=== PATIENT | female | born 1970 | race Caucasian/White ===

== ENCOUNTER 2018-05-02 08:07 | Emergency (ER) | payer OTHER, SELFPAY ==
[2018-05-02 08:14] VITALS: BP 140/83; PULSE 111; RESP 16; TEMP 36.5; O2SAT 100; BMI 35.0
--- NOTE | 2018-05-02 08:33 | ED.NAVMDI ---
HPI - Nausea/Vomiting/Diarrhea General Chief complaint: Nausea/Vomiting/Diarrhea Stated complaint: ABDOMINAL PAIN,NAUSEA,DIARRHEA Time Seen by Provider: 05/02/18 08:32 Source: patient and family Mode of arrival: ambulatory Limitations: no limitations History of Present Illness HPI Narrative: Patient states she has been having copious, runny diarrhea for the last 6 days. She states she has also been quite nauseated and vomited yesterday; however she has been able to hold down p.o. in between. She states her legs have also began to cramp. Patient states she has a longstanding history of GI issues, including multiple bowel obstructions for which no cause has been found. She had an idiopathic lower GI bleed in recent years, as well. She has had a Meckel's diverticulum removed, as well as a laparoscopic coli. She states she believes that her appendix was probably removed at the time her Meckel's was removed. She has had multiple EGDs and colonoscopies which have shown no abnormalities. She states she still has her female reproductive organs, and has had a recent episode of vaginal bleeding which lasted a few hours. She states that this is unusual, as she has had any lesion for uterus, and no longer has periods. Patient denies any other problems with her reproductive organs. Patient denies any blood in her stool. 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 Patient states the etiology of her class was never determined, though she has had extensive hematologic evaluation for this. Patient does note that she is undergoing electroconvulsive therapy in [place], and receives propofol and etomidate on a weekly to twice weekly basis for her treatments; however she states she has never had any nausea or other problems from the anesthesia. Patient states that this episode of diarrhea feels different from previous GI issue she has had. She denies any history of Crohn's or ulcerative colitis; no recent travel or camping; no history of recent sick contacts. Patient and her significant other notes that their dog has been ill and vomiting, but are not sure if this is related. Patient has not been on any recent antibiotic courses. Patient reports cramping across her low abdomen, but states there is a focus of intense pain in her left lower quadrant. No history of diverticulitis. Patient states she has not had any exposure to suspect food. She states she has had a feeling of chills but no fevers that she knows of. complaint: nausea and diarrhea Severity: moderate Severity scale (1-10): 6 Pain Consistency: constant (waxing and waning) Relieving factors: none Exacerbating factors: none Related Data Home Medications Medication Instructions Recorded Confirmed acetaminophen 1,000 mg PO Q6H PRN 03/06/18 05/02/18 bupropion HCl [Wellbutrin SR] 300 mg PO BID 03/06/18 05/02/18 ibuprofen 800 mg PO TID PRN 03/06/18 05/02/18 cholecalciferol (vitamin D3) 1,000 unit PO BID 05/02/18 05/02/18 [Vitamin D3] fluticasone [Flonase Allergy 2 spray INTRANASAL BEDTIME 05/02/18 05/02/18 Relief] tizanidine [Zanaflex] 4 mg PO TID 05/02/18 05/02/18 warfarin 6 mg PO QPM 05/02/18 05/02/18 Previous Rx's Medication Instructions Recorded ondansetron HCl [Zofran] 4 mg PO Q4HP PRN #180 tab 02/05/17 gabapentin [Neurontin] 1,200 mg PO HS #180 tab 08/15/17 prazosin 5 mg capsule 15 mg PO HS #270 cap 01/02/18 lorazepam 2 mg tablet 2 mg PO QIDP PRN #120 tab 04/23/18 zolpidem 10 mg tablet 10 mg PO HS #90 tab 04/24/18 ondansetron [Zofran ODT] 8 mg PO TID PRN #30 tab 05/02/18 oxycodone-acetaminophen [Percocet] 2 tab PO Q4-6H PRN #20 tab 05/02/18 Allergies Allergy/AdvReac Type Severity Reaction Status Date / Time No Known Drug Allergies Allergy Verified 05/02/18 08:14 Review of Systems Review of Systems All systems reviewed & are unremarkable except as noted in HPI and below Constitutional Denies chills, Denies fever(s), Denies lethargy and Denies weakness Eyes Denies change in vision, Denies eye discharge, Denies irritation and Denies loss of vision ENT Ears, Nose, Mouth, and Throat: Denies change in voice, Denies neck pain and Denies sore throat Cardiovascular Denies chest pain, Denies irregular heart rhythm, Denies lightheadedness, Denies palpitations, Denies dyspnea, Denies dyspnea on exertion and Denies orthopnea Respiratory Denies cough, Denies dyspnea, Denies dyspnea on exertion and Denies wheezing Gastrointestinal Gastrointestinal: Reports abdominal pain, Denies change in bowel habits, Reports diarrhea, Reports nausea and Reports vomiting Genitourinary Denies hematuria, Denies flank pain, Denies urinary incontinence and Denies urinary urgency Musculoskeletal Reports muscle cramps (Bilateral lower legs) and Denies neck pain Integumentary/Breasts Denies pruritus, Denies erythema, Denies rash and Denies wounds Neurologic Denies confusion, Denies loss of vision and Denies weakness Psychiatric Denies anxiety, Denies confusion, Denies depression, Denies homicidal ideation and Denies suicidal ideation Endocrine Denies palpitations Hematologic/Lymphatic Denies easy bruising Allergic/Immunologic Denies wheezing [facility] Medical History High risk medication use (Chronic) Bipolar 1 disorder, depressed (Chronic) PTSD (post-traumatic stress disorder) (Chronic) Panic attacks (Chronic) Chronic anemia (Chronic) Surgical History History of bowel resection History of gastric bypass Status post cardiac catheterization Status post cholecystectomy Family History Father Age: 73 Hypertension Mother Age: 70 Hyperlipidemia Mental health problem Social History Smoking Status: Never smoker Exam Initial Vital Signs Initial Vital Signs: Vital Signs Temperature 97.7 F 05/02/18 08:14 Pulse Rate 111 H 05/02/18 08:14 Respiratory Rate 16 05/02/18 08:14 Blood Pressure 140/83 05/02/18 08:14 Pulse Oximetry 100 05/02/18 08:14 Const General: cooperative and well developed Nutritional Appearance: well nourished Orientation: alert, awake, oriented x3 and not confused Other: Patient appears to be in some discomfort. HENMT Head: normocephalic and atraumatic Ears: external ears normal and TM's normal bilaterally Nose: external nose normal and No nasal discharge Face and sinus: sinuses nontender, face symmetric, no sinus tenderness and No dry mucous membranes Mouth: oral mucosae normal and moist mucous membranes Teeth and gingiva: dentition normal Throat: tonsils normal and uvula midline Eyes General: appearance normal, both eyes and all related structures Eyelids: eyelids normal Conjunctivae: conjunctivae normal Sclera: sclerae normal Pupils: PERRL EOM: EOM intact bilaterally Neck Neck: normal visual inspection, trachea midline, No lymphadenopathy, No midline deformity and No JVD Lymphatic: No lymphedema Chest Chest: normal inspection of the chest Resp Effort & Inspection: normal respiratory effort, able to speak in complete sentences, no respiratory distress and no use of accessory muscles Auscultation: clear to auscultation bilaterally, no rales, no rhonchi and no wheezes Cardio Rate: regular rate Rhythm: regular rhythm Heart Sounds: no click, no gallops, no murmurs and no rubs Pulses: normal peripheral pulses GI Inspection: non-distended Palpation: soft, no hepatosplenomegaly, No guarding, No pulsatile mass and tender Auscultation: normal bowel sounds Back/Spine/Pelvis Back: No CVA tenderness Cervical Spine: cervical ROM normal and No pain with cervical ROM Thoracic/Lumbar Spine: thoracic and lumbar spine normal to inspection Skin General: no rashes or lesions noted, No jaundice and No petechiae Neuro General: alert, oriented x3, gait normal and no focal motor deficits Speech: speech normal Extrem General: full ROM, no clubbing, cyanosis or edema, no pedal edema and no calf tenderness Psych Appearance: well kempt Mental Status: mental status grossly normal Attitude: cooperative Thought Content: normal and suicidality Judgment: judgment good Course Course Narrative: Patient was treated symptomatically, and in consider patient for complex medical history, she was worked up with laboratory studies, urinalysis, stool studies and imaging. Orders Ordered: Discontinued Medications Acetaminophen/Codeine Phosphate (Tylenol Oral Mylene 120-12 Mg/5 Ml) 10 ml PO NOW ONE Stop: 05/02/18 12:36 Last Admin: 05/02/18 13:58 Dose: Hydromorphone HCl (Dilaudid) 1 mg IV NOW ONE Stop: 05/02/18 09:04 Last Admin: 05/02/18 09:24 Dose: 1 mg Hydromorphone HCl (Dilaudid) 1 mg IV NOW ONE Stop: 05/02/18 10:54 Last Admin: 05/02/18 11:00 Dose: 1 mg Sodium Chloride (Normal Saline 0.9%) 1,000 mls @ 1,000 mls/hr IV BOLUS ONE Stop: 05/02/18 10:02 Last Infusion: 05/02/18 10:24 Dose: 0 mls/hr Admin: 05/02/18 09:24 Dose: 1,000 mls/hr Ondansetron HCl 8 mg/ Sodium (Chloride) 54 mls @ 216 mls/hr IV NOW ONE Stop: 05/02/18 09:04 Last Infusion: 05/02/18 09:55 Dose: 0 mls/hr Admin: 05/02/18 09:24 Dose: 216 mls/hr Ondansetron HCl (Zofran) 8 mg IV NOW ONE Stop: 05/02/18 12:50 Last Admin: 05/02/18 12:54 Dose: 8 mg Prednisone (Deltasone) 60 mg PO NOW ONE Stop: 05/02/18 12:36 Last Admin: 05/02/18 13:58 Dose: Vital Signs - 8 hr 05/02/18 08:14 Temperature 97.7 F Pulse Rate 111 H Respiratory Rate 16 Blood Pressure 140/83 Pulse Oximetry 100 MDM - Nausea/Vomiting/Diarrhea Medical Records Attestation: I reviewed the patient's medical records. Lab Data Attestation: I reviewed the patient's lab results. Result diagrams: 05/02/18 10:40 05/02/18 10:40 Lab Results 05/02/18 05/02/18 05/02/18 Range/Units 10:10 10:40 10:40 WBC 6.8 (4.5-11.0) X10^3/uL RBC 4.26 (4.0-5.2) X10^6/uL Hgb 11.8 L (12.0-16.0) g/dL Hct 36.6 (36-46) % MCV 85.9 (80-100) fL MCH 27.7 (26-34) PG MCHC 32.3 (30-36) % RDW 20.0 H (11.6-14.8) % Plt Count 232 (150-400) X10^3/uL Neut % (Auto) 70.2 (50-75) % Lymph % (Auto) 18.1 L (25-40) % White % (Auto) 6.1 (3-14) % Eos % (Auto) 5.2 H (2-4) % Baso % (Auto) 0.4 (0-2) % Neut # (Auto) 4800 (4201-5382) /uL PT 42.3 H (10.1-12.7) SECONDS INR 3.8 H (0.9-1.3) Sodium 144 (137-145) mmol/L Potassium 4.0 (3.4-5.1) mmol/L Chloride 112 H (98-107) mmol/L Carbon Dioxide 23 (22-32) mmol/L BUN 8 (7-17) mg/dL Creatinine 0.80 (0.52-1.04) mg/dL Estimated GFR > 60.0 (>60) mL/min BUN/Creatinine Ratio 10.0 (6-22) Glucose 84 (70-100) mg/dL Calcium 8.4 (8.4-10.2) mg/dL Total Bilirubin 0.2 (0.2-1.3) mg/dL AST 21 (14-36) IU/L ALT 28 (9-52) IU/L Alkaline Phosphatase 75 (38-126) U/L Total Protein 6.7 (6.3-8.2) g/dL Albumin 3.8 (3.5-5.0) g/dL Globulin 2.9 (1.7-4.1) g/dL Albumin/Globulin Ratio 1.3 (1.0-2.8) Urine Color Urine Appearance Urine pH (4.5-8.0) Ur Specific Doon (1.000-1.035) Urine Protein (Negative) Urine Glucose (UA) (Normal) g/dL Urine Ketones (NEGATIVE) Urine Occult Blood (Negative) Urine Nitrate (Negative) Urine Bilirubin (NEGATIVE) Urine Urobilinogen (0.2) E.U./dL Ur Leukocyte Esterase (NEGATIVE) Urine RBC (0-5/HPF) Urine WBC (0-5/HPF) Ur Squamous Epith Cells Urine Bacteria (None) Ur Culture Indicated? Micro UA Comment 05/02/18 Range/Units 10:40 WBC (4.5-11.0) X10^3/uL RBC (4.0-5.2) X10^6/uL Hgb (12.0-16.0) g/dL Hct (36-46) % MCV (80-100) fL MCH (26-34) PG MCHC (30-36) % RDW (11.6-14.8) % Plt Count (150-400) X10^3/uL Neut % (Auto) (50-75) % Lymph % (Auto) (25-40) % White % (Auto) (3-14) % Eos % (Auto) (2-4) % Baso % (Auto) (0-2) % Neut # (Auto) (3716-5743) /uL PT (10.1-12.7) SECONDS INR (0.9-1.3) Sodium (137-145) mmol/L Potassium (3.4-5.1) mmol/L Chloride (98-107) mmol/L Carbon Dioxide (22-32) mmol/L BUN (7-17) mg/dL Creatinine (0.52-1.04) mg/dL Estimated GFR (>60) mL/min BUN/Creatinine Ratio (6-22) Glucose (70-100) mg/dL Calcium (8.4-10.2) mg/dL Total Bilirubin (0.2-1.3) mg/dL AST (14-36) IU/L ALT (9-52) IU/L Alkaline Phosphatase (38-126) U/L Total Protein (6.3-8.2) g/dL Albumin (3.5-5.0) g/dL Globulin (1.7-4.1) g/dL Albumin/Globulin Ratio (1.0-2.8) Urine Color Straw Urine Appearance Clear Urine pH 5.5 (4.5-8.0) Ur Specific Doon <=1.005 (1.000-1.035) Urine Protein Negative (Negative) Urine Glucose (UA) Negative (Normal) g/dL Urine Ketones Negative (NEGATIVE) Urine Occult Blood Negative (Negative) Urine Nitrate Negative (Negative) Urine Bilirubin Negative (NEGATIVE) Urine Urobilinogen 0.2 (0.2) E.U./dL Ur Leukocyte Esterase Negative (NEGATIVE) Urine RBC None seen (0-5/HPF) Urine WBC None seen (0-5/HPF) Ur Squamous Epith Cells 0-1 /hpf Urine Bacteria Few (2-10) H (None) Ur Culture Indicated? Cult not indicated Micro UA Comment Not Reportable Imaging Data CT scan - abdomen: Radiologist's impression: [address] [address] [address] Scan Report Signed Patient: Maryuri Bauer [facility]#: [id number] : 1970Acct:[id number] Age/Sex: 47 / FDate of Service: 05/02/18 Loc: ED Accession Number: [id number] Procedure: CT abdomen pelvis w con Ordering Provider: Keira Alberto MD PROCEDURE: CT ABDOMEN PELVIS W CON INDICATIONS: LLQ abdominal pain TECHNIQUE: After the administration of oral and intravenous contrast, 5 mm thick sections acquired from the diaphragms to the symphysis. 5 mm thick coronal and sagittal reformats were performed. For radiation dose reduction, the following was used: automated exposure control, adjustment of mA and/or kV according to patient size. COMPARISON: [facility], CT, ABDOMEN/PELVIS WITH CONTRAST, 11/16/2015, 21:29. [facility], CT, ABDOMEN/PELVIS WITH CONTRAST, 10/22/2015, 19:33. [facility], CT, ABDOMEN/PELVIS WITH CONTRAST, 05/15/2015, 17:02. FINDINGS: Image quality: Diagnostic. ABDOMEN: Lung bases: Mild scarring versus atelectasis is identified within the lung bases. Heart size is normal. Solid organs: Liver is normal in size and enhancement. Gallbladder is surgically absent. Biliary system is non-dilated. Pancreas enhances normally. Spleen is normal in size and enhancement. No adrenal nodules. Kidneys are normal in size and enhancement, without hydronephrosis. Peritoneum and bowel: Postoperative changes of the stomach are present related to previous gastric bypass surgery. The proximal and distal anastomotic areas appear to be within normal limits. Also is postoperative change identified involving the small bowel within the right midabdomen. Moderate residual stool is identified throughout the colon. Partial distended small bowel loops are identified. There is no free fluid, loculated fluid collection or free air. Nodes and vessels: No retroperitoneal or mesenteric adenopathy. Aorta and inferior vena cava are normal in caliber. Miscellaneous: No ventral hernias. PELVIS: Genitourinary: The urinary bladder is decompressed. However, there is prominence of the bladder wall. The uterus and left ovary are normal in size. There is a low-attenuation ovoid lesion identified involving the right ovary, which measures up to approximately 3.3 cm which is new since the prior study. Miscellaneous: No inguinal hernias or adenopathy. There is no loculated fluid collection. Bones: No suspicious bony lesions. No vertebral body compression fractures. A spinal stimulator apparatus is identified with the lead extending to at least the dorsal aspect of the knee T8 level. Her mild degenerative changes of the hips and sacroiliac joints. Age-appropriate degenerative changes of the spine are present. IMPRESSION: 1. No convincing acute findings of the abdomen or pelvis to explain the patient's left lower quadrant pain. 2. Postoperative changes of the bowel. No evidence of a complete bowel obstruction. 3. Colonic constipation. 4. Right ovarian cyst. Followup imaging in 2-3 months is recommended to document resolution. 5. Mild prominence of the urinary bladder also doubtful significance typically clinically to exclude cystitis. Dictated by: Sanford Tran M.D. on 05/02/2018 at 10:27 Approved by: Sanford Tran M.D. on 05/02/2018 at 10:31 [facility] Narrative Medical decision making narrative: patient was worked up extensively and treated symptomatically. No definite cause of her symptoms was discovered, and workup was unremarkable. We have discussed the need for stool sample, which patient will try to give at home. patient is feeling a little better and is stable for discharge. We have discussed the usual indications for return, as well as symptomatic management. Discharge Plan Departure Patient Disposition: Home Clinical Impression: Diarrhea, Abdominal pain Discharge Date/Time: 05/02/18 13:20 Interventions: ED Discharge Assessment Last Done: 05/02/18 13:20 Instructions: DI for Viral Gastroenteritis -- Adult Prescriptions: New ondansetron [Zofran ODT] 4 mg tablet,disintegrating 8 mg PO TID PRN (Reason: nausea and vomiting) Qty: 30 RF: 0 oxycodone-acetaminophen [Percocet] 5-325 mg tablet 2 tab PO Q4-6H PRN (Reason: pain) Qty: 20 RF: 0 No Action lorazepam 2 mg tablet 2 mg PO QIDP PRN (Reason: anxiety) Qty: 120 RF: 1 ondansetron HCl [Zofran] 4 MG tablet 4 mg PO Q4HP PRNQty: 180 RF: 5 gabapentin [Neurontin] 600 MG tablet 1,200 mg PO HS Qty: 180 RF: 1 prazosin [Minipress] 5 mg capsule 15 mg PO HS Qty: 270 RF: 1 zolpidem 10 mg tablet 10 mg PO HS Qty: 90 RF: 1 ibuprofen 800 mg Tablet 800 mg PO TID PRN (Reason: Pain (Scale Score 4-6)) RF: 0 acetaminophen 500 mg Tablet 1,000 mg PO Q6H PRN (Reason: Pain, Mild) RF: 0 bupropion HCl [Wellbutrin SR] 150 mg tablet extended release 12 hr 300 mg PO BID RF: 0 cholecalciferol (vitamin D3) [Vitamin D3] 1,000 unit Capsule 1,000 unit PO BID RF: 0 warfarin 6 mg tablet 6 mg PO QPM RF: 0 fluticasone [Flonase Allergy Relief] 50 mcg/actuation spray,suspension 2 spray Intranasal BEDTIME RF: 0 tizanidine [Zanaflex] 4 mg capsule 4 mg PO TID RF: 0 Referrals: Yunier Keys MD [Primary Care Provider] -
[2018-05-02 09:00] VITALS: BP 121/87; PULSE 101; O2SAT 97
--- NOTE | 2018-05-02 09:16 | ED_ITS ---
HPI - Nausea/Vomiting/Diarrhea General Chief complaint: Nausea/Vomiting/Diarrhea Stated complaint: ABDOMINAL PAIN,NAUSEA,DIARRHEA Time Seen by Provider: 05/02/18 08:32 Source: patient and family Mode of arrival: ambulatory Limitations: no limitations History of Present Illness HPI Narrative: Patient states she has been having copious, runny diarrhea for the last 6 days. She states she has also been quite nauseated and vomited yesterday; however she has been able to hold down p.o. in between. She states her legs have also began to cramp. Patient states she has a longstanding history of GI issues, including multiple bowel obstructions for which no cause has been found. She had an idiopathic lower GI bleed in recent years, as well. She has had a Meckel's diverticulum removed, as well as a laparoscopic coli. She states she believes that her appendix was probably removed at the time her Meckel's was removed. She has had multiple EGDs and colonoscopies which have shown no abnormalities. She states she still has her female reproductive organs , and has had a recent episode of vaginal bleeding which lasted a few hours. She states that this is unusual, as she has had any lesion for uterus, and no longer has periods. Patient denies any other problems with her reproductive organs. Patient denies any blood in her stool. 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 Patient states the etiology of her class was never determined, though she has had extensive hematologic evaluation for this. Patient does note that she is undergoing electroconvulsive therapy in [place] , and receives propofol and etomidate on a weekly to twice weekly basis for her treatments; however she states she has never had any nausea or other problems from the anesthesia. Patient states that this episode of diarrhea feels different from previous GI issue she has had. She denies any history of Crohn' s or ulcerative colitis; no recent travel or camping; no history of recent sick contacts. Patient and her significant other notes that their dog has been ill and vomiting, but are not sure if this is related. Patient has not been on any recent antibiotic courses. Patient reports cramping across her low abdomen, but states there is a focus of intense pain in her left lower quadrant. No history of diverticulitis. Patient states she has not had any exposure to suspect food. She states she has had a feeling of chills but no fevers that she knows of. complaint: nausea and diarrhea Severity: moderate Severity scale (1-10): 6 Pain Consistency: constant (waxing and waning) Relieving factors: none Exacerbating factors: none Related Data Home Medications Medication Instructions Recorded Confirmed acetaminophen 1,000 mg PO Q6H PRN 03/06/18 05/02/18 bupropion HCl [Wellbutrin SR] 300 mg PO BID 03/06/18 05/02/18 ibuprofen 800 mg PO TID PRN 03/06/18 05/02/18 cholecalciferol (vitamin D3) 1,000 unit PO BID 05/02/18 05/02/18 [Vitamin D3] fluticasone [Flonase Allergy 2 spray INTRANASAL BEDTIME 05/02/18 05/02/18 Relief] tizanidine [Zanaflex] 4 mg PO TID 05/02/18 05/02/18 warfarin 6 mg PO QPM 05/02/18 05/02/18 Previous Rx's Medication Instructions Recorded ondansetron HCl [Zofran] 4 mg PO Q4HP PRN #180 tab 02/05/17 gabapentin [Neurontin] 1,200 mg PO HS #180 tab 08/15/17 prazosin 5 mg capsule 15 mg PO HS #270 cap 01/02/18 lorazepam 2 mg tablet 2 mg PO QIDP PRN #120 tab 04/23/18 zolpidem 10 mg tablet 10 mg PO HS #90 tab 04/24/18 ondansetron [Zofran ODT] 8 mg PO TID PRN #30 tab 05/02/18 oxycodone-acetaminophen [Percocet] 2 tab PO Q4-6H PRN #20 tab 05/02/18 Allergies Allergy/AdvReac Type Severity Reaction Status Date / Time No Known Drug Allergies Allergy Verified 05/02/18 08:14 Review of Systems Review of Systems All systems reviewed & are unremarkable except as noted in HPI and below Constitutional Denies chills, Denies fever(s), Denies lethargy and Denies weakness Eyes Denies change in vision, Denies eye discharge, Denies irritation and Denies loss of vision ENT Ears, Nose, Mouth, and Throat: Denies change in voice, Denies neck pain and Denies sore throat Cardiovascular Denies chest pain, Denies irregular heart rhythm, Denies lightheadedness, Denies palpitations, Denies dyspnea, Denies dyspnea on exertion and Denies orthopnea Respiratory Denies cough, Denies dyspnea, Denies dyspnea on exertion and Denies wheezing Gastrointestinal Gastrointestinal: Reports abdominal pain, Denies change in bowel habits, Reports diarrhea, Reports nausea and Reports vomiting Genitourinary Denies hematuria, Denies flank pain, Denies urinary incontinence and Denies urinary urgency Musculoskeletal Reports muscle cramps (Bilateral lower legs) and Denies neck pain Integumentary/Breasts Denies pruritus, Denies erythema, Denies rash and Denies wounds Neurologic Denies confusion, Denies loss of vision and Denies weakness Psychiatric Denies anxiety, Denies confusion, Denies depression, Denies homicidal ideation and Denies suicidal ideation Endocrine Denies palpitations Hematologic/Lymphatic Denies easy bruising Allergic/Immunologic Denies wheezing [facility] Medical History High risk medication use (Chronic) Bipolar 1 disorder, depressed (Chronic) PTSD (post-traumatic stress disorder) (Chronic) Panic attacks (Chronic) Chronic anemia (Chronic) Surgical History History of bowel resection History of gastric bypass Status post cardiac catheterization Status post cholecystectomy Family History Father Age: 73 Hypertension Mother Age: 70 Hyperlipidemia Mental health problem Social History Smoking Status: Never smoker Exam Initial Vital Signs Initial Vital Signs: Vital Signs Temperature 97.7 F 05/02/18 08:14 Pulse Rate 111 H 05/02/18 08:14 Respiratory Rate 16 05/02/18 08:14 Blood Pressure 140/83 05/02/18 08:14 Pulse Oximetry 100 05/02/18 08:14 Const General: cooperative and well developed Nutritional Appearance: well nourished Orientation: alert, awake, oriented x3 and not confused Other: Patient appears to be in some discomfort. HENMT Head: normocephalic and atraumatic Ears: external ears normal and TM's normal bilaterally Nose: external nose normal and No nasal discharge Face and sinus: sinuses nontender, face symmetric, no sinus tenderness and No dry mucous membranes Mouth: oral mucosae normal and moist mucous membranes Teeth and gingiva: dentition normal Throat: tonsils normal and uvula midline Eyes General: appearance normal, both eyes and all related structures Eyelids: eyelids normal Conjunctivae: conjunctivae normal Sclera: sclerae normal Pupils: PERRL EOM: EOM intact bilaterally Neck Neck: normal visual inspection, trachea midline, No lymphadenopathy, No midline deformity and No JVD Lymphatic: No lymphedema Chest Chest: normal inspection of the chest Resp Effort & Inspection: normal respiratory effort, able to speak in complete sentences, no respiratory distress and no use of accessory muscles Auscultation: clear to auscultation bilaterally, no rales, no rhonchi and no wheezes Cardio Rate: regular rate Rhythm: regular rhythm Heart Sounds: no click, no gallops, no murmurs and no rubs Pulses: normal peripheral pulses GI Inspection: non-distended Palpation: soft, no hepatosplenomegaly, No guarding, No pulsatile mass and tender Auscultation: normal bowel sounds Back/Spine/Pelvis Back: No CVA tenderness Cervical Spine: cervical ROM normal and No pain with cervical ROM Thoracic/Lumbar Spine: thoracic and lumbar spine normal to inspection Skin General: no rashes or lesions noted, No jaundice and No petechiae Neuro General: alert, oriented x3, gait normal and no focal motor deficits Speech: speech normal Extrem General: full ROM, no clubbing, cyanosis or edema, no pedal edema and no calf tenderness Psych Appearance: well kempt Mental Status: mental status grossly normal Attitude: cooperative Thought Content: normal and suicidality Judgment: judgment good Course Course Narrative: Patient was treated symptomatically, and in consider patient for complex medical history, she was worked up with laboratory studies, urinalysis, stool studies and imaging. Orders Ordered: Discontinued Medications Acetaminophen/Codeine Phosphate (Tylenol Oral Mylene 120-12 Mg/5 Ml) 10 ml PO NOW ONE Stop: 05/02/18 12:36 Last Admin: 05/02/18 13:58 Dose: Hydromorphone HCl (Dilaudid) 1 mg IV NOW ONE Stop: 05/02/18 09:04 Last Admin: 05/02/18 09:24 Dose: 1 mg Hydromorphone HCl (Dilaudid) 1 mg IV NOW ONE Stop: 05/02/18 10:54 Last Admin: 05/02/18 11:00 Dose: 1 mg Sodium Chloride (Normal Saline 0.9%) 1,000 mls @ 1,000 mls/hr IV BOLUS ONE Stop: 05/02/18 10:02 Last Infusion: 05/02/18 10:24 Dose: 0 mls/hr Admin: 05/02/18 09:24 Dose: 1,000 mls/hr Ondansetron HCl 8 mg/ Sodium (Chloride) 54 mls @ 216 mls/hr IV NOW ONE Stop: 05/02/18 09:04 Last Infusion: 05/02/18 09:55 Dose: 0 mls/hr Admin: 05/02/18 09:24 Dose: 216 mls/hr Ondansetron HCl (Zofran) 8 mg IV NOW ONE Stop: 05/02/18 12:50 Last Admin: 05/02/18 12:54 Dose: 8 mg Prednisone (Deltasone) 60 mg PO NOW ONE Stop: 05/02/18 12:36 Last Admin: 05/02/18 13:58 Dose: Vital Signs - 8 hr 05/02/18 08:14 Temperature 97.7 F Pulse Rate 111 H Respiratory Rate 16 Blood Pressure 140/83 Pulse Oximetry 100 MDM - Nausea/Vomiting/Diarrhea Medical Records Attestation: I reviewed the patient's medical records. Lab Data Attestation: I reviewed the patient's lab results. Result diagrams: 05/02/18 10:40 05/02/18 10:40 Lab Results 05/02/18 05/02/18 05/02/18 Range/Units 10:10 10:40 10:40 WBC 6.8 (4.5-11.0) X10^3/uL RBC 4.26 (4.0-5.2) X10^6/uL Hgb 11.8 L (12.0-16.0) g/dL Hct 36.6 (36-46) % MCV 85.9 (80-100) fL MCH 27.7 (26-34) PG MCHC 32.3 (30-36) % RDW 20.0 H (11.6-14.8) % Plt Count 232 (150-400) X10^3/uL Neut % (Auto) 70.2 (50-75) % Lymph % (Auto) 18.1 L (25-40) % Wilcox % (Auto) 6.1 (3-14) % Eos % (Auto) 5.2 H (2-4) % Baso % (Auto) 0.4 (0-2) % Neut # (Auto) 4800 (1677-0338) /uL PT 42.3 H (10.1-12.7) SECONDS INR 3.8 H (0.9-1.3) Sodium 144 (137-145) mmol/L Potassium 4.0 (3.4-5.1) mmol/L Chloride 112 H (98-107) mmol/L Carbon Dioxide 23 (22-32) mmol/L BUN 8 (7-17) mg/dL Creatinine 0.80 (0.52-1.04) mg/dL Estimated GFR > 60.0 (>60) mL/min BUN/Creatinine Ratio 10.0 (6-22) Glucose 84 (70-100) mg/dL Calcium 8.4 (8.4-10.2) mg/dL Total Bilirubin 0.2 (0.2-1.3) mg/dL AST 21 (14-36) IU/L ALT 28 (9-52) IU/L Alkaline Phosphatase 75 (38-126) U/L Total Protein 6.7 (6.3-8.2) g/dL Albumin 3.8 (3.5-5.0) g/dL Globulin 2.9 (1.7-4.1) g/dL Albumin/Globulin Ratio 1.3 (1.0-2.8) Urine Color Urine Appearance Urine pH (4.5-8.0) Ur Specific Wallace (1.000-1.035) Urine Protein (Negative) Urine Glucose (UA) (Normal) g/dL Urine Ketones (NEGATIVE) Urine Occult Blood (Negative) Urine Nitrate (Negative) Urine Bilirubin (NEGATIVE) Urine Urobilinogen (0.2) E.U./dL Ur Leukocyte Esterase (NEGATIVE) Urine RBC (0-5/HPF) Urine WBC (0-5/HPF) Ur Squamous Epith Cells Urine Bacteria (None) Ur Culture Indicated? Micro UA Comment 05/02/18 Range/Units 10:40 WBC (4.5-11.0) X10^3/uL RBC (4.0-5.2) X10^6/uL Hgb (12.0-16.0) g/dL Hct (36-46) % MCV (80-100) fL MCH (26-34) PG MCHC (30-36) % RDW (11.6-14.8) % Plt Count (150-400) X10^3/uL Neut % (Auto) (50-75) % Lymph % (Auto) (25-40) % Wilcox % (Auto) (3-14) % Eos % (Auto) (2-4) % Baso % (Auto) (0-2) % Neut # (Auto) (0679-0277) /uL PT (10.1-12.7) SECONDS INR (0.9-1.3) Sodium (137-145) mmol/L Potassium (3.4-5.1) mmol/L Chloride (98-107) mmol/L Carbon Dioxide (22-32) mmol/L BUN (7-17) mg/dL Creatinine (0.52-1.04) mg/dL Estimated GFR (>60) mL/min BUN/Creatinine Ratio (6-22) Glucose (70-100) mg/dL Calcium (8.4-10.2) mg/dL Total Bilirubin (0.2-1.3) mg/dL AST (14-36) IU/L ALT (9-52) IU/L Alkaline Phosphatase (38-126) U/L Total Protein (6.3-8.2) g/dL Albumin (3.5-5.0) g/dL Globulin (1.7-4.1) g/dL Albumin/Globulin Ratio (1.0-2.8) Urine Color Straw Urine Appearance Clear Urine pH 5.5 (4.5-8.0) Ur Specific Wallace <=1.005 (1.000-1.035) Urine Protein Negative (Negative) Urine Glucose (UA) Negative (Normal) g/dL Urine Ketones Negative (NEGATIVE) Urine Occult Blood Negative (Negative) Urine Nitrate Negative (Negative) Urine Bilirubin Negative (NEGATIVE) Urine Urobilinogen 0.2 (0.2) E.U./dL Ur Leukocyte Esterase Negative (NEGATIVE) Urine RBC None seen (0-5/HPF) Urine WBC None seen (0-5/HPF) Ur Squamous Epith Cells 0-1 /hpf Urine Bacteria Few (2-10) H (None) Ur Culture Indicated? Cult not indicated Micro UA Comment Not Reportable Imaging Data CT scan - abdomen: Radiologist's impression: [address] [address] [address] Scan Report Signed Patient: Maryuri Bauer [facility]#: [id number] : 1970Acct:[id number] Age/Sex: 47 / FDate of Service: 05/02/18 Loc: ED Accession Number: [id number] Procedure: CT abdomen pelvis w con Ordering Provider: Keira Alberto MD PROCEDURE: CT ABDOMEN PELVIS W CON INDICATIONS: LLQ abdominal pain TECHNIQUE: After the administration of oral and intravenous contrast, 5 mm thick sections acquired from the diaphragms to the symphysis. 5 mm thick coronal and sagittal reformats were performed. For radiation dose reduction, the following was used: automated exposure control, adjustment of mA and/or kV according to patient size. COMPARISON: [facility], CT, ABDOMEN/PELVIS WITH CONTRAST, 11/16/2015, 21: 29. [facility], CT, ABDOMEN/PELVIS WITH CONTRAST, 10/22/2015, 19:33. [facility], CT, ABDOMEN/PELVIS WITH CONTRAST, 05/15/2015, 17:02. FINDINGS: Image quality: Diagnostic. ABDOMEN: Lung bases: Mild scarring versus atelectasis is identified within the lung bases. Heart size is normal. Solid organs: Liver is normal in size and enhancement. Gallbladder is surgically absent. Biliary system is non-dilated. Pancreas enhances normally. Spleen is normal in size and enhancement. No adrenal nodules. Kidneys are normal in size and enhancement, without hydronephrosis. Peritoneum and bowel: Postoperative changes of the stomach are present related to previous gastric bypass surgery. The proximal and distal anastomotic areas appear to be within normal limits. Also is postoperative change identified involving the small bowel within the right midabdomen. Moderate residual stool is identified throughout the colon. Partial distended small bowel loops are identified. There is no free fluid, loculated fluid collection or free air. Nodes and vessels: No retroperitoneal or mesenteric adenopathy. Aorta and inferior vena cava are normal in caliber. Miscellaneous: No ventral hernias. PELVIS: Genitourinary: The urinary bladder is decompressed. However, there is prominence of the bladder wall. The uterus and left ovary are normal in size. There is a low- attenuation ovoid lesion identified involving the right ovary, which measures up to approximately 3.3 cm which is new since the prior study. Miscellaneous: No inguinal hernias or adenopathy. There is no loculated fluid collection. Bones: No suspicious bony lesions. No vertebral body compression fractures. A spinal stimulator apparatus is identified with the lead extending to at least the dorsal aspect of the knee T8 level. Her mild degenerative changes of the hips and sacroiliac joints. Age-appropriate degenerative changes of the spine are present. IMPRESSION: 1. No convincing acute findings of the abdomen or pelvis to explain the patient 's left lower quadrant pain. 2. Postoperative changes of the bowel. No evidence of a complete bowel obstruction. 3. Colonic constipation. 4. Right ovarian cyst. Followup imaging in 2-3 months is recommended to document resolution. 5. Mild prominence of the urinary bladder also doubtful significance typically clinically to exclude cystitis. Dictated by: Sanford Tran M.D. on 05/02/2018 at 10:27 Approved by: Sanford Tran M.D. on 05/02/2018 at 10:31 [facility] Narrative Medical decision making narrative: patient was worked up extensively and treated symptomatically. No definite cause of her symptoms was discovered, and workup was unremarkable. We have discussed the need for stool sample, which patient will try to give at home. patient is feeling a little better and is stable for discharge. We have discussed the usual indications for return, as well as symptomatic management. Discharge Plan Departure Patient Disposition: Home Clinical Impression: Diarrhea, Abdominal pain Discharge Date/Time: 05/02/18 13:20 Interventions: ED Discharge Assessment Last Done: 05/02/18 13:20 Instructions: DI for Viral Gastroenteritis -- Adult Prescriptions: New ondansetron [Zofran ODT] 4 mg tablet,disintegrating 8 mg PO TID PRN (Reason: nausea and vomiting) Qty: 30 RF: 0 oxycodone-acetaminophen [Percocet] 5-325 mg tablet 2 tab PO Q4-6H PRN (Reason: pain) Qty: 20 RF: 0 No Action lorazepam 2 mg tablet 2 mg PO QIDP PRN (Reason: anxiety) Qty: 120 RF: 1 ondansetron HCl [Zofran] 4 MG tablet 4 mg PO Q4HP PRNQty: 180 RF: 5 gabapentin [Neurontin] 600 MG tablet 1,200 mg PO HS Qty: 180 RF: 1 prazosin [Minipress] 5 mg capsule 15 mg PO HS Qty: 270 RF: 1 zolpidem 10 mg tablet 10 mg PO HS Qty: 90 RF: 1 ibuprofen 800 mg Tablet 800 mg PO TID PRN (Reason: Pain (Scale Score 4-6)) RF: 0 acetaminophen 500 mg Tablet 1,000 mg PO Q6H PRN (Reason: Pain, Mild) RF: 0 bupropion HCl [Wellbutrin SR] 150 mg tablet extended release 12 hr 300 mg PO BID RF: 0 cholecalciferol (vitamin D3) [Vitamin D3] 1,000 unit Capsule 1,000 unit PO BID RF: 0 warfarin 6 mg tablet 6 mg PO QPM RF: 0 fluticasone [Flonase Allergy Relief] 50 mcg/actuation spray,suspension 2 spray Intranasal BEDTIME RF: 0 tizanidine [Zanaflex] 4 mg capsule 4 mg PO TID RF: 0 Referrals: Yunier Keys MD [Primary Care Provider] -
[2018-05-02] MEDS: SODIUM CHLORIDE 0.9% 1,000 ML 1000 ML IV (09:24)
[2018-05-02] MEDS: ONDANSETRON 8 MG in SODIUM CHLORIDE 0.9% 50 ML 216 ML IV (09:24)
[2018-05-02] MEDS: HYDROMORPHONE 1 MG INJ IV ×2 (09:24→11:00)
[2018-05-02 09:47] VITALS: BP 132/75; PULSE 107; RESP 16; O2SAT 98
[2018-05-02 09:49] LABS: Add Manual Diff / Slide Review NO; Basophils Percent Auto 0.4 % (0-2); Eosinophils Percent Auto 5.2 % (2-4); Hematocrit 36.6 % (36-46); Hemoglobin 11.8 g/dL (12.0-16.0); Lymphocytes Percent Auto 18.1 % (25-40); Mean Corpuscular HGB Conc 32.3 % (30-36); Mean Corpuscular Hemoglobin 27.7 PG (26-34); Mean Corpuscular Volume 85.9 fL (80-100); Monocytes Percent Auto 6.1 % (3-14); Neutrophils Absolute Auto 4800 /uL (3000-5900); Neutrophils Percent Auto 70.2 % (50-75); Platelet Count 232 X10^3/uL (150-400); Red Blood Cell Count 4.26 X10^6/uL (4.0-5.2); White Blood Cell Count 6.8 X10^3/uL (4.5-11.0)
[2018-05-02 10:00] VITALS: BP 132/65; PULSE 97; O2SAT 100
[2018-05-02 10:03] LABS: Alanine Aminotransferase 28 IU/L (9-52); Albumin 3.8 g/dL (3.5-5.0); Albumin Globulin Ratio 1.3 (1.0-2.8); Alkaline Phosphatase 75 U/L (38-126); Aspartate Aminotransferase 21 IU/L (14-36); Bilirubin Total 0.2 mg/dL (0.2-1.3); Blood Urea Nitrogen 8 mg/dL (7-17); Calcium 8.4 mg/dL (8.4-10.2); Carbon Dioxide 23 mmol/L (22-32); Chloride 112 mmol/L (98-107); Estimated Glomerular Filt Rate > 60.0 mL/min (>60); Globulin 2.9 g/dL (1.7-4.1); Glucose 84 mg/dL (70-100); HEMOLYSIS < 15 (0-50); Sodium 144 mmol/L (137-145); Total Protein 6.7 g/dL (6.3-8.2)
[2018-05-02 10:22] LABS: INR 3.8 (0.9-1.3); Prothrombin Time 42.3 SECONDS (10.1-12.7)
--- NOTE | 2018-05-02 10:31 | DI.CT.S_ITS ---
PROCEDURE: CT ABDOMEN PELVIS W CON INDICATIONS: LLQ abdominal pain TECHNIQUE: After the administration of oral and intravenous contrast, 5 mm thick sections acquired from the diaphragms to the symphysis. 5 mm thick coronal and sagittal reformats were performed. For radiation dose reduction, the following was used: automated exposure control, adjustment of mA and/or kV according to patient size. COMPARISON: [facility], CT, ABDOMEN/PELVIS WITH CONTRAST, 11/16/2015, 21:29. [facility], CT, ABDOMEN/PELVIS WITH CONTRAST, 10/22/2015, 19:33. [facility], CT, ABDOMEN/PELVIS WITH CONTRAST, 05/15/2015, 17:02. FINDINGS: Image quality: Diagnostic. ABDOMEN: Lung bases: Mild scarring versus atelectasis is identified within the lung bases. Heart size is normal. Solid organs: Liver is normal in size and enhancement. Gallbladder is surgically absent. Biliary system is non-dilated. Pancreas enhances normally. Spleen is normal in size and enhancement. No adrenal nodules. Kidneys are normal in size and enhancement, without hydronephrosis. Peritoneum and bowel: Postoperative changes of the stomach are present related to previous gastric bypass surgery. The proximal and distal anastomotic areas appear to be within normal limits. Also is postoperative change identified involving the small bowel within the right midabdomen. Moderate residual stool is identified throughout the colon. Partial distended small bowel loops are identified. There is no free fluid, loculated fluid collection or free air. Nodes and vessels: No retroperitoneal or mesenteric adenopathy. Aorta and inferior vena cava are normal in caliber. Miscellaneous: No ventral hernias. PELVIS: Genitourinary: The urinary bladder is decompressed. However, there is prominence of the bladder wall. The uterus and left ovary are normal in size. There is a low-attenuation ovoid lesion identified involving the right ovary, which measures up to approximately 3.3 cm which is new since the prior study. Miscellaneous: No inguinal hernias or adenopathy. There is no loculated fluid collection. Bones: No suspicious bony lesions. No vertebral body compression fractures. A spinal stimulator apparatus is identified with the lead extending to at least the dorsal aspect of the knee T8 level. Her mild degenerative changes of the hips and sacroiliac joints. Age-appropriate degenerative changes of the spine are present. IMPRESSION: 1. No convincing acute findings of the abdomen or pelvis to explain the patient's left lower quadrant pain. 2. Postoperative changes of the bowel. No evidence of a complete bowel obstruction. 3. Colonic constipation. 4. Right ovarian cyst. Followup imaging in 2-3 months is recommended to document resolution. 5. Mild prominence of the urinary bladder also doubtful significance typically clinically to exclude cystitis. Dictated by: Sanford Tran M.D. on 05/02/2018 at 10:27 Approved by: Sanford Tran M.D. on 05/02/2018 at 10:31
[2018-05-02 10:47] LABS: RBC Urine None Seen (0-5/HPF); WBC Urine None Seen (0-5/HPF)
[2018-05-02 10:52] LABS: Appearance Urine UA CLEAR; Bilirubin Urine UA NEGATIVE (NEGATIVE); Glucose Urine UA NEGATIVE (Normal); Ketones Urine UA NEGATIVE (NEGATIVE); Leukocyte Esterase Urine UA NEGATIVE (NEGATIVE); Nitrite Urine UA Negative (Negative); Occult Blood Urine UA NEGATIVE (Negative); Protein Urine UA NEGATIVE (Negative); Specific Gravity Urine UA <=1.005 (1.000-1.035); Urobilinogen Urine UA 0.2 E.U./dL (0.2); pH Urine UA 5.5 (4.5-8.0)
[2018-05-02 10:57] LABS: Color Urine UA Straw
[2018-05-02 11:02] VITALS: BP 138/69; PULSE 101; RESP 16; O2SAT 97
[2018-05-02 11:10] LABS: Squamous Epithelial Cell Urine 0-1 /HPF
[2018-05-02 11:11] LABS: Bacteria Urine Few (2-10); Culture Indicated Urine Cult Not Indicated
[2018-05-02] MEDS: ONDANSETRON 4 MG/2 ML INJ 8 MG IV (12:54)
--- NOTE | 2018-05-02 13:02 | PC.NURSE ---
medicated for comfort, and request by pt to have more zofran, dr gaspar aware and verbal order meds. pain free at this time.
--- NOTE | 2018-05-02 14:02 | PC.NURSE ---
flushed with heparin, tolerated well, no active bleeding, drsg applied.
== END 2018-05-02 13:20 | disposition home or self-care (01) ==
PROVIDERS: Emergency Provider Emergency Medicine; Family Provider Student in an Organized Health Care Education/Training Program; PCP Student in an Organized Health Care Education/Training Program
DX: R10.9 Unspecified abdominal pain (principal); R19.7 Diarrhea, unspecified
CPT/HCPCS: 36591; 74177; 80053; 81001; 85025; 85610; 96361; 96365; 96375; 96376; 99283; 99285; J1170; J2405; Q9967

== ENCOUNTER 2018-05-17 06:36 | Emergency (ER) | payer OTHER, SELFPAY ==
[2018-05-17 06:43] VITALS: BP 139/89; PULSE 105; RESP 18; TEMP 36.4; O2SAT 100; BMI 34.2
--- NOTE | 2018-05-17 06:54 | ED.ABDPAIN ---
HPI - Abdominal Pain <Art Mccall DO - Last Filed: 05/17/18 22:23> General Chief Complaint: Abdominal Pain Stated Complaint: nausea, vomitting, abdominal pain Time Seen by Provider: 05/17/18 06:40 Source: patient and family Mode of arrival: ambulatory Limitations: no limitations History of Present Illness HPI narrative: 47-year-old female nonsmoker with extensive bowel history presents with significant other and a chief complaint of severe left-sided abdominal pain which started last night at about 10:00 p.m.. She has had multiple episodes of significant watery diarrhea in the absence of any bleeding. She has had multiple episodes of nausea and vomiting and attempted to take oral Zofran and Tylenol but vomited them up. She denies any provocation but admits to sitting up with her knees pulled her chest helped her symptoms. She states that she has generalized abdominal cramping the tends to build until a bowel movement at which point that improves, however the severe left-sided abdominal pain is unchanged. She has a history of a small-bowel obstruction secondary to a Meckel's diverticulum and this feels somewhat similar. She was here 2 weeks ago under similar circumstances and was diagnosed with gastroenteritis. She denies any recent travel, use of antibiotics, exposure to ill persons, or bad foods. 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 Over the course of the morning she has developed a significant headache. She has a port in place due to poor vascular access and occasional need for iron infusions MD complaint: abdominal pain Onset (ago): hour(s) Pain Consistency: constant Location: LLQ Severity: severe Quality: cramping, stabbing and aching Radiation: none Migration to: no migration Relieving factors: other (Knees pulled to chest) Associated symptoms: nausea, vomiting and diarrhea Related Data Home Medications Medication Instructions Recorded Confirmed acetaminophen 1,000 mg PO Q6H PRN 03/06/18 05/17/18 bupropion HCl [Wellbutrin SR] 300 mg PO BID 03/06/18 05/17/18 ibuprofen 800 mg PO TID PRN 03/06/18 05/17/18 cholecalciferol (vitamin D3) 1,000 unit PO BID 05/02/18 05/17/18 [Vitamin D3] fluticasone [Flonase Allergy 2 spray INTRANASAL BEDTIME 05/02/18 05/17/18 Relief] tizanidine [Zanaflex] 4 mg PO TID 05/02/18 05/17/18 lamotrigine 150 mg PO BID 05/17/18 05/17/18 Previous Rx's Medication Instructions Recorded gabapentin [Neurontin] 1,200 mg PO HS #180 tab 08/15/17 prazosin 5 mg capsule 15 mg PO HS #270 cap 01/02/18 lorazepam 2 mg tablet 2 mg PO QIDP PRN #120 tab 04/23/18 zolpidem 10 mg tablet 10 mg PO HS #90 tab 04/24/18 ondansetron [Zofran ODT] 8 mg PO TID PRN #30 tab 05/02/18 oxycodone-acetaminophen [Percocet] 2 tab PO Q4-6H PRN #20 tab 05/02/18 warfarin 6 mg tablet 6 mg PO QPM #90 tab 05/16/18 Allergies Allergy/AdvReac Type Severity Reaction Status Date / Time No Known Drug Allergies Allergy Verified 05/02/18 08:14 Review of Systems <Art Mccall DO - Last Filed: 05/17/18 22:23> Review of Systems All systems reviewed & are unremarkable except as noted in HPI and below Constitutional Denies chills, Denies fever(s), Denies lethargy and Denies weakness Eyes Denies change in vision, Denies eye discharge, Denies irritation and Denies loss of vision ENT Ears, Nose, Mouth, and Throat: Denies change in voice, Denies neck pain and Denies sore throat Cardiovascular Denies chest pain, Denies irregular heart rhythm, Denies lightheadedness, Denies palpitations, Denies dyspnea, Denies dyspnea on exertion and Denies orthopnea Respiratory Denies cough, Denies dyspnea, Denies dyspnea on exertion and Denies wheezing Gastrointestinal Gastrointestinal: Denies abdominal pain, Denies change in bowel habits, Denies diarrhea, Denies nausea and Denies vomiting Genitourinary Denies hematuria, Denies flank pain, Denies urinary incontinence and Denies urinary urgency Musculoskeletal Denies neck pain Integumentary/Breasts Denies pruritus, Denies erythema, Denies rash and Denies wounds Neurologic Denies confusion, Denies loss of vision and Denies weakness Psychiatric Denies anxiety, Denies confusion, Denies depression, Denies homicidal ideation and Denies suicidal ideation Endocrine Denies palpitations Hematologic/Lymphatic Denies easy bruising Allergic/Immunologic Denies wheezing Exam <Art Mccall, DO - Last Filed: 05/17/18 22:23> Narrative Exam Narrative: Pleasant 47-year-old female obviously uncomfortable, sitting with her knees to her chest, clutching her left lower abdomen Initial Vital Signs Initial Vital Signs: Vital Signs Temperature 97.5 F L 05/17/18 06:43 Pulse Rate 105 H 05/17/18 06:43 Respiratory Rate 18 05/17/18 06:43 Blood Pressure 139/89 05/17/18 06:43 Pulse Oximetry 100 05/17/18 06:43 Const General: cooperative, well developed and acute distress Nutritional Appearance: well nourished Orientation: alert, awake, oriented x3 and not confused HENMT Head: normocephalic and atraumatic Ears: external ears normal and TM's normal bilaterally Nose: external nose normal and No nasal discharge Face and sinus: sinuses nontender, face symmetric, no sinus tenderness and No dry mucous membranes Mouth: oral mucosae normal and moist mucous membranes Teeth and gingiva: dentition normal Throat: tonsils normal and uvula midline Chest Chest: normal inspection of the chest Resp Effort & Inspection: normal respiratory effort, able to speak in complete sentences, no respiratory distress and no use of accessory muscles Auscultation: clear to auscultation bilaterally, no rales, no rhonchi and no wheezes GI Inspection: non-distended Palpation: soft, no hepatosplenomegaly, No guarding, No pulsatile mass and tender (Severe left-sided abdominal pain) Auscultation: normal bowel sounds Back/Spine/Pelvis Back: No CVA tenderness Cervical Spine: cervical ROM normal and No pain with cervical ROM Thoracic/Lumbar Spine: thoracic and lumbar spine normal to inspection Skin General: no rashes or lesions noted, No jaundice and No petechiae Neuro General: alert, oriented x3, gait normal and no focal motor deficits Speech: speech normal <Michelle Orozco, DO - Last Filed: 05/17/18 17:11> Narrative Exam Narrative: GENERAL: Alert and oriented x three, well-nourished, well-appearing female sitting on the edge of the bed in mild distress. HEENT: Head normocephalic, atraumatic, EOMI, pupils reactive, face symmetric, moist mucous membranes NECK: Supple, full range of motion CARDIOVASCULAR: Regular rate and rhythm without murmurs, rubs or gallops. RESPIRATORY: Breath sounds equal bilaterally, no wheezes rales or rhonchi. ABDOMEN: Soft, positive for left lower quadrant tenderness, no rebound, rigidity or mass.. Hyperactive bowel sounds all 4 quadrants. : No CVA tenderness EXTREMITIES: Normal range of motion, no clubbing or edema. Neurovascularly intact NEUROLOGICAL: Cranial nerves II through XII grossly intact. Moving all extremities SKIN: Warm, dry, no petechiae, no rashes or lesions. No bruising ecchymosis of or flank. Initial Vital Signs Initial Vital Signs: Vital Signs Temperature 97.5 F L 05/17/18 06:43 Pulse Rate 105 H 05/17/18 06:43 Respiratory Rate 18 05/17/18 06:43 Blood Pressure 139/89 05/17/18 06:43 Pulse Oximetry 100 05/17/18 06:43 Course <Art Mccall, - Last Filed: 05/17/18 22:23> Course Narrative: I've performed initial history and physical and ordered workup. Sgn out to Dr. Orozco whom will complete the work up. Orders Ordered: Discontinued Medications Diphenhydramine HCl (Benadryl) 50 mg IV NOW ONE Stop: 05/17/18 09:50 Last Admin: 05/17/18 09:53 Dose: 50 mg Hydromorphone HCl (Dilaudid) 0.5 mg IV NOW ONE Stop: 05/17/18 06:54 Last Admin: 05/17/18 07:32 Dose: 0.5 mg Hydromorphone HCl (Dilaudid) 0.5 mg IV NOW ONE Stop: 05/17/18 08:23 Last Admin: 05/17/18 08:27 Dose: 0.5 mg Sodium Chloride (Normal Saline 0.9%) 1,000 mls @ 1,000 mls/hr IV BOLUS ONE Stop: 05/17/18 07:52 Last Infusion: 05/17/18 09:01 Dose: 0 mls/hr Admin: 05/17/18 07:32 Dose: 1,000 mls/hr Ketorolac Tromethamine (Toradol) 30 mg IV NOW ONE Stop: 05/17/18 08:59 Last Admin: 05/17/18 09:04 Dose: 30 mg Lorazepam (Ativan) 0.5 mg IV NOW ONE Stop: 05/17/18 08:59 Last Admin: 05/17/18 09:04 Dose: 0.5 mg Ondansetron HCl (Zofran) 4 mg IV NOW ONE Stop: 05/17/18 06:54 Last Admin: 05/17/18 07:32 Dose: 4 mg Ondansetron HCl (Zofran) 4 mg IV NOW ONE Stop: 05/17/18 08:16 Last Admin: 05/17/18 08:19 Dose: 4 mg Pantoprazole Sodium (Protonix) 40 mg IV NOW ONE Stop: 05/17/18 06:54 Last Admin: 05/17/18 07:32 Dose: 40 mg Prochlorperazine (Compazine) 10 mg IV NOW ONE Stop: 05/17/18 09:50 Last Admin: 05/17/18 09:53 Dose: 10 mg Vital Signs - 8 hr 05/17/18 09:13 05/17/18 11:04 05/17/18 11:38 Pulse Rate 80 82 67 Respiratory Rate 18 16 16 Blood Pressure [Left Arm] 132/74 115/57 L 115/58 L Pulse Oximetry 99 100 100 <Michelle Orozco, - Last Filed: 05/17/18 17:11> Orders Ordered: Discontinued Medications Diphenhydramine HCl (Benadryl) 50 mg IV NOW ONE Stop: 05/17/18 09:50 Last Admin: 05/17/18 09:53 Dose: 50 mg Hydromorphone HCl (Dilaudid) 0.5 mg IV NOW ONE Stop: 05/17/18 06:54 Last Admin: 05/17/18 07:32 Dose: 0.5 mg Hydromorphone HCl (Dilaudid) 0.5 mg IV NOW ONE Stop: 05/17/18 08:23 Last Admin: 05/17/18 08:27 Dose: 0.5 mg Sodium Chloride (Normal Saline 0.9%) 1,000 mls @ 1,000 mls/hr IV BOLUS ONE Stop: 05/17/18 07:52 Last Infusion: 05/17/18 09:01 Dose: 0 mls/hr Admin: 05/17/18 07:32 Dose: 1,000 mls/hr Ketorolac Tromethamine (Toradol) 30 mg IV NOW ONE Stop: 05/17/18 08:59 Last Admin: 05/17/18 09:04 Dose: 30 mg Lorazepam (Ativan) 0.5 mg IV NOW ONE Stop: 05/17/18 08:59 Last Admin: 05/17/18 09:04 Dose: 0.5 mg Ondansetron HCl (Zofran) 4 mg IV NOW ONE Stop: 05/17/18 06:54 Last Admin: 05/17/18 07:32 Dose: 4 mg Ondansetron HCl (Zofran) 4 mg IV NOW ONE Stop: 05/17/18 08:16 Last Admin: 05/17/18 08:19 Dose: 4 mg Pantoprazole Sodium (Protonix) 40 mg IV NOW ONE Stop: 05/17/18 06:54 Last Admin: 05/17/18 07:32 Dose: 40 mg Prochlorperazine (Compazine) 10 mg IV NOW ONE Stop: 05/17/18 09:50 Last Admin: 05/17/18 09:53 Dose: 10 mg Vital Signs - 8 hr 05/17/18 09:13 05/17/18 11:04 05/17/18 11:38 Pulse Rate 80 82 67 Respiratory Rate 18 16 16 Blood Pressure [Left Arm] 132/74 115/57 L 115/58 L Pulse Oximetry 99 100 100 MDM - Abdominal Pain <Art Mccall DO - Last Filed: 05/17/18 22:23> Lab Data Result diagrams: 05/17/18 07:25 05/17/18 07:25 Lab Results 05/17/18 05/17/18 05/17/18 Range/Units 07:25 07:25 07:25 WBC 3.7 L (4.5-11.0) X10^3/uL RBC 4.34 (4.0-5.2) X10^6/uL Hgb 12.2 (12.0-16.0) g/dL Hct 37.4 (36-46) % MCV 86.1 (80-100) fL MCH 28.0 (26-34) PG MCHC 32.5 (30-36) % RDW 19.7 H (11.6-14.8) % Plt Count 226 (150-400) X10^3/uL Neut % (Auto) 43.9 L (50-75) % Lymph % (Auto) 36.4 (25-40) % [place] % (Auto) 8.3 (3-14) % Eos % (Auto) 10.7 H (2-4) % Baso % (Auto) 0.7 (0-2) % Neut # (Auto) 1600 L (0006-7585) /uL PT (10.1-12.7) SECONDS INR (0.9-1.3) Sodium 141 (137-145) mmol/L Potassium 3.7 (3.4-5.1) mmol/L Chloride 108 H (98-107) mmol/L Carbon Dioxide 23 (22-32) mmol/L BUN 11 (7-17) mg/dL Creatinine 0.70 (0.52-1.04) mg/dL Estimated GFR > 60.0 (>60) mL/min BUN/Creatinine Ratio 15.7 (6-22) Glucose 90 (70-100) mg/dL Calcium 8.6 (8.4-10.2) mg/dL Total Bilirubin 0.2 (0.2-1.3) mg/dL AST 22 (14-36) IU/L ALT 24 (9-52) IU/L Alkaline Phosphatase 74 (38-126) U/L Total Protein 6.6 (6.3-8.2) g/dL Albumin 3.9 (3.5-5.0) g/dL Globulin 2.7 (1.7-4.1) g/dL Albumin/Globulin Ratio 1.4 (1.0-2.8) Lipase 60 (23-300) U/L Blood Type A Positive Antibody Screen Negative 05/17/18 Range/Units 07:25 WBC (4.5-11.0) X10^3/uL RBC (4.0-5.2) X10^6/uL Hgb (12.0-16.0) g/dL Hct (36-46) % MCV (80-100) fL MCH (26-34) PG MCHC (30-36) % RDW (11.6-14.8) % Plt Count (150-400) X10^3/uL Neut % (Auto) (50-75) % Lymph % (Auto) (25-40) % [place] % (Auto) (3-14) % Eos % (Auto) (2-4) % Baso % (Auto) (0-2) % Neut # (Auto) (7505-9814) /uL PT 27.3 H (10.1-12.7) SECONDS INR 2.5 H (0.9-1.3) Sodium (137-145) mmol/L Potassium (3.4-5.1) mmol/L Chloride (98-107) mmol/L Carbon Dioxide (22-32) mmol/L BUN (7-17) mg/dL Creatinine (0.52-1.04) mg/dL Estimated GFR (>60) mL/min BUN/Creatinine Ratio (6-22) Glucose (70-100) mg/dL Calcium (8.4-10.2) mg/dL Total Bilirubin (0.2-1.3) mg/dL AST (14-36) IU/L ALT (9-52) IU/L Alkaline Phosphatase (38-126) U/L Total Protein (6.3-8.2) g/dL Albumin (3.5-5.0) g/dL Globulin (1.7-4.1) g/dL Albumin/Globulin Ratio (1.0-2.8) Lipase (23-300) U/L Blood Type Antibody Screen Point of care testing: Point of Care Testing Test Results Negative Urine Dip Bedside Urine Glucose Negative Bedside Urine Bilirubin - Negative Bedside Urine Ketone - Negative Urine Specific [place] 1.010 Bedside Urine Occult Blood - Negative Bedside Urine pH 6.0 Bedside Urine Protein - Negative Bedside Urine Urobilinogen - Negative Bedside Urine Nitrite - Negative Bedside Urine Leukocytes - Negative Esterase <Michelle Orozco, DO - Last Filed: 05/17/18 17:11> Lab Data Attestation: I reviewed the patient's lab results. Lab Results 05/17/18 05/17/18 05/17/18 Range/Units 07:25 07:25 07:25 WBC 3.7 L (4.5-11.0) X10^3/uL RBC 4.34 (4.0-5.2) X10^6/uL Hgb 12.2 (12.0-16.0) g/dL Hct 37.4 (36-46) % MCV 86.1 (80-100) fL MCH 28.0 (26-34) PG MCHC 32.5 (30-36) % RDW 19.7 H (11.6-14.8) % Plt Count 226 (150-400) X10^3/uL Neut % (Auto) 43.9 L (50-75) % Lymph % (Auto) 36.4 (25-40) % [place] % (Auto) 8.3 (3-14) % Eos % (Auto) 10.7 H (2-4) % Baso % (Auto) 0.7 (0-2) % Neut # (Auto) 1600 L (8817-8265) /uL PT (10.1-12.7) SECONDS INR (0.9-1.3) Sodium 141 (137-145) mmol/L Potassium 3.7 (3.4-5.1) mmol/L Chloride 108 H (98-107) mmol/L Carbon Dioxide 23 (22-32) mmol/L BUN 11 (7-17) mg/dL Creatinine 0.70 (0.52-1.04) mg/dL Estimated GFR > 60.0 (>60) mL/min BUN/Creatinine Ratio 15.7 (6-22) Glucose 90 (70-100) mg/dL Calcium 8.6 (8.4-10.2) mg/dL Total Bilirubin 0.2 (0.2-1.3) mg/dL AST 22 (14-36) IU/L ALT 24 (9-52) IU/L Alkaline Phosphatase 74 (38-126) U/L Total Protein 6.6 (6.3-8.2) g/dL Albumin 3.9 (3.5-5.0) g/dL Globulin 2.7 (1.7-4.1) g/dL Albumin/Globulin Ratio 1.4 (1.0-2.8) Lipase 60 (23-300) U/L Blood Type A Positive Antibody Screen Negative 05/17/18 Range/Units 07:25 WBC (4.5-11.0) X10^3/uL RBC (4.0-5.2) X10^6/uL Hgb (12.0-16.0) g/dL Hct (36-46) % MCV (80-100) fL MCH (26-34) PG MCHC (30-36) % RDW (11.6-14.8) % Plt Count (150-400) X10^3/uL Neut % (Auto) (50-75) % Lymph % (Auto) (25-40) % [place] % (Auto) (3-14) % Eos % (Auto) (2-4) % Baso % (Auto) (0-2) % Neut # (Auto) (4266-2570) /uL PT 27.3 H (10.1-12.7) SECONDS INR 2.5 H (0.9-1.3) Sodium (137-145) mmol/L Potassium (3.4-5.1) mmol/L Chloride (98-107) mmol/L Carbon Dioxide (22-32) mmol/L BUN (7-17) mg/dL Creatinine (0.52-1.04) mg/dL Estimated GFR (>60) mL/min BUN/Creatinine Ratio (6-22) Glucose (70-100) mg/dL Calcium (8.4-10.2) mg/dL Total Bilirubin (0.2-1.3) mg/dL AST (14-36) IU/L ALT (9-52) IU/L Alkaline Phosphatase (38-126) U/L Total Protein (6.3-8.2) g/dL Albumin (3.5-5.0) g/dL Globulin (1.7-4.1) g/dL Albumin/Globulin Ratio (1.0-2.8) Lipase (23-300) U/L Blood Type Antibody Screen Point of care testing: Point of Care Testing Test Results Negative Urine Dip Bedside Urine Glucose Negative Bedside Urine Bilirubin - Negative Bedside Urine Ketone - Negative Urine Specific [place] 1.010 Bedside Urine Occult Blood - Negative Bedside Urine pH 6.0 Bedside Urine Protein - Negative Bedside Urine Urobilinogen - Negative Bedside Urine Nitrite - Negative Bedside Urine Leukocytes - Negative Esterase ABG Data Interpretation: Imaging Data AAS xray: Radiologist's impression: [address] [address] XRay Report Signed Patient: Maryuri Bauer [facility]#: [id number] : 1970Acct:[id number] Age/Sex: 47 / FDate of Service: 05/17/18 Loc: ED Accession Number: [id number] Procedure: XR acute abdomen series Ordering Provider: Art Mccall D.O. PROCEDURE: XR ACUTE ABDOMEN SERIES INDICATIONS: Abdominal pain, hx SBO TECHNIQUE: One view chest and two views of the abdomen were acquired. COMPARISON: [facility], CR, CHEST 1 VIEW, 04/04/2017, 11:48. FINDINGS: Surgical changes and devices: Left-sided Port-A-Cath extends to the upper margin of the superior vena cava, previously the case. What appears to be a pain control device and leads are seen in stable position with reference to recent prior CT scanning. Postsurgical clips left paraspinous abdomen.. Chest: Lungs are clear. Heart size is normal. No pleural effusions. No pneumoperitoneum. Abdomen: Bowel gas pattern is normal except for mild colonic obstipation. No suspicious calcifications. Visualized solid organ contours appear normal. Bones: No suspicious bony lesions. IMPRESSION: Nonspecific bowel gas pattern, mild colonic obstipation, no definite acute disease. Dictated by: Duong Bartlett M.D. on 05/17/2018 at 8:12 Approved by: Duong Bartlett M.D. on 05/17/2018 at 8:13 CT scan - abdomen: Radiologist's impression: [place] [address] CT Scan Report Signed Patient: Maryuri Bauer [facility]#: [id number] : 1970Acct:[id number] Age/Sex: 47 / FDate of Service: 05/17/18 Loc: ED Accession Number: [id number] Procedure: CT abdomen pelvis w con Ordering Provider: Michelle Orozco D.O. PROCEDURE: CT ABDOMEN PELVIS W CON INDICATIONS: LLQ pain, vomiting, diarrhea, similar 05/02/18 TECHNIQUE: After the administration of intravenous contrast, 5 mm thick sections acquired from the diaphragm to the symphysis. 5 mm coronal and sagittal reformats were acquired. For radiation dose reduction, the following was used: automated exposure control, adjustment of mA and/or kV according to patient size. COMPARISON: [facility], CT, ABDOMEN/PELVIS WITH CONTRAST, 05/15/2015, 17:02. [facility], CT, ABDOMEN/PELVIS WITH CONTRAST, 10/22/2015, 19:33. [facility], CT, ABDOMEN/PELVIS WITH CONTRAST, 11/16/2015, 21:29. [facility], CT, CT ABDOMEN PELVIS W CON, 05/02/2018, 10:33. FINDINGS: Image quality: Excellent. ABDOMEN: Lung bases: Lung bases are clear. Heart size is normal. Solid organs: Liver is normal in size and enhancement. Gallbladder has been removed. Biliary system is non dilated. Pancreas enhances normally. Spleen is normal in size and enhancement. No adrenal nodules. Kidneys demonstrate normal size and enhancement, without hydronephrosis. Peritoneum and bowel: There is a small hiatal hernia. Postoperative change is seen of the stomach and proximal small bowel, with the appearance of gastric bypass surgery. No dilated loops of small bowel are seen. No free air or significant free fluid can be seen. A mild to moderate amount of stool can be seen within the colon. Nodes and vessels: No retroperitoneal or mesenteric adenopathy by size criteria. Aorta and inferior vena cava are normal in size. Miscellaneous: No ventral hernias. PELVIS: Genitourinary: Bladder wall thickness is normal. Cystic changes are seen of the adnexal regions, which are slightly improved compared to the prior CT. Miscellaneous: No inguinal hernias or adenopathy. Left pelvic clips are seen. Bones: No suspicious bony lesions. No vertebral body compression fractures. A thoracic spine stimulator is seen. Mild levoconvex scoliotic curvature is noted. IMPRESSION: No acute abnormality is seen. Postoperative changes are seen, with gastric bypass surgery, cholecystectomy, and left pelvic clips. A thoracic spine stimulator is also seen. Slightly improved appearance of cystic foci involving the adnexal regions. Dictated by: Eric Chacko M.D. on 05/17/2018 at 9:19 Approved by: Eric Chacko M.D. on 05/17/2018 at 9:24 MDM Narrative Medical decision making narrative: Patient signed out to myself by Dr. Mccall, patient and I reviewed HPI, ROS and was re-examined. She continues to have pain, improved shortly with first dose of medication and just received second. Patient's CV she shows a low white blood cell count, left shift, INR is appropriate at 2.5, patient has a slightly elevated chloride but BMP is otherwise normal, lipase is also normal range. Patient's chest x-ray and abdomen did not show any clear findings of pain other than some constipation type changes. Patient's point of care urine shows a specific gravity of 1.010 with no findings of infection or blood. Discussed with patient and her significant other she does have a history of GI bleeds she states she has not had any black or tarry stools but did not with prior. She does QTC take for unprovoked pulmonary emboli. She is not having any chest pain or shortness of breath today. She is not having any syncope. We discussed repeat CT of abdomen and pelvis as she had 1 on the 02 of July which showed constipation but no other changes that were consistent with her acute symptoms. We did review risks versus benefits Um and elected to go ahead and get a repeat CT is her white count is low which could be consistent with infection. Patient is still having pain as well as some nausea although no longer retching here in the emergency department. Will try some Toradol along with Ativan for nausea as well as pain. CT does not show any acute cause, patient is doing better at this time and would like to return home. She has Zofran at home. I told her she could take Benadryl for nausea with that. She still has some Percocet from her last ER visit for pain. We discussed reasons to return. And need for follow-up and possible scope/EGD colonoscopy if she continues to have issues. Discharge Plan Departure Patient Disposition: Home Clinical Impression: Abdominal pain, Diarrhea Discharge Date/Time: 05/17/18 11:56 Interventions: ED Discharge Assessment Last Done: 05/17/18 11:55 Instructions: DI for Abdominal Pain-Adult Activity Restrictions/Additional Instructions: Follow-up with your primary care physician on Sunday. Call this afternoon for an appointment. Take medications as prescribed, these medications can make you sleepy do not drive, perform hazards activities or make any major decisions while taking them. Return to the emergency department for fevers greater than 100.4, persistent vomiting, syncope, chest pain or shortness of breath, rapidly increasing back or abdominal pain, black or bloody stools or other new or concerning symptoms. Prescriptions: No Action warfarin 6 mg tablet 6 mg PO QPM Qty: 90 RF: 0 lorazepam 2 mg tablet 2 mg PO QIDP PRN (Reason: anxiety) Qty: 120 RF: 1 gabapentin [Neurontin] 600 MG tablet 1,200 mg PO HS Qty: 180 RF: 1 prazosin [Minipress] 5 mg capsule 15 mg PO HS Qty: 270 RF: 1 zolpidem 10 mg tablet 10 mg PO HS Qty: 90 RF: 1 ibuprofen 800 mg Tablet 800 mg PO TID PRN (Reason: Pain (Scale Score 4-6)) RF: 0 acetaminophen 500 mg Tablet 1,000 mg PO Q6H PRN (Reason: Pain, Mild) RF: 0 bupropion HCl [Wellbutrin SR] 150 mg tablet extended release 12 hr 300 mg PO BID RF: 0 cholecalciferol (vitamin D3) [Vitamin D3] 1,000 unit Capsule 1,000 unit PO BID RF: 0 fluticasone [Flonase Allergy Relief] 50 mcg/actuation spray,suspension 2 spray Intranasal BEDTIME RF: 0 tizanidine [Zanaflex] 4 mg capsule 4 mg PO TID RF: 0 ondansetron [Zofran ODT] 4 mg tablet,disintegrating 8 mg PO TID PRN (Reason: nausea and vomiting) Qty: 30 RF: 0 oxycodone-acetaminophen [Percocet] 5-325 mg tablet 2 tab PO Q4-6H PRN (Reason: pain) Qty: 20 RF: 0 lamotrigine 150 mg Tablet 150 mg PO BID RF: 0
--- NOTE | 2018-05-17 07:00 | ED_ITS ---
HPI - Abdominal Pain <Art Mccall DO - Last Filed: 05/17/18 22:23> General Chief Complaint: Abdominal Pain Stated Complaint: nausea, vomitting, abdominal pain Time Seen by Provider: 05/17/18 06:40 Source: patient and family Mode of arrival: ambulatory Limitations: no limitations History of Present Illness HPI narrative: 47-year-old female nonsmoker with extensive bowel history presents with significant other and a chief complaint of severe left-sided abdominal pain which started last night at about 10:00 p.m.. She has had multiple episodes of significant watery diarrhea in the absence of any bleeding. She has had multiple episodes of nausea and vomiting and attempted to take oral Zofran and Tylenol but vomited them up. She denies any provocation but admits to sitting up with her knees pulled her chest helped her symptoms. She states that she has generalized abdominal cramping the tends to build until a bowel movement at which point that improves, however the severe left-sided abdominal pain is unchanged. She has a history of a small-bowel obstruction secondary to a Meckel's diverticulum and this feels somewhat similar. She was here 2 weeks ago under similar circumstances and was diagnosed with gastroenteritis. She denies any recent travel, use of antibiotics, exposure to ill persons, or bad foods. 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 Over the course of the morning she has developed a significant headache. She has a port in place due to poor vascular access and occasional need for iron infusions MD complaint: abdominal pain Onset (ago): hour(s) Pain Consistency: constant Location: LLQ Severity: severe Quality: cramping, stabbing and aching Radiation: none Migration to: no migration Relieving factors: other (Knees pulled to chest) Associated symptoms: nausea, vomiting and diarrhea Related Data Home Medications Medication Instructions Recorded Confirmed acetaminophen 1,000 mg PO Q6H PRN 03/06/18 05/17/18 bupropion HCl [Wellbutrin SR] 300 mg PO BID 03/06/18 05/17/18 ibuprofen 800 mg PO TID PRN 03/06/18 05/17/18 cholecalciferol (vitamin D3) 1,000 unit PO BID 05/02/18 05/17/18 [Vitamin D3] fluticasone [Flonase Allergy 2 spray INTRANASAL BEDTIME 05/02/18 05/17/18 Relief] tizanidine [Zanaflex] 4 mg PO TID 05/02/18 05/17/18 lamotrigine 150 mg PO BID 05/17/18 05/17/18 Previous Rx's Medication Instructions Recorded gabapentin [Neurontin] 1,200 mg PO HS #180 tab 08/15/17 prazosin 5 mg capsule 15 mg PO HS #270 cap 01/02/18 lorazepam 2 mg tablet 2 mg PO QIDP PRN #120 tab 04/23/18 zolpidem 10 mg tablet 10 mg PO HS #90 tab 04/24/18 ondansetron [Zofran ODT] 8 mg PO TID PRN #30 tab 05/02/18 oxycodone-acetaminophen [Percocet] 2 tab PO Q4-6H PRN #20 tab 05/02/18 warfarin 6 mg tablet 6 mg PO QPM #90 tab 05/16/18 Allergies Allergy/AdvReac Type Severity Reaction Status Date / Time No Known Drug Allergies Allergy Verified 05/02/18 08:14 Review of Systems <Art Mccall DO - Last Filed: 05/17/18 22:23> Review of Systems All systems reviewed & are unremarkable except as noted in HPI and below Constitutional Denies chills, Denies fever(s), Denies lethargy and Denies weakness Eyes Denies change in vision, Denies eye discharge, Denies irritation and Denies loss of vision ENT Ears, Nose, Mouth, and Throat: Denies change in voice, Denies neck pain and Denies sore throat Cardiovascular Denies chest pain, Denies irregular heart rhythm, Denies lightheadedness, Denies palpitations, Denies dyspnea, Denies dyspnea on exertion and Denies orthopnea Respiratory Denies cough, Denies dyspnea, Denies dyspnea on exertion and Denies wheezing Gastrointestinal Gastrointestinal: Denies abdominal pain, Denies change in bowel habits, Denies diarrhea, Denies nausea and Denies vomiting Genitourinary Denies hematuria, Denies flank pain, Denies urinary incontinence and Denies urinary urgency Musculoskeletal Denies neck pain Integumentary/Breasts Denies pruritus, Denies erythema, Denies rash and Denies wounds Neurologic Denies confusion, Denies loss of vision and Denies weakness Psychiatric Denies anxiety, Denies confusion, Denies depression, Denies homicidal ideation and Denies suicidal ideation Endocrine Denies palpitations Hematologic/Lymphatic Denies easy bruising Allergic/Immunologic Denies wheezing Exam <Art Mccall, DO - Last Filed: 05/17/18 22:23> Narrative Exam Narrative: Pleasant 47-year-old female obviously uncomfortable, sitting with her knees to her chest, clutching her left lower abdomen Initial Vital Signs Initial Vital Signs: Vital Signs Temperature 97.5 F L 05/17/18 06:43 Pulse Rate 105 H 05/17/18 06:43 Respiratory Rate 18 05/17/18 06:43 Blood Pressure 139/89 05/17/18 06:43 Pulse Oximetry 100 05/17/18 06:43 Const General: cooperative, well developed and acute distress Nutritional Appearance: well nourished Orientation: alert, awake, oriented x3 and not confused HENMT Head: normocephalic and atraumatic Ears: external ears normal and TM's normal bilaterally Nose: external nose normal and No nasal discharge Face and sinus: sinuses nontender, face symmetric, no sinus tenderness and No dry mucous membranes Mouth: oral mucosae normal and moist mucous membranes Teeth and gingiva: dentition normal Throat: tonsils normal and uvula midline Chest Chest: normal inspection of the chest Resp Effort & Inspection: normal respiratory effort, able to speak in complete sentences, no respiratory distress and no use of accessory muscles Auscultation: clear to auscultation bilaterally, no rales, no rhonchi and no wheezes GI Inspection: non-distended Palpation: soft, no hepatosplenomegaly, No guarding, No pulsatile mass and tender (Severe left-sided abdominal pain) Auscultation: normal bowel sounds Back/Spine/Pelvis Back: No CVA tenderness Cervical Spine: cervical ROM normal and No pain with cervical ROM Thoracic/Lumbar Spine: thoracic and lumbar spine normal to inspection Skin General: no rashes or lesions noted, No jaundice and No petechiae Neuro General: alert, oriented x3, gait normal and no focal motor deficits Speech: speech normal <Michelle Orozco, DO - Last Filed: 05/17/18 17:11> Narrative Exam Narrative: GENERAL: Alert and oriented x three, well-nourished, well- appearing female sitting on the edge of the bed in mild distress. HEENT: Head normocephalic, atraumatic, EOMI, pupils reactive, face symmetric, moist mucous membranes NECK: Supple, full range of motion CARDIOVASCULAR: Regular rate and rhythm without murmurs, rubs or gallops. RESPIRATORY: Breath sounds equal bilaterally, no wheezes rales or rhonchi. ABDOMEN: Soft, positive for left lower quadrant tenderness, no rebound, rigidity or mass.. Hyperactive bowel sounds all 4 quadrants. : No CVA tenderness EXTREMITIES: Normal range of motion, no clubbing or edema. Neurovascularly intact NEUROLOGICAL: Cranial nerves II through XII grossly intact. Moving all extremities SKIN: Warm, dry, no petechiae, no rashes or lesions. No bruising ecchymosis of or flank. Initial Vital Signs Initial Vital Signs: Vital Signs Temperature 97.5 F L 05/17/18 06:43 Pulse Rate 105 H 05/17/18 06:43 Respiratory Rate 18 05/17/18 06:43 Blood Pressure 139/89 05/17/18 06:43 Pulse Oximetry 100 05/17/18 06:43 Course <Art Mccall, - Last Filed: 05/17/18 22:23> Course Narrative: I've performed initial history and physical and ordered workup. Sgn out to Dr. Orozco whom will complete the work up. Orders Ordered: Discontinued Medications Diphenhydramine HCl (Benadryl) 50 mg IV NOW ONE Stop: 05/17/18 09:50 Last Admin: 05/17/18 09:53 Dose: 50 mg Hydromorphone HCl (Dilaudid) 0.5 mg IV NOW ONE Stop: 05/17/18 06:54 Last Admin: 05/17/18 07:32 Dose: 0.5 mg Hydromorphone HCl (Dilaudid) 0.5 mg IV NOW ONE Stop: 05/17/18 08:23 Last Admin: 05/17/18 08:27 Dose: 0.5 mg Sodium Chloride (Normal Saline 0.9%) 1,000 mls @ 1,000 mls/hr IV BOLUS ONE Stop: 05/17/18 07:52 Last Infusion: 05/17/18 09:01 Dose: 0 mls/hr Admin: 05/17/18 07:32 Dose: 1,000 mls/hr Ketorolac Tromethamine (Toradol) 30 mg IV NOW ONE Stop: 05/17/18 08:59 Last Admin: 05/17/18 09:04 Dose: 30 mg Lorazepam (Ativan) 0.5 mg IV NOW ONE Stop: 05/17/18 08:59 Last Admin: 05/17/18 09:04 Dose: 0.5 mg Ondansetron HCl (Zofran) 4 mg IV NOW ONE Stop: 05/17/18 06:54 Last Admin: 05/17/18 07:32 Dose: 4 mg Ondansetron HCl (Zofran) 4 mg IV NOW ONE Stop: 05/17/18 08:16 Last Admin: 05/17/18 08:19 Dose: 4 mg Pantoprazole Sodium (Protonix) 40 mg IV NOW ONE Stop: 05/17/18 06:54 Last Admin: 05/17/18 07:32 Dose: 40 mg Prochlorperazine (Compazine) 10 mg IV NOW ONE Stop: 05/17/18 09:50 Last Admin: 05/17/18 09:53 Dose: 10 mg Vital Signs - 8 hr 05/17/18 09:13 05/17/18 11:04 05/17/18 11:38 Pulse Rate 80 82 67 Respiratory Rate 18 16 16 Blood Pressure [Left Arm] 132/74 115/57 L 115/58 L Pulse Oximetry 99 100 100 <Michelle Orozco, - Last Filed: 05/17/18 17:11> Orders Ordered: Discontinued Medications Diphenhydramine HCl (Benadryl) 50 mg IV NOW ONE Stop: 05/17/18 09:50 Last Admin: 05/17/18 09:53 Dose: 50 mg Hydromorphone HCl (Dilaudid) 0.5 mg IV NOW ONE Stop: 05/17/18 06:54 Last Admin: 05/17/18 07:32 Dose: 0.5 mg Hydromorphone HCl (Dilaudid) 0.5 mg IV NOW ONE Stop: 05/17/18 08:23 Last Admin: 05/17/18 08:27 Dose: 0.5 mg Sodium Chloride (Normal Saline 0.9%) 1,000 mls @ 1,000 mls/hr IV BOLUS ONE Stop: 05/17/18 07:52 Last Infusion: 05/17/18 09:01 Dose: 0 mls/hr Admin: 05/17/18 07:32 Dose: 1,000 mls/hr Ketorolac Tromethamine (Toradol) 30 mg IV NOW ONE Stop: 05/17/18 08:59 Last Admin: 05/17/18 09:04 Dose: 30 mg Lorazepam (Ativan) 0.5 mg IV NOW ONE Stop: 05/17/18 08:59 Last Admin: 05/17/18 09:04 Dose: 0.5 mg Ondansetron HCl (Zofran) 4 mg IV NOW ONE Stop: 05/17/18 06:54 Last Admin: 05/17/18 07:32 Dose: 4 mg Ondansetron HCl (Zofran) 4 mg IV NOW ONE Stop: 05/17/18 08:16 Last Admin: 05/17/18 08:19 Dose: 4 mg Pantoprazole Sodium (Protonix) 40 mg IV NOW ONE Stop: 05/17/18 06:54 Last Admin: 05/17/18 07:32 Dose: 40 mg Prochlorperazine (Compazine) 10 mg IV NOW ONE Stop: 05/17/18 09:50 Last Admin: 05/17/18 09:53 Dose: 10 mg Vital Signs - 8 hr 05/17/18 09:13 05/17/18 11:04 05/17/18 11:38 Pulse Rate 80 82 67 Respiratory Rate 18 16 16 Blood Pressure [Left Arm] 132/74 115/57 L 115/58 L Pulse Oximetry 99 100 100 MDM - Abdominal Pain <Art Mccall DO - Last Filed: 05/17/18 22:23> Lab Data Result diagrams: 05/17/18 07:25 05/17/18 07:25 Lab Results 05/17/18 05/17/18 05/17/18 Range/Units 07:25 07:25 07:25 WBC 3.7 L (4.5-11.0) X10^3/uL RBC 4.34 (4.0-5.2) X10^6/uL Hgb 12.2 (12.0-16.0) g/dL Hct 37.4 (36-46) % MCV 86.1 (80-100) fL MCH 28.0 (26-34) PG MCHC 32.5 (30-36) % RDW 19.7 H (11.6-14.8) % Plt Count 226 (150-400) X10^3/uL Neut % (Auto) 43.9 L (50-75) % Lymph % (Auto) 36.4 (25-40) % [place] % (Auto) 8.3 (3-14) % Eos % (Auto) 10.7 H (2-4) % Baso % (Auto) 0.7 (0-2) % Neut # (Auto) 1600 L (1780-9278) /uL PT (10.1-12.7) SECONDS INR (0.9-1.3) Sodium 141 (137-145) mmol/L Potassium 3.7 (3.4-5.1) mmol/L Chloride 108 H (98-107) mmol/L Carbon Dioxide 23 (22-32) mmol/L BUN 11 (7-17) mg/dL Creatinine 0.70 (0.52-1.04) mg/dL Estimated GFR > 60.0 (>60) mL/min BUN/Creatinine Ratio 15.7 (6-22) Glucose 90 (70-100) mg/dL Calcium 8.6 (8.4-10.2) mg/dL Total Bilirubin 0.2 (0.2-1.3) mg/dL AST 22 (14-36) IU/L ALT 24 (9-52) IU/L Alkaline Phosphatase 74 (38-126) U/L Total Protein 6.6 (6.3-8.2) g/dL Albumin 3.9 (3.5-5.0) g/dL Globulin 2.7 (1.7-4.1) g/dL Albumin/Globulin Ratio 1.4 (1.0-2.8) Lipase 60 (23-300) U/L Blood Type A Positive Antibody Screen Negative 05/17/18 Range/Units 07:25 WBC (4.5-11.0) X10^3/uL RBC (4.0-5.2) X10^6/uL Hgb (12.0-16.0) g/dL Hct (36-46) % MCV (80-100) fL MCH (26-34) PG MCHC (30-36) % RDW (11.6-14.8) % Plt Count (150-400) X10^3/uL Neut % (Auto) (50-75) % Lymph % (Auto) (25-40) % [place] % (Auto) (3-14) % Eos % (Auto) (2-4) % Baso % (Auto) (0-2) % Neut # (Auto) (1797-8240) /uL PT 27.3 H (10.1-12.7) SECONDS INR 2.5 H (0.9-1.3) Sodium (137-145) mmol/L Potassium (3.4-5.1) mmol/L Chloride (98-107) mmol/L Carbon Dioxide (22-32) mmol/L BUN (7-17) mg/dL Creatinine (0.52-1.04) mg/dL Estimated GFR (>60) mL/min BUN/Creatinine Ratio (6-22) Glucose (70-100) mg/dL Calcium (8.4-10.2) mg/dL Total Bilirubin (0.2-1.3) mg/dL AST (14-36) IU/L ALT (9-52) IU/L Alkaline Phosphatase (38-126) U/L Total Protein (6.3-8.2) g/dL Albumin (3.5-5.0) g/dL Globulin (1.7-4.1) g/dL Albumin/Globulin Ratio (1.0-2.8) Lipase (23-300) U/L Blood Type Antibody Screen Point of care testing: Point of Care Testing Test Results Negative Urine Dip Bedside Urine Glucose Negative Bedside Urine Bilirubin - Negative Bedside Urine Ketone - Negative Urine Specific [place] 1.010 Bedside Urine Occult Blood - Negative Bedside Urine pH 6.0 Bedside Urine Protein - Negative Bedside Urine Urobilinogen - Negative Bedside Urine Nitrite - Negative Bedside Urine Leukocytes - Negative Esterase <Michelle Orozco, DO - Last Filed: 05/17/18 17:11> Lab Data Attestation: I reviewed the patient's lab results. Lab Results 05/17/18 05/17/18 05/17/18 Range/Units 07:25 07:25 07:25 WBC 3.7 L (4.5-11.0) X10^3/uL RBC 4.34 (4.0-5.2) X10^6/uL Hgb 12.2 (12.0-16.0) g/dL Hct 37.4 (36-46) % MCV 86.1 (80-100) fL MCH 28.0 (26-34) PG MCHC 32.5 (30-36) % RDW 19.7 H (11.6-14.8) % Plt Count 226 (150-400) X10^3/uL Neut % (Auto) 43.9 L (50-75) % Lymph % (Auto) 36.4 (25-40) % [place] % (Auto) 8.3 (3-14) % Eos % (Auto) 10.7 H (2-4) % Baso % (Auto) 0.7 (0-2) % Neut # (Auto) 1600 L (5693-1204) /uL PT (10.1-12.7) SECONDS INR (0.9-1.3) Sodium 141 (137-145) mmol/L Potassium 3.7 (3.4-5.1) mmol/L Chloride 108 H (98-107) mmol/L Carbon Dioxide 23 (22-32) mmol/L BUN 11 (7-17) mg/dL Creatinine 0.70 (0.52-1.04) mg/dL Estimated GFR > 60.0 (>60) mL/min BUN/Creatinine Ratio 15.7 (6-22) Glucose 90 (70-100) mg/dL Calcium 8.6 (8.4-10.2) mg/dL Total Bilirubin 0.2 (0.2-1.3) mg/dL AST 22 (14-36) IU/L ALT 24 (9-52) IU/L Alkaline Phosphatase 74 (38-126) U/L Total Protein 6.6 (6.3-8.2) g/dL Albumin 3.9 (3.5-5.0) g/dL Globulin 2.7 (1.7-4.1) g/dL Albumin/Globulin Ratio 1.4 (1.0-2.8) Lipase 60 (23-300) U/L Blood Type A Positive Antibody Screen Negative 05/17/18 Range/Units 07:25 WBC (4.5-11.0) X10^3/uL RBC (4.0-5.2) X10^6/uL Hgb (12.0-16.0) g/dL Hct (36-46) % MCV (80-100) fL MCH (26-34) PG MCHC (30-36) % RDW (11.6-14.8) % Plt Count (150-400) X10^3/uL Neut % (Auto) (50-75) % Lymph % (Auto) (25-40) % [place] % (Auto) (3-14) % Eos % (Auto) (2-4) % Baso % (Auto) (0-2) % Neut # (Auto) (4671-5147) /uL PT 27.3 H (10.1-12.7) SECONDS INR 2.5 H (0.9-1.3) Sodium (137-145) mmol/L Potassium (3.4-5.1) mmol/L Chloride (98-107) mmol/L Carbon Dioxide (22-32) mmol/L BUN (7-17) mg/dL Creatinine (0.52-1.04) mg/dL Estimated GFR (>60) mL/min BUN/Creatinine Ratio (6-22) Glucose (70-100) mg/dL Calcium (8.4-10.2) mg/dL Total Bilirubin (0.2-1.3) mg/dL AST (14-36) IU/L ALT (9-52) IU/L Alkaline Phosphatase (38-126) U/L Total Protein (6.3-8.2) g/dL Albumin (3.5-5.0) g/dL Globulin (1.7-4.1) g/dL Albumin/Globulin Ratio (1.0-2.8) Lipase (23-300) U/L Blood Type Antibody Screen Point of care testing: Point of Care Testing Test Results Negative Urine Dip Bedside Urine Glucose Negative Bedside Urine Bilirubin - Negative Bedside Urine Ketone - Negative Urine Specific [place] 1.010 Bedside Urine Occult Blood - Negative Bedside Urine pH 6.0 Bedside Urine Protein - Negative Bedside Urine Urobilinogen - Negative Bedside Urine Nitrite - Negative Bedside Urine Leukocytes - Negative Esterase ABG Data Interpretation: Imaging Data AAS xray: Radiologist's impression: [address] [address] XRay Report Signed Patient: Maryuri Bauer [facility]#: [id number] : 1970Acct:[id number] Age/Sex: 47 / FDate of Service: 05/17/18 Loc: ED Accession Number: [id number] Procedure: XR acute abdomen series Ordering Provider: Art Mccall D.O. PROCEDURE: XR ACUTE ABDOMEN SERIES INDICATIONS: Abdominal pain, hx SBO TECHNIQUE: One view chest and two views of the abdomen were acquired. COMPARISON: [facility], CR, CHEST 1 VIEW, 04/04/2017, 11:48. FINDINGS: Surgical changes and devices: Left-sided Port-A-Cath extends to the upper margin of the superior vena cava, previously the case. What appears to be a pain control device and leads are seen in stable position with reference to recent prior CT scanning. Postsurgical clips left paraspinous abdomen.. Chest: Lungs are clear. Heart size is normal. No pleural effusions. No pneumoperitoneum. Abdomen: Bowel gas pattern is normal except for mild colonic obstipation. No suspicious calcifications. Visualized solid organ contours appear normal. Bones: No suspicious bony lesions. IMPRESSION: Nonspecific bowel gas pattern, mild colonic obstipation, no definite acute disease. Dictated by: Duong Bartlett M.D. on 05/17/2018 at 8:12 Approved by: Duong Bartlett M.D. on 05/17/2018 at 8:13 CT scan - abdomen: Radiologist's impression: [place] [address] CT Scan Report Signed Patient: Maryuri Bauer [facility]#: [id number] : 1970Acct:[id number] Age/Sex: 47 / FDate of Service: 05/17/18 Loc: ED Accession Number: [id number] Procedure: CT abdomen pelvis w con Ordering Provider: Michelle Orozco D.O. PROCEDURE: CT ABDOMEN PELVIS W CON INDICATIONS: LLQ pain, vomiting, diarrhea, similar 05/02/18 TECHNIQUE: After the administration of intravenous contrast, 5 mm thick sections acquired from the diaphragm to the symphysis. 5 mm coronal and sagittal reformats were acquired. For radiation dose reduction, the following was used: automated exposure control, adjustment of mA and/or kV according to patient size. COMPARISON: [facility], CT, ABDOMEN/PELVIS WITH CONTRAST, 05/15/2015, 17: 02. [facility], CT, ABDOMEN/PELVIS WITH CONTRAST, 10/22/2015, 19:33. [facility], CT, ABDOMEN/PELVIS WITH CONTRAST, 11/16/2015, 21:29. [facility], CT, CT ABDOMEN PELVIS W CON, 05/02/2018, 10:33. FINDINGS: Image quality: Excellent. ABDOMEN: Lung bases: Lung bases are clear. Heart size is normal. Solid organs: Liver is normal in size and enhancement. Gallbladder has been removed. Biliary system is non dilated. Pancreas enhances normally. Spleen is normal in size and enhancement. No adrenal nodules. Kidneys demonstrate normal size and enhancement, without hydronephrosis. Peritoneum and bowel: There is a small hiatal hernia. Postoperative change is seen of the stomach and proximal small bowel, with the appearance of gastric bypass surgery. No dilated loops of small bowel are seen. No free air or significant free fluid can be seen. A mild to moderate amount of stool can be seen within the colon. Nodes and vessels: No retroperitoneal or mesenteric adenopathy by size criteria. Aorta and inferior vena cava are normal in size. Miscellaneous: No ventral hernias. PELVIS: Genitourinary: Bladder wall thickness is normal. Cystic changes are seen of the adnexal regions, which are slightly improved compared to the prior CT. Miscellaneous: No inguinal hernias or adenopathy. Left pelvic clips are seen. Bones: No suspicious bony lesions. No vertebral body compression fractures. A thoracic spine stimulator is seen. Mild levoconvex scoliotic curvature is noted. IMPRESSION: No acute abnormality is seen. Postoperative changes are seen, with gastric bypass surgery, cholecystectomy, and left pelvic clips. A thoracic spine stimulator is also seen. Slightly improved appearance of cystic foci involving the adnexal regions. Dictated by: Eric Chacko M.D. on 05/17/2018 at 9:19 Approved by: Eric Chacko M.D. on 05/17/2018 at 9:24 MDM Narrative Medical decision making narrative: Patient signed out to myself by Dr. Mccall, patient and I reviewed HPI, ROS and was re-examined. She continues to have pain , improved shortly with first dose of medication and just received second. Patient's CV she shows a low white blood cell count, left shift, INR is appropriate at 2.5, patient has a slightly elevated chloride but BMP is otherwise normal, lipase is also normal range. Patient's chest x-ray and abdomen did not show any clear findings of pain other than some constipation type changes. Patient's point of care urine shows a specific gravity of 1.010 with no findings of infection or blood. Discussed with patient and her significant other she does have a history of GI bleeds she states she has not had any black or tarry stools but did not with prior. She does QTC take for unprovoked pulmonary emboli. She is not having any chest pain or shortness of breath today. She is not having any syncope. We discussed repeat CT of abdomen and pelvis as she had 1 on the 02 of July which showed constipation but no other changes that were consistent with her acute symptoms. We did review risks versus benefits Um and elected to go ahead and get a repeat CT is her white count is low which could be consistent with infection. Patient is still having pain as well as some nausea although no longer retching here in the emergency department. Will try some Toradol along with Ativan for nausea as well as pain. CT does not show any acute cause, patient is doing better at this time and would like to return home. She has Zofran at home. I told her she could take Benadryl for nausea with that. She still has some Percocet from her last ER visit for pain. We discussed reasons to return. And need for follow-up and possible scope/EGD colonoscopy if she continues to have issues. Discharge Plan Departure Patient Disposition: Home Clinical Impression: Abdominal pain, Diarrhea Discharge Date/Time: 05/17/18 11:56 Interventions: ED Discharge Assessment Last Done: 05/17/18 11:55 Instructions: DI for Abdominal Pain-Adult Activity Restrictions/Additional Instructions: Follow-up with your primary care physician on Sunday. Call this afternoon for an appointment. Take medications as prescribed, these medications can make you sleepy do not drive, perform hazards activities or make any major decisions while taking them. Return to the emergency department for fevers greater than 100.4, persistent vomiting, syncope, chest pain or shortness of breath, rapidly increasing back or abdominal pain, black or bloody stools or other new or concerning symptoms. Prescriptions: No Action warfarin 6 mg tablet 6 mg PO QPM Qty: 90 RF: 0 lorazepam 2 mg tablet 2 mg PO QIDP PRN (Reason: anxiety) Qty: 120 RF: 1 gabapentin [Neurontin] 600 MG tablet 1,200 mg PO HS Qty: 180 RF: 1 prazosin [Minipress] 5 mg capsule 15 mg PO HS Qty: 270 RF: 1 zolpidem 10 mg tablet 10 mg PO HS Qty: 90 RF: 1 ibuprofen 800 mg Tablet 800 mg PO TID PRN (Reason: Pain (Scale Score 4-6)) RF: 0 acetaminophen 500 mg Tablet 1,000 mg PO Q6H PRN (Reason: Pain, Mild) RF: 0 bupropion HCl [Wellbutrin SR] 150 mg tablet extended release 12 hr 300 mg PO BID RF: 0 cholecalciferol (vitamin D3) [Vitamin D3] 1,000 unit Capsule 1,000 unit PO BID RF: 0 fluticasone [Flonase Allergy Relief] 50 mcg/actuation spray,suspension 2 spray Intranasal BEDTIME RF: 0 tizanidine [Zanaflex] 4 mg capsule 4 mg PO TID RF: 0 ondansetron [Zofran ODT] 4 mg tablet,disintegrating 8 mg PO TID PRN (Reason: nausea and vomiting) Qty: 30 RF: 0 oxycodone-acetaminophen [Percocet] 5-325 mg tablet 2 tab PO Q4-6H PRN (Reason: pain) Qty: 20 RF: 0 lamotrigine 150 mg Tablet 150 mg PO BID RF: 0
[2018-05-17] MEDS: SODIUM CHLORIDE 0.9% 1,000 ML 1000 ML IV (07:32)
[2018-05-17] MEDS: PANTOPRAZOLE 40 MG VIAL IV (07:32)
[2018-05-17] MEDS: ONDANSETRON 4 MG/2 ML INJ IV ×2 (07:32→08:19)
[2018-05-17] MEDS: HYDROMORPHONE 1 MG INJ 0.5 MG IV ×2 (07:32→08:27)
[2018-05-17 07:40] LABS: Add Manual Diff / Slide Review NO; Basophils Percent Auto 0.7 % (0-2); Eosinophils Percent Auto 10.7 % (2-4); Hematocrit 37.4 % (36-46); Hemoglobin 12.2 g/dL (12.0-16.0); INR 2.5 (0.9-1.3); Lymphocytes Percent Auto 36.4 % (25-40); Mean Corpuscular HGB Conc 32.5 % (30-36); Mean Corpuscular Volume 86.1 fL (80-100); Monocytes Percent Auto 8.3 % (3-14); Neutrophils Absolute Auto 1600 /uL (3000-5900); Neutrophils Percent Auto 43.9 % (50-75); Platelet Count 226 X10^3/uL (150-400); Prothrombin Time 27.3 SECONDS (10.1-12.7); Red Blood Cell Count 4.34 X10^6/uL (4.0-5.2); Red Cell Distribution Width 19.7 % (11.6-14.8); White Blood Cell Count 3.7 X10^3/uL (4.5-11.0)
[2018-05-17 07:53] LABS: Alanine Aminotransferase 24 IU/L (9-52); Albumin 3.9 g/dL (3.5-5.0); Albumin Globulin Ratio 1.4 (1.0-2.8); Alkaline Phosphatase 74 U/L (38-126); Aspartate Aminotransferase 22 IU/L (14-36); BUN Creatinine Ratio 15.7 (6-22); Bilirubin Total 0.2 mg/dL (0.2-1.3); Blood Urea Nitrogen 11 mg/dL (7-17); Calcium 8.6 mg/dL (8.4-10.2); Carbon Dioxide 23 mmol/L (22-32); Chloride 108 mmol/L (98-107); Estimated Glomerular Filt Rate > 60.0 mL/min (>60); Globulin 2.7 g/dL (1.7-4.1); Glucose 90 mg/dL (70-100); HEMOLYSIS < 15 (0-50); Lipase 60 U/L (23-300); Potassium 3.7 mmol/L (3.4-5.1); Sodium 141 mmol/L (137-145); Total Protein 6.6 g/dL (6.3-8.2)
[2018-05-17] MEDS: LORazepam 2 MG/ML SYRINGE 0.5 MG IV (09:04)
[2018-05-17] MEDS: KETOROLAC 60 MG/2 ML VIAL 30 MG IV (09:04)
[2018-05-17 09:13] VITALS: BP 132/74; PULSE 80; RESP 18; O2SAT 99
--- NOTE | 2018-05-17 09:25 | DI.CT.S_ITS ---
PROCEDURE: CT ABDOMEN PELVIS W CON INDICATIONS: LLQ pain, vomiting, diarrhea, similar 05/02/18 TECHNIQUE: After the administration of intravenous contrast, 5 mm thick sections acquired from the diaphragm to the symphysis. 5 mm coronal and sagittal reformats were acquired. For radiation dose reduction, the following was used: automated exposure control, adjustment of mA and/or kV according to patient size. COMPARISON: [facility], CT, ABDOMEN/PELVIS WITH CONTRAST, 05/15/2015, 17:02. [facility], CT, ABDOMEN/PELVIS WITH CONTRAST, 10/22/2015, 19:33. [facility], CT, ABDOMEN/PELVIS WITH CONTRAST, 11/16/2015, 21:29. [facility], CT, CT ABDOMEN PELVIS W CON, 05/02/2018, 10:33. FINDINGS: Image quality: Excellent. ABDOMEN: Lung bases: Lung bases are clear. Heart size is normal. Solid organs: Liver is normal in size and enhancement. Gallbladder has been removed. Biliary system is non dilated. Pancreas enhances normally. Spleen is normal in size and enhancement. No adrenal nodules. Kidneys demonstrate normal size and enhancement, without hydronephrosis. Peritoneum and bowel: There is a small hiatal hernia. Postoperative change is seen of the stomach and proximal small bowel, with the appearance of gastric bypass surgery. No dilated loops of small bowel are seen. No free air or significant free fluid can be seen. A mild to moderate amount of stool can be seen within the colon. Nodes and vessels: No retroperitoneal or mesenteric adenopathy by size criteria. Aorta and inferior vena cava are normal in size. Miscellaneous: No ventral hernias. PELVIS: Genitourinary: Bladder wall thickness is normal. Cystic changes are seen of the adnexal regions, which are slightly improved compared to the prior CT. Miscellaneous: No inguinal hernias or adenopathy. Left pelvic clips are seen. Bones: No suspicious bony lesions. No vertebral body compression fractures. A thoracic spine stimulator is seen. Mild levoconvex scoliotic curvature is noted. IMPRESSION: No acute abnormality is seen. Postoperative changes are seen, with gastric bypass surgery, cholecystectomy, and left pelvic clips. A thoracic spine stimulator is also seen. Slightly improved appearance of cystic foci involving the adnexal regions. Dictated by: Eric Chacko M.D. on 05/17/2018 at 9:19 Approved by: Eric Chacko M.D. on 05/17/2018 at 9:24
--- NOTE | 2018-05-17 09:51 | PC.NURSE ---
Port deaccessed and reaccessed w/ 20g 0.75 gregg needle. + blood return, + flushes well. Needed change r/t CT scan. Pt tolerated well.
[2018-05-17] MEDS: PROCHLORPERAZINE 10 MG/2 ML VIAL IV (09:53)
[2018-05-17] MEDS: diphenhydrAMINE 50 MG/ML VIAL IV (09:53)
[2018-05-17 11:04] VITALS: BP 115/57; PULSE 82; RESP 16; O2SAT 100
[2018-05-17 11:38] VITALS: BP 115/58; PULSE 67; RESP 16; O2SAT 100
== END 2018-05-17 11:56 | disposition home or self-care (01) ==
PROVIDERS: Emergency Medicine; Emergency Provider Emergency Medicine; Family Provider Student in an Organized Health Care Education/Training Program; PCP Student in an Organized Health Care Education/Training Program
DX: R19.7 Diarrhea, unspecified (principal); R10.9 Unspecified abdominal pain
CPT/HCPCS: 36591; 74022; 74177; 80053; 81003; 81025; 83690; 85025; 85610; 86850; 86900; 86901; 96361; 96374; 96375; 96376; 99283; 99285; C9113; J0780; J1170; J1200; J1885; J2060; J2405; Q9967

== ENCOUNTER → 2018-11-13 15:20 | Outpatient (CLI) | payer OTHER, SELFPAY ==
--- NOTE | 2018-11-13 | DI.MG.S_ITS ---
BILATERAL DIGITAL SCREENING MAMMOGRAM 3D/2D WITH CAD: 11/13/2018 CLINICAL: Routine screening. Family history of breast cancer. Comparison is made to exams dated: 10/10/2016 mammogram - [facility], 05/27/2014 mammogram, and 04/29/2013 mammogram - [facility]. The tissue of both breasts is heterogeneously dense. This may lower the sensitivity of mammography. Current study was also evaluated with a Computer Aided Detection (CAD) system. No significant masses, calcifications, or other findings are seen in either breast. There has been no significant interval change. IMPRESSION: NEGATIVE There is no mammographic evidence of malignancy. A 1 year screening mammogram is recommended. This exam was interpreted at Station ID: [id number]. NOTE: For mammograms, a report in lay terms will be sent to the patient. Approximately 15% of breast malignancies will not be visualized mammographically. In the management of a palpable breast mass, a negative mammogram must not discourage biopsy of a clinically suspicious lesion. Electronically Signed By: Donte vidal/blue:11/13/2018 16:24:04 letter sent: Normal Exam ACR BI-RADS Category 1: Negative [id number]
== END ==
PROVIDERS: PCP Student in an Organized Health Care Education/Training Program; Visit Provider Student in an Organized Health Care Education/Training Program
DX: Z12.31 Encounter for screening mammogram for malignant neoplasm of breast (principal); Z80.3 Family history of malignant neoplasm of breast
CPT/HCPCS: 77063; 77067

== ENCOUNTER → 2019-01-15 15:52 | Outpatient (CLI) | payer OTHER, SELFPAY ==
--- NOTE | 2019-01-15 15:54 | DI.RAD.S_ITS ---
PROCEDURE: XR CHEST 2V INDICATIONS: Bronchitis TECHNIQUE: 2 views of the chest were acquired. COMPARISON: [facility], , CHEST 1 VIEW, 04/04/2017, 11:48. FINDINGS: Surgical changes and devices: Spinal electrode partially visualized and left chest port with tip projecting at the upper SVC. Lungs and pleura: Low lung volumes with scattered subsegmental atelectasis/scarring. No pleural effusions or pneumothorax. Mediastinum: Mediastinal contours are normal. Heart size is normal. Bones and chest wall: No suspicious bony abnormalities. Soft tissues appear unremarkable. IMPRESSION: No acute disease Dictated by: Jones Tarango M.D. on 01/15/2019 at 16:31 Approved by: Jones Tarango M.D. on 01/15/2019 at 16:32
== END ==
PROVIDERS: PCP Student in an Organized Health Care Education/Training Program; Visit Provider Student in an Organized Health Care Education/Training Program
DX: J40 Bronchitis, not specified as acute or chronic (principal)
CPT/HCPCS: 71046

== ENCOUNTER 2019-04-18 09:59 | Emergency (ER) | payer OTHER, SELFPAY ==
[2019-04-18 10:07] VITALS: BP 141/84; PULSE 68; RESP 28; TEMP 36.5; O2SAT 100
[2019-04-18 10:09] VITALS: BP 141/84; PULSE 68; RESP 28; TEMP 36.5; O2SAT 100; BMI 87.8
--- NOTE | 2019-04-18 10:10 | DI.RAD.S_ITS ---
PROCEDURE: XR CHEST 1V INDICATIONS: Chest pressure TECHNIQUE: One view of the chest was acquired. COMPARISON: [facility], CR, XR CHEST 2V, 01/15/2019, 16:18. FINDINGS: Surgical changes and devices: Left chest wall Port-A-Cath tip is in SVC. Likely cord stimulator leads are again seen projecting at T8-9 level unchanged from previous study. Lungs and pleura: Lungs are clear. No pleural effusions or pneumothorax. Mediastinum: Mediastinal contours appear normal. Heart size is normal. Bones and chest wall: No suspicious bony lesions. Overlying soft tissues appear unremarkable. IMPRESSION: No acute cardiopulmonary pathology. No significant changes from previous study. Dictated by: Solitario Wong M.D. on 04/18/2019 at 10:24 Approved by: Solitario Wong M.D. on 04/18/2019 at 10:25
--- NOTE | 2019-04-18 10:18 | ED.CHESTPAIN ---
HPI - Chest Pain General Chief Complaint: Chest Pain Stated Complaint: chest tightness,shortness of breath Time Seen by Provider: 04/18/19 10:09 Source: patient Mode of arrival: Ambulatory Limitations: no limitations History of Present Illness HPI narrative: 48-year-old female here for evaluation of left-sided chest tightness and shortness of breath with exertion. She states has been off and on for the past several days but worse since last evening. Has had 2 prior pulmonary embolisms. Is on Eliquis for this. Has never had a heart attack before. Pain is not worse with movement. Not worse with palpation. Does occur when she is not exerting herself it is worse when she exerts herself. Has not tried anything for the symptoms prior to arrival Related Data Home Medications Medication Instructions Recorded Confirmed acetaminophen 1,000 mg PO Q6H PRN 03/06/18 04/18/19 ibuprofen 800 mg PO TID PRN 03/06/18 04/18/19 cholecalciferol (vitamin D3) 400 400 unit PO BID 08/20/18 04/18/19 unit tablet Resmed Aircurve 10 BIPAP #1 ea 11/25/18 04/18/19 clonidine HCl 0.1 mg tablet 0.1 mg PO TID PRN 04/08/19 04/18/19 lorazepam 2 mg tablet 2 mg PO BID tab 04/08/19 04/18/19 albuterol sulfate 2 puff INHALATION Q6H PRN 04/18/19 04/18/19 bupropion HCl [Wellbutrin SR] 300 mg PO QAM 04/18/19 04/18/19 cetirizine [Zyrtec] 10 mg PO DAILY 04/18/19 04/18/19 gabapentin [Neurontin] 1,200 mg PO BEDTIME 04/18/19 04/18/19 lithium carbonate 900 mg PO BEDTIME 04/18/19 04/18/19 lorazepam 4 mg PO BEDTIME 04/18/19 04/18/19 olanzapine 5 mg PO BEDTIME PRN 04/18/19 04/18/19 omeprazole magnesium [Prilosec OTC] 20 mg PO BID 04/18/19 04/18/19 ondansetron HCl [Zofran] 4 - 8 mg PO TID PRN 04/18/19 04/18/19 prazosin [Minipress] 15 mg PO BEDTIME 04/18/19 04/18/19 promethazine 25 - 50 mg PO Q6H PRN 04/18/19 04/18/19 vortioxetine [Trintellix] 10 mg PO DAILY 04/18/19 04/18/19 zolpidem 10 mg PO BEDTIME 04/18/19 04/18/19 Previous Rx's Medication Instructions Recorded tizanidine 4 mg capsule 4 mg PO TID PRN #270 cap 08/05/18 fluticasone propionate 50 2 spray INTRANASAL BEDTIME #16 gram 09/30/18 mcg/actuation nasal spray,suspension topiramate 100 mg tablet 200 mg PO BEDTIME #60 tab 03/17/19 apixaban 5 mg tablet 5 mg PO BID #60 tab 03/26/19 lamotrigine 150 mg tablet 150 mg PO BID #180 tab 04/03/19 azithromycin See Rx Instructions .ROUTE 04/18/19 .COMPLEX #6 tab Allergies Allergy/AdvReac Type Severity Reaction Status Date / Time No Known Drug Allergies Allergy Verified 04/04/19 15:10 Review of Systems Constitutional Constitutional: Denies fever(s) Cardiovascular Cardiovascular: Reports chest pain, Denies pedal edema, Denies edema, Reports dyspnea and Reports dyspnea on exertion Respiratory Respiratory: Reports dyspnea and Reports dyspnea on exertion Gastrointestinal Gastrointestinal: Denies abdominal pain, Denies nausea and Denies vomiting Genitourinary Genitourinary: Denies dysuria Musculoskeletal Musculoskeletal: Denies myalgias and Denies arthralgias Integumentary/Breasts Skin/Breast: Denies lesions and Denies rash Neurologic Neurologic: Denies behavioral changes Psychiatric Psychiatric: Denies behavioral changes Hematologic/Lymphatic Comments: On [facility] Medical History Abnormal CXR (chest x-ray) (Resolved) Ankle fracture, left (Resolved 1986) Anxiety (Chronic) Arthritis of knee (Chronic) Asthma (Chronic) Bipolar 1 disorder, depressed (Chronic) Chicken pox (Resolved) Chronic anemia (Chronic) Chronic back pain (Chronic) Chronic headaches (Chronic) Chronic neck pain (Chronic) Depression (Chronic) Diabetes mellitus (Resolved) Diastolic dysfunction (Chronic) Fatty liver (Chronic) GERD (gastroesophageal reflux disease) (Chronic) GI bleeding (Resolved) High risk medication use (Chronic) Hyperlipidemia (Chronic) Hypertension (Chronic) 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 marquise/sikh: [employer] Smoking Status: Never smoker alcohol intake: never substance use type: does not use Exam Initial Vital Signs Initial Vital Signs: Vital Signs Temperature 97.7 F 04/18/19 10:07 Pulse Rate 68 04/18/19 10:07 Respiratory Rate 28 H 04/18/19 10:07 Blood Pressure 141/84 H 04/18/19 10:07 Pulse Oximetry 100 04/18/19 10:07 Const General: cooperative, comfortable and well developed Orientation: alert, awake and oriented x3 HENMT Head: normal to inspection and normocephalic Resp Effort & Inspection: normal respiratory effort Auscultation: clear to auscultation bilaterally Cardio Rate: regular rate Rhythm: regular rhythm GI Inspection: non-distended Palpation: soft, No firm and No tender Skin Lesions: no lesions Rashes: no rashes Neuro General: alert and awake Cognition: normal cognition Speech: speech normal Motor: muscle tone normal throughout Extrem General: normal to inspection and capillary refill normal Psych Appearance: grossly normal and well kempt Course Orders Ordered: ED Orders 04/18/19 10:10 XR chest 1V Stat EKG-12 Lead Stat 04/18/19 10:30 B Type Natriuretic Peptide Stat Complete Blood Count AUTO DIFF Stat Comprehensive Metabolic Panel Stat Lipase Stat Partial Thromboplastin Time Stat Prothrombin Time INR Stat Troponin I Stat 04/18/19 11:23 CT angio chest PE protocol Stat Discontinued Medications Aspirin (Aspirin Chew) 324 mg PO NOW ONE Stop: 04/18/19 10:10 Last Admin: 04/18/19 10:42 Dose: 324 mg Documented by: MELLISA Sodium Chloride (Normal Saline 0.9%) 1,000 mls @ 1,000 mls/hr IV BOLUS ONE Stop: 04/18/19 11:37 Last Infusion: 04/18/19 11:55 Dose: 25 mls/hr Documented by: Admin: 04/18/19 10:43 Dose: 1,000 mls/hr Documented by: MELLISA Ondansetron HCl (Zofran) 4 mg IV NOW ONE Stop: 04/18/19 11:45 Last Admin: 04/18/19 11:52 Dose: 4 mg Documented by: MELLISA Vital Signs Vital signs: Vital Signs - 8 hr 04/18/19 10:07 04/18/19 10:09 04/18/19 11:06 Temperature 97.7 F 97.7 F Pulse Rate 68 68 68 Respiratory Rate 28 H 28 H 16 Blood Pressure 141/84 H Blood Pressure [Right Arm] 141/84 H 102/67 Pulse Oximetry 100 100 98 04/18/19 12:28 Temperature Pulse Rate 68 Respiratory Rate 19 Blood Pressure Blood Pressure [Right Arm] 110/58 L Pulse Oximetry 99 MDM - Chest Pain Lab Data Attestation: I reviewed the patient's lab results. Result diagrams: 04/18/19 10:30 04/18/19 10:30 Labs: Lab Results 04/18/19 04/18/19 04/18/19 Range/Units 10:30 10:30 10:30 WBC 9.9 (4.5-11.0) X10^3/uL RBC 3.73 L (4.0-5.2) X10^6/uL Hgb 10.1 L (12.0-16.0) g/dL Hct 31.6 L (36-46) % MCV 84.8 (80-100) fL MCH 27.1 (26-34) PG MCHC 31.9 (30-36) % RDW 18.2 H (11.6-14.8) % Plt Count 298 (150-400) X10^3/uL Neut % (Auto) 74.2 (50-75) % Lymph % (Auto) 12.7 L (25-40) % [place] % (Auto) 7.8 (3-14) % Eos % (Auto) 4.8 H (2-4) % Baso % (Auto) 0.5 (0-2) % Neut # (Auto) 7300 H (4563-2031) /uL Lymph # (Auto) 1300 (4797-2219) /uL [place] # (Auto) 800 (0-900) /uL Eos # (Auto) 500 H (0-450) /uL Baso # (Auto) 0 (0-100) /uL PT 15.0 H (10.1-12.7) SECONDS INR 1.3 (0.9-1.3) APTT 44 H (26.4-36.2) SECONDS Sodium 141 (137-145) mmol/L Potassium 3.7 (3.4-5.1) mmol/L Chloride 107 (98-107) mmol/L Carbon Dioxide 22 (22-32) mmol/L BUN 22 H (7-17) mg/dL Creatinine 1.20 H (0.52-1.04) mg/dL Estimated GFR 47.6 L (>60) mL/min BUN/Creatinine Ratio 18.3 (6-22) Glucose 99 (70-100) mg/dL Calcium 9.2 (8.4-10.2) mg/dL Total Bilirubin 0.3 (0.2-1.3) mg/dL AST 20 (14-36) IU/L ALT 16 (9-52) IU/L Alkaline Phosphatase 67 (38-126) U/L Troponin I (0.01-0.034) ng/mL B-Natriuretic Peptide < 100 (<100) Total Protein 7.0 (6.3-8.2) g/dL Albumin 3.9 (3.5-5.0) g/dL Globulin 3.1 (1.7-4.1) g/dL Albumin/Globulin Ratio 1.3 (1.0-2.8) Lipase 104 (23-300) U/L 04/18/19 Range/Units 10:30 WBC (4.5-11.0) X10^3/uL RBC (4.0-5.2) X10^6/uL Hgb (12.0-16.0) g/dL Hct (36-46) % MCV (80-100) fL MCH (26-34) PG MCHC (30-36) % RDW (11.6-14.8) % Plt Count (150-400) X10^3/uL Neut % (Auto) (50-75) % Lymph % (Auto) (25-40) % [place] % (Auto) (3-14) % Eos % (Auto) (2-4) % Baso % (Auto) (0-2) % Neut # (Auto) (2017-0400) /uL Lymph # (Auto) (0299-2399) /uL [place] # (Auto) (0-900) /uL Eos # (Auto) (0-450) /uL Baso # (Auto) (0-100) /uL PT (10.1-12.7) SECONDS INR (0.9-1.3) APTT (26.4-36.2) SECONDS Sodium (137-145) mmol/L Potassium (3.4-5.1) mmol/L Chloride (98-107) mmol/L Carbon Dioxide (22-32) mmol/L BUN (7-17) mg/dL Creatinine (0.52-1.04) mg/dL Estimated GFR (>60) mL/min BUN/Creatinine Ratio (6-22) Glucose (70-100) mg/dL Calcium (8.4-10.2) mg/dL Total Bilirubin (0.2-1.3) mg/dL AST (14-36) IU/L ALT (9-52) IU/L Alkaline Phosphatase (38-126) U/L Troponin I < 0.012 (0.01-0.034) ng/mL B-Natriuretic Peptide (<100) Total Protein (6.3-8.2) g/dL Albumin (3.5-5.0) g/dL Globulin (1.7-4.1) g/dL Albumin/Globulin Ratio (1.0-2.8) Lipase (23-300) U/L Urine Dip Bedside Urine Glucose Negative Bedside Urine Bilirubin - Negative Bedside Urine Ketone - Negative Urine Specific [place] 1.005 Bedside Urine Occult Blood - Negative Bedside Urine pH 6.0 Bedside Urine Protein - Negative Bedside Urine Urobilinogen - Negative Bedside Urine Nitrite - Negative Bedside Urine Leukocytes - Negative Esterase Imaging Data Chest x-ray: Radiologist's impression: [address] [address] XRay Report Signed Patient: Maryuri Bauer [facility]#: [id number] : 1970Acct:[id number] Age/Sex: 48 / FDate of Service: 04/18/19 Loc: ED Accession Number: [id number] Procedure: XR chest 1V Ordering Provider: Kingsley George D.O. PROCEDURE: XR CHEST 1V INDICATIONS: Chest pressure TECHNIQUE: One view of the chest was acquired. COMPARISON: [facility], CR, XR CHEST 2V, 01/15/2019, 16:18. FINDINGS: Surgical changes and devices: Left chest wall Port-A-Cath tip is in SVC. Likely cord stimulator leads are again seen projecting at T8-9 level unchanged from previous study. Lungs and pleura: Lungs are clear. No pleural effusions or pneumothorax. Mediastinum: Mediastinal contours appear normal. Heart size is normal. Bones and chest wall: No suspicious bony lesions. Overlying soft tissues appear unremarkable. IMPRESSION: No acute cardiopulmonary pathology. No significant changes from previous study. Dictated by: Solitario Wong M.D. on 04/18/2019 at 10:24 Approved by: Solitario Wong M.D. on 04/18/2019 at 10:25 CT scan - chest: Radiologist's impression: [address] [address] [address] Scan Report Signed Patient: Maryuri Bauer [facility]#: [id number] : 1970Acct:[id number] Age/Sex: 48 / FDate of Service: 04/18/19 Loc: ED Accession Number: [id number] Procedure: CT angio chest PE protocol Ordering Provider: Kingsley George D.O. PROCEDURE: CT ANGIO CHEST PE PROTOCOL INDICATIONS: Chest pain, shortness of breath, prior hx of PE TECHNIQUE: After the administration of intravenous contrast, 2 mm thick sections acquired from the pulmonary apices to the posterior costophrenic angles. 3-dimensional maximum intensity projection (MIP) coronal and sagittal reformats were then acquired through the thorax. For radiation dose reduction, the following was used: automated exposure control, adjustment of mA and/or kV according to patient size. COMPARISON: [facility], CT, CT ABDOMEN PELVIS W CON, 05/17/2018, 9:59. FINDINGS: Image quality: Excellent. Pulmonary arteries: Pulmonary arteries are normal in size, and demonstrate no intraluminal filling defects to suggest central pulmonary embolism. Lungs and pleura: There is peripheral wedge-shaped consolidation present extending to the pleura involving the anterior basal segment of the left lower lobe. There is minimal linear platelike atelectasis in the right lung base. No pleural effusions or pneumothorax. Central and peripheral airways are patent. Mediastinum: Heart size is normal, without pericardial effusion. No mediastinal or hilar adenopathy. Thoracic aorta is normal in caliber and enhancement. Esophagus is normal in caliber, without hiatal hernia. Bones and chest wall: No suspicious bony lesions. Ribs and thoracic spine appear intact throughout. Thyroid gland is unremarkable. No axillary or supraclavicular adenopathy. Abdomen: Remote gastric bypass. Visualized upper abdominal solid organs appear normal in the early arterial phase of enhancement. Dorsal column stimulator device. IMPRESSION: 1. No pulmonary emboli identified. 2. Peripheral wedge-shaped consolidation extending to the pleura in the anterobasal segment of the left lower lobe. Comment: Findings may represent acute pneumonia. Alternatively, findings may potentially represent a pulmonary embolus which has resulted in a small pulmonary infarct, with resolution of the pulmonary embolus prior to the pulmonary angiogram. However, no pulmonary emboli are identified on the current study. Additional comment: Duplex bilateral lower extremity ultrasound may be helpful. Dictated by: Fer Ahumada M.D. on 04/18/2019 at 11:40 Approved by: Fer Ahumada M.D. on 04/18/2019 at 11:49 ECG Data Attestation: I personally reviewed and interpreted this ECG as follows: Prior ECG tracings: not available for review Interpretation: Somewhat degraded secondary to nerve stimulator Sinus rhythm Ventricular rate of [address] T wave changes MDM Narrative Medical decision making narrative: Chest x-ray is clear however the CT scan shows which could potentially be a left lower lobe pneumonia versus is necrotic tissue. Patient states that her 1st pulmonary embolism was greater than 5 years ago. States that the 2nd pulmonary embolism was on the right side or shortly after the 1st 1. She has had multiple CT scan since then and has never been told of a left-sided issue. She does have tenderness over the left side. She is not hypoxic. Does not have elevated white blood cell count. Has not been febrile which does point against a pneumonia however I also feel that necrotic tissue secondary to a pulmonary embolism is also unlikely. The plan will be is to treat the patient with antibiotics to see if this does not improve her symptoms. She has an inhaler at home which she can use. She is going to contact her primary provider for follow-up and to discuss further evaluation if needed. Patient expressed understanding and agreement with plan. Discharge Plan Departure Patient Disposition: Home Clinical Impression: Pneumonia Qualifiers: Pneumonia type: due to unspecified organism Laterality: left Lung location: unspecified part of lung Qualified Code(s): J18.9 - Pneumonia, unspecified organism Instructions: DI for Pneumonia -- Adult Activity Restrictions/Additional Instructions: Recommend that you take the antibiotics as directed. You can also use your inhaler at home as needed. Contact your primary provider for a follow-up to discuss further testing if needed. Return to the emergency department for any new or worsening symptoms. Prescriptions: New azithromycin 250 mg tablet See Rx Instructions .ROUTE .COMPLEX Qty: 6 RF: 0 No Action lorazepam 2 mg tablet 2 mg PO BID RF: 0 tizanidine [Zanaflex] 4 mg capsule 4 mg PO TID PRN (Reason: muscle spasms) Qty: 270 RF: 1 fluticasone propionate [Flonase Allergy Relief] 50 mcg/actuation spray,suspension 2 spray Intranasal BEDTIME Qty: 16 RF: 5 topiramate 100 mg tablet 200 mg PO BEDTIME Qty: 60 RF: 2 apixaban 5 mg tablet 5 mg PO BID Qty: 60 RF: 5 lamotrigine 150 mg tablet 150 mg PO BID Qty: 180 RF: 0 ibuprofen 800 mg Tablet 800 mg PO TID PRN (Reason: Pain (Scale Score 4-6)) RF: 0 acetaminophen 500 mg Tablet 1,000 mg PO Q6H PRN (Reason: Pain, Mild) RF: 0 clonidine HCl 0.1 mg tablet 0.1 mg PO TID PRN (Reason: Anxiety) RF: 0 Trintellix 10 mg Tablet 10 mg PO DAILY RF: 0 bupropion HCl [Wellbutrin SR] 150 mg tablet sustained-release 12 hr 300 mg PO QAM RF: 0 gabapentin [Neurontin] 600 mg tablet 1,200 mg PO BEDTIME RF: 0 prazosin [Minipress] 5 mg capsule 15 mg PO BEDTIME RF: 0 zolpidem 10 mg tablet 10 mg PO BEDTIME RF: 0 cetirizine [Zyrtec] 10 mg Tablet 10 mg PO DAILY RF: 0 lorazepam 2 mg Tablet 4 mg PO BEDTIME RF: 0 albuterol sulfate 90 mcg/actuation Hfa Aerosol Inhaler 2 puff INHALATION Q6H PRN (Reason: Shortness Of Breath) RF: 0 Prilosec OTC 20 mg Tablet,Delayed Release (Dr/Ec) 20 mg PO BID RF: 0 ondansetron HCl [Zofran] 4 mg tablet 4 - 8 mg PO TID PRN (Reason: nausea and vomiting) RF: 0 promethazine 25 mg tablet 25 - 50 mg PO Q6H PRN (Reason: NAUSEA AND INSOMNIA) RF: 0 olanzapine 2.5 mg tablet 5 mg PO BEDTIME PRN (Reason: episode) RF: 0 lithium carbonate 300 mg capsule 900 mg PO BEDTIME RF: 0 cholecalciferol (vitamin D3) 400 unit tablet 400 unit PO BID RF: 0 (DME) Resmed Aircurve 10 BIPAP Qty: 1 RF: 0 Referrals: Yunier Keys MD [Primary Care Provider] -
[2019-04-18] MEDS: ASPIRIN 81 MG CHEW TAB 324 MG PO (10:42)
[2019-04-18 10:43] LABS: Add Manual Diff / Slide Review NO; Basophils Absolute Auto 0 /uL (0-100); Basophils Percent Auto 0.5 % (0-2); Eosinophils Absolute Auto 500 /uL (0-450); Eosinophils Percent Auto 4.8 % (2-4); Hematocrit 31.6 % (36-46); Hemoglobin 10.1 g/dL (12.0-16.0); Lymphocytes Absolute Auto 1300 /uL (1100-4500); Lymphocytes Percent Auto 12.7 % (25-40); Mean Corpuscular HGB Conc 31.9 % (30-36); Mean Corpuscular Hemoglobin 27.1 PG (26-34); Mean Corpuscular Volume 84.8 fL (80-100); Monocytes Absolute Auto 800 /uL (0-900); Monocytes Percent Auto 7.8 % (3-14); Neutrophils Absolute Auto 7300 /uL (1500-7000); Neutrophils Percent Auto 74.2 % (50-75); Platelet Count 298 X10^3/uL (150-400); Red Blood Cell Count 3.73 X10^6/uL (4.0-5.2); Red Cell Distribution Width 18.2 % (11.6-14.8); White Blood Cell Count 9.9 X10^3/uL (4.5-11.0)
[2019-04-18] MEDS: SODIUM CHLORIDE 0.9% 1,000 ML 1000 ML IV (10:43)
[2019-04-18 10:50] LABS: INR 1.3 (0.9-1.3)
[2019-04-18 10:52] LABS: PTT Partial Thromboplastin Tim 44 SECONDS (26.4-36.2)
[2019-04-18 10:58] LABS: Alanine Aminotransferase 16 IU/L (9-52); Albumin 3.9 g/dL (3.5-5.0); Albumin Globulin Ratio 1.3 (1.0-2.8); Alkaline Phosphatase 67 U/L (38-126); Aspartate Aminotransferase 20 IU/L (14-36); BUN Creatinine Ratio 18.3 (6-22); Bilirubin Total 0.3 mg/dL (0.2-1.3); Blood Urea Nitrogen 22 mg/dL (7-17); Calcium 9.2 mg/dL (8.4-10.2); Carbon Dioxide 22 mmol/L (22-32); Chloride 107 mmol/L (98-107); Estimated Glomerular Filt Rate 47.6 mL/min (>60); Globulin 3.1 g/dL (1.7-4.1); Glucose 99 mg/dL (70-100); HEMOLYSIS < 15 (0-50); Lipase 104 U/L (23-300); Potassium 3.7 mmol/L (3.4-5.1); Sodium 141 mmol/L (137-145)
[2019-04-18 11:01] LABS: B Type Natriuretic Peptide < 100 (<100)
[2019-04-18 11:06] VITALS: BP 102/67; PULSE 68; RESP 16; O2SAT 98
[2019-04-18 11:10] LABS: Troponin I < 0.012 ng/mL (0.01-0.034)
--- NOTE | 2019-04-18 11:23 | DI.CT.S_ITS ---
PROCEDURE: CT ANGIO CHEST PE PROTOCOL INDICATIONS: Chest pain, shortness of breath, prior hx of PE TECHNIQUE: After the administration of intravenous contrast, 2 mm thick sections acquired from the pulmonary apices to the posterior costophrenic angles. 3-dimensional maximum intensity projection (MIP) coronal and sagittal reformats were then acquired through the thorax. For radiation dose reduction, the following was used: automated exposure control, adjustment of mA and/or kV according to patient size. COMPARISON: [facility], CT, CT ABDOMEN PELVIS W CON, 05/17/2018, 9:59. FINDINGS: Image quality: Excellent. Pulmonary arteries: Pulmonary arteries are normal in size, and demonstrate no intraluminal filling defects to suggest central pulmonary embolism. Lungs and pleura: There is peripheral wedge-shaped consolidation present extending to the pleura involving the anterior basal segment of the left lower lobe. There is minimal linear platelike atelectasis in the right lung base. No pleural effusions or pneumothorax. Central and peripheral airways are patent. Mediastinum: Heart size is normal, without pericardial effusion. No mediastinal or hilar adenopathy. Thoracic aorta is normal in caliber and enhancement. Esophagus is normal in caliber, without hiatal hernia. Bones and chest wall: No suspicious bony lesions. Ribs and thoracic spine appear intact throughout. Thyroid gland is unremarkable. No axillary or supraclavicular adenopathy. Abdomen: Remote gastric bypass. Visualized upper abdominal solid organs appear normal in the early arterial phase of enhancement. Dorsal column stimulator device. IMPRESSION: 1. No pulmonary emboli identified. 2. Peripheral wedge-shaped consolidation extending to the pleura in the anterobasal segment of the left lower lobe. Comment: Findings may represent acute pneumonia. Alternatively, findings may potentially represent a pulmonary embolus which has resulted in a small pulmonary infarct, with resolution of the pulmonary embolus prior to the pulmonary angiogram. However, no pulmonary emboli are identified on the current study. Additional comment: Duplex bilateral lower extremity ultrasound may be helpful. Dictated by: Fer Ahumada M.D. on 04/18/2019 at 11:40 Approved by: Fer Ahumada M.D. on 04/18/2019 at 11:49
[2019-04-18] MEDS: ONDANSETRON 4 MG/2 ML INJ IV (11:52)
[2019-04-18 12:28] VITALS: BP 110/58; PULSE 68; RESP 19; O2SAT 99
== END 2019-04-18 13:17 | disposition home or self-care (01) ==
PROVIDERS: Emergency Provider Emergency Medicine; PCP Student in an Organized Health Care Education/Training Program
DX: J18.9 Pneumonia, unspecified organism (principal)
CPT/HCPCS: 71045; 71275; 80053; 81003; 83690; 83880; 84484; 85025; 85610; 85730; 93005; 93010; 96361; 96374; 99283; 99285; J1642; J2405; Q9967

== ENCOUNTER → 2019-04-23 15:37 | Outpatient (CLI) | payer OTHER, SELFPAY ==
[2019-04-23 15:54] LABS: Influenza A and B by PCR Rapid Negative (Negative)
== END ==
PROVIDERS: PCP Student in an Organized Health Care Education/Training Program; Visit Provider Student in an Organized Health Care Education/Training Program
DX: R05 Cough (principal)
CPT/HCPCS: 87400; 87502

== ENCOUNTER → 2019-05-23 12:32 | Outpatient (RCR) | payer OTHER, SELFPAY ==
[2019-05-23 14:06] LABS: D Dimer < 200 ng/mL (<230)
[2019-05-23 14:07] LABS: Alanine Aminotransferase 16 IU/L (<35); Albumin Globulin Ratio 1.4 (1.0-2.8); Alkaline Phosphatase 56 U/L (38-126); Aspartate Aminotransferase 21 IU/L (14-36); BUN Creatinine Ratio 21.1 (6-22); Bilirubin Total 0.2 mg/dL (0.2-1.3); Blood Urea Nitrogen 19 mg/dL (7-17); Calcium 9.2 mg/dL (8.4-10.2); Carbon Dioxide 22 mmol/L (22-32); Chloride 111 mmol/L (98-107); Estimated Glomerular Filt Rate > 60.0 mL/min (>60); Globulin 2.9 g/dL (1.7-4.1); Glucose 99 mg/dL (70-100); HEMOLYSIS < 15 (0-50); Hematocrit 35.2 % (36-46); Hemoglobin 11.4 g/dL (12.0-16.0); Mean Corpuscular HGB Conc 32.4 % (30-36); Mean Corpuscular Hemoglobin 28.3 PG (26-34); Mean Corpuscular Volume 87.4 fL (80-100); Platelet Count 250 X10^3/uL (150-400); Potassium 4.3 mmol/L (3.4-5.1); Red Blood Cell Count 4.03 X10^6/uL (4.0-5.2); Red Cell Distribution Width 19.4 % (11.6-14.8); Sodium 140 mmol/L (137-145); Total Protein 6.9 g/dL (6.3-8.2); White Blood Cell Count 4.1 X10^3/uL (4.5-11.0)
[2019-05-23 14:26] LABS: B Type Natriuretic Peptide < 100 (<100)
== END ==
LOC: INF 12:32
PROVIDERS: PCP Student in an Organized Health Care Education/Training Program; Visit Provider Student in an Organized Health Care Education/Training Program
DX: R06.00 Dyspnea, unspecified (principal); I27.20 Pulmonary hypertension, unspecified; Z87.01 Personal history of pneumonia (recurrent)
CPT/HCPCS: 71275; 80053; 82728; 83880; 85027; 85379; Q9967

== ENCOUNTER → 2019-05-23 16:02 | Outpatient (CLI) | payer OTHER, SELFPAY ==
--- NOTE | 2019-05-23 16:05 | DI.CT.S_ITS ---
PROCEDURE: CT ANGIO CHEST PE PROTOCOL INDICATIONS: Dyspnea, f/u previous abnormal CTA TECHNIQUE: After the administration of intravenous contrast, 2 mm thick sections acquired from the pulmonary apices to the posterior costophrenic angles. 3-dimensional maximum intensity projection (MIP) coronal and sagittal reformats were then acquired through the thorax. For radiation dose reduction, the following was used: automated exposure control, adjustment of mA and/or kV according to patient size. COMPARISON: [facility], CT, CT ANGIO CHEST PE PROTOCOL, 04/18/2019, 11:23. FINDINGS: Image quality: Excellent. Pulmonary arteries: Pulmonary arteries are normal in size, and demonstrate no intraluminal filling defects to suggest central pulmonary embolism. Lungs and pleura: Previously seen opacity within the left lower lobe anteriorly has decreased in size, with a nodular component measuring roughly 18 mm. The remaining portion of the opacity appears platelike. There is mild geographic ground glass density seen within the bilateral upper and lower lobes. Azygos fissure is present. No pleural effusions or pneumothorax. Central and peripheral airways are patent. Mediastinum: Heart size is normal, without pericardial effusion. No mediastinal or hilar adenopathy. Thoracic aorta is normal in caliber and enhancement. Esophagus is normal in caliber, without hiatal hernia. Bones and chest wall: No suspicious bony lesions. Ribs and thoracic spine appear intact throughout. Thyroid gland is within normal limits. No axillary or supraclavicular adenopathy. Epidural lead/catheter is present, as before. Abdomen: Visualized portions of the upper abdomen demonstrate gastric bypass procedure. IMPRESSION: 1. Mild bilateral pulmonary ground glass density, suggestive of atypical pneumonia. 2. No pulmonary embolus. 3. Resolving left lower lobe density, suggestive of scarring. Continued followup is recommended to exclude the less likely possibility of neoplasm. Dictated by: Dea Shea M.D. on 05/23/2019 at 16:27 Approved by: Dea Shea M.D. on 05/23/2019 at 16:31
== END ==
PROVIDERS: Family Provider Student in an Organized Health Care Education/Training Program; PCP Student in an Organized Health Care Education/Training Program; Visit Provider Student in an Organized Health Care Education/Training Program
DX: R06.00 Dyspnea, unspecified (principal); I27.20 Pulmonary hypertension, unspecified; Z87.01 Personal history of pneumonia (recurrent)
CPT/HCPCS: 71275; Q9967

== ENCOUNTER → 2019-05-27 08:03 | Outpatient (CLI) | payer OTHER, SELFPAY ==
--- NOTE | 2019-05-27 08:27 | DI.CT.S_ITS ---
PROCEDURE: CT CHEST HIGH RESOLUTION INDICATIONS: interstitial lung disease TECHNIQUE: Noncontrast 1.0 and 5.0 mm thick contiguous axial sections from the pulmonary apex to the posterior costophrenic angles, with 7 mm thick coronal and sagittal MIP reformats. 1 mm thick dynamic expiratory images acquired through the upper, mid, and lower lungs. 1.0 mm thick axial sections acquired from the annabel to the posterior costophrenic angles in the prone end-inspiration position. For radiation dose reduction, the following was used: automated exposure control, adjustment of mA and/or kV according to patient size. COMPARISON: [facility], CT, ABDOMEN/PELVIS WITH CONTRAST, 05/15/2015, 17:02. CT pulmonary angiogram 05/23/2019. CT abdomen pelvis 05/15/2015. FINDINGS: Image quality: Excellent. Lungs: Mild streaky consolidative and groundglass opacity at the lung bases. This minimally decreases on the prone series acquisition, (3/107). Similar opacity was present on the CT from 2014. This most likely represents a combination of scarring and atelectasis. No honeycombing or significant reticular thickening. No air trapping. No significant emphysematous change. No bronchiectasis. Central airways are clear. No mass or significant pulmonary nodule. Scattered punctate calcified granuloma. Accessory azygous fissure. Pleura: No pleural effusions or pneumothorax. Mediastinum: Left-sided subclavian port with the catheter tip terminating in the upper SVC. Heart size is normal. No pericardial effusion. Thoracic aorta and central pulmonary arteries are normal in size. No enlarged or calcified mediastinal lymph nodes. Esophagus is normal in caliber. Bones and chest wall: No suspicious bony lesions. Lower thoracic spine thecal stimulator lead. No vertebral body compression fractures. Abdomen: Visualized upper abdominal solid organs and bowel loops appear normal. Prior gastric bypass. IMPRESSION: 1. Mild streaky opacity in the lung bases is a combination of scarring and atelectasis which was present dating back to 2014. 2. Evidence of prior granulomatous process with scattered punctate calcified granulomas. 3. No suspicious adenopathy. Dictated by: Elliott Quintero M.D. on 05/27/2019 at 9:12 Approved by: Elliott Quintero M.D. on 05/27/2019 at 9:23
== END ==
PROVIDERS: Family Provider Student in an Organized Health Care Education/Training Program; PCP Student in an Organized Health Care Education/Training Program; Visit Provider Student in an Organized Health Care Education/Training Program
DX: J84.9 Interstitial pulmonary disease, unspecified (principal); J98.4 Other disorders of lung; J98.11 Atelectasis; R06.00 Dyspnea, unspecified; R93.89 Abnormal findings on diagnostic imaging of other specified body structures
CPT/HCPCS: 71250

== ENCOUNTER → 2019-05-29 08:52 | Outpatient (CLI) | payer OTHER, SELFPAY ==
--- NOTE | 2019-05-30 15:18 | PM.PFT.1 ---
Pulmonary Function Test Referral & Results Date Patient Seen: 05/29/19 Requesting provider: Yunier Kyes Results: The spirometry demonstrates an FVC of 3.48 L which is 102% of predicted. The FEV1 was measured at 2.71 L which is 100% of predicted. The FEV1/FVC ratio was 78 which is 97% of predicted. Following the administration of bronchodilator there was an 8% improvement in FEV1 and 18% improvement in FEF 25-75%. Lung volumes show an SVC of 3.46 L which is 109% of predicted. The diffusing capacity was measured at 28.25 which is 123% of predicted. The maximum voluntary ventilation was normal Interpretation: This study demonstrates normal pulmonary function
== END ==
PROVIDERS: Family Provider Student in an Organized Health Care Education/Training Program; PCP Student in an Organized Health Care Education/Training Program; Visit Provider Student in an Organized Health Care Education/Training Program
DX: R06.02 Shortness of breath (principal); J98.8 Other specified respiratory disorders
CPT/HCPCS: 94060; 94726; 94729

== ENCOUNTER → 2019-06-05 06:54 | Outpatient (CLI) | payer OTHER, SELFPAY ==
--- NOTE | 2019-06-05 06:55 | DI.ECHO.S_ITS ---
[facility]---------+ [facility] +---------+ : : [address] : : : : [id number] : : : : Phone: [phone]+ Echocardiogram Report + + :Name: THOMAS MURILLO Study Date: 06/05/2019 Height: 63 in : :[facility] Weight: 225 lb : : Gender: Female BSA: 2.0 m2 : :: 1970 Age: 48 yrs BP: 138/82 mmHg: :Reason For Study: DYSPNEA : : Performed By: [facility] Staff : :Referring: NEMO TURNER : + + Interpretation Summary Normal sinus rhythm. Normal LV size, wall thickness, wall motion and LV systolic function. EF is 55-60%. Normal chamber sizes. No significant valvular abnormalities. No prior study available for comparison. Procedure: A two-dimensional transthoracic echocardiogram with color flow and Doppler was performed. The study quality was technically difficult. There is no prior echocardiogram noted for this patient. The patient was in normal sinus rhythm during the exam. Left Ventricle: The left ventricle is normal in size. There is normal left ventricular wall thickness. Left ventricular systolic function is normal. The ejection fraction is estimated to be 55-60%. Left ventricular wall motion is normal. Right Ventricle: The right ventricle is normal in size and function. Atria: The left atrial size is normal. Right atrial size is normal. The interatrial septum is intact with no evidence for an atrial septal defect. Mitral Valve: The mitral valve is normal in structure and function. There is trace mitral regurgitation. Aortic Valve: The aortic valve is trileaflet. The aortic valve opens well. No aortic regurgitation is present. Tricuspid Valve: The tricuspid valve is normal in structure and function. There is trace tricuspid regurgitation. Pulmonary artery pressures cannot be estimated because of the lack of a measurable TR jet velocity. Pulmonic Valve: The pulmonic valve is not well visualized. There is trace pulmonic regurgitation. Great Vessels: The aortic root is normal size. The dimensions of the ascending aorta are normal. The pulmonary artery is normal size. The inferior vena cava was not visualized. Pericardium/ Pleura There is no pericardial effusion. There is no pleural effusion. MMode/2D Measurements & Calculations LVIDd: 4.1 cm LVOT diam: 1.9 cm LVIDs: 3.0 cm Ao root diam: 2.8 cm FS: 26.6 % Aortic Jxn: 2.7 cm EPSS: 0.68 cm IVSd: 0.90 cm LVPWd: 1.0 cm LV escoto. diameter/BSA (cm/m^2): 2.0 LV sys. diameter/BSA (cm/m^2): 1.5 LA A2 area: 18.2 cm2 RA long axis: 4.4 cm LA A4 area: 18.1 cm2 RA area: 14.9 cm2 LA length (vol): 4.5 cm RA vol: 43.1 ml LA vol: 62.6 ml RA : 21.2 ml/m2 LA vol index: 30.8 ml/m2 TAPSE: 2.1 cm Doppler Measurements & Calculations Ao V2 max: 139.7 cm/sec LVOT Max Mikey: 108.1 cm/sec Ao V2 mean: 89.4 cm/sec LV V1 max P.7 mmHg Ao max P.8 mmHg LV V1 VTI: 23.3 cm Ao mean P.8 mmHg KASSY(I,D): 2.5 cm2 Ao V2 VTI: 27.3 cm KASSY(V,D): 2.3 cm2 sev ratio: 0.85 KASSY indexed to BSA (cm^2/m^2): 1.2 MV E max mikey: 74.8 cm/sec TR max mikey: 235.6 cm/sec MV A max mikey: 96.0 cm/sec TR max P.2 mmHg MV E/A: 0.78 PA V2 max: 84.5 cm/sec Med Peak E' Mikey: 9.2 cm/sec PA V2 mean: 59.4 cm/sec E/E' med: 8.1 PA mean P.7 mmHg Lat Peak E' Mikey: 12.4 cm/sec PA Accel Time: 0.11 sec E/E' lat: 6.0 E/e' average: 7.1 MV dec time: 0.18 sec SV(LVOT): 68.0 ml Electronically signed by: Angie Gray M.D. on Reading Physician:06/06/2019 12:12 AM
== END ==
PROVIDERS: Family Provider Student in an Organized Health Care Education/Training Program; PCP Student in an Organized Health Care Education/Training Program; Visit Provider Student in an Organized Health Care Education/Training Program
DX: R06.00 Dyspnea, unspecified (principal); R93.89 Abnormal findings on diagnostic imaging of other specified body structures
CPT/HCPCS: 93306

== ENCOUNTER 2019-07-01 10:33 | Outpatient (RCR) | payer OTHER, SELFPAY | END 2019-07-01 11:33 | LOC: PUL 10:33 | PROVIDERS: Family Provider Student in an Organized Health Care Education/Training Program; PCP Student in an Organized Health Care Education/Training Program; Visit Provider Student in an Organized Health Care Education/Training Program | DX: R06.00 Dyspnea, unspecified (principal) | CPT/HCPCS: G0237; G0238 ==

== ENCOUNTER → 2019-08-12 12:36 | Outpatient (CLI) | payer OTHER, SELFPAY ==
--- NOTE | 2019-08-12 12:38 | DI.RAD.S_ITS ---
PROCEDURE: XR KNEE LT 3V INDICATIONS: left knee pain TECHNIQUE: 3 views of the knee were acquired. COMPARISON: None. FINDINGS: Bones: No fractures or dislocations. No suspicious bony lesions. Minimal medial compartment narrowing. Soft tissues: Mild joint effusion. No suspicious soft tissue calcifications. IMPRESSION: Minimal medial compartment narrowing with effusion suggestive of early degenerative change. Dictated by: Gaby Grimes M.D. on 08/12/2019 at 16:11 Approved by: Gaby Grimes M.D. on 08/12/2019 at 16:12
== END ==
PROVIDERS: Family Provider Student in an Organized Health Care Education/Training Program; PCP Student in an Organized Health Care Education/Training Program; Visit Provider Nurse Practitioner Family
DX: M25.562 Pain in left knee (principal); M25.462 Effusion, left knee
CPT/HCPCS: 73562

== ENCOUNTER → 2019-08-25 08:34 | Outpatient (CLI) | payer OTHER, SELFPAY ==
--- NOTE | 2019-08-25 | DI.RAD.S_ITS ---
PROCEDURE: FL KNEE INJECTION MR/CT LT COMPARISON: None. INDICATIONS: LEFT KNEE PAIN Additional history: Concern for internal derangement. Unable to have MRI. The risks and benefits were discussed with the patient. These include bleeding, infection, injury to adjacent structures. The the patient agrees to proceed. Note: The patient is on Eliquis for prior pulmonary embolism. FINDINGS: Technique: The left knee joint space was marked with fluoroscopic guidance. The skin was cleansed. Lidocaine was used to anesthetize the skin and injection site. A spinal needle was advanced from the lateral aspect of the superior left knee joint. Iodinated contrast was injected and fluoroscopic images were obtained to confirm joint location. 40 cc of diluted iodinated contrast was injected into the left knee joint space. The needle was removed. No hemorrhage. The procedure was well tolerated. The patient proceeded to the CT scanner for image acquisition. IMPRESSION: Successful left knee diluted iodinated contrast injection. No complication. Dictated by: Elliott Quintero M.D. on 08/25/2019 at 9:37 Approved by: Elliott Quintero M.D. on 08/25/2019 at 9:43
--- NOTE | 2019-08-25 | DI.CT.S_ITS ---
PROCEDURE: CT LE LT W CON INDICATIONS: LEFT KNEE PAIN TECHNIQUE: After the intra-articular administration of 10 mL of contrast, 1-1.5 mm axial sections acquired through the knee, with 0.75 mm coronal and sagittal reformats. COMPARISON: [facility], CR, XR KNEE LT 3V, 08/12/2019, 12:34. FINDINGS: Image quality: Excellent. 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 Articulating cartilage is a medial and lateral femoral tibial compartments are grossly intact. Menisci: Medial and lateral menisci demonstrate normal contours and morphology, without abnormal internal contrast uptake. Meniscal root ligaments appear intact. Ligaments: Anterior and posterior cruciate ligaments appear intact. Medial and lateral collateral ligaments appear intact as well. Bones: No fractures. No suspicious bony lesions. Joint space: No Redmond's cyst. No intra-articular bodies. IMPRESSION: 1. 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 2. No CT evidence of focal meniscal tear. 3. Cruciate ligaments are intact. Dictated by: Solitario Wong M.D. on 08/25/2019 at 11:33 Approved by: Solitario Wong M.D. on 08/25/2019 at 11:46
== END ==
PROVIDERS: Family Provider Student in an Organized Health Care Education/Training Program; PCP Student in an Organized Health Care Education/Training Program; Referring Provider Orthopaedic Surgery Adult Reconstructive Orthopaedic Surgery; Visit Provider Orthopaedic Surgery Adult Reconstructive Orthopaedic Surgery
DX: M25.562 Pain in left knee (principal)
CPT/HCPCS: 27369; 73701; 77002

== ENCOUNTER 2019-09-28 21:21 | Emergency (ER) | payer OTHER, SELFPAY ==
[2019-09-28 21:34] VITALS: BP 160/83; PULSE 89; RESP 16; TEMP 36.7; O2SAT 96; BMI 43.4
--- NOTE | 2019-09-28 21:37 | DI.RAD.S_ITS ---
PROCEDURE: XR CHEST 2V INDICATIONS: SOB, cough, fever TECHNIQUE: 2 views of the chest were acquired. COMPARISON: [facility], CR, XR CHEST 1V, 04/18/2019, 10:13. FINDINGS: Surgical changes and devices: Left chest wall karan catheter is present, tip of which is in the left brachiocephalic vein. A lead projects over the lower thoracic spine, as before. Lungs and pleura: There is mild patchy bilateral perihilar opacity. No pleural effusions or pneumothorax. Mediastinum: Mediastinal contours are normal. Heart size is normal. Bones and chest wall: No suspicious bony abnormalities. Soft tissues appear unremarkable. IMPRESSION: Mild bilateral pneumonia. Continued plain film surveillance is recommended to ensure resolution, and to exclude underlying or central malignancy. Dictated by: Dea Shea M.D. on 09/28/2019 at 21:57 Approved by: Dea Shea M.D. on 09/28/2019 at 21:58
[2019-09-28] MEDS: ALBUTEROL/IPRATROPIUM 3 ML AMPUL INH (21:39)
[2019-09-28 21:41] VITALS: PULSE 73; RESP 18; O2SAT 95
[2019-09-28 22:12] LABS: Influenza A - CEPHEID Flu A NEGATIVE (NEGATIVE); Influenza B - CEPHEID Flu B NEGATIVE (NEGATIVE)
[2019-09-28] MEDS: levoFLOXacin 250 MG TABLET 750 MG PO (22:49)
[2019-09-28] MEDS: CODEINE/GUAIFENESIN LIQUID 5ML UDC 5 ML PO (23:05)
--- NOTE | 2019-09-28 23:15 | ED_ITS ---
HPI - URI/Sore Throat General Chief Complaint: Upper Respiratory Symptoms Stated Complaint: cough,fever,sob Time Seen by Provider: 09/28/19 21:21 Source: patient Mode of arrival: Ambulatory Limitations: no limitations History of Present Illness HPI Narrative: 48-year-old female nonsmoker with history of pulmonary emboli, anticoagulated on Eliquis presents with her significant other and a chief complaint of about 24 hours of increasing cough, fever and chills. She denies much in the way of headache but has a mild sore throat. She has had no nausea, vomiting or diarrhea. She has no urinary complaints such as dysuria, frequency or urgency. She denies any recent travel, exposure to ill persons. She states this feels much different than her prior pulmonary emboli and is concerned about COVID-19. MD Complaint: fever, cough, sore throat and rhinorrhea Onset (ago): day(s) Duration: constant Severity: moderate Relieving factors: nothing Description of mucous: clear Able to tolerate fluids by mouth: Yes Associated symptoms: fever, chills, rhinorrhea, nasal congestion and cough Treatments prior to arrival: none Related Data Home Medications Medication Instructions Recorded Confirmed acetaminophen 1,000 mg PO Q6H PRN 03/06/18 09/08/19 ibuprofen 800 mg PO TID PRN 03/06/18 09/08/19 cholecalciferol (vitamin D3) 10 400 unit PO BID 08/20/18 09/08/19 mcg (400 unit) tablet Resmed Aircurve 10 BIPAP #1 ea 11/25/18 09/08/19 albuterol sulfate 2 puff INHALATION Q6H PRN 04/18/19 09/08/19 cetirizine [Zyrtec] 10 mg PO DAILY 04/18/19 09/08/19 promethazine 25 - 50 mg PO Q6H PRN 04/18/19 09/08/19 benzonatate 100 mg capsule 100 mg PO TID PRN cap 05/27/19 09/08/19 bupropion HCl 150 mg tablet,12 hr 150 mg PO BID each 08/12/19 09/08/19 sustained-release lorazepam 2 mg tablet 2 mg PO TID tab 08/12/19 09/08/19 lorazepam 2 mg tablet 4 mg PO BEDTIME tab 08/12/19 09/08/19 zolpidem 10 mg tablet 10 mg PO BEDTIME PRN 08/12/19 08/12/19 ibuprofen 800 mg tablet 800 mg PO TID 09/08/19 09/08/19 vortioxetine 20 mg tablet 10 mg PO DAILY tab 09/08/19 Previous Rx's Medication Instructions Recorded fluticasone propionate 50 2 spray INTRANASAL BEDTIME #16 gram 05/07/19 mcg/actuation nasal spray,suspension zonisamide 100 mg capsule 200 mg PO DAILY #60 cap 07/08/19 suvorexant 20 mg tablet 20 mg PO BEDTIME #30 tab 07/10/19 tizanidine 4 mg capsule 4 mg PO TID PRN #270 cap 07/24/19 prazosin 2 mg capsule 2 mg PO BEDTIME #90 cap 08/07/19 knee brace #1 ea 08/12/19 ondansetron HCl 4 mg tablet 4 - 8 mg PO TID PRN #180 tab 08/20/19 olanzapine 2.5 mg tablet 5 mg PO BID PRN #60 tab 08/22/19 clonidine HCl 0.1 mg tablet 0.1 mg PO BID PRN #120 tab 08/29/19 prazosin 5 mg capsule 15 mg PO BEDTIME #90 cap 09/05/19 gabapentin 600 mg tablet 1,200 mg PO BEDTIME #180 tab 09/09/19 apixaban 5 mg tablet 5 mg PO BID #180 tab 09/23/19 lamotrigine 150 mg tablet 150 mg PO BID #180 tab 09/25/19 benzonatate [Tessalon Perles] 100 mg PO TID PRN #14 cap 09/28/19 levofloxacin [Levaquin] 750 mg PO DAILY #7 tab 09/28/19 promethazine-codeine 5 ml PO Q4-6H PRN #473 ml 09/28/19 Allergies Allergy/AdvReac Type Severity Reaction Status Date / Time No Known Drug Allergies Allergy Verified 09/08/19 10:55 Review of Systems Constitutional Constitutional: Reports chills, Denies fatigue, Reports fever(s), Denies frequent falls, Denies lethargy and Denies weakness Eyes Eyes: Denies change in vision, Denies eye discharge, Denies irritation and Denies loss of vision ENT Ears, Nose, Mouth, and Throat: Denies change in voice, Denies dizziness, Reports nasal congestion, Denies neck pain, Reports sore throat and Denies throat swelling Cardiovascular Cardiovascular: Denies chest pain, Denies irregular heart rhythm, Denies lightheadedness, Denies palpitations, Denies dyspnea, Denies dyspnea on exertion and Denies orthopnea Respiratory Respiratory: Reports cough, Denies dyspnea, Denies dyspnea on exertion and Denies wheezing Gastrointestinal Gastrointestinal: Denies abdominal pain, Denies change in bowel habits, Denies diarrhea, Denies nausea and Denies vomiting Genitourinary Genitourinary: Denies hematuria, Denies flank pain, Denies urinary incontinence and Denies urinary urgency Musculoskeletal Musculoskeletal: Denies back pain, Denies muscle weakness, Denies neck pain, Denies numbness and Denies tingling Integumentary/Breasts Skin/Breast: Denies pruritus, Denies erythema, Denies rash and Denies wounds Neurologic Neurologic: Denies behavioral changes, Denies confusion, Denies dizziness, Denies frequent falls, Denies loss of vision, Denies numbness, Denies tingling and Denies weakness Psychiatric Psychiatric: Denies anxiety, Denies behavioral changes, Denies confusion, Denies depression, Denies homicidal ideation and Denies suicidal ideation Endocrine Endocrine: Denies fatigue, Denies flushing and Denies palpitations Hematologic/Lymphatic Hematologic/Lymphatic: Denies easy bruising Allergic/Immunologic Allergic/Immunologic: Denies urticaria, Denies throat swelling and Denies wheezing Patient History Medical History Abnormal CXR (chest x-ray) (Resolved) Ankle fracture, left (Resolved 1986) Anxiety (Chronic) Arthritis of knee (Chronic) Asthma (Chronic) Bipolar 1 disorder, depressed (Chronic) Chicken pox (Resolved) Chronic anemia (Chronic) Chronic back pain (Chronic) Chronic headaches (Chronic) Chronic neck pain (Chronic) Depression (Chronic) Diabetes mellitus (Resolved) Diastolic dysfunction (Chronic) Fatty liver (Chronic) GERD (gastroesophageal reflux disease) (Chronic) GI bleeding (Resolved) High risk medication use (Chronic) Hyperlipidemia (Chronic) Hypertension (Chronic) 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) Irregular periods/menstrual cycles (Chronic) Ischemic colitis (Resolved 2013) Lumbar spine pain (Chronic) Migraines (Chronic) Neck arthritis (Chronic) Obstructive sleep apnea syndrome (Chronic 2007) Panic attacks (Chronic) Plantar warts (Resolved) PTSD (post-traumatic stress disorder) (Chronic) Pulmonary embolism (Resolved 2006) Pulmonary hypertension (Chronic) S/P ECT (electroconvulsive therapy) (Resolved 2013) Shoulder arthritis (Chronic) Spinal cord stimulator status (Chronic) Transient hypotension (Resolved) Surgical History Anesthesia (Resolved) History of bowel resection (Resolved 1995) History of endometrial ablation (Resolved 2008) History of esophagogastroduodenoscopy (EGD) (Resolved 04/19/17) History of gastric bypass (Resolved 2009) History of open reduction and internal fixation (ORIF) procedure (Resolved 1986) History of spinal surgery (Resolved 2010) Status post cardiac catheterization (Resolved 2007) Status post cholecystectomy (Resolved 2007) Status post peripherally inserted central catheter (PICC) central line placement (Resolved 04/04/17) Family History Father Age: 75 Hypertension Sick sinus syndrome Heart disease Mother Age: 72 Hyperlipidemia Mental health problem Arthritis Hayfever Seasonal allergies Hypertension Sister No problems noted. Social History marital status: details: 2013 Adriana Blanco; couple > 20 yrs. 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 Well- nourished, well-developed patient, in mild distress. HEAD: Atraumatic. Normocephalic. EYES: Pupils equal round and reactive. Extraocular motions intact. No scleral icterus. No injection or drainage. ENT: Nose without bleeding, purulent drainage. Throat without erythema, tonsillar hypertrophy or exudate but there is clear post nasal drip. Airway patent. NECK: Trachea midline. Non tender CARDIOVASCULAR: Regular rate and rhythm without murmurs, gallops, or rubs. RESPIRATORY: Clear to auscultation. Breath sounds equal bilaterally. No wheezes, rales, or rhonchi. Patient seems to initiate cough with deep breath GASTROINTESTINAL: Abdomen soft, non-tender, nondistended. EXTREMITIES: No edema or joint tenderness. BACK: Nontender without deformity or crepitance. No flank tenderness. NEURO: AOx3. SKIN: No rash or erythema of visible areas Initial Vital Signs Initial Vital Signs: Vital Signs Temperature 98.0 F 09/28/19 21:34 Pulse Rate 89 09/28/19 21:34 Respiratory Rate 16 09/28/19 21:34 Blood Pressure 160/83 H 09/28/19 21:34 Pulse Oximetry 96 09/28/19 21:34 Course Orders Ordered: ED Orders 09/28/19 21:30 Influenza A & B (PCR) Stat 09/28/19 21:37 XR chest 2V Stat 09/28/19 22:30 Respiratory Panel (Film Array) Stat Discontinued Medications Albuterol/Ipratropium (Duoneb) 3 ml INH NOW ONE Stop: 09/28/19 21:37 Last Admin: 09/28/19 21:39 Dose: 3 ml Documented by: BUCK Guaifenesin/Codeine Phosphate (Guaifenesin/Codeine Liquid) 5 ml PO NOW ONE Stop: 09/28/19 22:49 Last Admin: 09/28/19 23:05 Dose: 5 ml Documented by: TERA Levofloxacin (Levaquin) 750 mg PO NOW ONE Stop: 09/28/19 22:41 Last Admin: 09/28/19 22:49 Dose: 750 mg Documented by: TERA Vital Signs Vital signs: Vital Signs - 8 hr 09/28/19 21:34 09/28/19 21:41 09/28/19 23:20 Temperature 98.0 F Pulse Rate 89 73 75 Respiratory Rate 16 18 18 Blood Pressure 160/83 H 158/64 H Pulse Oximetry 96 95 98 MDM - URI/Sore Throat Lab Data Labs: Lab Results 09/28/19 09/28/19 Range/Units 21:30 22:30 Chlamy pneumoniae PCR Not detected (Not Detect) Adenovirus (PCR) Not detected (Not Detect) B.parapertussis DNA PCR Not detected (Not Detect) Coronavirus OC43 (PCR) Not detected (Not Detect) Coronavirus HKU1 (PCR) Not detected (Not Detect) Coronavirus 229E (PCR) Not detected (Not Detect) Coronavirus NL63 (PCR) Not detected (Not Detect) Human Metapneumovir PCR Not detected (Not Detect) Influenza A (RT-PCR) Flu a negative (NEGATIVE) Influenza Type A (PCR) Not detected (Not Detect) Influenza B (RT-PCR) Flu b negative (NEGATIVE) Influenza Type B (PCR) Not detected (Not Detect) M. pneumoniae (PCR) Not detected (Not Detect) Parainfluenza 1 (PCR) Not detected (Not Detect) Parainfluenza 2 (PCR) Not detected (Not Detect) Parainfluenza 3 (PCR) Not detected (Not Detect) Parainfluenza 4 (PCR) Not detected (Not Detect) RSV (PCR) Not detected (Not Detect) Entero/Rhino (PCR) Not detected (Not Detect) Imaging Data Chest x-ray: Radiologist's Impression: PROCEDURE: XR CHEST 2V INDICATIONS: SOB, cough, fever TECHNIQUE: 2 views of the chest were acquired. COMPARISON: [facility], , XR CHEST 1V, 04/18/2019, 10:13. FINDINGS: Surgical changes and devices: Left chest wall karan catheter is present, tip of which is in the left brachiocephalic vein. A lead projects over the lower thoracic spine, as before. Lungs and pleura: There is mild patchy bilateral perihilar opacity. No pleural effusions or pneumothorax. Mediastinum: Mediastinal contours are normal. Heart size is normal. Bones and chest wall: No suspicious bony abnormalities. Soft tissues appear unremarkable. IMPRESSION: Mild bilateral pneumonia. Continued plain film surveillance is recommended to ensure resolution, and to exclude underlying or central malignancy. Dictated by: Dea Shea M.D. on 09/28/2019 at 21:57 Approved by: Dea Shea M.D. on 09/28/2019 at 21:58 [facility] Narrative Medical decision making narrative: Patient is a very reassuring exam with stable vital signs. She shows no signs of sepsis or hemodynamic instability. She has no significant work of breathing and pulse ox is in the mid 90s. Chest x-ray shows a mild pneumonia, flu is negative. We discussed the need for more extensive workout and sure the opinion that given how reassuring her story, exam and chest x-ray are that we can hold off. She and significant other given return precautions and had her questions answered to their apparent satisfaction Discharge Plan Departure Patient Disposition: Home Clinical Impression: Pneumonia Qualifiers: Pneumonia type: due to unspecified organism Laterality: bilateral Lung location: unspecified part of lung Qualified Code(s): J18.9 - Pneumonia, unspecified organism Discharge Date/Time: 09/28/19 23:20 Instructions: DI for Pneumonia -- Adult Activity Restrictions/Additional Instructions: *You have been diagnosed with [acute bilateral pneumonia] *What to do: *Take medications as directed: electronically transmitted to [facility] at your request *Follow up with your primary care provider in 2-3 days, call for an appointment. Let them know you were seen in the Emergency Department and that we ask that you be seen in follow up *Return to ER if you should have any new, worsening or concerning symptoms Prescriptions: New benzonatate [Tessalon Perles] 100 mg capsule 100 mg PO TID PRN (Reason: cough) Qty: 14 RF: 0 levofloxacin [Levaquin] 750 mg tablet 750 mg PO DAILY Qty: 7 RF: 0 promethazine-codeine 6.25-10 mg/5 mL syrup 5 ml PO Q4-6H PRN (Reason: cough) Qty: 473 RF: 0 No Action suvorexant 20 mg tablet 20 mg PO BEDTIME Qty: 30 RF: 2 prazosin 2 mg capsule 2 mg PO BEDTIME Qty: 90 RF: 0 vortioxetine 20 mg tablet 10 mg PO DAILY RF: 0 ibuprofen 800 mg tablet 800 mg PO TID RF: 0 fluticasone propionate [Flonase Allergy Relief] 50 mcg/actuation spray,suspension 2 spray Intranasal BEDTIME Qty: 16 RF: 5 tizanidine [Zanaflex] 4 mg capsule 4 mg PO TID PRN (Reason: muscle spasms) Qty: 270 RF: 1 (DME) knee brace Qty: 1 RF: 0 ondansetron HCl [Zofran] 4 mg tablet 4 - 8 mg PO TID PRN (Reason: nausea and vomiting) Qty: 180 RF: 0 olanzapine 2.5 mg tablet 5 mg PO BID PRN (Reason: episode) Qty: 60 RF: 2 clonidine HCl 0.1 mg tablet 0.1 mg PO BID PRN (Reason: Anxiety) Qty: 120 RF: 0 prazosin [Minipress] 5 mg capsule 15 mg PO BEDTIME Qty: 90 RF: 1 gabapentin [Neurontin] 600 mg tablet 1,200 mg PO BEDTIME Qty: 180 RF: 2 apixaban 5 mg tablet 5 mg PO BID Qty: 180 RF: 3 lamotrigine 150 mg tablet 150 mg PO BID Qty: 180 RF: 0 bupropion HCl [Wellbutrin SR] 150 mg tablet sustained-release 12 hr 150 mg PO BID RF: 0 lorazepam 2 mg tablet 2 mg PO TID RF: 0 lorazepam 2 mg tablet 4 mg PO BEDTIME RF: 0 ibuprofen 800 mg Tablet 800 mg PO TID PRN (Reason: Pain (Scale Score 4-6)) RF: 0 acetaminophen 500 mg Tablet 1,000 mg PO Q6H PRN (Reason: Pain, Mild) RF: 0 cetirizine [Zyrtec] 10 mg Tablet 10 mg PO DAILY RF: 0 albuterol sulfate 90 mcg/actuation Hfa Aerosol Inhaler 2 puff INHALATION Q6H PRN (Reason: Shortness Of Breath) RF: 0 promethazine 25 mg tablet 25 - 50 mg PO Q6H PRN (Reason: NAUSEA AND INSOMNIA) RF: 0 zolpidem 10 mg tablet 10 mg PO BEDTIME PRNRF: 0 cholecalciferol (vitamin D3) 400 unit tablet 400 unit PO BID RF: 0 zonisamide 100 mg capsule 200 mg PO DAILY Qty: 60 RF: 5 (DME) Resmed Aircurve 10 BIPAP Qty: 1 RF: 0 benzonatate 100 mg capsule 100 mg PO TID PRN (Reason: cough) RF: 0 Referrals: Yunier Keys MD [Primary Care Provider] -
[2019-09-28 23:20] VITALS: BP 158/64; PULSE 75; RESP 18; O2SAT 98
[2019-09-28 23:50] LABS: Adenovirus Not Detected (Not Detect); Coronavirus 229E Not Detected (Not Detect); Coronavirus HKU1 Not Detected (Not Detect); Coronavirus NL 63 Not Detected (Not Detect); Coronavirus OC43 Not Detected (Not Detect); Human Metapneumovirus Not Detected (Not Detect); Human Rhinovirus/Enterovirus Not Detected (Not Detect); Influenza A Not Detected (Not Detect); Influenza B Not Detected (Not Detect); Parainfluenza Virus 1 Not Detected (Not Detect)
[2019-09-28 23:51] LABS: Bordetella pertussis Not Detected (Not Detect); Chlamydophila pneumoniae Not Detected (Not Detect); Mycoplasma pneumoniae Not Detected (Not Detect); Parainfluenza Virus 2 Not Detected (Not Detect); Parainfluenza Virus 3 Not Detected (Not Detect); Parainfluenza Virus 4 Not Detected (Not Detect); Respiratory Syncytial Virus Not Detected (Not Detect)
== END 2019-09-28 23:20 | disposition home or self-care (01) ==
PROVIDERS: Emergency Provider Emergency Medicine; Family Provider Student in an Organized Health Care Education/Training Program; PCP Student in an Organized Health Care Education/Training Program
DX: J18.9 Pneumonia, unspecified organism (principal); Z79.01 Long term (current) use of anticoagulants; Z86.711 Personal history of pulmonary embolism
CPT/HCPCS: 71046; 87502; 87633; 94640; 99283; 99284

== ENCOUNTER → 2019-10-07 18:54 | Outpatient (CLI) | payer OTHER, SELFPAY ==
[2019-10-19 06:36] LABS: COVID19 Sendout Not Detected (Not Detected)
== END ==
PROVIDERS: Family Provider Student in an Organized Health Care Education/Training Program; PCP Student in an Organized Health Care Education/Training Program; Visit Provider Physician Assistant
DX: R05 Cough (principal)
CPT/HCPCS: 87635

== ENCOUNTER 2020-01-13 09:45 | Outpatient (RCR) | payer OTHER, SELFPAY ==
--- NOTE | 2019-12-30 12:33 | PT.OIE ---
Current Diagnoses Unspecified internal derangement of left knee (12/30/19) Sprain of medial collateral ligament of left knee, subsequent encounter (12/30/19) Past Medical History (Last Reviewed 09/28/19 @ 23:21 by Art Mccall DO) Abnormal CXR (chest x-ray) (Resolved) Ankle fracture, left (Resolved 1986) Anxiety (Chronic) Arthritis of knee (Chronic) Asthma (Chronic) Bipolar 1 disorder, depressed (Chronic) Chicken pox (Resolved) Chronic anemia (Chronic) Chronic back pain (Chronic) Chronic headaches (Chronic) Chronic neck pain (Chronic) Depression (Chronic) Diabetes mellitus (Resolved) Diastolic dysfunction (Chronic) Fatty liver (Chronic) GERD (gastroesophageal reflux disease) (Chronic) GI bleeding (Resolved) High risk medication use (Chronic) Hyperlipidemia (Chronic) Hypertension (Chronic) 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) Irregular periods/menstrual cycles (Chronic) Ischemic colitis (Resolved 2013) Lumbar spine pain (Chronic) Migraines (Chronic) Neck arthritis (Chronic) Obstructive sleep apnea syndrome (Chronic 2007) Panic attacks (Chronic) Plantar warts (Resolved) PTSD (post-traumatic stress disorder) (Chronic) Pulmonary embolism (Resolved 2006) Pulmonary hypertension (Chronic) S/P ECT (electroconvulsive therapy) (Resolved 2013) Shoulder arthritis (Chronic) Spinal cord stimulator status (Chronic) Transient hypotension (Resolved) Past Surgical History (Last Reviewed 09/28/19 @ 23:21 by Art Mccall DO) Anesthesia (Resolved) History of bowel resection (Resolved 1995) History of endometrial ablation (Resolved 2008) History of esophagogastroduodenoscopy (EGD) (Resolved 04/19/17) History of gastric bypass (Resolved 2009) History of open reduction and internal fixation (ORIF) procedure (Resolved 1986) History of spinal surgery (Resolved 2010) Status post cardiac catheterization (Resolved 2007) Status post cholecystectomy (Resolved 2007) Status post peripherally inserted central catheter (PICC) central line placement (Resolved 04/04/17) Visit Care Team Role Provider Type Yunier Keys MD Family Provider Physician Primary Care Provider Specialty: Internal Medicine Address: [address] [place] [address], [address] [place] [address], [id number] Email: [email or web address] Zain Cadena MD Attending Provider Physician Referring Provider Specialty: Orthopedic Surgery Address: [address] [place] [address], [address] Email: [email or web address] Initial Evaluation PT-OP-A Visit Information Start: 12/30/19 12:05 Freq: Status: Active Protocol: Document 12/30/19 10:35 HH (Rec: 12/30/19 12:33 [email or web address]) Out-Patient Physical Therapy Visit Information Visit Information Visit Type Initial Evaluation Visit Start Time 10:35 Visit Stop Time 11:15 Total Visit Minutes 40 Visit Number 08/06 Number of JACQUARD FIXER Visits 0 Evaluation Information Evaluation Date 12/30/19 Precautions Precautions DM II hx of PE x 3 PT-OP-B Current Condition Start: 12/30/19 12:05 Freq: Status: Active Protocol: Document 12/30/19 10:35 HH (Rec: 12/30/19 12:33 HH [email or web address]) Current Condition History of Current Condition Onset Date Jul, 2019 Current Complaints L medial knee pain, difficulty in walking History of Current Condition Pt is a 49yo female who slipped on the snow and fell backward with her left leg twisted internally in July. She heard a huge pop and her L knee was immediately swollen and had difficulty ambulating for couple weeks afterwards. She has been taking 1000mg tylenol and 800 mg ibuprofen and 500 mg APAP every 6-8 hours for both her chronic back pain and knee pain. She also feels like her knee is giving out when she walks. Pt went to see and suspect pt sufferred from a MCL sprain and CT scan ruled out meniscal tear. Pt's pain is currently at 4/10 who has pain mostly while getting in and out of the car and walking on uneven surfaces that requires her knee to go in valgus direction. She also often has swelling at the knee after going for long walk and pain after sitting for a long period of time. She describes her overall pain has been improved since the injury. Prior Treatments and Tests CT- scan rule out meniscal tear. Unable to have MRI due to spinal stimulator in her back. Treatment Goals Patient/Caregiver Goals 1. To be pain free for getting in and out of the car and walking 2. to improve her gait quality without compensation. Personal Factors Other Personal Factors That May Effect previous TBI Therapy/Recovery hx of PE x 3 depression bruise easily, headaches memory loss chronic LBP PT-OP-C Subjective Start: 12/30/19 12:05 Freq: Status: Active Protocol: Document 12/30/19 10:35 HH (Rec: 12/30/19 12:33 HH [email or web address]) OP-PT Subjective Patient Comments Patient Comments I really want to find out what is going on for my L knee Patient Reported Progress Improving Patient Questionnaires Lower Extremity Functional Scale LEFS Score 33 LEFS Impairment 40 to 59% Impaired (Score 32- 47) OP-PT Pain Assessment Location L medial knee Pain Location Details medial joint line Intensity 4 Scale Used Numeric (0 - 10) Description Aching Frequency Frequent Pain Aggravating Factors Changing Position,Activity, Exercise,Sitting,Stair Climbing Pain Alleviating Factors Inactivity PT-OP-D Balance Start: 12/30/19 12:05 Freq: Status: Active Protocol: Document 12/30/19 10:35 HH (Rec: 12/30/19 12:33 [email or web address]) Balance Tests Single Limb Standing Single Limb- Right 10 Single Limb- Left 6 Other Other Balance Tests Performed significant L ankle and L knee instability during SLS PT-OP-F Manual Assessment Start: 12/30/19 12:05 Freq: Status: Active Protocol: Document 12/30/19 10:35 HH (Rec: 12/30/19 12:33 [email or web address]) Manual Assessments Soft Tissue Assessment Soft Tissue Mobility Assessment significant tenderness to pressure at L medial joint line Joint Mobility Assessment Joint Mobility Assessment hypermobility for L knee for valgus moment PT-OP-G Mobility & Gait Start: 12/30/19 12:05 Freq: Status: Active Protocol: Document 12/30/19 10:35 HH (Rec: 12/30/19 12:33 [email or web address]) OP Gait Assessment Gait Deviations General Gait Pattern Antalgic,Decreased Stride Length,Decreased Feet Clearance,Lateral Trunk Lean Factors Limiting Gait Function Factors Limiting Gait Function Decreased Activity Tolerance, Decreased Strength,Pain,Poor Balance Comments Gait Comments decreased stance phase on LLE along with mild R hip drop PT-OP-H Neuro Start: 12/30/19 12:05 Freq: Status: Active Protocol: Document 12/30/19 10:35 HH (Rec: 12/30/19 12:33 [email or web address]) Deep Tendon Reflex & Clonus Assessment Deep Tendon Reflex Bilateral Achilles Deep Tendon Reflex 2+ Normal Bilateral Patellar Deep Tendon Reflex 2+ Normal PT-OP-J Posture/Palpation/Skin Start: 12/30/19 12:05 Freq: Status: Active Protocol: Document 12/30/19 10:35 HH (Rec: 12/30/19 12:33 [email or web address]) Posture Evaluation Position Standing Evaluation View Anterior Weight Distribution Decreased Wt.Bear on (L) Knee Posture (L) Genu Valgus PT-OP-L Special Tests Start: 12/30/19 12:05 Freq: Status: Active Protocol: Document 12/30/19 10:35 HH (Rec: 12/30/19 12:33 [email or web address]) Special Tests Knee Special Tests Valgus- 25 Degrees Test Results +ve L Comments hypermobility to valgus force Valgus- 0 Degrees Test Results +ve L Comments hypermobility to valgus force Apley's Compression Test Results +ve L with ER of tibia Alfonso Test Test Results +ve L with ER of tibia Anterior Draw Test Results -ve Varus- 25 Degrees Test Results -ve Varus- 0 Degrees Test Results -ve Thessaly Test 20 Degrees Test Results -ve B Thessaly Test 5 Degrees Test Results -ve B PT-OP-M Strength Start: 12/30/19 12:05 Freq: Status: Active Protocol: Document 12/30/19 10:35 HH (Rec: 12/30/19 12:33 [email or web address]) Hip Strength Hip Manual Muscle Testing Right Flexion (L2) 4+ Good+ Extension (S1) 4+ Good+ Abduction 4+ Good+ Adduction 4+ Good+ Left Flexion (L2) 4+ Good+ Extension (S1) 4+ Good+ Abduction 4- Good- Adduction 4 Good Knee Strength Knee Manual Muscle Testing Right Flexion (S2) 4 Good Extension (L3) 4 Good Left Flexion (S2) 4- Good- Extension (L3) 4- Good- PT-OP-Q Treatments Start: 12/30/19 12:05 Freq: Status: Active Protocol: Document 12/30/19 10:35 HH (Rec: 12/30/19 12:33 [email or web address]) Therapeutic Exercises Sitting Exercises pain desensitization Sitting Exercise Name L knee joint line and adductors Side left Equipment Used rolling pin Comments for HEP Manual Therapy Treatment Soft Tissue Mobilization L medial joint line Body Location L knee Mobilization Type Myofascial Release,Rolling, Sustained Pressure,Trigger Point Release Intensity/Depth Moderate Body Position Supine Comments pain desensitization focused PT-OP-T Assessment and Plan Start: 12/30/19 12:05 Freq: Status: Active Protocol: Document 12/30/19 10:35 HH (Rec: 12/30/19 12:33 HH [email or web address]) Physical Therapy Assessment Rehab Potential Rehabilitation Potential Excellent Evaluation Complexity Number of Personal Factors/Comorbidities 3 or More Number of Body Systems Impaired 3 Clinical Presentation at Evaluation Stable Impairments Impairments Balance,Functional Activities, Functional Mobility,Gait,Pain, Posture,ROM,Soft Tissue Mobility,Strength Goals pain Impairment pain during walking, getting in and out of the car, prolonged sitting Short Term Goal (STG) Pt will have pain no more than 2 for walking, getting in and out of the car and prolonged sitting STG Duration 4 weeks Mcc Goal (LTG) Pt will be pain free for walking, getting in and out of the car and prolonged sitting LTG Duration 8 weeks single leg balance Impairment L= 6s, R = 10s Short Term Goal (STG) Pt will improve both SLS score by 5 seconds or greater. STG Duration 4 weeks Mcc Goal (LTG) Pt will improve both SLS score by 8 seconds or greater to improve single leg stability for walking on uneven surface. LTG Duration 8 weeks LEFS Impairment pt scores 33/80 on LEFS Short Term Goal (STG) Pt will score 47 or greater on LEFS STG Duration 4 weeks Criminalist Technician Goal (LTG) Pt will score 62 or greater on LEFS to improve her quality of life LTG Duration 8 weeks Assessment Summary Assessment This is moderate complexity evaluation for this 49yo female presented to clinic with L medial knee pain since July after a fall. Her mechanism of injury was twisting (valgus stress) inward excessively while she was falling. Special tests show negative for meniscal / ACL/ LCL tear. Her medial knee pain was reproduced with valgus stress or tibial external rotation and there;s significant hypermobility for medial joint line. Pt also has very poor L hip and L stability which contribute to her R ship drop during LLE stance phase. Educated pt to use rolling pin for self soft tissue release and joint line massage to densitize her pain level. Pt responded very well to therapist's soft tissue work for this session. Pt will benefit from skilled therapy to improve her pain sensitivity, single leg strength and stability in order to be normalize her gait and functional mobility. Physical Therapy Plan Frequency and Duration Frequency of Treatment 1x/Week Duration of Treatment 8 weeks Plan of Care Start Date 12/30/19 Plan of Care End Date 02/28/20 Therapeutic Interventions Therapeutic Interventions Balance Training,Gait Training ,Home Exercise Program,Joint Mobilizations,Manual Therapy, Neuromuscular Re-education, Patient/Caregiver Education, Self-Care/Home Management,Soft Tissue Mobilization,Taping, Therapeutic Activities, Therapeutic Exercises Modalities Cold Pack/Ice Massage,Electric Stimulation,Hot Packs, Infrared Therapy,Ultrasound Next Visit Focus/Plan Next Note Type Treatment Note Next Visit Plan start with biking soft tisse work on medial joint line supine bridge for glute training close chain balance board for ankle strategy single leg balance if appropriate
--- NOTE | 2019-12-30 12:34 | PT.OPPOC ---
Physical, Occupational & Speech Therapy At [facility] Current Diagnoses Unspecified internal derangement of left knee (12/30/19) Sprain of medial collateral ligament of left knee, subsequent encounter (12/30/19) Visit Care Team Role Provider Type Yunier Keys MD Family Provider Physician Primary Care Provider Specialty: Internal Medicine Address: [address] [place] [address], [address], [address] Email: [email or web address] Zain Cadena MD Attending Provider Physician Referring Provider Specialty: Orthopedic Surgery Address: [address] [place] [address], [place], [address] Email: [email or web address] Plan Of Care PT-OP-T Assessment and Plan Start: 12/30/19 12:05 Freq: Status: Active Protocol: Document 12/30/19 10:35 (Rec: 12/30/19 12:33 [email or web address]) Physical Therapy Assessment Rehab Potential Rehabilitation Potential Excellent Evaluation Complexity Number of Personal Factors/Comorbidities 3 or More Number of Body Systems Impaired 3 Clinical Presentation at Evaluation Stable Impairments Impairments Balance,Functional Activities, Functional Mobility,Gait,Pain, Posture,ROM,Soft Tissue Mobility,Strength Goals pain Impairment pain during walking, getting in and out of the car, prolonged sitting Short Term Goal (STG) Pt will have pain no more than 2 for walking, getting in and out of the car and prolonged sitting STG Duration 4 weeks Director Talent Goal (LTG) Pt will be pain free for walking, getting in and out of the car and prolonged sitting LTG Duration 8 weeks single leg balance Impairment L= 6s, R = 10s Short Term Goal (STG) Pt will improve both SLS score by 5 seconds or greater. STG Duration 4 weeks Director Talent Goal (LTG) Pt will improve both SLS score by 8 seconds or greater to improve single leg stability for walking on uneven surface. LTG Duration 8 weeks LEFS Impairment pt scores 33/80 on LEFS Short Term Goal (STG) Pt will score 47 or greater on LEFS STG Duration 4 weeks Director Talent Goal (LTG) Pt will score 62 or greater on LEFS to improve her quality of life LTG Duration 8 weeks Assessment Summary Assessment This is moderate complexity evaluation for this 49yo female presented to clinic with L medial knee pain since July after a fall. Her mechanism of injury was twisting (valgus stress) inward excessively while she was falling. Special tests show negative for meniscal / ACL/ LCL tear. Her medial knee pain was reproduced with valgus stress or tibial external rotation and there;s significant hypermobility for medial joint line. Pt also has very poor L hip and L stability which contribute to her R ship drop during LLE stance phase. Educated pt to use rolling pin for self soft tissue release and joint line massage to densitize her pain level. Pt responded very well to therapist's soft tissue work for this session. Pt will benefit from skilled therapy to improve her pain sensitivity, single leg strength and stability in order to be normalize her gait and functional mobility. Physical Therapy Plan Frequency and Duration Frequency of Treatment 1x/Week Duration of Treatment 8 weeks Plan of Care Start Date 12/30/19 Plan of Care End Date 02/28/20 Therapeutic Interventions Therapeutic Interventions Balance Training,Gait Training ,Home Exercise Program,Joint Mobilizations,Manual Therapy, Neuromuscular Re-education, Patient/Caregiver Education, Self-Care/Home Management,Soft Tissue Mobilization,Taping, Therapeutic Activities, Therapeutic Exercises Modalities Cold Pack/Ice Massage,Electric Stimulation,Hot Packs, Infrared Therapy,Ultrasound Next Visit Focus/Plan Next Note Type Treatment Note Next Visit Plan start with biking soft tisse work on medial joint line supine bridge for glute training close chain balance board for ankle strategy single leg balance if appropriate Plan of Care Dates Plan of Care Start Date 12/30/19 Plan of Care End Date 02/28/20 Electronically Signed by: Sangeeta Diaz PT 12/30/19 [id number] Please Sign and Return: I have reviewed this Plan of Care and certify that the skilled therapy services above are required to meet the patient?s needs. Physician Signature Date Printed Name and Credentials Clinical Instructor Signature Printed Name and Credentials
--- NOTE | 2019-12-30 16:22 | PT.OPPOC ---
Physical, Occupational & Speech Therapy At [facility] Current Diagnoses Unspecified internal derangement of left knee (12/30/19) Sprain of medial collateral ligament of left knee, subsequent encounter (12/30/19) Visit Care Team Role Provider Type Yunier Keys MD Family Provider Physician Primary Care Provider Specialty: Internal Medicine Address: [address] [place] [address], [address], [place], [address] Email: [email or web address] Zain Cadena MD Attending Provider Physician Referring Provider Specialty: Orthopedic Surgery Address: [address] [place] [address], [place], [address] Email: [email or web address] Plan Of Care PT-OP-T Assessment and Plan Start: 12/30/19 12:05 Freq: Status: Active Protocol: Document 12/30/19 10:35 (Rec: 12/30/19 12:33 [email or web address]) Physical Therapy Assessment Rehab Potential Rehabilitation Potential Excellent Evaluation Complexity Number of Personal Factors/Comorbidities 3 or More Number of Body Systems Impaired 3 Clinical Presentation at Evaluation Stable Impairments Impairments Balance,Functional Activities, Functional Mobility,Gait,Pain, Posture,ROM,Soft Tissue Mobility,Strength Goals pain Impairment pain during walking, getting in and out of the car, prolonged sitting Short Term Goal (STG) Pt will have pain no more than 2 for walking, getting in and out of the car and prolonged sitting STG Duration 4 weeks [facility]ci Goal (LTG) Pt will be pain free for walking, getting in and out of the car and prolonged sitting LTG Duration 8 weeks single leg balance Impairment L= 6s, R = 10s Short Term Goal (STG) Pt will improve both SLS score by 5 seconds or greater. STG Duration 4 weeks Daycare Provider Goal (LTG) Pt will improve both SLS score by 8 seconds or greater to improve single leg stability for walking on uneven surface. LTG Duration 8 weeks LEFS Impairment pt scores 33/80 on LEFS Short Term Goal (STG) Pt will score 47 or greater on LEFS STG Duration 4 weeks Daycare Provider Goal (LTG) Pt will score 62 or greater on LEFS to improve her quality of life LTG Duration 8 weeks Assessment Summary Assessment This is moderate complexity evaluation for this 49yo female presented to clinic with L medial knee pain since July after a fall. Her mechanism of injury was twisting (valgus stress) inward excessively while she was falling. Special tests show negative for meniscal / ACL/ LCL tear. Her medial knee pain was reproduced with valgus stress or tibial external rotation and there;s significant hypermobility for medial joint line. Pt also has very poor L hip and L stability which contribute to her R ship drop during LLE stance phase. Educated pt to use rolling pin for self soft tissue release and joint line massage to densitize her pain level. Pt responded very well to therapist's soft tissue work for this session. Pt will benefit from skilled therapy to improve her pain sensitivity, single leg strength and stability in order to be normalize her gait and functional mobility. Physical Therapy Plan Frequency and Duration Frequency of Treatment 1x/Week Duration of Treatment 8 weeks Plan of Care Start Date 12/30/19 Plan of Care End Date 02/28/20 Therapeutic Interventions Therapeutic Interventions Balance Training,Gait Training ,Home Exercise Program,Joint Mobilizations,Manual Therapy, Neuromuscular Re-education, Patient/Caregiver Education, Self-Care/Home Management,Soft Tissue Mobilization,Taping, Therapeutic Activities, Therapeutic Exercises Modalities Cold Pack/Ice Massage,Electric Stimulation,Hot Packs, Infrared Therapy,Ultrasound Next Visit Focus/Plan Next Note Type Treatment Note Next Visit Plan start with biking soft tisse work on medial joint line supine bridge for glute training close chain balance board for ankle strategy single leg balance if appropriate Plan of Care Dates Plan of Care Start Date 12/30/19 Plan of Care End Date 02/28/20 Electronically Signed by: Sangeeta Diaz PT 12/30/19 [id number] Please Sign and Return: I have reviewed this Plan of Care and certify that the skilled therapy services above are required to meet the patient?s needs. Physician Signature Date Printed Name and Credentials Clinical Instructor Signature Printed Name and Credentials
--- NOTE | 2020-01-06 09:49 | PT.OTN ---
Current Diagnoses Sprain of medial collateral ligament of left knee, subsequent encounter (01/06/20) Physical Therapy Treatment Note PT-OP-A Visit Information Start: 12/30/19 12:05 Freq: Status: Active Protocol: Document 01/06/20 08:57 HH (Rec: 01/06/20 09:42 HH [id number]) Out-Patient Physical Therapy Visit Information Visit Information Visit Type Treatment Note Visit Start Time 09:00 Visit Stop Time 09:44 Total Visit Minutes 44 Visit Number 09/06 PT-OP-B Current Condition Start: 12/30/19 12:05 Freq: Status: Active Protocol: Document 12/30/19 10:35 HH (Rec: 12/30/19 12:33 HH [email or web address]) Current Condition History of Current Condition Onset Date Jul, 2019 Current Complaints L medial knee pain, difficulty in walking History of Current Condition Pt is a 49yo female who slipped on the snow and fell backward with her left leg twisted internally in July. She heard a huge pop and her L knee was immediately swollen and had difficulty ambulating for couple weeks afterwards. She has been taking 1000mg tylenol and 800 mg ibuprofen and 500 mg APAP every 6-8 hours for both her chronic back pain and knee pain. She also feels like her knee is giving out when she walks. Pt went to see and suspect pt sufferred from a MCL sprain and CT scan ruled out meniscal tear. Pt's pain is currently at 4/10 who has pain mostly while getting in and out of the car and walking on uneven surfaces that requires her knee to go in valgus direction. She also often has swelling at the knee after going for long walk and pain after sitting for a long period of time. She describes her overall pain has been improved since the injury. Prior Treatments and Tests CT- scan rule out meniscal tear. Unable to have MRI due to spinal stimulator in her back. Treatment Goals Patient/Caregiver Goals 1. To be pain free for getting in and out of the car and walking 2. to improve her gait quality without compensation. Personal Factors Other Personal Factors That May Effect previous TBI Therapy/Recovery hx of PE x 3 depression bruise easily, headaches memory loss chronic LBP PT-OP-C Subjective Start: 12/30/19 12:05 Freq: Status: Active Protocol: Document 01/06/20 08:57 HH (Rec: 01/06/20 09:42 HH [id number]) OP-PT Subjective Patient Comments Patient Comments Cary been using my rolling pin and my sensitivity has been gone down and it barely hurts. And i dont have any much swelling. And the swelling calms down faster than normal. Patient Reported Progress Improving PT-OP-D Balance Start: 12/30/19 12:05 Freq: Status: Active Protocol: Document 12/30/19 10:35 HH (Rec: 12/30/19 12:33 HH [email or web address]) Balance Tests Single Limb Standing Single Limb- Right 10 Single Limb- Left 6 Other Other Balance Tests Performed significant L ankle and L knee instability during SLS PT-OP-F Manual Assessment Start: 12/30/19 12:05 Freq: Status: Active Protocol: Document 12/30/19 10:35 HH (Rec: 12/30/19 12:33 [email or web address]) Manual Assessments Soft Tissue Assessment Soft Tissue Mobility Assessment significant tenderness to pressure at L medial joint line Joint Mobility Assessment Joint Mobility Assessment hypermobility for L knee for valgus moment PT-OP-G Mobility & Gait Start: 12/30/19 12:05 Freq: Status: Active Protocol: Document 12/30/19 10:35 HH (Rec: 12/30/19 12:33 HH [email or web address]) OP Gait Assessment Gait Deviations General Gait Pattern Antalgic,Decreased Stride Length,Decreased Feet Clearance,Lateral Trunk Lean Factors Limiting Gait Function Factors Limiting Gait Function Decreased Activity Tolerance, Decreased Strength,Pain,Poor Balance Comments Gait Comments decreased stance phase on LLE along with mild R hip drop PT-OP-H Neuro Start: 12/30/19 12:05 Freq: Status: Active Protocol: Document 12/30/19 10:35 HH (Rec: 12/30/19 12:33 HH [email or web address]) Deep Tendon Reflex & Clonus Assessment Deep Tendon Reflex Bilateral Achilles Deep Tendon Reflex 2+ Normal Bilateral Patellar Deep Tendon Reflex 2+ Normal PT-OP-J Posture/Palpation/Skin Start: 12/30/19 12:05 Freq: Status: Active Protocol: Document 12/30/19 10:35 HH (Rec: 12/30/19 12:33 HH [email or web address]) Posture Evaluation Position Standing Evaluation View Anterior Weight Distribution Decreased Wt.Bear on (L) Knee Posture (L) Genu Valgus PT-OP-L Special Tests Start: 12/30/19 12:05 Freq: Status: Active Protocol: Document 12/30/19 10:35 (Rec: 12/30/19 12:33 [email or web address]) Special Tests Knee Special Tests Valgus- 25 Degrees Test Results +ve L Comments hypermobility to valgus force Valgus- 0 Degrees Test Results +ve L Comments hypermobility to valgus force Apley's Compression Test Results +ve L with ER of tibia Alfonso Test Test Results +ve L with ER of tibia Anterior Draw Test Results -ve Varus- 25 Degrees Test Results -ve Varus- 0 Degrees Test Results -ve Thessaly Test 20 Degrees Test Results -ve B Thessaly Test 5 Degrees Test Results -ve B PT-OP-M Strength Start: 12/30/19 12:05 Freq: Status: Active Protocol: Document 12/30/19 10:35 HH (Rec: 12/30/19 12:33 [email or web address]) Hip Strength Hip Manual Muscle Testing Right Flexion (L2) 4+ Good+ Extension (S1) 4+ Good+ Abduction 4+ Good+ Adduction 4+ Good+ Left Flexion (L2) 4+ Good+ Extension (S1) 4+ Good+ Abduction 4- Good- Adduction 4 Good Knee Strength Knee Manual Muscle Testing Right Flexion (S2) 4 Good Extension (L3) 4 Good Left Flexion (S2) 4- Good- Extension (L3) 4- Good- PT-OP-Q Treatments Start: 12/30/19 12:05 Freq: Status: Active Protocol: Document 01/06/20 08:57 HH (Rec: 01/06/20 09:42 HH [id number]) Cardio Equipment Recumbent Bicycle Duration (Minutes) 6 Resistance 5 Seat Position 4 Other pain noted at 3 Gym Equipment Shuttle Balance red Details red Reps/Duration 8 secs x 5 Comments w/o support for 8 secs x 5 Therapeutic Exercises Supine Exercises bridging Side bilateral Reps/Minutes 8x1 Comments pt c/o back pain on R side with radiating foot pain hip ER and hip pull apart Supine Exercise Name feet together Side bilateral Equipment Used yellow band Reps/Minutes 8 x 3 Comments engage in hip stabilizers for HEP Sidelying Exercises clamshell Sidelying Exercise Name feet together Side bilateral Equipment Used yellow band Reps/Minutes 8 x2 Comments hip ER for HEP Standing Exercises ankle board Standing Exercise Name knee extended followed knee flexed Side bilateral Reps/Minutes 6 mins Comments ankle rock without support Manual Therapy Treatment Soft Tissue Mobilization L medial joint line Body Location L knee Mobilization Type Myofascial Release,Rolling, Sustained Pressure,Trigger Point Release Intensity/Depth Moderate Body Position Supine Comments pain desensitization focused PT-OP-T Assessment and Plan Start: 12/30/19 12:05 Freq: Status: Active Protocol: Document 01/06/20 08:57 HH (Rec: 01/06/20 09:42 HH [id number]) Physical Therapy Assessment Goals pain Impairment pain during walking, getting in and out of the car, prolonged sitting Short Term Goal (STG) Pt will have pain no more than 2 for walking, getting in and out of the car and prolonged sitting STG Duration 4 weeks Esl Instructor Goal (LTG) Pt will be pain free for walking, getting in and out of the car and prolonged sitting LTG Duration 8 weeks single leg balance Impairment L= 6s, R = 10s Short Term Goal (STG) Pt will improve both SLS score by 5 seconds or greater. STG Duration 4 weeks Retirement Goal (LTG) Pt will improve both SLS score by 8 seconds or greater to improve single leg stability for walking on uneven surface. LTG Duration 8 weeks LEFS Impairment pt scores 33/80 on LEFS Short Term Goal (STG) Pt will score 47 or greater on LEFS STG Duration 4 weeks Esl Instructor Goal (LTG) Pt will score 62 or greater on LEFS to improve her quality of life LTG Duration 8 weeks Assessment Summary Assessment Pt shows significant decreased pain sensitivity today. Initiated ROM and strengthening ex. Pt does c/o back pain on R side with bridging. Added supine knee apart, clam shell, SLS, ankle rock for HEP. Physical Therapy Plan Next Visit Focus/Plan Next Note Type Treatment Note Next Visit Plan start with biking soft tisse work on medial joint line supine bridge for glute training close chain balance board for ankle strategy single leg balance if appropriate
--- NOTE | 2020-01-13 12:07 | PT.OTN ---
Current Diagnoses Sprain of medial collateral ligament of left knee, subsequent encounter (01/13/20) Physical Therapy Treatment Note PT-OP-A Visit Information Start: 12/30/19 12:05 Freq: Status: Active Protocol: Document 01/13/20 11:56 HH (Rec: 01/13/20 12:07 [email or web address]) Out-Patient Physical Therapy Visit Information Visit Information Visit Type Treatment Note Visit Start Time 09:47 Visit Stop Time 10:30 Total Visit Minutes 43 Visit Number 3/15 Number of SENIOR MANUFACTURING TECHNICIAN Visits 0 PT-OP-B Current Condition Start: 12/30/19 12:05 Freq: Status: Active Protocol: Document 12/30/19 10:35 HH (Rec: 12/30/19 12:33 HH [email or web address]) Current Condition History of Current Condition Onset Date Jul, 2019 Current Complaints L medial knee pain, difficulty in walking History of Current Condition Pt is a 49yo female who slipped on the snow and fell backward with her left leg twisted internally in July. She heard a huge pop and her L knee was immediately swollen and had difficulty ambulating for couple weeks afterwards. She has been taking 1000mg tylenol and 800 mg ibuprofen and 500 mg APAP every 6-8 hours for both her chronic back pain and knee pain. She also feels like her knee is giving out when she walks. Pt went to see and suspect pt sufferred from a MCL sprain and CT scan ruled out meniscal tear. Pt's pain is currently at 4/10 who has pain mostly while getting in and out of the car and walking on uneven surfaces that requires her knee to go in valgus direction. She also often has swelling at the knee after going for long walk and pain after sitting for a long period of time. She describes her overall pain has been improved since the injury. Prior Treatments and Tests CT- scan rule out meniscal tear. Unable to have MRI due to spinal stimulator in her back. Treatment Goals Patient/Caregiver Goals 1. To be pain free for getting in and out of the car and walking 2. to improve her gait quality without compensation. Personal Factors Other Personal Factors That May Effect previous TBI Therapy/Recovery hx of PE x 3 depression bruise easily, headaches memory loss chronic LBP PT-OP-C Subjective Start: 12/30/19 12:05 Freq: Status: Active Protocol: Document 01/13/20 11:56 HH (Rec: 01/13/20 12:07 HH [email or web address]) OP-PT Subjective Patient Comments Patient Comments My knee has been doing good and i have no pain in general and able to get in and out fo the car easily. Cary been working on my balance too. However, my back has been bothering me a lot Patient Reported Progress Improving PT-OP-D Balance Start: 12/30/19 12:05 Freq: Status: Active Protocol: Document 12/30/19 10:35 HH (Rec: 12/30/19 12:33 [email or web address]) Balance Tests Single Limb Standing Single Limb- Right 10 Single Limb- Left 6 Other Other Balance Tests Performed significant L ankle and L knee instability during SLS PT-OP-F Manual Assessment Start: 12/30/19 12:05 Freq: Status: Active Protocol: Document 12/30/19 10:35 HH (Rec: 12/30/19 12:33 [email or web address]) Manual Assessments Soft Tissue Assessment Soft Tissue Mobility Assessment significant tenderness to pressure at L medial joint line Joint Mobility Assessment Joint Mobility Assessment hypermobility for L knee for valgus moment PT-OP-G Mobility & Gait Start: 12/30/19 12:05 Freq: Status: Active Protocol: Document 12/30/19 10:35 HH (Rec: 12/30/19 12:33 [email or web address]) OP Gait Assessment Gait Deviations General Gait Pattern Antalgic,Decreased Stride Length,Decreased Feet Clearance,Lateral Trunk Lean Factors Limiting Gait Function Factors Limiting Gait Function Decreased Activity Tolerance, Decreased Strength,Pain,Poor Balance Comments Gait Comments decreased stance phase on LLE along with mild R hip drop PT-OP-H Neuro Start: 12/30/19 12:05 Freq: Status: Active Protocol: Document 12/30/19 10:35 HH (Rec: 12/30/19 12:33 HH [email or web address]) Deep Tendon Reflex & Clonus Assessment Deep Tendon Reflex Bilateral Achilles Deep Tendon Reflex 2+ Normal Bilateral Patellar Deep Tendon Reflex 2+ Normal PT-OP-J Posture/Palpation/Skin Start: 12/30/19 12:05 Freq: Status: Active Protocol: Document 12/30/19 10:35 HH (Rec: 12/30/19 12:33 [email or web address]) Posture Evaluation Position Standing Evaluation View Anterior Weight Distribution Decreased Wt.Bear on (L) Knee Posture (L) Genu Valgus PT-OP-L Special Tests Start: 12/30/19 12:05 Freq: Status: Active Protocol: Document 12/30/19 10:35 HH (Rec: 12/30/19 12:33 [email or web address]) Special Tests Knee Special Tests Valgus- 25 Degrees Test Results +ve L Comments hypermobility to valgus force Valgus- 0 Degrees Test Results +ve L Comments hypermobility to valgus force Apley's Compression Test Results +ve L with ER of tibia Alfonso Test Test Results +ve L with ER of tibia Anterior Draw Test Results -ve Varus- 25 Degrees Test Results -ve Varus- 0 Degrees Test Results -ve Thessaly Test 20 Degrees Test Results -ve B Thessaly Test 5 Degrees Test Results -ve B PT-OP-M Strength Start: 12/30/19 12:05 Freq: Status: Active Protocol: Document 12/30/19 10:35 HH (Rec: 12/30/19 12:33 [email or web address]) Hip Strength Hip Manual Muscle Testing Right Flexion (L2) 4+ Good+ Extension (S1) 4+ Good+ Abduction 4+ Good+ Adduction 4+ Good+ Left Flexion (L2) 4+ Good+ Extension (S1) 4+ Good+ Abduction 4- Good- Adduction 4 Good Knee Strength Knee Manual Muscle Testing Right Flexion (S2) 4 Good Extension (L3) 4 Good Left Flexion (S2) 4- Good- Extension (L3) 4- Good- PT-OP-Q Treatments Start: 12/30/19 12:05 Freq: Status: Active Protocol: Document 01/13/20 11:56 HH (Rec: 01/13/20 12:07 [email or web address]) Cardio Equipment Recumbent Bicycle Duration (Minutes) 6 Resistance 5 Seat Position 4 Other no pain Gym Equipment Shuttle Balance red Details red Reps/Duration 8 secs x 5 Comments w/o support for 8 secs x 5 + ankle rock Therapeutic Exercises Supine Exercises marissa stretch Supine Exercise Name quad and hip flexor stretch Side bilateral Comments c/o back pain d/t extension, have pt to hug her opposite leg Sitting Exercises seated floor reach Sitting Exercise Name floor reach Side bilateral Reps/Minutes 10 secs hold x5 Comments for HEP, pain reduced with reps pain desensitization Sitting Exercise Name L knee joint line and adductors Side left Equipment Used rolling pin Comments for HEP Standing Exercises toe tap Standing Exercise Name 6 inch step Side bilateral Reps/Minutes 8 x 4 Comments alt toe tap on step ankle board Standing Exercise Name knee extended followed knee flexed Side bilateral Reps/Minutes 6 mins Comments ankle rock without support Manual Therapy Treatment Soft Tissue Mobilization quads Body Location B quads Mobilization Type Myofascial Release,Sustained Pressure,Trigger Point Release Intensity/Depth Moderate Body Position Supine L medial joint line Body Location L knee Mobilization Type Myofascial Release,Rolling, Sustained Pressure,Trigger Point Release Intensity/Depth Moderate Body Position Supine Comments pain desensitization focused Neuro Re-Education Treatment Balance Activities single leg stance Details next to grab bar Surface ground level Comments 10 secs each x 4 PT-OP-T Assessment and Plan Start: 12/30/19 12:05 Freq: Status: Active Protocol: Document 01/13/20 11:56 (Rec: 01/13/20 12:07 [email or web address]) Physical Therapy Assessment Goals pain Impairment pain during walking, getting in and out of the car, prolonged sitting Short Term Goal (STG) Pt will have pain no more than 2 for walking, getting in and out of the car and prolonged sitting STG Duration 4 weeks Mcc Goal (LTG) Pt will be pain free for walking, getting in and out of the car and prolonged sitting LTG Duration 8 weeks single leg balance Impairment L= 6s, R = 10s Short Term Goal (STG) Pt will improve both SLS score by 5 seconds or greater. STG Duration 4 weeks Mcc Goal (LTG) Pt will improve both SLS score by 8 seconds or greater to improve single leg stability for walking on uneven surface. LTG Duration 8 weeks LEFS Impairment pt scores 33/80 on LEFS Short Term Goal (STG) Pt will score 47 or greater on LEFS STG Duration 4 weeks Director Regulatory Compliance Goal (LTG) Pt will score 62 or greater on LEFS to improve her quality of life LTG Duration 8 weeks Assessment Summary Assessment Pt shows improved functional mobility without knee pain currently, her single leg balance improved to 10 s each side. Howevre, her back pain has been aggravated and discussed with pt about significant lumbar lordosis is primarily d/t high muscle tension at quads and hip flexor along with poor lumbar stability. Recommended her to have PT referral from MD after this POC is completed for L knee. Physical Therapy Plan Next Visit Focus/Plan Next Note Type Treatment Note Next Visit Plan start with biking soft tisse work on medial joint line supine bridge for glute training close chain balance board for ankle strategy single leg balance if appropriate
--- NOTE | 2020-01-27 09:13 | PT.OPDS ---
Current Diagnoses Sprain of medial collateral ligament of left knee, subsequent encounter (01/13/20) Visit Care Team Role Provider Type Yunier Keys MD Family Provider Physician Primary Care Provider Specialty: Internal Medicine Address: [address] [place] [address], [facility] [address], [place], [address] Email: [email or web address] Zain Cadena MD Attending Provider Physician Referring Provider Specialty: Orthopedic Surgery Address: [address] [place] [address], [address] Email: [email or web address] Visit Number Visit Number 10/04 Discharge Summary PT-OP-B Current Condition Start: 12/30/19 12:05 Freq: Status: Active Protocol: Document 12/30/19 10:35 HH (Rec: 12/30/19 12:33 HH [email or web address]) Current Condition History of Current Condition Onset Date Jul, 2019 Current Complaints L medial knee pain, difficulty in walking History of Current Condition Pt is a 49yo female who slipped on the snow and fell backward with her left leg twisted internally in July. She heard a huge pop and her L knee was immediately swollen and had difficulty ambulating for couple weeks afterwards. She has been taking 1000mg tylenol and 800 mg ibuprofen and 500 mg APAP every 6-8 hours for both her chronic back pain and knee pain. She also feels like her knee is giving out when she walks. Pt went to see and suspect pt sufferred from a MCL sprain and CT scan ruled out meniscal tear. Pt's pain is currently at 4/10 who has pain mostly while getting in and out of the car and walking on uneven surfaces that requires her knee to go in valgus direction. She also often has swelling at the knee after going for long walk and pain after sitting for a long period of time. She describes her overall pain has been improved since the injury. Prior Treatments and Tests CT- scan rule out meniscal tear. Unable to have MRI due to spinal stimulator in her back. Treatment Goals Patient/Caregiver Goals 1. To be pain free for getting in and out of the car and walking 2. to improve her gait quality without compensation. Personal Factors Other Personal Factors That May Effect previous TBI Therapy/Recovery hx of PE x 3 depression bruise easily, headaches memory loss chronic LBP PT-OP-C Subjective Start: 12/30/19 12:05 Freq: Status: Active Protocol: Document 01/27/20 09:12 HH (Rec: 01/27/20 09:13 HH [email or web address]) OP-PT Subjective Patient Comments Patient Comments Pt reports her knees have gotten significantly better and would like to schedule PT for her chronic LBP. PT-OP-D Balance Start: 12/30/19 12:05 Freq: Status: Active Protocol: Document 12/30/19 10:35 HH (Rec: 12/30/19 12:33 HH [email or web address]) Balance Tests Single Limb Standing Single Limb- Right 10 Single Limb- Left 6 Other Other Balance Tests Performed significant L ankle and L knee instability during SLS PT-OP-F Manual Assessment Start: 12/30/19 12:05 Freq: Status: Active Protocol: Document 12/30/19 10:35 HH (Rec: 12/30/19 12:33 HH [email or web address]) Manual Assessments Soft Tissue Assessment Soft Tissue Mobility Assessment significant tenderness to pressure at L medial joint line Joint Mobility Assessment Joint Mobility Assessment hypermobility for L knee for valgus moment PT-OP-G Mobility & Gait Start: 12/30/19 12:05 Freq: Status: Active Protocol: Document 12/30/19 10:35 HH (Rec: 12/30/19 12:33 HH [email or web address]) OP Gait Assessment Gait Deviations General Gait Pattern Antalgic,Decreased Stride Length,Decreased Feet Clearance,Lateral Trunk Lean Factors Limiting Gait Function Factors Limiting Gait Function Decreased Activity Tolerance, Decreased Strength,Pain,Poor Balance Comments Gait Comments decreased stance phase on LLE along with mild R hip drop PT-OP-H Neuro Start: 12/30/19 12:05 Freq: Status: Active Protocol: Document 12/30/19 10:35 HH (Rec: 12/30/19 12:33 HH [email or web address]) Deep Tendon Reflex & Clonus Assessment Deep Tendon Reflex Bilateral Achilles Deep Tendon Reflex 2+ Normal Bilateral Patellar Deep Tendon Reflex 2+ Normal PT-OP-J Posture/Palpation/Skin Start: 12/30/19 12:05 Freq: Status: Active Protocol: Document 12/30/19 10:35 HH (Rec: 12/30/19 12:33 HH [email or web address]) Posture Evaluation Position Standing Evaluation View Anterior Weight Distribution Decreased Wt.Bear on (L) Knee Posture (L) Genu Valgus PT-OP-L Special Tests Start: 12/30/19 12:05 Freq: Status: Active Protocol: Document 12/30/19 10:35 (Rec: 12/30/19 12:33 [email or web address]) Special Tests Knee Special Tests Valgus- 25 Degrees Test Results +ve L Comments hypermobility to valgus force Valgus- 0 Degrees Test Results +ve L Comments hypermobility to valgus force Apley's Compression Test Results +ve L with ER of tibia Alfonso Test Test Results +ve L with ER of tibia Anterior Draw Test Results -ve Varus- 25 Degrees Test Results -ve Varus- 0 Degrees Test Results -ve Thessaly Test 20 Degrees Test Results -ve B Thessaly Test 5 Degrees Test Results -ve B PT-OP-M Strength Start: 12/30/19 12:05 Freq: Status: Active Protocol: Document 12/30/19 10:35 (Rec: 12/30/19 12:33 [email or web address]) Hip Strength Hip Manual Muscle Testing Right Flexion (L2) 4+ Good+ Extension (S1) 4+ Good+ Abduction 4+ Good+ Adduction 4+ Good+ Left Flexion (L2) 4+ Good+ Extension (S1) 4+ Good+ Abduction 4- Good- Adduction 4 Good Knee Strength Knee Manual Muscle Testing Right Flexion (S2) 4 Good Extension (L3) 4 Good Left Flexion (S2) 4- Good- Extension (L3) 4- Good- PT-OP-T Assessment and Plan Start: 12/30/19 12:05 Freq: Status: Active Protocol: Document 01/27/20 09:12 (Rec: 01/27/20 09:13 [email or web address]) Physical Therapy Plan Discharge Physical Therapy Discharge Reasons Change in Medical Status Discharge Comments Called pt via phone and pt is currently hospitalized d/t acute GI bleed. Requested to d /c from PT at this point
== END 2020-03-18 09:05 ==
LOC: PHYS 09:45
PROVIDERS: Family Provider Student in an Organized Health Care Education/Training Program; PCP Student in an Organized Health Care Education/Training Program; Referring Provider Orthopaedic Surgery Adult Reconstructive Orthopaedic Surgery; Visit Provider Orthopaedic Surgery Adult Reconstructive Orthopaedic Surgery
DX: S83.412D Sprain of medial collateral ligament of left knee, subsequent encounter (principal)
CPT/HCPCS: 97110; 97112; 97140; 97162

== ENCOUNTER 2020-01-23 08:55 | Inpatient (IN) | payer OTHER, SELFPAY ==
[2020-01-23] VITALS (31 sets, daily range): BP systolic 104–140; BP diastolic 56–79; PULSE 76–123; RESP 12–34; TEMP 36.2–37; O2SAT 98–100; BMI 44.2; BMI 44.6
--- NOTE | 2020-01-23 09:26 | DI.RAD.S_ITS ---
PROCEDURE: XR CHEST 1V INDICATIONS: chest pain TECHNIQUE: One view of the chest was acquired. COMPARISON: [facility], CR, XR CHEST 2V, 09/28/2019, 21:32. [facility], CR, XR CHEST 1V, 04/18/2019, 10:13. FINDINGS: Surgical changes and devices: Spinal stimulator. EKG leads. Lungs and pleura: Lungs are clear. No pleural effusions or pneumothorax. Mediastinum: Mediastinal contours appear normal. Heart size is normal. Bones and chest wall: No suspicious bony lesions. Overlying soft tissues appear unremarkable. IMPRESSION: No acute cardiopulmonary process demonstrated radiographically. Dictated by: Luis Rubalcava M.D. on 01/23/2020 at 10:01 Approved by: Luis Rubalcava M.D. on 01/23/2020 at 10:02
[2020-01-23 09:32] LABS: Add Manual Diff / Slide Review NO; Basophils Absolute Auto 0 /uL (0-100); Basophils Percent Auto 0.6 % (0-2); Eosinophils Absolute Auto 200 /uL (0-450); Eosinophils Percent Auto 4.8 % (2-4); Hematocrit 21.3 % (36-46); Hemoglobin 7.1 g/dL (12.0-16.0); Lymphocytes Absolute Auto 1100 /uL (1100-4500); Mean Corpuscular HGB Conc 33.2 % (30-36); Mean Corpuscular Hemoglobin 29.9 PG (26-34); Monocytes Absolute Auto 300 /uL (0-900); Monocytes Percent Auto 7.7 % (3-14); Neutrophils Absolute Auto 2000 /uL (1500-7000); Neutrophils Percent Auto 55.9 % (50-75); Platelet Count 222 X10^3/uL (150-400); Red Blood Cell Count 2.37 X10^6/uL (4.0-5.2); Red Cell Distribution Width 17.5 % (11.6-14.8); White Blood Cell Count 3.5 X10^3/uL (4.5-11.0)
[2020-01-23 09:34] LABS: INR 1.1 (0.9-1.3); Prothrombin Time 12.8 SECONDS (10.1-12.7)
[2020-01-23 09:37] LABS: PTT Partial Thromboplastin Tim 27 SECONDS (26.4-36.2)
[2020-01-23 09:39] LABS: Alanine Aminotransferase 15 IU/L (<35); Albumin 3.5 g/dL (3.5-5.0); Albumin Globulin Ratio 1.5 (1.0-2.8); Alkaline Phosphatase 47 U/L (38-126); Aspartate Aminotransferase 25 IU/L (14-36); BUN Creatinine Ratio 38.9 (6-22); Bilirubin Total 0.1 mg/dL (0.2-1.3); Blood Urea Nitrogen 37 mg/dL (7-17); Calcium 8.7 mg/dL (8.4-10.2); Carbon Dioxide 23 mmol/L (22-32); Chloride 107 mmol/L (98-107); Creatine Kinase 153 U/L (30-135); Estimated Glomerular Filt Rate > 60.0 mL/min (>60); Globulin 2.3 g/dL (1.7-4.1); Glucose 118 mg/dL (70-100); HEMOLYSIS < 15 (0-50); Lipase 54 U/L (23-300); Potassium 3.4 mmol/L (3.4-5.1); Sodium 136 mmol/L (137-145); Total Protein 5.8 g/dL (6.3-8.2)
[2020-01-23 09:50] LABS: Troponin I < 0.012 ng/mL (0.01-0.034)
[2020-01-23] MEDS: ONDANSETRON 4 MG/2 ML INJ IV ×2 (10:02→11:32)
[2020-01-23] MEDS: MORPHINE 4 MG/ML INJ IV (10:02)
--- NOTE | 2020-01-23 10:09 | ED_ITS ---
HPI - Chest Pain General Chief Complaint: Chest Pain Stated Complaint: GI BLEED, CHEST PAIN Time Seen by Provider: 01/23/20 09:24 Source: patient and family Mode of arrival: Family Vehicle Limitations: no limitations History of Present Illness HPI narrative: CC: Acute abdominal pain with a GI bleed HPI: The patient is a 49-year-old female who states that on Sunday she had a fever to 101. She was also complaining that she was having a burning in her upper abdomen associated with intermittent nausea and vomiting. She had no hematemesis or coffee-ground emesis at that time. On Sunday she stated that she felt fine. she redeveloped fever and being listless. She noted that she had palpitations with her heart rate running 130-140. She developed chest pain at that time. She was having severe abdominal pain that doubled her over. It was associated with nausea and vomiting. Today she was sitting on the toilet feeling as though she was going to have diarrhea and had a massive bloody bowel movement that filled the toilet. She denies a history of peptic ulcer disease but has a history of gastritis. She is status post gastric bypass. She admits to history of ischemic colitis. She however denies a history of Crohn's disease or ulcerative colitis diverticulitis. She has had a Meckel's diverticulum removed years ago. She has had indigestion and heartburn but takes Prilosec chronically. He has had intermittent fever chills and sweats but denies any headache numbness tingling paresthesias anesthesia is or paresis. She has had no sore throat or trouble swallowing. She has complained of shortness of breath with chest pain palpitations and dizziness. She has chronic back pain for which she takes 800 mg of ibuprofen 3 times a day. She has had no urinary symptoms. She has a history of deep vein thrombophlebitis and a coagulation problem with pulmonary emboli for which she is on Eliquis. Related Data Home Medications Medication Instructions Recorded Confirmed acetaminophen 1,000 mg PO Q6H PRN 03/06/18 01/23/20 Resmed Aircurve 10 BIPAP #1 ea 11/25/18 01/23/20 albuterol sulfate 2 puff INHALATION Q6H PRN 04/18/19 01/23/20 cetirizine [Zyrtec] 10 mg PO DAILY 04/18/19 01/23/20 ibuprofen 800 mg tablet 800 mg PO TID PRN 09/08/19 01/23/20 ascorbic acid (vitamin C) [Vitamin 500 mg BID 01/15/20 01/23/20 C] calcium carbonate-vitamin D3 2 tab PO BID 01/15/20 01/23/20 [Caltrate 600 plus D] omeprazole 20 mg PO BID 01/15/20 01/23/20 vitamin E 600 unit PO DAILY 01/15/20 01/23/20 clonidine HCl 0.1 mg PO TID PRN 01/23/20 01/23/20 tizanidine [Zanaflex] 4 mg PO BEDTIME 01/23/20 01/23/20 Previous Rx's Medication Instructions Recorded olanzapine 2.5 mg tablet 5 mg PO BID PRN #60 tab 08/22/19 gabapentin 600 mg tablet 1,200 mg PO BEDTIME #180 tab 09/09/19 apixaban 5 mg tablet 5 mg PO BID #180 tab 09/23/19 ondansetron HCl 4 mg tablet 4 - 8 mg PO TID PRN #180 tab 10/27/19 promethazine 25 mg tablet 25 - 50 mg PO Q6H PRN #90 tab 10/27/19 suvorexant 20 mg tablet 20 mg PO BEDTIME #30 tab 10/27/19 lorazepam 2 mg tablet 2 mg PO QID PRN 30 Days #120 tab 11/05/19 fluticasone propionate 50 2 spray INTRANASAL BEDTIME #16 gram 11/19/19 mcg/actuation nasal spray,suspension zonisamide 100 mg capsule 200 mg PO DAILY #60 cap 12/17/19 bupropion HCl 150 mg tablet,12 hr 150 mg PO BID #60 each MDD 300mg 12/18/19 sustained-release lamotrigine 150 mg tablet 150 mg PO BID #180 tab 12/29/19 prazosin 2 mg capsule 2 mg PO BEDTIME #90 cap 01/12/20 prazosin 5 mg capsule 15 mg PO BEDTIME #90 cap 01/12/20 vortioxetine 20 mg tablet 20 mg PO DAILY #90 tab 01/22/20 Allergies Allergy/AdvReac Type Severity Reaction Status Date / Time No Known Drug Allergies Allergy Verified 01/23/20 09:17 Review of Systems Review of Systems Narrative: Her review of systems were all negative except for those mentioned in the history of present illness. Patient History Medical History Abnormal CXR (chest x-ray) (Resolved) Ankle fracture, left (Resolved 1986) Anxiety (Chronic) Arthritis of knee (Chronic) Asthma (Chronic) Bipolar 1 disorder, depressed (Chronic) Chicken pox (Resolved) Chronic anemia (Chronic) Chronic back pain (Chronic) Chronic headaches (Chronic) Chronic neck pain (Chronic) Depression (Chronic) Diabetes mellitus (Resolved) Diastolic dysfunction (Chronic) Fatty liver (Chronic) GERD (gastroesophageal reflux disease) (Chronic) GI bleeding (Resolved) High risk medication use (Chronic) Hyperlipidemia (Chronic) Hypertension (Chronic) 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) Irregular periods/menstrual cycles (Chronic) Ischemic colitis (Resolved 2013) Lumbar spine pain (Chronic) Migraines (Chronic) Neck arthritis (Chronic) Obstructive sleep apnea syndrome (Chronic 2008) Panic attacks (Chronic) Plantar warts (Resolved) PTSD (post-traumatic stress disorder) (Chronic) Pulmonary embolism (Resolved 2006) Pulmonary hypertension (Chronic) S/P ECT (electroconvulsive therapy) (Resolved 2013) Shoulder arthritis (Chronic) Spinal cord stimulator status (Chronic) Transient hypotension (Resolved) Surgical History Anesthesia (Resolved) History of bowel resection (Resolved 1995) History of endometrial ablation (Resolved 2008) History of esophagogastroduodenoscopy (EGD) (Resolved 04/19/17) History of gastric bypass (Resolved 2009) History of open reduction and internal fixation (ORIF) procedure (Resolved 1986) History of spinal surgery (Resolved 2010) Status post cardiac catheterization (Resolved 2007) Status post cholecystectomy (Resolved 2007) Status post peripherally inserted central catheter (PICC) central line placement (Resolved 04/04/17) Family History Father Age: 75 Hypertension Sick sinus syndrome Heart disease Mother Age: 72 Hyperlipidemia Mental health problem Arthritis Hayfever Seasonal allergies Hypertension Sister No problems noted. Social History marital status: details: 2013 Adriana Blanco; couple > 20 yrs. 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 The monitor reveals that she has a heart rate that ranges from 1 10-120. l. HEAD: AT/NC EENT: PERRL, FROM of eyes, . NOSE:No epistaxis or nasal drainage MOUTH:Oral mucosa is moist and pink, posterior pharynx is without erythema or exudate. NECK: Supple, no obvious JVD, Trachea is midline without stridor, no palpable LN. SPINE: Palpation of the cervical, Thoracic, Lumbar or Sacral spine reveals no gross deformity or tenderness. No CVA tenderness. THORAX: No deformity, retractions, chest wall tenderness. LUNGS: Clear, symmetrical breath sounds without respiratory distress. HEART: Heart tones are distant, tachycardic no appreciable murmur ABDOMEN: Abdomen is soft but the patient is exquisitely tender on palpation of the epigastrium right and left upper quadrants with guarding no rebound no rigidity. Rectal exam reveals that the patient has good tone no palpable mass however she does have an external hemorrhoid that is not bleeding. The stool is dark like grape jelly and tests grossly positive for blood EXTREMITIES: No edema, deformity, tenderness or cyanosis. SKIN: No rash, bruising, petechiae or purpura. NEURO: Awake, alert, oriented, conversive, cranial nerves II-XII are symmetrical , moves all 4 extremities and is ambulatory. MENTAL HEALTH: Does not appear anxious or depressed. Initial Vital Signs Initial Vital Signs: Vital Signs Temperature 98.1 F 01/23/20 09:00 Pulse Rate 123 H 01/23/20 09:00 Respiratory Rate 18 01/23/20 09:00 Blood Pressure 136/66 01/23/20 09:00 Pulse Oximetry 99 01/23/20 09:00 Course Course Course Narrative: 1009: The patient's rectal exam was dark red which tested grossly positive for Hemoccult. 1044: The patient has been discussed with the general surgeon who will consult and see the patient. The patient has been admitted to ICU to Dr. Aguilar hospitalist on-call. I discussed to reversing the eliquis with Dr. Aguilar who is in agreement. The patient will be administered 2500 units of Kcentra IV and 5 mg of vitamin K IM. The patient will be admitted to the intensive care unit. 2 units of packed red blood cells were ordered for the patient because her hemoglobin was 7.1. The patient was hydrated with normal saline. The patient improved as she was being admitted to the intensive care unit. The patient did get up and walk to the bathroom. The patient's chest x-ray revealed no acute cardiopulmonary pathology. CT of her abdomen revealed no acute intra-abdominal pathology. There was moderate stool without obstruction noted. Recommend correlation with constipation per the radiologist. Orders Ordered: ED Orders 01/23/20 11:20 EKG-12 Lead Stat 01/23/20 12:06 CT abdomen pelvis w con Stat 01/23/20 13:21 Creatine Kinase Stat Trop I [Troponin I] Stat Albuterol (Ventolin Hfa) 2 puff INH Q6H PRN PRN Reason: Shortness Of Breath Bupropion HCl (Wellbutrin Sr) 150 mg PO 1400 KORY Last Admin: 01/23/20 17:07 Dose: 150 mg Documented by: TAE Bupropion HCl (Wellbutrin Sr) 300 mg PO 0800 KORY Clonidine HCl (Catapres) 0.1 mg PO TID PRN PRN Reason: Anxiety Fluticasone Propionate (Flonase) 2 spray NASAL BEDTIME KROY Gabapentin (Neurontin) 1,200 mg PO BEDTIME KORY Hydromorphone HCl (Dilaudid) 2 mg IV Q3HR PRN PRN Reason: Pain, Severe (7-10) Last Admin: 01/23/20 15:17 Dose: 2 mg Documented by: MERON Sodium Chloride (Normal Saline 0.9%) 1,000 mls @ 100 mls/hr IV CONT KORY Last Infusion: 01/23/20 14:43 Dose: 100 mls/hr Documented by: Infusion: 01/23/20 13:40 Dose: 0 mls/hr Documented by: Admin: 01/23/20 10:41 Dose: 100 mls/hr Documented by: CHRISTY Sodium Chloride (Normal Saline 0.9%) 1,000 mls @ 100 mls/hr IV CONT KORY Last Admin: 01/23/20 15:17 Dose: 100 mls/hr Documented by: MERON Ondansetron HCl 8 mg/ Sodium (Chloride) 54 mls @ 216 mls/hr IV Q6HR PRN PRN Reason: Nausea And Vomiting Last Admin: 01/23/20 17:13 Dose: 216 mls/hr Documented by: TAE Lamotrigine (Lamictal) 150 mg PO BID KORY Lorazepam (Ativan) 2 mg PO 0800 KORY Lorazepam (Ativan) 2 mg PO 1400 KORY Last Admin: 01/23/20 17:07 Dose: 2 mg Documented by: TAE Lorazepam (Ativan) 4 mg PO BEDTIME KORY Naloxone HCl (Narcan) 0.2 mg IV Q2MIN PRN PRN Reason: Opiate Reversal Naloxone HCl (Narcan) 0.2 mg IV Q2MIN PRN PRN Reason: Opiate Reversal Suvorexant 20 Mg 20 mg PO BEDTIME KORY Vortioxetine 20 Mg 20 mg PO DAILY KORY Olanzapine (Zyprexa) 5 mg PO BID PRN PRN Reason: episode Pantoprazole Sodium (Protonix) 40 mg IV BID KORY Prazosin HCl (Minipress) 15 mg PO BEDTIME KORY Prazosin HCl (Minipress) 2 mg PO BEDTIME KORY Prochlorperazine (Compazine) 10 mg IV Q6HR PRN PRN Reason: Nausea Tizanidine HCl (Zanaflex) 4 mg PO BEDTIME KORY Zonisamide (Zonegran) 200 mg PO DAILY KORY Discontinued Medications Diphenhydramine HCl (Benadryl) 25 mg IV NOW ONE Stop: 01/23/20 11:27 Last Admin: 01/23/20 11:32 Dose: 25 mg Documented by: CHRISTY Hydromorphone HCl (Dilaudid) 1 mg IV NOW ONE Stop: 01/23/20 11:45 Last Admin: 01/23/20 11:51 Dose: 1 mg Documented by: CHRISTY Prothrombin Complex Concent ( Human) 2,500 unit/Miscellaneous 100 mls @ 816.466 mls/hr IV NOW ONE; Protocol Stop: 01/23/20 10:50 Last Infusion: 01/23/20 11:52 Dose: 0 unit/kg/min, 0 mls/hr Documented by: Admin: 01/23/20 11:35 Dose: 3 unit/kg/min, 816.466 mls/hr Documented by: CHRISTY Lorazepam (Ativan) 2 mg PO QID PRN PRN Reason: anxiety Morphine Sulfate (Morphine) 4 mg IV NOW ONE Stop: 01/23/20 09:59 Last Admin: 01/23/20 10:02 Dose: 4 mg Documented by: CHRISTY Octreotide Acetate (Sandostatin) 50 mcg IV NOW ONE Stop: 01/23/20 10:12 Last Admin: 01/23/20 10:49 Dose: 50 mcg Documented by: CHRISTY Ondansetron HCl (Zofran) 4 mg IV NOW ONE Stop: 01/23/20 10:00 Last Admin: 01/23/20 10:02 Dose: 4 mg Documented by: CHRISTY Ondansetron HCl (Zofran) 4 mg IV NOW ONE Stop: 01/23/20 11:27 Last Admin: 01/23/20 11:32 Dose: 4 mg Documented by: CHRISTY Ondansetron HCl (Zofran) 4 mg IV NOW ONE Stop: 01/23/20 11:27 Last Admin: 01/23/20 11:29 Dose: Not Given Documented by: CHRISTY Pantoprazole Sodium (Protonix) 40 mg IV NOW ONE Stop: 01/23/20 10:12 Last Admin: 01/23/20 10:41 Dose: 40 mg Documented by: CHRISTY Pantoprazole Sodium (Protonix) 40 mg IV DAILY KORY Last Admin: 01/23/20 14:45 Dose: Not Given Documented by: MERON Phytonadione (Vitamin K) 5 mg IM NOW ONE Stop: 01/23/20 10:41 Last Admin: 01/23/20 11:52 Dose: Not Given Documented by: CHRISTY Phytonadione (Vitamin K1) 5 mg IM NOW ONE Stop: 01/23/20 11:31 Last Admin: 01/23/20 11:51 Dose: 5 mg Documented by: CHRISTY Vital Signs Vital signs: Vital Signs - 8 hr 01/23/20 10:40 01/23/20 11:00 01/23/20 11:20 Pulse Rate 102 H 109 H 92 H Respiratory Rate 20 26 H 12 Blood Pressure 129/78 137/69 131/65 Pulse Oximetry 99 100 100 01/23/20 11:40 01/23/20 12:00 01/23/20 12:01 Pulse Rate 109 H 95 H 92 H Respiratory Rate 31 H 25 H 22 Blood Pressure 140/69 127/79 Pulse Oximetry 100 100 100 MDM - Chest Pain Medical Records Data Attestation: I reviewed the patient's medical records. Lab Data Attestation: I reviewed the patient's lab results. Result diagrams: 01/23/20 17:00 01/23/20 09:21 Labs: Lab Results 01/23/20 01/23/20 01/23/20 Range/Units 09:21 09:21 09:21 WBC 3.5 L (4.5-11.0) X10^3/uL RBC 2.37 L (4.0-5.2) X10^6/uL Hgb 7.1 L (12.0-16.0) g/dL Hct 21.3 L (36-46) % MCV 90.0 (80-100) fL MCH 29.9 (26-34) PG MCHC 33.2 (30-36) % RDW 17.5 H (11.6-14.8) % Plt Count 222 (150-400) X10^3/uL Neut % (Auto) 55.9 (50-75) % Lymph % (Auto) 31.0 (25-40) % Heard % (Auto) 7.7 (3-14) % Eos % (Auto) 4.8 H (2-4) % Baso % (Auto) 0.6 (0-2) % Neut # (Auto) 2000 (6555-7706) /uL Lymph # (Auto) 1100 (6859-6615) /uL Heard # (Auto) 300 (0-900) /uL Eos # (Auto) 200 (0-450) /uL Baso # (Auto) 0 (0-100) /uL PT 12.8 H (10.1-12.7) SECONDS INR 1.1 (0.9-1.3) APTT 27 D (26.4-36.2) SECONDS Sodium 136 L (137-145) mmol/L Potassium 3.4 (3.4-5.1) mmol/L Chloride 107 (98-107) mmol/L Carbon Dioxide 23 (22-32) mmol/L BUN 37 H (7-17) mg/dL Creatinine 0.95 (0.52-1.04) mg/dL Estimated GFR > 60.0 (>60) mL/min BUN/Creatinine Ratio 38.9 H (6-22) Glucose 118 H (70-100) mg/dL Lactate (0.7-2.1) mmol/L Calcium 8.7 (8.4-10.2) mg/dL Total Bilirubin 0.1 L (0.2-1.3) mg/dL AST 25 (14-36) IU/L ALT 15 (<35) IU/L Alkaline Phosphatase 47 (38-126) U/L Lactate Dehydrogenase (313-618) U/L Total Creatine Kinase 153 H (30-135) U/L CK-MB (CK-2) 9.65 H (<2.37) ng/mL CK-MB (CK-2) Rel Index 6.3 H* (1.5-5.0) % Troponin I < 0.012 (0.01-0.034) ng/mL Total Protein 5.8 L (6.3-8.2) g/dL Albumin 3.5 (3.5-5.0) g/dL Globulin 2.3 (1.7-4.1) g/dL Albumin/Globulin Ratio 1.5 (1.0-2.8) Lipase 54 (23-300) U/L Blood Type Antibody Screen Crossmatch 01/23/20 01/23/20 01/23/20 Range/Units 09:21 09:21 09:21 WBC (4.5-11.0) X10^3/uL RBC (4.0-5.2) X10^6/uL Hgb (12.0-16.0) g/dL Hct (36-46) % MCV (80-100) fL MCH (26-34) PG MCHC (30-36) % RDW (11.6-14.8) % Plt Count (150-400) X10^3/uL Neut % (Auto) (50-75) % Lymph % (Auto) (25-40) % Heard % (Auto) (3-14) % Eos % (Auto) (2-4) % Baso % (Auto) (0-2) % Neut # (Auto) (1458-2088) /uL Lymph # (Auto) (9257-4037) /uL Heard # (Auto) (0-900) /uL Eos # (Auto) (0-450) /uL Baso # (Auto) (0-100) /uL PT (10.1-12.7) SECONDS INR (0.9-1.3) APTT (26.4-36.2) SECONDS Sodium (137-145) mmol/L Potassium (3.4-5.1) mmol/L Chloride (98-107) mmol/L Carbon Dioxide (22-32) mmol/L BUN (7-17) mg/dL Creatinine (0.52-1.04) mg/dL Estimated GFR (>60) mL/min BUN/Creatinine Ratio (6-22) Glucose (70-100) mg/dL Lactate 1.2 (0.7-2.1) mmol/L Calcium (8.4-10.2) mg/dL Total Bilirubin (0.2-1.3) mg/dL AST (14-36) IU/L ALT (<35) IU/L Alkaline Phosphatase (38-126) U/L Lactate Dehydrogenase 371 (313-618) U/L Total Creatine Kinase (30-135) U/L CK-MB (CK-2) (<2.37) ng/mL CK-MB (CK-2) Rel Index (1.5-5.0) % Troponin I (0.01-0.034) ng/mL Total Protein (6.3-8.2) g/dL Albumin (3.5-5.0) g/dL Globulin (1.7-4.1) g/dL Albumin/Globulin Ratio (1.0-2.8) Lipase (23-300) U/L Blood Type A Positive Antibody Screen Negative Crossmatch See Detail Point of Care Testing Stool Occult Blood Positive ECG Data Attestation: I personally reviewed and interpreted this ECG as follows: Interpretation: EKG 1. Her EKG obtained at 9:03 a.m. reveals a sinus tachycardia with a ventricular rate of 105. The patient has nonspecific ST segment depressions in the lateral leads. There is T-wave inversions in leads III no other acute diagnostic ST segment changes. EKG#2: The EKG obtained at 11:00 a.m. reveals a normal sinus rhythm with a ventricular rate of 97. There are no acute diagnostic ST segment changes. The patient has T-wave inversions in leads at III and V1. There are no other acute diagnostic or ST segment changes to suggest an acute [place]. . Discharge Plan Departure Patient Disposition: Admitted As Inpatient Clinical Impression: Acute GI bleeding, Anticoagulation adequate, Regular sinus tachycardia, History of ischemic colitis, History of gastric bypass Abdominal pain Qualifiers: Abdominal location: upper abdomen, unspecified Qualified Code(s): R10.10 - Upper abdominal pain, unspecified Nausea & vomiting Qualifiers: Vomiting type: unspecified Vomiting Intractability: non-intractable Qualified Code(s): R11.2 - Nausea with vomiting, unspecified Discharge Date/Time: 01/23/20 13:44 Referrals: Yunier Keys MD [Primary Care Provider] - Admit Date/Time: 01/23/20 12:07 Admit Provider: Cherrie Aguilar
[2020-01-23 10:12] LABS: Creatine Kinase MB 9.65 ng/mL (<2.37); Lactate (Lactic Acid) 1.2 mmol/L (0.7-2.1)
[2020-01-23 10:17] LABS: CKMB % Relative Index 6.3 % (1.5-5.0)
[2020-01-23 10:18] LABS: Lactate Dehydrogenase 371 U/L (313-618)
[2020-01-23] MEDS: PANTOPRAZOLE 40 MG VIAL IV ×2 (10:41→20:31)
[2020-01-23] MEDS: SODIUM CHLORIDE 0.9% 1,000 ML 100 ML IV ×3 (10:41→21:14)
[2020-01-23] MEDS: OCTREOTIDE 100 MCG/ML VIAL 50 MCG IV (10:49)
--- NOTE | 2020-01-23 10:59 | P.CONS_ITS ---
History of Present Illness Consult details Date Patient Seen: 01/23/20 Time Patient Seen: 11:03 Chief complaint: GI BLEED, CHEST PAIN Reason for consult: GI bleed Requesting provider: Lopez Mcmillan Narrative: This is a 49-year-old woman with complex medical, surgical, and psychiatric history presents with 4 days of epigastric and lower abdominal pain, and bloody bowel movements this morning. In the ER she has a hemoglobin is 7.1, and she is tachycardic. She reports that she began having epigastric burning pain on Sunday, which was worsening over the last several days, and then she noted lower abdominal crampy pain yesterday. This morning she got up and had urgency to have a bowel movement, and passed a large bloody bowel movement with several blood clots in it. She denies any recent history of melena or h ematochezia prior to today. She says she takes 800 mg of ibuprofen 3 times a day for chronic back pain, and is on Eliquis for history of spontaneous PEs. She has severe morbid obesity with a BMI of 44. She also has a history of gastric bypass in 2009, a diagnosis of asthma, bipolar 1 disorder, chronic iron deficiency anemia secondary to her gastric bypass for which she gets iron infusions and is managed by Dr. Cordova, chronic back pain with spinal cord stimulator, chronic headaches, depression with history of SI requiring ECT, DM 2, cardiac diastolic dysfunction with EF of 40%, history of ischemic colitis which was treated nonsurgically, MICHELE, PTSD. Her gastric bypass was in 2009, and she had resection of a Meckel's diverticulum as well as a cholecystectomy prior to that. She had a Port-A-Cath placed for difficult IV access in 2016. Her last EGD was in [address] Metcalf, and she was found to have gastritis. Her last colonoscopy was done by Dr. Quesada at [facility] in 2016 and was normal, but due to poor prep visualization was not perfect. In the ER she is receiving two units of blood, vitamin K, and PCC. ROS: Constitutional: Denies chills, Denies excessive sweating, reports headaches, reports fatigue, Denies malaise, reports weakness, and Denies weight loss Eyes: Denies change in vision, Denies itchy eyes, Denies loss of vision and Denies other visual disturbances ENT: Denies difficulty swallowing, Denies neck pain, Denies neck swelling, Denies dry mouth Cardiovascular: Reports chest pain, Denies fainting, Denies palpitations, Denies irregular heart rhythm, Denies shortness of breath, reports MOELLER Respiratory: Reports mild SOB, reports mild dyspnea, and Denies chronic cough Gastrointestinal: Reports burning epigastric pain, reports change in bowel habits, denies chronic change in stool character, reports acute blood in stool, denies chronic melena, denies chronic hematochezia, Denies dysphagia, , reports mild nausea, Denies vomiting and Denies hematemesis Genitourinary: Denies hematuria, Denies pyuria and Denies urinary frequency, Denies inguinal hernia, Denies groin pain Musculoskeletal: Denies abnormal gait, reports chronic back pain Integumentary/Breasts: Denies bleeding lesions, Denies change in pigmentation, Denies changing lesions, Denies new lesions, Denies rash, Denies skin swelling, Denies sores and Denies jaundice Neurologic: Denies unsteady gait, Denies behavioral changes, Denies confusion, Denies syncope, Denies headache(s), Denies loss of vision, Denies neuropathic pain, Denies memory loss and Denies weakness Psychiatric: Denies behavioral changes, reports change in appetite, reports confusion, reports difficulty concentrating, Denies auditory hallucinations Endocrine: Denies excessive sweating and Denies palpitations Hematologic/Lymphatic: Reports easy bleeding, Denies lymphadenopathy Allergic/Immunologic: Denies itchy eyes, rash, swelling PE: GENERAL: Alert, in no acute distress, comfortable. Morbidly obese. Appears older than stated age. Answers questions promptly and appropriately. Vital signs noted. HENT: Normocephalic, atraumatic. Hearing intact. EYES: Conjunctiva pink, sclera white, no periorbital swelling. CARDIOVASCULAR: Tachycardia, 103. No pedal edema. RESPIRATORY: Non-tachypneic, breathing comfortably on nasal cannula oxygen GASTROINTESTINAL: Abdomen soft, rounded, obese, mildly tender in the lower quadrants, minimal epigastric tenderness, not tympanic GENITALURINARY: No flank tenderness. MUSCULOSKELETAL: Equal tone and mass bilaterally. SKIN: Warm, dry, soft, appropriate color for ethnicity. No other lesions, rashes, or wounds. NEURO: Alert and Oriented to self and situation, perseverating, reports feeling confused after having morphine. No gross sensory deficits, or cognitive issues. PSYCH: Appropriate affect and mood. Meds Home Medications and Allergies Home Medications Medication Instructions Recorded Confirmed Type acetaminophen 1,000 mg PO Q6H PRN 03/06/18 01/15/20 History Resmed Aircurve 10 BIPAP #1 ea 11/25/18 12/03/19 History albuterol sulfate 2 puff INHALATION Q6H PRN 04/18/19 01/15/20 History cetirizine [Zyrtec] 10 mg PO DAILY 04/18/19 01/15/20 History tizanidine 4 mg capsule 4 mg PO TID PRN #270 cap 07/24/19 01/15/20 Rx zolpidem 10 mg tablet 10 mg PO BEDTIME PRN 08/12/19 01/15/20 History olanzapine 2.5 mg tablet 5 mg PO BID PRN #60 tab 08/22/19 01/15/20 Rx ibuprofen 800 mg tablet 800 mg PO TID 09/08/19 01/15/20 History gabapentin 600 mg tablet 1,200 mg PO BEDTIME #180 tab 09/09/19 01/15/20 Rx apixaban 5 mg tablet 5 mg PO BID #180 tab 09/23/19 01/15/20 Rx benzonatate [Tessalon Perles] 100 mg PO TID PRN #14 cap 09/28/19 01/15/20 Rx ondansetron HCl 4 mg tablet 4 - 8 mg PO TID PRN #180 tab 10/27/19 01/15/20 Rx promethazine 25 mg tablet 25 - 50 mg PO Q6H PRN #90 tab 10/27/19 01/15/20 Rx suvorexant 20 mg tablet 20 mg PO BEDTIME #30 tab 10/27/19 01/15/20 Rx lorazepam 2 mg tablet 2 mg PO QID PRN 30 Days #120 tab 11/05/19 01/15/20 Rx fluticasone propionate 50 2 spray INTRANASAL BEDTIME #16 gram 11/19/19 01/15/20 Rx mcg/actuation nasal spray,suspension zonisamide 100 mg capsule 200 mg PO DAILY #60 cap 12/17/19 01/15/20 Rx bupropion HCl 150 mg tablet,12 hr 150 mg PO BID #60 each MDD 300mg 12/18/19 01/15/20 Rx sustained-release lamotrigine 150 mg tablet 150 mg PO BID #180 tab 12/29/19 01/15/20 Rx clonidine HCl 0.1 mg tablet 0.1 mg PO BID PRN #120 tab 01/12/20 01/15/20 Rx prazosin 2 mg capsule 2 mg PO BEDTIME #90 cap 01/12/20 01/15/20 Rx prazosin 5 mg capsule 15 mg PO BEDTIME #90 cap 01/12/20 01/15/20 Rx ascorbic acid (vitamin C) [Vitamin 1,000 mg DAILY 01/15/20 01/15/20 History C] calcium carbonate-vitamin D3 2 tab PO BID 01/15/20 01/15/20 History [Caltrate 600 plus D] omeprazole 20 mg PO BID 01/15/20 01/15/20 History vitamin E 600 unit DAILY 01/15/20 01/15/20 History vortioxetine 20 mg tablet 20 mg PO DAILY #90 tab 01/22/20 01/22/20 Rx Allergies Allergy/AdvReac Type Severity Reaction Status Date / Time No Known Drug Allergies Allergy Verified 01/23/20 09:17 Exam Vital Signs (past 8 hours): - 01/23/20 09:00 Temperature 98.1 F Pulse Rate 123 H Respiratory Rate 18 Blood Pressure 136/66 Pulse Oximetry 99 Oxygen Delivery Method Room Air Objective Labs Result Diagrams: 01/23/20 09:21 01/23/20 09:21 Labs: Laboratory Results - last 24 hr 01/23/20 01/23/20 01/23/20 09:21 09:21 09:21 WBC 3.5 L RBC 2.37 L Hgb 7.1 L Hct 21.3 L MCV 90.0 MCH 29.9 MCHC 33.2 RDW 17.5 H Plt Count 222 Neut % (Auto) 55.9 Lymph % (Auto) 31.0 Cherry % (Auto) 7.7 Eos % (Auto) 4.8 H Baso % (Auto) 0.6 Neut # (Auto) 2000 Lymph # (Auto) 1100 Cherry # (Auto) 300 Eos # (Auto) 200 Baso # (Auto) 0 PT 12.8 H INR 1.1 APTT 27 D Sodium 136 L Potassium 3.4 Chloride 107 Carbon Dioxide 23 BUN 37 H Creatinine 0.95 Estimated GFR > 60.0 BUN/Creatinine Ratio 38.9 H Glucose 118 H Lactate Calcium 8.7 Total Bilirubin 0.1 L AST 25 ALT 15 Alkaline Phosphatase 47 Lactate Dehydrogenase Total Creatine Kinase 153 H CK-MB (CK-2) 9.65 H CK-MB (CK-2) Rel Index 6.3 H* Troponin I < 0.012 Total Protein 5.8 L Albumin 3.5 Globulin 2.3 Albumin/Globulin Ratio 1.5 Lipase 54 Crossmatch 01/23/20 01/23/20 01/23/20 09:21 09:21 09:21 WBC RBC Hgb Hct MCV MCH MCHC RDW Plt Count Neut % (Auto) Lymph % (Auto) Cherry % (Auto) Eos % (Auto) Baso % (Auto) Neut # (Auto) Lymph # (Auto) Cherry # (Auto) Eos # (Auto) Baso # (Auto) PT INR APTT Sodium Potassium Chloride Carbon Dioxide BUN Creatinine Estimated GFR BUN/Creatinine Ratio Glucose Lactate 1.2 Calcium Total Bilirubin AST ALT Alkaline Phosphatase Lactate Dehydrogenase 371 Total Creatine Kinase CK-MB (CK-2) CK-MB (CK-2) Rel Index Troponin I Total Protein Albumin Globulin Albumin/Globulin Ratio Lipase Crossmatch See Detail Assessment & Plan Assessment and plan (1) Acute GI bleeding: Status: Acute (2) Chronic migraine without aura: Status: Acute (3) Obstructive sleep apnea syndrome: Status: Chronic (4) Bipolar I disorder with mixed features: Status: Chronic (5) Generalized anxiety disorder: Status: Chronic (6) History of pulmonary embolism: Status: Chronic (7) Pulmonary hypertension: Status: Chronic (8) Diastolic dysfunction: Status: Chronic (9) History of ischemic colitis: Status: Chronic (10) History of gastric bypass: Status: Chronic (11) Iron deficiency anemia: Status: Chronic (12) Essential hypertension: Status: Chronic (13) Gastroesophageal reflux disease without esophagitis: Status: Chronic (14) Degeneration of intervertebral disc of lumbar region: Status: Chronic (15) Low back pain with right-sided sciatica: Status: Chronic (16) Anticoagulated by anticoagulation treatment: Status: Acute (17) Acute blood loss anemia: Status: Acute Assessment & Plan narrative: This is a 49-year-old woman with a very complicated medical and surgical as well as psychiatric history. She comes into the ER with an acute GI bleed and a hemoglobin of 7.1. I suspect her true level is lower than that once she is rehydrated. She is receiving 2 units of blood, vitamin K, and PCC in the ER. She does have a history of spontaneous pulmonary embolism, and the risk of reversing her anticoagulation has been discussed with her. She has a history of gastric bypass, and takes a significant amount of ibuprofen on a daily basis. Since her symptoms began several days ago with burning epigastric pain, I am concerned that she may have an upper source of her GI bleeding, such as a marginal ulcer or severe gastritis. However, she also has a history of ischemic colitis. Either way she is not stable enough for an endoscopy procedure right now. She will need to get transfused, and may need multiple transfusions to reach stability. She will need close monitoring in the ICU setting. Recommend that we go ahead and treat her with double-dose PPI, and octreotide drip. Once she has been transfused and is stable enough for CT scan, I would like to get a CT scan of the abdomen and pelvis with IV contrast. We should do this to rule out a complication of her gastric bypass such as an internal hernia, and to evaluate her for signs of ischemic colitis. Once she is able to tolerate a bowel prep, I would recommend that we go ahead and start bowel prep for upper and lower endoscopy. When she has completed an adequate prep, and is stable enough hemodynamically, we will do upper and lower endoscopy unless otherwise indicated on her CT scan. Recommendations: Admit to ICU and hospitalist management Double-dose PPI Octreotide drip Transfuse to hemoglobin greater than 8 No NG tube, due to history of gastric bypass Avoid all NSAIDs NPO Rapid COVID-[address] abdomen pelvis with IV contrast once hemodynamically stable Bowel prep with 4 L of GoLYTELY once hemodynamically stable Upper and lower endoscopy once stable COVID-19 COVID-19 status: Result pending Time Spent With Patient Time with patient: Greater than 35 minutes
[2020-01-23] MEDS: diphenhydrAMINE 50 MG/ML VIAL 25 MG IV (11:32)
[2020-01-23] MEDS: PHYTONADIONE (VIT K1) 10 MG/ML AMP 5 MG IM (11:34)
[2020-01-23] MEDS: PROTHROMBIN CPLX(PCC)4FACT 2,500 UNIT in ISOOSMOTIC VEHICLE 0 ML 816.466 ML IV (11:35)
[2020-01-23] MEDS: HYDROMORPHONE 1 MG INJ IV (11:51)
--- NOTE | 2020-01-23 12:06 | DI.CT.S_ITS ---
PROCEDURE: CT ABDOMEN PELVIS W CON INDICATIONS: severe abdominal pain in upper abdomen, GI bleed, Hgb 7 TECHNIQUE: After the administration of intravenous contrast, 5 mm thick sections acquired from the diaphragm to the symphysis. 5 mm coronal and sagittal reformats were acquired. For radiation dose reduction, the following was used: automated exposure control, adjustment of mA and/or kV according to patient size. COMPARISON: [facility], CT, CT ABDOMEN PELVIS W CON, 05/17/2018, 9:59. FINDINGS: Image quality: Excellent. ABDOMEN: Lung bases: Lung bases are clear. Heart size is normal. Solid organs: Liver mildly prominent and enhancement. Gallbladder has been removed. Biliary system is non dilated. Pancreas enhances normally. Spleen is normal in size and enhancement. No adrenal nodules. Kidneys demonstrate normal size and enhancement, without hydronephrosis. Peritoneum and bowel: Bowel loops demonstrate normal wall thickness and caliber. No free fluid or air. Postsurgical gastric changes are present. Moderate stool is present. Nodes and vessels: No retroperitoneal or mesenteric adenopathy by size criteria. Aorta and inferior vena cava are normal in size. Miscellaneous: No ventral hernias. PELVIS: Genitourinary: Bladder wall thickness is normal. Miscellaneous: No inguinal hernias or adenopathy. Bones: No suspicious bony lesions. No vertebral body compression fractures. IMPRESSION: 1. Moderate stool without obstruction. Recommend correlation to constipation. Dictated by: Gaby Grimes M.D. on 01/23/2020 at 12:56 Approved by: Gaby Grimes M.D. on 01/23/2020 at 12:59
--- NOTE | 2020-01-23 12:36 | PM.HP.1 ---
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 She describes a 3 day sequence of illness culminating in significant bright red stool/diarrhea this morning. The 1st symptoms were abdominal pain/burning along with fever 101? F 3 days ago. The next morning the symptoms were gone but then the fever returned yesterday again to 101?. This morning when she awoke she had severe abdominal pain and a sudden fecal urgency. When she evacuated her stools it was a bright red bloody liquid and she became quite faint. She was also nauseated. There has been no vomiting. She has not been coughing. She has had exertional shortness of breath and chest pain for the last 2 days. Her presenting hemoglobin is 7.1 down from her baseline of 11. She is on Eliquis for recurrent DVTs with at least 3 episodes of pulmonary embolus including a saddle embolus. It is unclear why she does not have an inferior vena cava filter. She receives iron infusions every other week with hematology with a baseline hemoglobin around 11. She had an episode of severe GI bleeding from ischemic colitis several years ago when she was living in [place]. She received at least 10 units of blood at that hospitalization. She has a history of gastric bypass surgery causing the chronic anemia. She also has a history of chronic back pain for which she is on a spinal cord stimulator and takes 1000 mg of Tylenol along with 100 mg of ibuprofen, both of those 3 times a day. Her white blood count is 3.4 and her Covid test is negative. Her chest x-ray is normal. Her abdominal CT shows apparent constipation. Surgery has seen her and Dr. Tatum has recommended transfusion, stabilization, CT scan and eventual endoscopic investigations. There has been no fever since her admission to the emergency department but her reports of fever are concerning and so a urinalysis will be collected. Patient History Medical History Abnormal CXR (chest x-ray) (Resolved) Ankle fracture, left (Resolved 1986) Anxiety (Chronic) Arthritis of knee (Chronic) Asthma (Chronic) Bipolar 1 disorder, depressed (Chronic) Chicken pox (Resolved) Chronic anemia (Chronic) Chronic back pain (Chronic) Chronic headaches (Chronic) Chronic neck pain (Chronic) Depression (Chronic) Diabetes mellitus (Resolved) Diastolic dysfunction (Chronic) Fatty liver (Chronic) GERD (gastroesophageal reflux disease) (Chronic) GI bleeding (Resolved) High risk medication use (Chronic) Hyperlipidemia (Chronic) Hypertension (Chronic) 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) Irregular periods/menstrual cycles (Chronic) Ischemic colitis (Resolved 2013) Lumbar spine pain (Chronic) Migraines (Chronic) Neck arthritis (Chronic) Obstructive sleep apnea syndrome (Chronic 2008) Panic attacks (Chronic) Plantar warts (Resolved) PTSD (post-traumatic stress disorder) (Chronic) Pulmonary embolism (Resolved 2006) Pulmonary hypertension (Chronic) S/P ECT (electroconvulsive therapy) (Resolved 2013) Shoulder arthritis (Chronic) Spinal cord stimulator status (Chronic) Transient hypotension (Resolved) Surgical History Anesthesia (Resolved) History of bowel resection (Resolved 1995) History of endometrial ablation (Resolved 2008) History of esophagogastroduodenoscopy (EGD) (Resolved 04/19/17) History of gastric bypass (Resolved 2009) History of open reduction and internal fixation (ORIF) procedure (Resolved 1986) History of spinal surgery (Resolved 2010) Status post cardiac catheterization (Resolved 2007) Status post cholecystectomy (Resolved 2007) Status post peripherally inserted central catheter (PICC) central line placement (Resolved 04/04/17) Family & Social History Family History Father Age: 75 Hypertension Sick sinus syndrome Heart disease Mother Age: 72 Hyperlipidemia Mental health problem Arthritis Hayfever Seasonal allergies Hypertension Sister No problems noted. Social History: household members spouse lives independently Yes caregiver/support person No Safety & Behavioral: Feels Safe in Current Yes Environment Been Physically Hurt or No Threatened By a Person Tobacco & Substance use: Smoking Status Never smoker alcohol intake never alcohol intake frequency 0-2 drinks per day Substance Use Type does not use Comment: Her backup decision maker is her Adriana Blanco. 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 She lives in a house in [place] with her . Her agriculture science teacher is Dr. Tarango. Meds Home Medications and Allergies Home Medications Medication Instructions Recorded Confirmed Type acetaminophen 1,000 mg PO Q6H PRN 03/06/18 01/23/20 History Resmed Aircurve 10 BIPAP #1 ea 11/25/18 01/23/20 History albuterol sulfate 2 puff INHALATION Q6H PRN 04/18/19 01/23/20 History cetirizine [Zyrtec] 10 mg PO DAILY 04/18/19 01/23/20 History olanzapine 2.5 mg tablet 5 mg PO BID PRN #60 tab 08/22/19 01/23/20 Rx ibuprofen 800 mg tablet 800 mg PO TID PRN 09/08/19 01/23/20 History gabapentin 600 mg tablet 1,200 mg PO BEDTIME #180 tab 09/09/19 01/23/20 Rx apixaban 5 mg tablet 5 mg PO BID #180 tab 09/23/19 01/23/20 Rx ondansetron HCl 4 mg tablet 4 - 8 mg PO TID PRN #180 tab 10/27/19 01/23/20 Rx promethazine 25 mg tablet 25 - 50 mg PO Q6H PRN #90 tab 10/27/19 01/23/20 Rx suvorexant 20 mg tablet 20 mg PO BEDTIME #30 tab 10/27/19 01/23/20 Rx lorazepam 2 mg tablet 2 mg PO QID PRN 30 Days #120 tab 11/05/19 01/23/20 Rx fluticasone propionate 50 2 spray INTRANASAL BEDTIME #16 gram 11/19/19 01/23/20 Rx mcg/actuation nasal spray,suspension zonisamide 100 mg capsule 200 mg PO DAILY #60 cap 12/17/19 01/23/20 Rx bupropion HCl 150 mg tablet,12 hr 150 mg PO BID #60 each MDD 300mg 12/18/19 01/23/20 Rx sustained-release lamotrigine 150 mg tablet 150 mg PO BID #180 tab 12/29/19 01/23/20 Rx prazosin 2 mg capsule 2 mg PO BEDTIME #90 cap 01/12/20 01/23/20 Rx prazosin 5 mg capsule 15 mg PO BEDTIME #90 cap 01/12/20 01/23/20 Rx ascorbic acid (vitamin C) [Vitamin 500 mg DAILY 01/15/20 01/23/20 History C] calcium carbonate-vitamin D3 2 tab PO BID 01/15/20 01/23/20 History [Caltrate 600 plus D] omeprazole 20 mg PO BID 01/15/20 01/23/20 History vitamin E 600 unit PO DAILY 01/15/20 01/23/20 History vortioxetine 20 mg tablet 20 mg PO DAILY #90 tab 01/22/20 01/23/20 Rx calcium carbonate-vitamin D3 2 tab PO BID 01/23/20 01/23/20 History [Caltrate 600 plus D] clonidine HCl 0.1 mg PO TID PRN 01/23/20 01/23/20 History tizanidine [Zanaflex] 4 mg PO BEDTIME 01/23/20 01/23/20 History Allergies Allergy/AdvReac Type Severity Reaction Status Date / Time No Known Drug Allergies Allergy Verified 01/23/20 09:17 Review of Systems Review of Systems Narrative: Positive for fever, nausea, rigors, bleeding, abdominal pain, chronic back pain, shortness of breath and chest pain. Negative for cough, dysuria, seizures, headaches, joint pain, new allergies, difficulty talking. ROS: Yes All systems reviewed with the patient and are negative except as otherwise documented Exam Vital Signs (past 8 hours): - 01/23/20 09:00 01/23/20 09:30 01/23/20 10:00 Temperature 98.1 F Pulse Rate 123 H 101 H 97 H Respiratory Rate 18 21 21 Blood Pressure 136/66 110/61 113/61 Pulse Oximetry 99 99 99 01/23/20 10:20 01/23/20 10:40 01/23/20 11:00 Temperature Pulse Rate 102 H 102 H 109 H Respiratory Rate 17 20 26 H Blood Pressure 119/66 129/78 137/69 Pulse Oximetry 99 99 100 01/23/20 11:20 01/23/20 12:20 01/23/20 12:35 Temperature 98.4 F 98.6 F Pulse Rate 92 H 99 H 98 H Respiratory Rate 12 34 H 34 H Blood Pressure 131/65 127/79 130/78 Pulse Oximetry 100 Oxygen Delivery Method Room Air Narrative Exam Narrative: Alert and oriented x3. Appears to be in moderate distress from ongoing nausea and weakness. Pupils are equally round reactive to light and accommodation. Extraocular muscles are intact Sclerae are pink and nonicteric Throat looks normal No lymph nodes are felt head, neck, supraclavicular area JVD is less than 6 cm No carotid bruits are heard Heart is regular rate and rhythm without murmur Lungs are clear to auscultation bilaterally Abdomen is soft, obese, mildly tender across the lower abdomen, no organomegaly. Breast pelvic and rectal exams are not done today Extremities have no ankle edema Skin has no bruising, jaundice, rashes. Neurological exam Cranial nerves 2-12 test intact She is very talkative and informative Motor function is 5/5 throughout There is no alteration in the deep tendon reflexes There is no tremor. Gait and balance are not tested. Objective Labs Result Diagrams: 01/23/20 09:21 01/23/20 09:21 Labs: Laboratory Results - last 24 hr 01/23/20 01/23/20 01/23/20 09:21 09:21 09:21 WBC 3.5 L RBC 2.37 L Hgb 7.1 L Hct 21.3 L MCV 90.0 MCH 29.9 MCHC 33.2 RDW 17.5 H Plt Count 222 Neut % (Auto) 55.9 Lymph % (Auto) 31.0 [place]uther[place] % (Auto) 7.7 Eos % (Auto) 4.8 H Baso % (Auto) 0.6 Neut # (Auto) 2000 Lymph # (Auto) 1100 [place] # (Auto) 300 Eos # (Auto) 200 Baso # (Auto) 0 PT 12.8 H INR 1.1 APTT 27 D Sodium 136 L Potassium 3.4 Chloride 107 Carbon Dioxide 23 BUN 37 H Creatinine 0.95 Estimated GFR > 60.0 BUN/Creatinine Ratio 38.9 H Glucose 118 H Lactate Calcium 8.7 Total Bilirubin 0.1 L AST 25 ALT 15 Alkaline Phosphatase 47 Lactate Dehydrogenase Total Creatine Kinase 153 H CK-MB (CK-2) 9.65 H CK-MB (CK-2) Rel Index 6.3 H* Troponin I < 0.012 Total Protein 5.8 L Albumin 3.5 Globulin 2.3 Albumin/Globulin Ratio 1.5 Lipase 54 Blood Type Antibody Screen Crossmatch 01/23/20 01/23/20 01/23/20 09:21 09:21 09:21 WBC RBC Hgb Hct MCV MCH MCHC RDW Plt Count Neut % (Auto) Lymph % (Auto) [place] % (Auto) Eos % (Auto) Baso % (Auto) Neut # (Auto) Lymph # (Auto) [place] # (Auto) Eos # (Auto) Baso # (Auto) PT INR APTT Sodium Potassium Chloride Carbon Dioxide BUN Creatinine Estimated GFR BUN/Creatinine Ratio Glucose Lactate 1.2 Calcium Total Bilirubin AST ALT Alkaline Phosphatase Lactate Dehydrogenase 371 Total Creatine Kinase CK-MB (CK-2) CK-MB (CK-2) Rel Index Troponin I Total Protein Albumin Globulin Albumin/Globulin Ratio Lipase Blood Type A Positive Antibody Screen Negative Crossmatch See Detail Assessment & Plan Assessment & Plan narrative: GI Bleeding, present on admission, acute -Transfuse 2 units pRBC, reverse Eliquis with Andexxa if available, Try Kacentra, follow H/H -Appreciate surgery consult and comanagement -Octreotide and Protonix IV -Stop Ibuprofen Acute on Chronic Iron Deficiency Anemia, present on admission, acute -Octreotide and Protonix IV -Transfuse to keep Hgb above 8 -follow serial H/H Recurrent DVT/PE, present on admission, chronic -Reverse Eliquis with Andexxa if available, or possibly Kacentra Fever -Negative Covid, Negative CXR, No leukocytosis, negative Abdominal/Pelvic CT -UA Pending Exertional Chest Pain and Dyspnea, present on admission, acute -EKG with SR and mild lateral ST depression -Troponin is <0.01 -CXR is negative -She is very high risk for recurrent DVT/PE now that the Eliquis is being stopped -Possible angina induced by anemia, transfuse to keep hgb above 8 -EF 55-60% on 06/10 Echo. No valvular abnormalities. Chronic Low Back Pain, present on admission, chronic -Spinal Cord Stimulator -Continue Tizanidine and Tylenol 1000 mg TID -Continue Gabapentin -Stop Ibuprofen Bipolar Disorder, present on admission, chronic -Continue Zonegran, Vortioxetine, Olanzapine, Lorazepam, Lamotrigine, Bupropion PTSD, present on admission, chronic -Continue Prazosin Insomnia -Continue Suvorexant
[2020-01-23 13:29] LABS: Creatine Kinase 196 U/L (30-135)
[2020-01-23 13:30] LABS: Appearance Urine UA CLEAR; Bilirubin Urine UA NEGATIVE (NEGATIVE); Color Urine UA YELLOW; Glucose Urine UA NEGATIVE (Negative); Ketones Urine UA NEGATIVE (NEGATIVE); Leukocyte Esterase Urine UA NEGATIVE (NEGATIVE); Nitrite Urine UA NEGATIVE (Negative); Occult Blood Urine UA NEGATIVE (Negative); Protein Urine UA NEGATIVE (Negative); RBC Urine None Seen (0-5/HPF); Urobilinogen Urine UA 0.2 E.U./dL (0.2)
[2020-01-23 13:40] LABS: Bacteria Urine Moderate (10-30); Culture Indicated Urine Specimen Cultured; Squamous Epithelial Cell Urine 1-5 /HPF (0-5/HPF); WBC Urine 10-30/HPF (0-5/HPF)
[2020-01-23 13:42] LABS: Troponin I < 0.012 ng/mL (0.01-0.034)
[2020-01-23 14:09] LABS: COVID19 -Nasal RAPID Negative (Negative)
[2020-01-23] MEDS: HYDROMORPHONE 2 MG INJ IV (15:17)
--- NOTE | 2020-01-23 15:29 | PC.NURSE ---
Admitted to 226 from ER
[2020-01-23] MEDS: LORazepam 1 MG TABLET 2 MG PO (17:07)
[2020-01-23] MEDS: buPROPion SR 150 MG TAB PO (17:07)
[2020-01-23] MEDS: ONDANSETRON 8 MG in SODIUM CHLORIDE 0.9% 50 ML 216 ML IV ×2 (17:13→22:34)
[2020-01-23 17:41] LABS: Hemoglobin 8.2 g/dL (12.0-16.0)
--- NOTE | 2020-01-23 18:46 | DIET.PN ---
Dietary Progress Note Assessment: 49y F admitted for GI bleed and chest pain c hx of RYGB (10y ago) resulting in chronic anemia requiring regular transfusions. Pt reports feeling much better after 2 units blood, is animated and able to freely converse c this RD. Pt reports being very sick c double pneumonia in September 2019 and has had waxing/waning sx since. Pt has been experiencing new moderate to severe bloating c dairy milk intake since then and has been experimenting c dairy free options and A2 milk. Because pt is s/p RYGB and can have dumping syndrome c concentrated sugars plus high need for protein, please limit clear liquid options to ONS Dominick, broth, jello, and tea. Please send Ensure Max bid and organic soymilk when on full liquids, yogurt okay-- no liquid dairy milk please. HT: 160cm WT: 114kg UBW: 100kg BMI: 44.6 Labs: hgb 7.1 Diet Order: NPO EER: 100g PRO, 1800kcal Pt asked for RD card for f/u dietary reccs once d/c'd, happy to see this pt in outpatient setting
[2020-01-23] MEDS: OCTREOTIDE 500 MCG in SODIUM CHLORIDE 0.9% 100 ML 5.05 ML IV (20:31)
[2020-01-23] MEDS: FLUTICASONE 120 SPRAY/16 GM SPRAY.SUSP NASAL (20:33)
[2020-01-23] MEDS: GABAPENTIN 600 MG TABLET 1200 MG PO (20:34)
[2020-01-23 21:21] LABS: Hematocrit 25.3 % (36-46); Hemoglobin 8.8 g/dL (12.0-16.0)
[2020-01-23] MEDS: LORazepam 1 MG TABLET 4 MG PO (22:22)
[2020-01-23] MEDS: TIZANIDINE 4 MG TABLET PO (22:23)
[2020-01-23] MEDS: PRAZOSIN HCL 5 MG CAPSULE 15 MG PO (22:24)
[2020-01-23] MEDS: PRAZOSIN 1 MG CAPSULE 2 MG PO (22:24)
[2020-01-23] MEDS: lamoTRIgine 100 MG TABLET 150 MG PO (22:25)
[2020-01-23] MEDS: ZONISAMIDE 100 MG CAPSULE 200 MG PO (22:26)
[2020-01-24] VITALS (23 sets, daily range): BP systolic 90–153; BP diastolic 50–84; PULSE 64–116; RESP 13–29; TEMP 35.9–36.8; O2SAT 70–100
--- NOTE | 2020-01-24 00:26 | PC.NURSE ---
Evening Shift Note; [id number] is fatigued, little forgetful but reorients on own. Continues to have mild nausea without vomitting, IV Zofran given per prn, scheduled IV Protonix given and octreotide gtt started along with NS @ 100ml/hr, she is NPO except PO meds, all routine HS meds given except Suvorexant which is not available, order changed to Ambien 10mg HS prn. 2100 H/H is 8.8/25.3, no bleeding noted, SR at rest, does become tachycardic to 130 when up to BSC. SpO2 99% on 1L NC, lung sounds CTA, c/o shortness of breath none noted.
[2020-01-24] MEDS: HYDROMORPHONE 2 MG INJ IV ×3 (00:31→11:55)
[2020-01-24] MEDS: ZOLPIDEM 5 MG TABLET 10 MG PO (00:34)
--- NOTE | 2020-01-24 00:52 | PC.NURSE ---
Addendum entered by Ken Reza R.N. 01/24/20 07:13: 0705: Transfusion of PRBCs started: pt was in bathroom when blood arrived. Addendum entered by Ken Reza R.N. 01/24/20 06:55: 0630: Awake, resting in bed. No complaint of pain at this time. 0645: Assisted up to bathroom: pt declined bedside commode. Assisted back to bed. Addendum entered by Ken Reza R.N. 01/24/20 01:37: 0035: Pt having pain, 10/30 and asking for Dilaudid, and her Ambien. Medicated for pain with Dilaudid 2mg IV, and Ambien for sleep. Pt has her Bipap home unit on now. 0100: RT notified that pt is desating while asleep, to 87%. RT placed pt on O2 2L bleed-in to Bipap. Original Note: Event Management Consultant Note: 0000: Awake, resting in bed. Portacath needle intact, with dressing cdi, and no drainage, swelling, or redness noted at site. NS infusing at 100cc/hr and Octreotide drip infusing at 5cc/hr. Remains on O2 1L/NC. 0030: Assisted up to bedside commode, voided.
[2020-01-24 05:39] LABS: Add Manual Diff / Slide Review NO; Basophils Absolute Auto 0 /uL (0-100); Basophils Percent Auto 0.6 % (0-2); Eosinophils Absolute Auto 200 /uL (0-450); Eosinophils Percent Auto 5.5 % (2-4); Hematocrit 23.1 % (36-46); Hemoglobin 7.6 g/dL (12.0-16.0); Lymphocytes Absolute Auto 1500 /uL (1100-4500); Lymphocytes Percent Auto 33.7 % (25-40); Mean Corpuscular HGB Conc 32.8 % (30-36); Mean Corpuscular Hemoglobin 29.8 PG (26-34); Mean Corpuscular Volume 90.8 fL (80-100); Monocytes Absolute Auto 400 /uL (0-900); Monocytes Percent Auto 8.7 % (3-14); Neutrophils Absolute Auto 2300 /uL (1500-7000); Neutrophils Percent Auto 51.5 % (50-75); Platelet Count 206 X10^3/uL (150-400); Red Blood Cell Count 2.54 X10^6/uL (4.0-5.2); Red Cell Distribution Width 17.4 % (11.6-14.8); White Blood Cell Count 4.4 X10^3/uL (4.5-11.0)
[2020-01-24 05:46] LABS: BUN Creatinine Ratio 24.1 (6-22); Blood Urea Nitrogen 20 mg/dL (7-17); Calcium 7.2 mg/dL (8.4-10.2); Carbon Dioxide 24 mmol/L (22-32); Chloride 111 mmol/L (98-107); Estimated Glomerular Filt Rate > 60.0 mL/min (>60); Glucose 113 mg/dL (70-100); HEMOLYSIS < 15 (0-50); Potassium 3.9 mmol/L (3.4-5.1); Sodium 137 mmol/L (137-145)
[2020-01-24 05:57] LABS: Creatine Kinase 161 U/L (30-135)
[2020-01-24 06:09] LABS: Troponin I < 0.012 ng/mL (0.01-0.034)
[2020-01-24 06:12] LABS: CKMB % Relative Index 3.4 % (1.5-5.0); Creatine Kinase MB 5.41 ng/mL (<2.37)
[2020-01-24] MEDS: buPROPion SR 150 MG TAB 300 MG PO (08:15)
[2020-01-24] MEDS: ONDANSETRON 8 MG in SODIUM CHLORIDE 0.9% 50 ML 216 ML IV (08:15)
[2020-01-24] MEDS: LORazepam 1 MG TABLET 2 MG PO (08:16)
[2020-01-24] MEDS: PANTOPRAZOLE 40 MG VIAL IV ×2 (08:17→20:58)
[2020-01-24] MEDS: lamoTRIgine 100 MG TABLET 150 MG PO ×2 (08:17→21:23)
--- NOTE | 2020-01-24 09:05 | CM.DANOTE ---
DCP: Case received, EMR reviewed and met with patient. Introduced self and role. Was able to meet with patient in her room and obtain information regarding her baseline activity level, as well as her health information and living situation. DCP assessment completed with information currently available. Patient is a 49 year old female who admitted yesterday morning to the care of the hospitalist team. PCP: Dr. Keys/Dr. Tarango, Brake Press Operator. Payer: confirmed: [facility] [employer]. Patient came to the hospital via private vehicle secondary to rectal bleeding, weakness, and chest discomfort/palpitations. She had a fever as well. Patient was diagnosed with GI bleed, and is currently receiving blood transfusion. She has history of DVTs, in which she is on blood thinners, as well as ischemic colitis. She goes to Dr. Tarango for iron infusions, for anemia as well. Met with patient in her room. Pleasant demeanor, alert and oriented. 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 She is from [place], as is her , and they decided to move here. She has family, as well as a grand child back in [place]. She is independent at home. Her works here at [employer]. P: DCP to continue to follow for any needs. She should be able to go home when she is medically stable. Maame Tovar, RN/Insurance Healthcare Representative
[2020-01-24] MEDS: SODIUM CHLORIDE 0.9% 1,000 ML 100 ML IV ×2 (09:40→19:06)
--- NOTE | 2020-01-24 09:59 | PM.PN.1 ---
Subjective Subjective Date Patient Seen: 01/24/20 Time Patient Seen: 10:00 Interval history: No acute events overnight. No more stool output since admission. Exam Vital Signs (past 8 hours): - 01/24/20 02:05 01/24/20 03:00 01/24/20 04:00 Temperature Pulse Rate 75 73 74 Respiratory Rate 16 18 16 Blood Pressure 95/54 L 91/51 L 95/50 L Pulse Oximetry 95 95 96 01/24/20 05:00 01/24/20 06:00 01/24/20 07:00 Temperature Pulse Rate 80 79 95 H Respiratory Rate 18 13 Blood Pressure 98/56 L 102/59 L 114/68 Pulse Oximetry 96 94 100 01/24/20 07:04 01/24/20 07:20 01/24/20 08:31 Temperature 96.7 F L 98.0 F Pulse Rate 116 H 93 H 93 H Respiratory Rate 14 13 29 H Blood Pressure 114/68 126/66 127/84 Pulse Oximetry 99 01/24/20 08:39 01/24/20 08:47 01/24/20 09:18 Temperature 98 F 98.0 F Pulse Rate 64 98 H Respiratory Rate 20 21 Blood Pressure 153/67 H Pulse Oximetry 98 95 91 Fraction of Inspired Oxygen 3 Oxygen Delivery Method Room Air Oxygen Flow Rate 0 Narrative Exam Narrative: GENERAL: Alert, comfortable. Appears older than stated age. Vital signs noted. HENT: Normocephalic, atraumatic. Hearing intact. Oral mucosa is pink and moist. EYES: Conjunctiva pink, sclera white, no periorbital swelling. CARDIOVASCULAR: Regular rate. No pedal edema. RESPIRATORY: Non-tachypneic, breathing comfortably on room air. GASTROINTESTINAL: Abdomen soft, obese, and non-distended GENITALURINARY: No flank tenderness. MUSCULOSKELETAL: Equal tone and mass bilaterally. SKIN: Warm, dry, soft, appropriate color for ethnicity. No other lesions, rashes, or wounds. NEURO: Alert and Oriented X 3. No gross sensory deficits, or cognitive issues. PSYCH: Appropriate affect and mood. Objective Imaging CT scan - abdomen: My impression: Colon full of stool; no imaging findings to indicate ischemia or source of bleeding Radiologist's impression: [address] [address] [address] Scan Report Signed Patient: Maryuri Bauer [facility]#: [id number] : 1970Acct:[id number] Age/Sex: 49 / FDate of Service: 01/23/20 Loc: [place]28Y-2 Accession Number: [id number] Procedure: CT abdomen pelvis w con Ordering Provider: Lopez Mcmillan MD PROCEDURE: CT ABDOMEN PELVIS W CON INDICATIONS: severe abdominal pain in upper abdomen, GI bleed, Hgb 7 TECHNIQUE: After the administration of intravenous contrast, 5 mm thick sections acquired from the diaphragm to the symphysis. 5 mm coronal and sagittal reformats were acquired. For radiation dose reduction, the following was used: automated exposure control, adjustment of mA and/or kV according to patient size. COMPARISON: [facility], CT, CT ABDOMEN PELVIS W CON, 05/17/2018, 9:59. FINDINGS: Image quality: Excellent. ABDOMEN: Lung bases: Lung bases are clear. Heart size is normal. Solid organs: Liver mildly prominent and enhancement. Gallbladder has been removed. Biliary system is non dilated. Pancreas enhances normally. Spleen is normal in size and enhancement. No adrenal nodules. Kidneys demonstrate normal size and enhancement, without hydronephrosis. Peritoneum and bowel: Bowel loops demonstrate normal wall thickness and caliber. No free fluid or air. Postsurgical gastric changes are present. Moderate stool is present. Nodes and vessels: No retroperitoneal or mesenteric adenopathy by size criteria. Aorta and inferior vena cava are normal in size. Miscellaneous: No ventral hernias. PELVIS: Genitourinary: Bladder wall thickness is normal. Miscellaneous: No inguinal hernias or adenopathy. Bones: No suspicious bony lesions. No vertebral body compression fractures. IMPRESSION: 1. Moderate stool without obstruction. Recommend correlation to constipation. Dictated by: Gaby Grimes M.D. on 01/23/2020 at 12:56 Approved by: Gaby Grimes M.D. on 01/23/2020 at 12:59 Labs Result Diagrams: 01/24/20 05:00 01/24/20 05:00 Labs: Laboratory Results - last 24 hr 01/23/20 01/23/20 01/23/20 09:21 09:21 09:21 WBC RBC Hgb Hct MCV MCH MCHC RDW Plt Count Neut % (Auto) Lymph % (Auto) [place] % (Auto) Eos % (Auto) Baso % (Auto) Neut # (Auto) Lymph # (Auto) [place] # (Auto) Eos # (Auto) Baso # (Auto) Sodium Potassium Chloride Carbon Dioxide BUN Creatinine Estimated GFR BUN/Creatinine Ratio Glucose Lactate 1.2 Calcium Lactate Dehydrogenase 371 Total Creatine Kinase CK-MB (CK-2) 9.65 H CK-MB (CK-2) Rel Index 6.3 H* Troponin I Urine Color Urine Appearance Urine pH Ur Specific [place] Urine Protein Urine Glucose (UA) Urine Ketones Urine Occult Blood Urine Nitrate Urine Bilirubin Urine Urobilinogen Ur Leukocyte Esterase Urine RBC Urine WBC Ur Squamous Epith Cells Urine Bacteria Ur Culture Indicated? Nasal Screen MRSA (PCR) COVID-19 PCR Blood Type Antibody Screen Crossmatch 01/23/20 01/23/20 01/23/20 09:21 13:04 13:18 WBC RBC Hgb Hct MCV MCH MCHC RDW Plt Count Neut % (Auto) Lymph % (Auto) [place] % (Auto) Eos % (Auto) Baso % (Auto) Neut # (Auto) Lymph # (Auto) [place] # (Auto) Eos # (Auto) Baso # (Auto) Sodium Potassium Chloride Carbon Dioxide BUN Creatinine Estimated GFR BUN/Creatinine Ratio Glucose Lactate Calcium Lactate Dehydrogenase Total Creatine Kinase CK-MB (CK-2) CK-MB (CK-2) Rel Index Troponin I Urine Color Yellow Urine Appearance Clear Urine pH 5.0 Ur Specific [place] 1.010 Urine Protein Negative Urine Glucose (UA) Negative Urine Ketones Negative Urine Occult Blood Negative Urine Nitrate Negative Urine Bilirubin Negative Urine Urobilinogen 0.2 Ur Leukocyte Esterase Negative Urine RBC None seen Urine WBC 10-30/hpf H Ur Squamous Epith Cells 1-5 /hpf Urine Bacteria Moderate (10-30) H Ur Culture Indicated? Specimen cultured Nasal Screen MRSA (PCR) COVID-19 PCR Negative Blood Type A Positive Antibody Screen Negative Crossmatch See Detail 01/23/20 01/23/20 01/23/20 13:21 17:00 17:00 WBC RBC Hgb 8.2 L Hct 25.0 L MCV MCH MCHC RDW Plt Count Neut % (Auto) Lymph % (Auto) [place] % (Auto) Eos % (Auto) Baso % (Auto) Neut # (Auto) Lymph # (Auto) [place] # (Auto) Eos # (Auto) Baso # (Auto) Sodium Potassium Chloride Carbon Dioxide BUN Creatinine Estimated GFR BUN/Creatinine Ratio Glucose Lactate Calcium Lactate Dehydrogenase Total Creatine Kinase 196 H CK-MB (CK-2) CK-MB (CK-2) Rel Index Troponin I < 0.012 Urine Color Urine Appearance Urine pH Ur Specific [place] Urine Protein Urine Glucose (UA) Urine Ketones Urine Occult Blood Urine Nitrate Urine Bilirubin Urine Urobilinogen Ur Leukocyte Esterase Urine RBC Urine WBC Ur Squamous Epith Cells Urine Bacteria Ur Culture Indicated? Nasal Screen MRSA (PCR) Negative for mrsa COVID-19 PCR Blood Type Antibody Screen Crossmatch 01/23/20 01/24/20 01/24/20 21:00 05:00 05:00 WBC 4.4 L RBC 2.54 L Hgb 8.8 L 7.6 L Hct 25.3 L 23.1 L MCV 90.8 MCH 29.8 MCHC 32.8 RDW 17.4 H Plt Count 206 Neut % (Auto) 51.5 Lymph % (Auto) 33.7 [place] % (Auto) 8.7 Eos % (Auto) 5.5 H Baso % (Auto) 0.6 Neut # (Auto) 2300 Lymph # (Auto) 1500 [place] # (Auto) 400 Eos # (Auto) 200 Baso # (Auto) 0 Sodium 137 Potassium 3.9 Chloride 111 H Carbon Dioxide 24 BUN 20 H Creatinine 0.83 Estimated GFR > 60.0 BUN/Creatinine Ratio 24.1 H Glucose 113 H Lactate Calcium 7.2 L Lactate Dehydrogenase Total Creatine Kinase CK-MB (CK-2) CK-MB (CK-2) Rel Index Troponin I Urine Color Urine Appearance Urine pH Ur Specific [place] Urine Protein Urine Glucose (UA) Urine Ketones Urine Occult Blood Urine Nitrate Urine Bilirubin Urine Urobilinogen Ur Leukocyte Esterase Urine RBC Urine WBC Ur Squamous Epith Cells Urine Bacteria Ur Culture Indicated? Nasal Screen MRSA (PCR) COVID-19 PCR Blood Type Antibody Screen Crossmatch 01/24/20 05:00 WBC RBC Hgb Hct MCV MCH MCHC RDW Plt Count Neut % (Auto) Lymph % (Auto) [place] % (Auto) Eos % (Auto) Baso % (Auto) Neut # (Auto) Lymph # (Auto) [place] # (Auto) Eos # (Auto) Baso # (Auto) Sodium Potassium Chloride Carbon Dioxide BUN Creatinine Estimated GFR BUN/Creatinine Ratio Glucose Lactate Calcium Lactate Dehydrogenase Total Creatine Kinase 161 H CK-MB (CK-2) 5.41 H D CK-MB (CK-2) Rel Index 3.4 Troponin I < 0.012 Urine Color Urine Appearance Urine pH Ur Specific [place] Urine Protein Urine Glucose (UA) Urine Ketones Urine Occult Blood Urine Nitrate Urine Bilirubin Urine Urobilinogen Ur Leukocyte Esterase Urine RBC Urine WBC Ur Squamous Epith Cells Urine Bacteria Ur Culture Indicated? Nasal Screen MRSA (PCR) COVID-19 PCR Blood Type Antibody Screen Crossmatch Assessment & Plan Assessment and plan (1) Acute GI bleeding: Status: Acute (2) Chronic migraine without aura: Status: Acute (3) Obstructive sleep apnea syndrome: Status: Chronic (4) Bipolar I disorder with mixed features: Status: Chronic (5) Generalized anxiety disorder: Status: Chronic (6) History of pulmonary embolism: Status: Chronic (7) Pulmonary hypertension: Status: Chronic (8) Diastolic dysfunction: Status: Chronic (9) History of ischemic colitis: Status: Chronic (10) History of gastric bypass: Status: Chronic (11) Iron deficiency anemia: Status: Chronic (12) Essential hypertension: Status: Chronic (13) Gastroesophageal reflux disease without esophagitis: Status: Chronic (14) Degeneration of intervertebral disc of lumbar region: Status: Chronic (15) Low back pain with right-sided sciatica: Status: Chronic (16) Anticoagulated by anticoagulation treatment: Status: Acute (17) Acute blood loss anemia: Status: Acute Assessment & Plan narrative: This is a 49-year-old woman with a very complicated medical and surgical as well as psychiatric history. She was admitted through the ER for acute GI bleed with hgb 7, on Eliquis, with history of gastric bypasss, high dose NSAID use, and ischemic colitis. She was given vitamin K and PCC, as well as 2 units of blood yesterday. No stool output has occurred since admission. Her hgb came up to 8.8 last night, and was 7.6 this AM. She is getting more transfusion today per Dr. Montoya. Recommendations: Continue ICU care Follow Hgb, transfuse for Hgb <8 or symptomatic Double-dose PPI Octreotide No NG tube, due to history of gastric bypass Avoid all NSAIDs Clear liquid diet Bowel prep with 4 L of GoLYTELY today, more if not running clear Upper and lower endoscopy scheduled for tomorrow AM COVID-19 COVID-19 status: Result pending Time Spent With Patient Time with patient: Greater than 35 minutes Quality VTE Deep Vein Thrombosis/Pulmonary Embolism Present on Admission: No
--- NOTE | 2020-01-24 10:36 | PC.NURSE ---
Addendum entered by Sonia Manjarrez R.N. 01/24/20 15:05: tolerating bowel prep well no output yet-has voided only once this shift - pt using powder ( her own) on jonathan-area with voids- declined 1400 lorazepam r/t sedation due to compazine administered- now d/c'd amd [henergan ordered Addendum entered by Sonia Manjarrez R.N. 01/24/20 13:58: pt tolerated IH bipap x approx 1 hour prior to removing it herself- placed on nasal cannula for pt comfort- pts spo2 ranges from 88-95% tolerating bowel prep thus far Addendum entered by Sonia Manjarrez R.N. 01/24/20 12:42: pt placed on her own bipap and continued to desat even with 3l nc bleed in to even 64% RT called and there was a big leak noted but she continued ot desat fairly regularly - plan was to attempt IH bipap, in which she adjust the pressures accordingly- blood drawn from port and initiated go-lytely prep Original Note: PT REPORTS ABDOMINAL DISCOMFORT AND MEDICATED WITH DILAUDID PER PT REQUEST- HER LUNGS ARE CLEAR AND NO NOTED EDEMA- PT HAS NOT BEEN UP TO VOID OF YET BUT DID RIGHT AT CHANGE OF SHIFT FROM NIGHTS TO DAYS- NO STOOL- IS TAKING CLEAR LIQUIDS WITH HER MEDICATIONS ORDERED AND COMPLETED #3 UNIT OF PRBCS (STARTED BY NOC SHIFT)- NS INFUSING AT PRESENT WELL OCTREOTIDE VIA PAC- TELE SHOWS SINUS TACHYCARDIA
--- NOTE | 2020-01-24 11:44 | PM.PN.1 ---
Subjective Subjective Date Patient Seen: 01/24/20 Time Patient Seen: 11:45 Interval history: Maryuri Bauer is a 49 year old female with PMH of multiple psychiatric disorders, previous GI bleeding with history of ischemic colitis, chronic low back pain with a spinal stimulator, prior pulmonary embolism, prior room [place]-en-Y gastric bypass, and obstructive sleep apnea who presented with a GI bleed. She is seen for follow-up today. She still complains of slight chest pressure that improved with elevated hemoglobin. She does get short of breath with minimal exertion. She still feels weak, she is not dizzy at rest but has not gotten up out of bed today. Hemoglobin was 7.6 this morning and she was given 1 unit PRBCs. Goal hemoglobin is currently 8.0. She is improved hemodynamically this morning, and surgery plans on endoscopy and/or colonoscopy tomorrow. She is being prepped today. CT scan showed some stool in her colon, but no concerning findings. COVID-19 testing was negative. Exam Vital Signs (past 8 hours): - 01/24/20 04:00 01/24/20 05:00 01/24/20 06:00 Temperature Pulse Rate 74 80 79 Respiratory Rate 16 18 13 Blood Pressure 95/50 L 98/56 L 102/59 L Pulse Oximetry 96 96 94 01/24/20 07:00 01/24/20 07:04 01/24/20 07:20 Temperature 96.7 F L 98.0 F Pulse Rate 95 H 116 H 93 H Respiratory Rate 14 13 Blood Pressure 114/68 114/68 126/66 Pulse Oximetry 100 01/24/20 08:31 01/24/20 08:39 01/24/20 08:47 Temperature 98 F Pulse Rate 93 H 64 Respiratory Rate 29 H 20 Blood Pressure 127/84 153/67 H Pulse Oximetry 99 98 95 01/24/20 09:18 01/24/20 10:18 Temperature 98.0 F Pulse Rate 98 H Respiratory Rate 21 18 Blood Pressure Pulse Oximetry 91 94 Fraction of Inspired Oxygen 3 Oxygen Delivery Method Room Air Oxygen Flow Rate 0 Narrative Exam Narrative: GENERAL APPEARANCE: Pale, Well developed, well nourished, in no acute distress. SKIN: Inspection of the skin reveals no rashes, ulcerations or petechiae. HEENT: Normocephalic atraumatic, extraocular muscles are intact, oropharynx is clear and mucous membranes are moist, neck is supple without adenopathy NECK: Supple and symmetric. There was no thyroid enlargement, and no tenderness, or masses were felt. CHEST: Normal AP diameter and normal contour without any kyphoscoliosis. There is a port in place without surrounding erythema or induration. LUNGS: Auscultation of the lungs revealed no wheezes, rhonchi, or rales. CARDIOVASCULAR: There was a regular rate and rhythm without any murmurs, gallops, rubs. Peripheral pulses were 2+ and symmetric. ABDOMEN: Soft and nontender with normal bowel sounds. No ascites was noted. MUSCULOSKELETAL: There was no tenderness or effusions noted. Muscle strength and tone were normal. EXTREMITIES: No cyanosis, clubbing or edema. NEUROLOGIC: Alert and oriented x 3. Normal affect. Globally weak without focal deficits. Objective Labs Result Diagrams: 01/24/20 05:00 01/24/20 05:00 Labs: Laboratory Results - last 24 hr 01/23/20 01/23/20 01/23/20 09:21 13:04 13:18 WBC RBC Hgb Hct MCV MCH MCHC RDW Plt Count Neut % (Auto) Lymph % (Auto) [place] % (Auto) Eos % (Auto) Baso % (Auto) Neut # (Auto) Lymph # (Auto) [place] # (Auto) Eos # (Auto) Baso # (Auto) Sodium Potassium Chloride Carbon Dioxide BUN Creatinine Estimated GFR BUN/Creatinine Ratio Glucose Calcium Total Creatine Kinase CK-MB (CK-2) CK-MB (CK-2) Rel Index Troponin I Urine Color Yellow Urine Appearance Clear Urine pH 5.0 Ur Specific [place] 1.010 Urine Protein Negative Urine Glucose (UA) Negative Urine Ketones Negative Urine Occult Blood Negative Urine Nitrate Negative Urine Bilirubin Negative Urine Urobilinogen 0.2 Ur Leukocyte Esterase Negative Urine RBC None seen Urine WBC 10-30/hpf H Ur Squamous Epith Cells 1-5 /hpf Urine Bacteria Moderate (10-30) H Ur Culture Indicated? Specimen cultured Nasal Screen MRSA (PCR) COVID-19 PCR Negative Blood Type A Positive Antibody Screen Negative Crossmatch See Detail 01/23/20 01/23/20 01/23/20 13:21 17:00 17:00 WBC RBC Hgb 8.2 L Hct 25.0 L MCV MCH MCHC RDW Plt Count Neut % (Auto) Lymph % (Auto) [place] % (Auto) Eos % (Auto) Baso % (Auto) Neut # (Auto) Lymph # (Auto) [place] # (Auto) Eos # (Auto) Baso # (Auto) Sodium Potassium Chloride Carbon Dioxide BUN Creatinine Estimated GFR BUN/Creatinine Ratio Glucose Calcium Total Creatine Kinase 196 H CK-MB (CK-2) CK-MB (CK-2) Rel Index Troponin I < 0.012 Urine Color Urine Appearance Urine pH Ur Specific [place] Urine Protein Urine Glucose (UA) Urine Ketones Urine Occult Blood Urine Nitrate Urine Bilirubin Urine Urobilinogen Ur Leukocyte Esterase Urine RBC Urine WBC Ur Squamous Epith Cells Urine Bacteria Ur Culture Indicated? Nasal Screen MRSA (PCR) Negative for mrsa COVID-19 PCR Blood Type Antibody Screen Crossmatch 01/23/20 01/24/20 01/24/20 21:00 05:00 05:00 WBC 4.4 L RBC 2.54 L Hgb 8.8 L 7.6 L Hct 25.3 L 23.1 L MCV 90.8 MCH 29.8 MCHC 32.8 RDW 17.4 H Plt Count 206 Neut % (Auto) 51.5 Lymph % (Auto) 33.7 [place] % (Auto) 8.7 Eos % (Auto) 5.5 H Baso % (Auto) 0.6 Neut # (Auto) 2300 Lymph # (Auto) 1500 [place] # (Auto) 400 Eos # (Auto) 200 Baso # (Auto) 0 Sodium 137 Potassium 3.9 Chloride 111 H Carbon Dioxide 24 BUN 20 H Creatinine 0.83 Estimated GFR > 60.0 BUN/Creatinine Ratio 24.1 H Glucose 113 H Calcium 7.2 L Total Creatine Kinase CK-MB (CK-2) CK-MB (CK-2) Rel Index Troponin I Urine Color Urine Appearance Urine pH Ur Specific [place] Urine Protein Urine Glucose (UA) Urine Ketones Urine Occult Blood Urine Nitrate Urine Bilirubin Urine Urobilinogen Ur Leukocyte Esterase Urine RBC Urine WBC Ur Squamous Epith Cells Urine Bacteria Ur Culture Indicated? Nasal Screen MRSA (PCR) COVID-19 PCR Blood Type Antibody Screen Crossmatch 01/24/20 05:00 WBC RBC Hgb Hct MCV MCH MCHC RDW Plt Count Neut % (Auto) Lymph % (Auto) [place] % (Auto) Eos % (Auto) Baso % (Auto) Neut # (Auto) Lymph # (Auto) [place] # (Auto) Eos # (Auto) Baso # (Auto) Sodium Potassium Chloride Carbon Dioxide BUN Creatinine Estimated GFR BUN/Creatinine Ratio Glucose Calcium Total Creatine Kinase 161 H CK-MB (CK-2) 5.41 H D CK-MB (CK-2) Rel Index 3.4 Troponin I < 0.012 Urine Color Urine Appearance Urine pH Ur Specific [place] Urine Protein Urine Glucose (UA) Urine Ketones Urine Occult Blood Urine Nitrate Urine Bilirubin Urine Urobilinogen Ur Leukocyte Esterase Urine RBC Urine WBC Ur Squamous Epith Cells Urine Bacteria Ur Culture Indicated? Nasal Screen MRSA (PCR) COVID-19 PCR Blood Type Antibody Screen Crossmatch Assessment & Plan Assessment & Plan narrative: Maryuri Bauer is a 49 year old female with PMH of multiple psychiatric disorders, previous GI bleeding with history of ischemic colitis, chronic low back pain with a spinal stimulator, prior pulmonary embolism, prior room [place]-en-Y gastric bypass, and obstructive sleep apnea who presented with a GI bleed. 1. Acute Blood loss anemia secondary to GI Bleeding, present on admission, acute -S/p 3 U PRBC at this time, Hg 7.6 this AM. Will continue to trend. Goal Hg 8.0 at this time given some chest pressure. Negative troponins to this point. Given Kcentra, vitamin K. -Appreciate surgery consult and comanagement -Continue Octreotide and Protonix IV -Stop NSAIDS -CLD today, plan for EGD/C-scope tomorrow. 2. Acute on Chronic Iron Deficiency Anemia, present on admission, acute -Octreotide and Protonix IV -Transfuse to keep Hgb above 8 -follow serial H/H 3. Recurrent DVT/PE, present on admission, chronic -Reversal as noted above. -will continue to hold AC. 4. Fever -Negative Covid, Negative CXR, No leukocytosis, negative Abdominal/Pelvic CT -UA positive but no current symptoms. Will continue to await culture and monitor for signs of infection. Patient afebrile since admission. 5. Exertional Chest Pain and Dyspnea, present on admission, acute - EKG with SR and mild lateral ST depression -Troponin is negative. -CXR is negative -She is very high risk for recurrent DVT/PE now that the Eliquis is being stopped -Possible angina induced by anemia, transfuse to keep hgb above 8 -EF 55-60% on 06/10 Echo. No valvular abnormalities. 6. Chronic Low Back Pain, present on admission, chronic -Spinal Cord Stimulator -Continue Tizanidine and Tylenol 1000 mg TID -Continue Gabapentin -Stop Ibuprofen 7. Bipolar Disorder, present on admission, chronic -Continue Zonegran, Vortioxetine, Olanzapine, Lorazepam, Lamotrigine, Bupropion 8. PTSD, present on admission, chronic -Continue Prazosin 9. Insomnia -Continue Suvorexant Code: Full, surrogate decision maker is patient's spouse, Adriana. DVT: Hold for bleeding Dispo: Discharge home pending resolution of bleeding and endoscopy findings. DIET: NPO @ [place], CLD today. COVID-19 COVID-19 status: Negative Quality VTE Deep Vein Thrombosis/Pulmonary Embolism Present on Admission: No
[2020-01-24] MEDS: PROCHLORPERAZINE 10 MG/2 ML VIAL 5 MG IV (11:55)
[2020-01-24 12:43] LABS: Hematocrit 24.9 % (36-46); Hemoglobin 8.4 g/dL (12.0-16.0)
[2020-01-24] MEDS: PEG3350/SOD SULF,BICARB,CL/KCL 4,000 ML SOLUTION 4000 ML PO ×2 (12:54→22:27)
[2020-01-24] MEDS: buPROPion SR 150 MG TAB PO (14:55)
[2020-01-24] MEDS: VORTIOXETINE 20 MG 20 EACH PO (14:56)
[2020-01-24] MEDS: CETIRIZINE 10MG 1 EACH PO (14:57)
[2020-01-24] MEDS: CALCIUM CARBONATE 600 MG TABLET PO (14:58)
[2020-01-24] MEDS: OCTREOTIDE 500 MCG in SODIUM CHLORIDE 0.9% 100 ML 5.05 ML IV (15:52)
--- NOTE | 2020-01-24 16:29 | PC.NURSE ---
Addendum entered by Charlette Ambrosio R.N. 01/24/20 21:16: 2116 pt has slowed down on drinking the Golytely bowel prep, states that she is just too full and needs a break. Continues to go to the bathroom to have BM. Stool is very loose, brown/black. Per pt request we are holding her pm medications that are sedatives for when she is no longer running to the bathroom. Bed low and locked, call light within reach and pt is able to use appropriately, will continue to monitor. Addendum entered by Charlette Ambrosio R.N. 01/24/20 19:56: [address] bowel prep- pt tolerating well, has had 6-7 large bowel movements that are still brown/black in appearance, and liquid. Dr. Brownlee updated on pt status, will order an additional Golytly, in case the 1st one does not clear out the bowels. Will monitor pt progress. Original Note: Evening shift note: tolerating bowel prep well no output yet-has voided only once so far on this shift - pt using powder ( her own) on jonathan-area with voids- pt continues to be sedated from Compazine administered during dayshift, as she drifts in and out of sleep her O2 sats drop down to 75-88%, but she recovers quickly when she wakes up. Unable to use home Cpap at this time due to the need to finish the Golytly bowel prep. Bed low and locked, call light within reach, will continue to monitor.
[2020-01-24 20:38] LABS: Hematocrit 25.1 % (36-46); Hemoglobin 8.5 g/dL (12.0-16.0)
[2020-01-24] MEDS: FLUTICASONE 120 SPRAY/16 GM SPRAY.SUSP NASAL (20:57)
[2020-01-24] MEDS: GABAPENTIN 600 MG TABLET 1200 MG PO (20:58)
[2020-01-25] VITALS (12 sets, daily range): BP systolic 125–143; BP diastolic 63–98; PULSE 17–104; RESP 15–78; TEMP 36.6–36.9; O2SAT 88–99
--- NOTE | 2020-01-25 | PATH_ITS ---
[facility] Accession Number: [id number] . 01 Material submitted: . stomach - STOMACH . 01 Clinical history: . A: R/O H. PYLORI GI BLEED, CHEST PAIN . 02 Diagnosis: Stomach, Biopsies: Antral mucosa with mild chronic gastritis. Negative for Helicobacter organisms by immunohistochemistry. Negative for intestinal metaplasia by Alcian blue stain. Negative for dysplasia and malignancy. [facility] 01/29/2020 1236 Local . 02 Electronically signed: . Brigida Storm MD, Pathologist NPI- [id number] . 01 Gross description: . STOMACH: Received in formalin are 2 fragment(s) of dee, soft tissue measuring 0.2 x 0.2 x 0.2 cm to 0.1 x 0.1 x 0.1 cm submitted entirely in 1 cassette(s) /[facility] 01/27/2020 0305 Local . 02 Microscopic: . An immunohistochemical stain was performed to evaluate for Helicobacter organisms and is negative. An Alcian blue stain was performed to evaluate for intestinal metaplasia and is negative. Both control stains showed appropriate reactivity. . * This test was developed and its performance characteristics determined by [facility]. It has not been cleared or approved by the U.S. Food and Drug Administration. The FDA has determined that such clearance or approval is not necessary. This test is used for clinical purposes. It should not be regarded as investigational or for research. . 02 Pathologist provided ICD-10: K29.70 . 02 CPT . 106190, 133881, [id number] Performed at: 01 [facility] [address] [place] [address] [address], [place], [place] [id number] MD oDnte Luu MD Phone: [phone] Performed at: 02 [facility] [address] [place] [id number] MD Brigida Storm MD Phone: [phone]
[2020-01-25] MEDS: ACETAMINOPHEN 325 MG TABLET 650 MG PO ×2 (01:06→07:16)
[2020-01-25] MEDS: LORazepam 1 MG TABLET 4 MG PO ×2 (01:06→01:55)
[2020-01-25] MEDS: ONDANSETRON 8 MG in SODIUM CHLORIDE 0.9% 50 ML 216 ML IV ×2 (01:13→10:36)
[2020-01-25] MEDS: TIZANIDINE 4 MG TABLET PO (01:14)
[2020-01-25] MEDS: ZONISAMIDE 100 MG CAPSULE 200 MG PO (01:17)
[2020-01-25] MEDS: SODIUM CHLORIDE 0.9% 1,000 ML 100 ML IV (04:43)
[2020-01-25 05:08] LABS: Add Manual Diff / Slide Review NO; Basophils Absolute Auto 0 /uL (0-100); Basophils Percent Auto 0.6 % (0-2); Eosinophils Absolute Auto 300 /uL (0-450); Eosinophils Percent Auto 6.1 % (2-4); Hemoglobin 7.9 g/dL (12.0-16.0); Lymphocytes Absolute Auto 1500 /uL (1100-4500); Lymphocytes Percent Auto 31.2 % (25-40); Mean Corpuscular HGB Conc 32.9 % (30-36); Mean Corpuscular Hemoglobin 29.6 PG (26-34); Mean Corpuscular Volume 90.1 fL (80-100); Monocytes Absolute Auto 400 /uL (0-900); Monocytes Percent Auto 9.2 % (3-14); Neutrophils Absolute Auto 2500 /uL (1500-7000); Neutrophils Percent Auto 52.9 % (50-75); Platelet Count 206 X10^3/uL (150-400); Red Blood Cell Count 2.67 X10^6/uL (4.0-5.2); Red Cell Distribution Width 16.5 % (11.6-14.8); White Blood Cell Count 4.8 X10^3/uL (4.5-11.0)
[2020-01-25 05:18] LABS: Alanine Aminotransferase 18 IU/L (<35); Albumin 2.9 g/dL (3.5-5.0); Albumin Globulin Ratio 1.4 (1.0-2.8); Alkaline Phosphatase 38 U/L (38-126); Aspartate Aminotransferase 38 IU/L (14-36); Bilirubin Total < 0.1 mg/dL (0.2-1.3); Bilirubin Unconjugated 0.2 mg/dL (0.0-1.1); Blood Urea Nitrogen 7 mg/dL (7-17); Calcium 6.5 mg/dL (8.4-10.2); Carbon Dioxide 27 mmol/L (22-32); Chloride 108 mmol/L (98-107); Estimated Glomerular Filt Rate > 60.0 mL/min (>60); Globulin 2.1 g/dL (1.7-4.1); Glucose 101 mg/dL (70-100); HEMOLYSIS < 15 (0-50); Magnesium 1.7 mg/dL (1.6-2.3); Potassium 3.2 mmol/L (3.4-5.1); Sodium 137 mmol/L (137-145)
[2020-01-25] MEDS: CALCIUM GLUCONATE 4.65 MEQ in SODIUM CHLORIDE 0.9% 50 ML 180 ML IV (06:09)
[2020-01-25] MEDS: POTASSIUM CHLORIDE 60 MEQ in SODIUM CHLORIDE 0.9% 500 ML 88.333 ML IV (06:09)
--- NOTE | 2020-01-25 06:22 | PC.NURSE ---
Microbiology Coordinator Note-Patient was awake until 0230 drinking GoLytly and ambulating into on own, she drank approximately 5000ml total. Stools clearing, but remained pink tinged until morning. Medicated with IV Zofran at 0200 when she became nauseated and said I just can't drink anymore Ca+ gluconate and 60meq K+ Andry started this am for Ca+ 6.5 and K+ 3.2, H/H = 7.9/24.0.
--- NOTE | 2020-01-25 07:27 | PM.PN.1 ---
Subjective Subjective Date Patient Seen: 01/25/20 Time Patient Seen: 07:28 Interval history: Maryuri Bauer is a 49 year old female with PMH of multiple psychiatric disorders, previous GI bleeding with history of ischemic colitis, chronic low back pain with a spinal stimulator, prior pulmonary embolism, prior room [place]-en-Y gastric bypass, and obstructive sleep apnea who presented with a GI bleed. She is seen for follow-up today. She does get short of breath with minimal exertion. She still feels weak, but dizziness has improved today. She has no further chest pressure or pain this morning. After 1 unit PRBC yesterday, her 3rd unit in total, her hemoglobin remained fairly stable in the 8s. This morning it is somewhat lower at 7.9, but no transfusion is ordered at this time. Plan for endoscopy later today. Exam Vital Signs (past 8 hours): - 01/24/20 23:38 01/25/20 00:00 01/25/20 04:49 Temperature 96.7 F L 97.8 F Pulse Rate 87 93 H Respiratory Rate 16 16 Blood Pressure 117/58 L 125/63 Pulse Oximetry 98 99 95 Fraction of Inspired Oxygen 30 Oxygen Delivery Method Room Air Oxygen Flow Rate 2 Narrative Exam Narrative: GENERAL APPEARANCE: Pale, obese female BMI 44.9. Well developed, well nourished, in no acute distress. SKIN: Inspection of the skin reveals no rashes, ulcerations or petechiae. HEENT: Normocephalic atraumatic, extraocular muscles are intact, oropharynx is clear and mucous membranes are moist, neck is supple without adenopathy NECK: Supple and symmetric. There was no thyroid enlargement, and no tenderness, or masses were felt. CHEST: Normal AP diameter and normal contour without any kyphoscoliosis. There is a port in place without surrounding erythema or induration. LUNGS: Auscultation of the lungs revealed no wheezes, rhonchi, or rales. CARDIOVASCULAR: There was a regular rate and rhythm without any murmurs, gallops, rubs. Peripheral pulses were 2+ and symmetric. ABDOMEN: Soft and nontender with normal bowel sounds. No ascites was noted. MUSCULOSKELETAL: There was no tenderness or effusions noted. Muscle strength and tone were normal. EXTREMITIES: No cyanosis, clubbing or edema. NEUROLOGIC: Alert and oriented x 3. Normal affect. Globally weak without focal deficits, but able to ambulate in the room holding an IV pole. Objective Labs Result Diagrams: 01/25/20 05:00 01/25/20 05:00 Labs: Laboratory Results - last 24 hr 01/23/20 01/24/20 01/24/20 09:21 12:30 20:30 WBC RBC Hgb 8.4 L 8.5 L Hct 24.9 L 25.1 L MCV MCH MCHC RDW Plt Count Neut % (Auto) Lymph % (Auto) [place] % (Auto) Eos % (Auto) Baso % (Auto) Neut # (Auto) Lymph # (Auto) [place] # (Auto) Eos # (Auto) Baso # (Auto) Sodium Potassium Chloride Carbon Dioxide BUN Creatinine Estimated GFR BUN/Creatinine Ratio Glucose Calcium Magnesium Total Bilirubin Conjugated Bilirubin Unconjugated Bilirubin AST ALT Alkaline Phosphatase Total Protein Albumin Globulin Albumin/Globulin Ratio Crossmatch See Detail 01/25/20 01/25/20 05:00 05:00 WBC 4.8 RBC 2.67 L Hgb 7.9 L Hct 24.0 L MCV 90.1 MCH 29.6 MCHC 32.9 RDW 16.5 H Plt Count 206 Neut % (Auto) 52.9 Lymph % (Auto) 31.2 [place] % (Auto) 9.2 Eos % (Auto) 6.1 H Baso % (Auto) 0.6 Neut # (Auto) 2500 Lymph # (Auto) 1500 [place] # (Auto) 400 Eos # (Auto) 300 Baso # (Auto) 0 Sodium 137 Potassium 3.2 L Chloride 108 H Carbon Dioxide 27 BUN 7 Creatinine 0.70 Estimated GFR > 60.0 BUN/Creatinine Ratio 10.0 Glucose 101 H Calcium 6.5 L Magnesium 1.7 Total Bilirubin < 0.1 L Conjugated Bilirubin 0.0 Unconjugated Bilirubin 0.2 AST 38 H ALT 18 Alkaline Phosphatase 38 Total Protein 5.0 L Albumin 2.9 L Globulin 2.1 Albumin/Globulin Ratio 1.4 Crossmatch Assessment & Plan Assessment & Plan narrative: Maryuri Bauer is a 49 year old female with PMH of multiple psychiatric disorders, previous GI bleeding with history of ischemic colitis, chronic low back pain with a spinal stimulator, prior pulmonary embolism, prior room [place]-en-Y gastric bypass, and obstructive sleep apnea who presented with a GI bleed. 1. Acute Blood loss anemia secondary to GI Bleeding, present on admission, acute -Patient was given Vitamin K and PCC upon admission for attempted reversal of AC. -S/p 3 U PRBC at this time, Hg 7.6 this AM. Will continue to trend. Goal Hg 8.0 at this time given some chest pressure on admission which has since resolved. Negative troponins to this point. -Appreciate surgery consult and comanagement -Continue Octreotide and Protonix IV -Stop NSAIDS -plan for EGD/C-scope today 2. Acute on Chronic Iron Deficiency Anemia, present on admission, acute -Octreotide and Protonix IV -Transfuse to keep Hgb above 8, s/p 3U PRBC, most recent transfusion 01/23. -follow serial H/H 3. Recurrent DVT/PE, present on admission, chronic -Reversal as noted above. -will continue to hold further AC. 4. Reported Fever -Negative Covid, Negative CXR, No leukocytosis, negative Abdominal/Pelvic CT -UA positive but no current symptoms. Will continue to await culture and monitor for signs of infection. Patient afebrile since admission. 5. Exertional Chest Pain and Dyspnea, present on admission, acute, resolved - EKG with SR and mild lateral ST depression which is now improved. -Troponin is negative. -CXR is negative -She is very high risk for recurrent DVT/PE now that the Eliquis is being stopped -Possible angina induced by anemia, goal Hg 8 which patient has been stable around. -EF 55-60% on 06/10 Echo. No valvular abnormalities. 6. Chronic Low Back Pain, present on admission, chronic -Patient with Spinal Cord Stimulator -Continue Tizanidine and Tylenol 1000 mg TID -Continue Gabapentin -Stop Ibuprofen 7. Bipolar Disorder, present on admission, chronic -Continue Zonegran, Vortioxetine, Olanzapine, Lorazepam, Lamotrigine, Bupropion 8. PTSD, present on admission, chronic -Continue Prazosin 9. Insomnia -Continue Suvorexant Code: Full, surrogate decision maker is patient's spouse, Adriana. DVT: Hold for bleeding Dispo: Discharge home pending resolution of bleeding and endoscopy findings. DIET: NPO prior to EGD/C-scope, advance after procedures today per surgery recommendations. Quality VTE Deep Vein Thrombosis/Pulmonary Embolism Present on Admission: No
[2020-01-25] MEDS: PANTOPRAZOLE 40 MG VIAL IV (08:00)
[2020-01-25] MEDS: LACTATED RINGERS 1,000 ML 42 ML IV (08:45)
--- NOTE | 2020-01-25 08:46 | PC.NURSE ---
Addendum entered by Gi Welsh R.N. 01/25/20 15:12: Patient transferred to [facility] at 1500 via ambulance. Portacath heplocked, KCl rider infused. Octreotide stopped at this time per MD. SpO2 94-97% RA. Information packet with pt as well as home meds, CPAP machine, and clothing. Report given to Gopal DAMON at [facility]. Addendum entered by Gi Welsh R.N. 01/25/20 11:55: Back to room 226 at 1030, slightly drowsy but awake and oriented x3. Denies pain. Reported nausea with accompanying episode of emesis- Zofran administered per emar. 2L oxygen applied via NC for SpO2 of 84-86%. Currently denies nausea, taking in clear liquids, and saturating 94% on 2L. , Adriana, at bedside. Original Note: Day Shift Pt to surgery at 0840 for planned upper and lower GI scopes. Denies abdominal pain. NPO since 0400. Last stools clear pink. Independent in room, steady on feet. SpO2 97% RA. SR at rest and ST with activity up to 120s.
--- NOTE | 2020-01-25 08:51 | PM.PREOP ---
Pre-operative Note COVID-19 COVID-19 status: Negative Result date/Date tested (Pos, Neg/Pending): 01/23/20 Interval Note History & Physical reviewed/Exam performed by Physician: Yes Changes to H&P: Yes H&P completed within 30 days and has changed as indicated here:: has completed bowel prep, received three units of blood, hgb 7.9
--- NOTE | 2020-01-25 09:25 | PM.OP.ENDO ---
Operative Date/Time/Diagnoses Date of procedure: 01/25/20 Time of procedure: 09:25 Pre-op diagnosis: GI bleed Post-op diagnosis: other (mild gastritis, no evidence of active bleed, marginal ulcer, exposed vessel, or other bleeding source) Procedure & Clinicians Study performed: 1) Upper endoscopy with cold forceps biopsy 2) Colonoscopy Same procedure as scheduled: Yes Indications: GI bleed Surgeon: Mercy Brownlee Procedure Notes SCOAP/Timeout: Performed Procedure in detail: The patient was brought to the room. General anesthesia was induced the patient is intubated by Dr. Crespo. She was placed in left lateral decubitus position with all bony prominences padded. A bite block was positioned in the patient's mouth to protect the lips, teeth, and tongue for the procedure. A procedural time-out was performed. Once adequately sedated, the procedure was begun. The lubricated gastroscope was passed through the bite block and across the tongue and into the esophagus without incident. A tubular view of the esophagus was maintained as the scope was advanced through the esophagus and into the stomach. The scope was advanced through the stomach and into the [place] limb of her gastric bypass. The scope was advanced to the level of the JJ anastomosis. No evidence of bleeding was found. There was no ulcer or visible vessel. The scope was withdrawn into the stomach pouch. There was low grade endoscopic gastritis. No evidence of bleeding, ulcers, or exposed vessels. The entire stomach pouch was examined. Biopsies were taken from the GJ anastomosis. The anastomosis was widely patent, without any stricture or ulcerations seen. Biopsies were taken from the gastric mucosa. The scope was drawn back into the esophagus. The Z-line [appeared normal]. The distal esophagus [appeared normal]. The scope was then withdrawn through the esophagus with a tubular view. The scope was then withdrawn from the patient without incident. A rectal exam was performed revealing [no abnormalities]. The colonoscope was then introduced to the rectum and advanced to the cecum in the usual fashion. []The cecum was identified by the appendiceal orifice, the mucosal tri-fold, and the ileocecal valve. There was no bleeding from the ileum. The scope was then retracted while rotating side to side and examining each mucosal fold. Bloody fluid and clots were seen, but no sign or source of active bleeding. [] A few small hyperplastic polyps were seen in the rectum. At the conclusion of the procedure retroflexion was performed and [small grade 1-2 internal hemorrhoids without stigmata of bleeding were seen]. The scope was then withdrawn from the rectum the procedure was concluded. The patient tolerated the procedure well and was transferred to the PACU in stable condition. Scope withdrawal time: 8 Findings: gastritis (very mild) Specimen(s): other (biopsy of GJ anastomosis, gastric mucosa) Complications: none Impression: No source of bleeding was found. Post-procedure Recommendations: Other recommendation (Transfer for bleeding scan, small bowel evaluation with push enteroscopy or capsule endoscopy) Follow up: as needed Disposition: PACU
--- NOTE | 2020-01-25 10:00 | CM.DPC ---
DCP Cont: Patient is to be having EGD today. Discussed at team rounds. She could possibly go home tomorrow. She is ambulating in her room, so no need for P.T. P: DCP to continue to follow. Patient could possibly discharge home tomorrow if stable. Maame Tovar, [employer] Driver
[2020-01-25] MEDS: VORTIOXETINE 20 MG 20 EACH PO (11:21)
[2020-01-25] MEDS: buPROPion SR 150 MG TAB 300 MG PO (11:21)
[2020-01-25] MEDS: CETIRIZINE 10MG 1 EACH PO (11:22)
[2020-01-25] MEDS: LORazepam 1 MG TABLET 2 MG PO ×2 (11:24→13:54)
[2020-01-25] MEDS: CALCIUM CARBONATE 600 MG TABLET PO (11:26)
[2020-01-25] MEDS: lamoTRIgine 100 MG TABLET 150 MG PO (11:27)
--- NOTE | 2020-01-25 12:13 | PM.DS.1 ---
History of Present Illness History of Present Illness Date Patient Seen: 01/25/20 Time Patient Seen: 12:13 Chief complaint: GI BLEED, CHEST PAIN Narrative: As per Dr. 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 She describes a 3 day sequence of illness culminating in significant bright red stool/diarrhea this morning. The 1st symptoms were abdominal pain/burning along with fever 101? F 3 days ago. The next morning the symptoms were gone but then the fever returned yesterday again to 101?. This morning when she awoke she had severe abdominal pain and a sudden fecal urgency. When she evacuated her stools it was a bright red bloody liquid and she became quite faint. She was also nauseated. There has been no vomiting. She has not been coughing. She has had exertional shortness of breath and chest pain for the last 2 days. Her presenting hemoglobin is 7.1 down from her baseline of 11. She is on Eliquis for recurrent DVTs with at least 3 episodes of pulmonary embolus including a saddle embolus. It is unclear why she does not have an inferior vena cava filter. She receives iron infusions every other week with hematology with a baseline hemoglobin around 11. She had an episode of severe GI bleeding from ischemic colitis several years ago when she was living in [place]. She received at least 10 units of blood at that hospitalization. She has a history of gastric bypass surgery causing the chronic anemia. She also has a history of chronic back pain for which she is on a spinal cord stimulator and takes 1000 mg of Tylenol along with 100 mg of ibuprofen, both of those 3 times a day. Her white blood count is 3.4 and her Covid test is negative. Her chest x-ray is normal. Her abdominal CT shows apparent constipation. Surgery has seen her and Dr. Tatum has recommended transfusion, stabilization, CT scan and eventual endoscopic investigations. There has been no fever since her admission to the emergency department but her reports of fever are concerning and so a urinalysis will be collected. Discharge Providers Provider Date of admission: 01/23/20 12:07 Discharge Date: 01/25/20 Primary care physician: Yunier Keys MD Consults: 01/23/20 15:24 Consult to Dietitian, Adult Routine Comment: Reason For Exam: admission score Discharge provider: Viraj Montoya DO Summary Hospital Course Discharge Diagnosis: Please see hospital course by problem list noted below. Hospital Course: Maryuri Bauer is a 49 year old female with PMH of multiple psychiatric disorders, previous GI bleeding with history of ischemic colitis, chronic low back pain with a spinal stimulator, prior pulmonary embolism, prior room [place]-en-Y gastric bypass, and obstructive sleep apnea who presented with a GI bleed. She underwent EGD and colonoscopy on 01/25/2020 which did not reveal a source of bleeding. She is being transferred for additional evaluation of GI bleeding with tagged RBC scan, push enteroscopy, or capsule endoscopy. 1. Acute Blood loss anemia secondary to GI Bleeding, present on admission, acute -Patient was given Vitamin K and PCC upon admission for attempted reversal of AC. -Patient has had prior episodes of GI bleeding as well as a long history of iron deficiency anemia which has required IV iron therapy as an outpatient. Previous enodscopies and colonoscopies are reported to have been negative except for a prior endoscopy revealing gastritis. -S/p 2U PRBC over the course of her admission. Hg trend recently 8.8 > 8.5 > 7.9 this AM. Continue to trend. Goal Hg 8.0 initially given some chest pressure on admission which has since resolved. Negative troponins to this point. Will hold off on transfusion for this Hg of 7.9 at this time. -Appreciate surgery consult and comanagement. EGD / C-scope on 01/25/2020 did not reveal any source of possible bleeding. Surgeon, Dr. Brownlee, recommended transfer for additional small bowel evaluation which may be tagged RBC scan, push enteroscopy, or capsule endoscopy. -Continue Protonix IV BID. Patient was on octreotide infusion per surgery recommendations until EGD. Can discontinue at this point. -Stop NSAIDS -patient will be transferred to [facility] with accepting physician Dr. Wilson 2. Acute on Chronic Iron Deficiency Anemia, present on admission, acute -management as noted above. -Transfuse to keep Hgb above 7 going forward, s/p 2U PRBC, most recent transfusion 01/23. -follow serial H/H 3. Recurrent DVT/PE, present on admission, chronic -Reversal as noted above. -will continue to hold further AC. 4. Reported Fever -Negative Covid, Negative CXR, No leukocytosis, negative Abdominal/Pelvic CT -UA positive but no current symptoms. Urine culture showed mixed bari deemed unsuitable for further growth. Patient has been afebrile since admission. 5. Exertional Chest Pain and Dyspnea, present on admission, acute, resolved - EKG with SR and mild lateral ST depression which is now improved. -Troponin was negative. -CXR was unremarkable. -She is very high risk for recurrent DVT/PE now that the Eliquis is being stopped -Possible angina induced by anemia, goal Hg 8 initially as noted above. -EF 55-60% on 06/10 Echo. No valvular abnormalities. 6. Chronic Low Back Pain, present on admission, chronic -Patient with Spinal Cord Stimulator -Continue Tizanidine and Tylenol 1000 mg TID -Continue Gabapentin -Stop Ibuprofen 7. Bipolar Disorder, present on admission, chronic -Continue Zonegran, Vortioxetine, Olanzapine, Lorazepam, Lamotrigine, Bupropion 8. PTSD, present on admission, chronic -Continue Prazosin 9. Insomnia -Continue Suvorexant 10. MICHELE - Patient uses home BIPAP. Per respiratory therapy initially needed higher pressure settings which required her to be ICU status at this hospital. She does not require ICU monitoring as her usual settings seemed to be sufficient overnight 01/23-01/24. Code: Full, surrogate decision maker is patient's spouse, Adriana. DVT: Hold for bleeding Dispo: Transfer to [facility]. DIET: Per accepting physician depending on further evaluation. Status at Discharge Cognitive/behavioral status at discharge: oriented Time Spent with Patient Time spent: Greater than 30 minutes Exam Vital Signs (past 8 hours): - 01/25/20 04:49 01/25/20 07:51 01/25/20 08:01 Temperature 97.8 F 97.9 F Pulse Rate 93 H 86 Respiratory Rate 16 16 Blood Pressure 125/63 128/67 Pulse Oximetry 95 97 97 01/25/20 08:35 01/25/20 10:07 01/25/20 10:12 Temperature 98.1 F Pulse Rate 96 H 104 H 103 H Respiratory Rate 18 17 22 Blood Pressure 139/75 143/83 H Pulse Oximetry 99 96 97 01/25/20 10:17 01/25/20 10:30 01/25/20 11:00 Temperature 98 F 98 F Pulse Rate 102 H 87 78 Respiratory Rate 15 19 18 Blood Pressure 133/87 140/73 135/98 H Pulse Oximetry 98 98 88 L Fraction of Inspired Oxygen 30 Oxygen Delivery Method Room Air Oxygen Flow Rate 0 Narrative Exam Narrative: GENERAL APPEARANCE: Pale, obese female BMI 44.9. Well developed, well nourished, in no acute distress. SKIN: Inspection of the skin reveals no rashes, ulcerations or petechiae. HEENT: Normocephalic atraumatic, extraocular muscles are intact, oropharynx is clear and mucous membranes are moist, neck is supple without adenopathy NECK: Supple and symmetric. There was no thyroid enlargement, and no tenderness, or masses were felt. CHEST: Normal AP diameter and normal contour without any kyphoscoliosis. There is a port in place without surrounding erythema or induration. LUNGS: Auscultation of the lungs revealed no wheezes, rhonchi, or rales. CARDIOVASCULAR: There was a regular rate and rhythm without any murmurs, gallops, rubs. Peripheral pulses were 2+ and symmetric. ABDOMEN: Soft and nontender with normal bowel sounds. No ascites was noted. MUSCULOSKELETAL: There was no tenderness or effusions noted. Muscle strength and tone were normal. EXTREMITIES: No cyanosis, clubbing or edema. NEUROLOGIC: Alert and oriented x 3. Normal affect. Globally weak without focal deficits, but able to ambulate in the room holding an IV pole. Objective Labs Result Diagrams: 01/25/20 12:30 01/25/20 05:00 Labs: Laboratory Results - last 24 hr 01/24/20 01/24/20 01/25/20 12:30 20:30 05:00 WBC 4.8 RBC 2.67 L Hgb 8.4 L 8.5 L 7.9 L Hct 24.9 L 25.1 L 24.0 L MCV 90.1 MCH 29.6 MCHC 32.9 RDW 16.5 H Plt Count 206 Neut % (Auto) 52.9 Lymph % (Auto) 31.2 [place] % (Auto) 9.2 Eos % (Auto) 6.1 H Baso % (Auto) 0.6 Neut # (Auto) 2500 Lymph # (Auto) 1500 [place] # (Auto) 400 Eos # (Auto) 300 Baso # (Auto) 0 Sodium Potassium Chloride Carbon Dioxide BUN Creatinine Estimated GFR BUN/Creatinine Ratio Glucose Calcium Magnesium Total Bilirubin Conjugated Bilirubin Unconjugated Bilirubin AST ALT Alkaline Phosphatase Total Protein Albumin Globulin Albumin/Globulin Ratio 01/25/20 05:00 WBC RBC Hgb Hct MCV MCH MCHC RDW Plt Count Neut % (Auto) Lymph % (Auto) [place] % (Auto) Eos % (Auto) Baso % (Auto) Neut # (Auto) Lymph # (Auto) [place] # (Auto) Eos # (Auto) Baso # (Auto) Sodium 137 Potassium 3.2 L Chloride 108 H Carbon Dioxide 27 BUN 7 Creatinine 0.70 Estimated GFR > 60.0 BUN/Creatinine Ratio 10.0 Glucose 101 H Calcium 6.5 L Magnesium 1.7 Total Bilirubin < 0.1 L Conjugated Bilirubin 0.0 Unconjugated Bilirubin 0.2 AST 38 H ALT 18 Alkaline Phosphatase 38 Total Protein 5.0 L Albumin 2.9 L Globulin 2.1 Albumin/Globulin Ratio 1.4 Discharge Plan Discharge Plan Disposition: er [facility] Hospital Discharge orders & Medications Follow up/Referrals: Yunier Keys MD [Primary Care Provider] - Discharge Health Status Health Concerns: GI bleeding Discharge Data Primary Care Provider: Yunier Keys Quality VTE Deep Vein Thrombosis/Pulmonary Embolism Present on Admission: No
[2020-01-25 12:42] LABS: Hematocrit 26.9 % (36-46); Hemoglobin 8.9 g/dL (12.0-16.0)
[2020-01-25] MEDS: buPROPion SR 150 MG TAB PO (13:55)
== END 2020-01-25 15:00 | disposition short-term general hospital (02) | DRG 378 ==
LOC: ED 11:38 → ICU 01-24 08:36 → AC 01-27 08:02 → ICU 01-27 08:02
PROVIDERS: Internal Medicine; Nurse Practitioner Adult Health; Surgery; Admitting Provider Family Medicine; Emergency Provider Emergency Medicine; Family Provider Student in an Organized Health Care Education/Training Program; PCP Student in an Organized Health Care Education/Training Program; Referring Provider Emergency Medicine; Visit Provider Family Medicine
PROC: 0DJ08ZZ Inspection of Upper Intestinal Tract, Via Natural or Artificial Opening Endoscopic (ICD-10-PCS; CPT 43235; principal; 2020-01-25 09:00)
PROC: 0DJD8ZZ Inspection of Lower Intestinal Tract, Via Natural or Artificial Opening Endoscopic (ICD-10-PCS; CPT 45378; 2020-01-25 09:00)
DX: K92.1 Melena (principal); D62 Acute posthemorrhagic anemia; Z68.41 Body mass index [BMI] 40.0-44.9, adult; R50.9 Fever, unspecified; K29.70 Gastritis, unspecified, without bleeding; J45.909 Unspecified asthma, uncomplicated; G89.29 Other chronic pain; G47.33 Obstructive sleep apnea (adult) (pediatric); F43.10 Post-traumatic stress disorder, unspecified; F31.9 Bipolar disorder, unspecified; G43.709 Chronic migraine without aura, not intractable, without status migrainosus; D50.9 Iron deficiency anemia, unspecified; G47.00 Insomnia, unspecified; R00.0 Tachycardia, unspecified; R07.89 Other chest pain; Z98.84 Bariatric surgery status; E66.01 Morbid (severe) obesity due to excess calories; Z96.82 Presence of neurostimulator; Z79.01 Long term (current) use of anticoagulants; Z86.711 Personal history of pulmonary embolism; Z03.818 Encounter for observation for suspected exposure to other biological agents ruled out
CPT/HCPCS: 36415; 36430; 36591; 71045; 74177; 80048; 80053; 80076; 81001; 82272; 82550; 82553; 83605; 83615; 83690; 83735; 84484; 85014; 85018; 85025; 85610; 85730; 86850; 86900; 86901; 87086; 87635; 87797; 93005; 94660; 94760; 94762; 96361; 96365; 96372; 96375; 96376; 99285; P9016; C9113; C9132; J0330; J0610; J0780; J1100; J1170; J1200; J2270; J2354; J2405; J2704; J3010; J3430; J3480; Q9967

== ENCOUNTER 2020-02-05 10:40 | Emergency (ER) | payer OTHER, SELFPAY ==
[2020-01-23 12:13] VITALS: BMI 44.6
[2020-01-24 12:30] VITALS: RESP 17; O2SAT 94
[2020-02-05] VITALS (17 sets, daily range): BP systolic 107–132; BP diastolic 53–81; PULSE 73–117; RESP 16–40; TEMP 36.5; O2SAT 92–98; BMI 42.8
--- NOTE | 2020-02-05 10:45 | ED_ITS ---
HPI - General Adult General Chief complaint: Shortness of Breath/Dyspnea Stated complaint: coughing,shortness of breath Time Seen by Provider: 02/05/20 10:45 Source: patient Mode of arrival: Ambulatory Limitations: no limitations History of Present Illness HPI narrative: 49-year-old female. Prior history of pulmonary embolus. On anticoagulation. Recently seen for GI bleed has had a follow-up since then here for evaluation of less than 24 hours of headache, fatigue, body aches, cough, sore throat. Has not take anything for symptoms prior to arrival. She states that this does not feel like prior history of pulmonary embolisms. Has had multiple pneumonias in the past and she is concerned about this is being a potential issue. She is also concerned about coronavirus. Related Data Home Medications Medication Instructions Recorded Confirmed acetaminophen 1,000 mg PO Q6H PRN 03/06/18 02/03/20 Resmed Aircurve 10 BIPAP #1 ea 11/25/18 02/03/20 albuterol sulfate 2 puff INHALATION Q6H PRN 04/18/19 02/03/20 cetirizine [Zyrtec] 10 mg PO DAILY 04/18/19 02/03/20 ascorbic acid (vitamin C) [Vitamin 500 mg BID 01/15/20 02/03/20 C] calcium carbonate-vitamin D3 2 tab PO BID 01/15/20 02/03/20 [Caltrate 600 plus D] omeprazole 20 mg PO BID 01/15/20 02/03/20 vitamin E 600 unit PO DAILY 01/15/20 02/03/20 clonidine HCl 0.1 mg PO TID PRN 01/23/20 02/03/20 tizanidine [Zanaflex] 4 mg PO BEDTIME 01/23/20 02/03/20 Previous Rx's Medication Instructions Recorded olanzapine 2.5 mg tablet 5 mg PO BID PRN #60 tab 08/22/19 gabapentin 600 mg tablet 1,200 mg PO BEDTIME #180 tab 09/09/19 apixaban 5 mg tablet 5 mg PO BID #180 tab 09/23/19 ondansetron HCl 4 mg tablet 4 - 8 mg PO TID PRN #180 tab 10/27/19 promethazine 25 mg tablet 25 - 50 mg PO Q6H PRN #90 tab 10/27/19 suvorexant 20 mg tablet 20 mg PO BEDTIME #30 tab 10/27/19 lorazepam 2 mg tablet 2 mg PO QID PRN 30 Days #120 tab 11/05/19 fluticasone propionate 50 2 spray INTRANASAL BEDTIME #16 gram 11/19/19 mcg/actuation nasal spray,suspension zonisamide 100 mg capsule 200 mg PO DAILY #60 cap 12/17/19 lamotrigine 150 mg tablet 150 mg PO BID #180 tab 12/29/19 prazosin 2 mg capsule 2 mg PO BEDTIME #90 cap 01/12/20 vortioxetine 20 mg tablet 20 mg PO DAILY #90 tab 01/22/20 bupropion HCl 150 mg tablet,12 hr 150 mg PO .COMPLEX #90 each MDD 02/03/20 sustained-release 300mg prazosin 5 mg capsule 20 mg PO BEDTIME #120 cap 02/03/20 Allergies Allergy/AdvReac Type Severity Reaction Status Date / Time No Known Drug Allergies Allergy Verified 02/05/20 10:52 Review of Systems Constitutional Constitutional: Reports chills, Reports fatigue and Reports fever(s) Cardiovascular Cardiovascular: Reports chest pain and Reports dyspnea Respiratory Respiratory: Reports cough and Reports dyspnea Gastrointestinal Gastrointestinal: Denies nausea and Denies vomiting Neurologic Neurologic: Denies behavioral changes Psychiatric Psychiatric: Denies behavioral changes Endocrine Endocrine: Reports fatigue Hematologic/Lymphatic Comments: On anticoagulation Patient History Medical History Abnormal CXR (chest x-ray) (Resolved) Ankle fracture, left (Resolved 1986) Anxiety (Chronic) Arthritis of knee (Chronic) Asthma (Chronic) Bipolar 1 disorder, depressed (Chronic) Chicken pox (Resolved) Chronic anemia (Chronic) Chronic back pain (Chronic) Chronic headaches (Chronic) Chronic neck pain (Chronic) Depression (Chronic) Diabetes mellitus (Resolved) Diastolic dysfunction (Chronic) Fatty liver (Chronic) GERD (gastroesophageal reflux disease) (Chronic) GI bleeding (Resolved) High risk medication use (Chronic) Hyperlipidemia (Chronic) Hypertension (Chronic) 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) Irregular periods/menstrual cycles (Chronic) Ischemic colitis (Resolved 2013) Lumbar spine pain (Chronic) Migraines (Chronic) Neck arthritis (Chronic) Obstructive sleep apnea syndrome (Chronic 2007) Panic attacks (Chronic) Plantar warts (Resolved) PTSD (post-traumatic stress disorder) (Chronic) Pulmonary embolism (Resolved 2006) Pulmonary hypertension (Chronic) S/P ECT (electroconvulsive therapy) (Resolved 2013) Shoulder arthritis (Chronic) Spinal cord stimulator status (Chronic) Transient hypotension (Resolved) Surgical History Anesthesia (Resolved) History of bowel resection (Resolved 1995) History of endometrial ablation (Resolved 2008) History of esophagogastroduodenoscopy (EGD) (Resolved 04/19/17) History of gastric bypass (Resolved 2009) History of open reduction and internal fixation (ORIF) procedure (Resolved 1986) History of spinal surgery (Resolved 2010) Status post cardiac catheterization (Resolved 2007) Status post cholecystectomy (Resolved 2007) Status post peripherally inserted central catheter (PICC) central line placement (Resolved 04/04/17) Family History Father Age: 75 Hypertension Sick sinus syndrome Heart disease Mother Age: 72 Hyperlipidemia Mental health problem Arthritis Hayfever Seasonal allergies Hypertension Sister No problems noted. Social History marital status: details: 2013 Adriana Blanco; couple > 20 yrs. 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 [employer]regation: [employer] Smoking Status: Never smoker alcohol intake: never substance use type: does not use Smoking Status: Never smoker alcohol intake frequency: 0-2 drinks per day Substance Use Type: does not use Exam Initial Vital Signs Initial Vital Signs: Vital Signs Temperature 97.7 F 02/05/20 10:45 Pulse Rate 112 H 02/05/20 10:45 Respiratory Rate 23 02/05/20 10:45 Blood Pressure 120/81 02/05/20 10:45 Pulse Oximetry 98 02/05/20 10:45 Const General: cooperative, healthy appearing and comfortable Limitations: mental status not altered HENMT Head: normal to inspection and normocephalic Resp Effort & Inspection: not labored and tachypneic Auscultation: clear to auscultation bilaterally Cardio Rate: tachycardic Rhythm: regular rhythm Pulses: radial pulses present GI Inspection: non-distended Palpation: soft Skin Lesions: no lesions Rashes: no rashes Neuro General: patient alert and patient awake Cognition: normal cognition Speech: speech normal Extrem General: capillary refill normal and No edema Psych Appearance: grossly normal and well kempt Course Orders Ordered: ED Orders 02/05/20 11:02 EKG-12 Lead Stat 02/05/20 11:11 XR chest 2V Stat 02/05/20 11:35 Basic Metabolic Panel Stat Complete Blood Count AUTO DIFF Stat NT-proBNP (BNP-Adult 18+) Stat Procalcitonin Stat Troponin I Stat 02/05/20 12:51 CT angio chest PE protocol Stat Discontinued Medications Acetaminophen (Tylenol) 975 mg PO NOW ONE Stop: 02/05/20 11:56 Last Admin: 02/05/20 12:04 Dose: 975 mg Documented by: SHELLI Albuterol (Ventolin Hfa) 4 puff INH NOW ONE Stop: 02/05/20 11:02 Last Admin: 02/05/20 11:29 Dose: 4 puff Documented by: CALEB Aspirin (Aspirin Chew) 324 mg PO NOW ONE Stop: 02/05/20 12:51 Last Admin: 02/05/20 14:12 Dose: Not Given Documented by: YANN Sodium Chloride (Normal Saline 0.9%) 1,000 mls @ 1,000 mls/hr IV BOLUS ONE Stop: 02/05/20 13:50 Last Infusion: 02/05/20 14:36 Dose: 0 mls/hr Documented by: Admin: 02/05/20 13:16 Dose: 1,000 mls/hr Documented by: LAYLAM Lidocaine HCl (Xylocaine 1%) 1 ml SUBCUT NOW ONE Stop: 02/05/20 11:11 Last Admin: 02/05/20 13:38 Dose: Not Given Documented by: SHELLI Lidocaine HCl (Xylocaine 2%) 1 ml SUBCUT NOW ONE Stop: 02/05/20 11:14 Last Admin: 02/05/20 11:17 Dose: 1 ml Documented by: SHELLI Morphine Sulfate (Morphine) 4 mg IV NOW ONE Stop: 02/05/20 12:51 Last Admin: 02/05/20 13:16 Dose: 4 mg Documented by: LAYLAM Morphine Sulfate (Morphine) 4 mg IV NOW ONE Stop: 02/05/20 15:28 Last Admin: 02/05/20 15:40 Dose: 4 mg Documented by: SHELLI Ondansetron HCl (Zofran) 4 mg IV NOW ONE Stop: 02/05/20 11:56 Last Admin: 02/05/20 12:06 Dose: 4 mg Documented by: SHELLI Ondansetron HCl (Zofran) 4 mg IV NOW ONE Stop: 02/05/20 12:51 Last Admin: 02/05/20 13:16 Dose: 4 mg Documented by: YANN Promethazine HCl (Phenergan) 25 mg PO NOW ONE Stop: 02/05/20 15:28 Last Admin: 02/05/20 15:39 Dose: 25 mg Documented by: SHELLI Vital Signs Vital signs: Vital Signs - 8 hr 02/05/20 10:45 02/05/20 11:24 02/05/20 11:30 Temperature 97.7 F Pulse Rate 112 H 80 Respiratory Rate 23 23 Blood Pressure 120/81 112/72 Pulse Oximetry 98 96 02/05/20 12:00 02/05/20 12:30 02/05/20 13:11 Temperature Pulse Rate 84 97 H 93 H Respiratory Rate 22 26 H 22 Blood Pressure 114/67 117/71 Pulse Oximetry 92 96 98 02/05/20 13:16 02/05/20 13:30 02/05/20 14:00 Temperature Pulse Rate 87 78 90 Respiratory Rate 22 29 H 27 H Blood Pressure 121/61 117/58 L 118/68 Pulse Oximetry 95 96 95 02/05/20 14:30 02/05/20 14:31 02/05/20 15:01 Temperature Pulse Rate 74 77 117 H Respiratory Rate 25 H 22 40 H Blood Pressure 107/53 L Pulse Oximetry 96 96 96 02/05/20 15:03 02/05/20 15:32 02/05/20 16:00 Temperature Pulse Rate 95 H 73 75 Respiratory Rate 28 H 16 22 Blood Pressure 113/80 132/62 Pulse Oximetry 98 96 95 02/05/20 16:30 02/05/20 17:00 Temperature Pulse Rate 73 78 Respiratory Rate 30 H 29 H Blood Pressure Pulse Oximetry 95 97 Medical Decision Making Lab Data Lab results reviewed: Yes I reviewed the patient's lab results. Result diagrams: 02/05/20 11:35 02/05/20 11:35 Labs: Lab Results 02/05/20 02/05/20 02/05/20 Range/Units 10:48 10:55 11:35 WBC 3.1 L D (4.5-11.0) X10^3/uL RBC 3.90 L (4.0-5.2) X10^6/uL Hgb 11.6 L (12.0-16.0) g/dL Hct 35.5 L (36-46) % MCV 90.9 (80-100) fL MCH 29.7 (26-34) PG MCHC 32.6 (30-36) % RDW 15.8 H (11.6-14.8) % Plt Count 252 (150-400) X10^3/uL Neut % (Auto) 45.6 L (50-75) % Lymph % (Auto) 37.3 (25-40) % [place] % (Auto) 8.8 (3-14) % Eos % (Auto) 7.7 H (2-4) % Baso % (Auto) 0.6 (0-2) % Neut # (Auto) 1400 L (1860-3626) /uL Lymph # (Auto) 1200 (8735-6792) /uL [place] # (Auto) 300 (0-900) /uL Eos # (Auto) 200 (0-450) /uL Baso # (Auto) 0 (0-100) /uL Sodium (137-145) mmol/L Potassium (3.4-5.1) mmol/L Chloride (98-107) mmol/L Carbon Dioxide (22-32) mmol/L BUN (7-17) mg/dL Creatinine (0.52-1.04) mg/dL Estimated GFR (>60) mL/min BUN/Creatinine Ratio (6-22) Glucose (70-100) mg/dL Calcium (8.4-10.2) mg/dL Troponin I (0.01-0.034) ng/mL NT-Pro-B Natriuret Pep (<125) pg/mL Procalcitonin (<0.5) ng/mL COVID-19 PCR Negative Cancelled (Negative) 02/05/20 02/05/20 02/05/20 Range/Units 11:35 11:35 11:35 WBC (4.5-11.0) X10^3/uL RBC (4.0-5.2) X10^6/uL Hgb (12.0-16.0) g/dL Hct (36-46) % MCV (80-100) fL MCH (26-34) PG MCHC (30-36) % RDW (11.6-14.8) % Plt Count (150-400) X10^3/uL Neut % (Auto) (50-75) % Lymph % (Auto) (25-40) % [place] % (Auto) (3-14) % Eos % (Auto) (2-4) % Baso % (Auto) (0-2) % Neut # (Auto) (3902-2347) /uL Lymph # (Auto) (1444-7657) /uL [place] # (Auto) (0-900) /uL Eos # (Auto) (0-450) /uL Baso # (Auto) (0-100) /uL Sodium 137 (137-145) mmol/L Potassium 3.9 (3.4-5.1) mmol/L Chloride 105 (98-107) mmol/L Carbon Dioxide 28 (22-32) mmol/L BUN 19 H (7-17) mg/dL Creatinine 0.93 (0.52-1.04) mg/dL Estimated GFR > 60.0 (>60) mL/min BUN/Creatinine Ratio 20.4 (6-22) Glucose 95 (70-100) mg/dL Calcium 9.0 (8.4-10.2) mg/dL Troponin I < 0.012 (0.01-0.034) ng/mL NT-Pro-B Natriuret Pep 75 (<125) pg/mL Procalcitonin < 0.05 (<0.5) ng/mL COVID-19 PCR (Negative) Imaging Data Chest x-ray: Radiologist's Impression: [address] [address] XRay Report Signed Patient: Maryuri Bauer [facility]#: [id number] : 1970Acct:[id number] Age/Sex: 49 / FDate of Service: 02/05/20 Loc: ED Accession Number: [id number] Procedure: XR chest 2V Ordering Provider: Kingsley George D.O. PROCEDURE: XR CHEST 2V INDICATIONS: Eval for pneumonia TECHNIQUE: 2 views of the chest were acquired. COMPARISON: None. FINDINGS: Surgical changes and devices: Unchanged left chest wall central port and partially visualized simulator leads. EKG leads project over the chest. Lungs and pleura: Lungs are clear other than a tiny focus of streaky atelectasis in the left lung base. No pleural effusions or pneumothorax. Mediastinum: Mediastinal contours are normal. Heart size is normal. Bones and chest wall: No suspicious bony abnormalities. Soft tissues appear unremarkable. IMPRESSION: No acute cardiopulmonary process. Dictated by: Luis Rubalcava M.D. on 02/05/2020 at 11:26 Approved by: Luis Rubalcava M.D. on 02/05/2020 at 11:2 CT scan - chest: Radiologist's Impression: [address] [address] [address] Scan Report Signed Patient: Maryuri Bauer DMR#: [id number] : 1970Acct:[id number] Age/Sex: 49 / FDate of Service: 02/05/20 Loc: ED Accession Number: [id number] Procedure: CT angio chest PE protocol Ordering Provider: Kingsley George D.O. PROCEDURE: CT ANGIO CHEST PE PROTOCOL INDICATIONS: Chest pain, shortness of breath, tachycardia TECHNIQUE: After the administration of intravenous contrast, 2 mm thick sections acquired from the pulmonary apices to the posterior costophrenic angles. 3-dimensional maximum intensity projection (MIP) coronal and sagittal reformats were then acquired through the thorax. For radiation dose reduction, the following was used: automated exposure control, adjustment of mA and/or kV according to patient size. COMPARISON: [facility], CT, CT ANGIO CHEST PE PROTOCOL, 05/23/2019, 16:04. [facility], CT, PE STUDY (CTA CHEST), 06/21/2015, 13:43. FINDINGS: Image quality: Diagnostic. Pulmonary arteries: Pulmonary arteries are normal in size, and demonstrate no intraluminal filling defects to suggest central pulmonary embolism. Lungs and pleura: Diffuse bronchiectasis is identified throughout the lungs, which is new since the prior study. No significant bronchial wall thickening is evident. Patchy areas of ground-glass attenuation appear to be present within the lungs. There is minimal scarring versus atelectasis within the bilateral posterior lung bases. There is no pneumothorax or pleural effusion. No lung mass or definite pulmonary nodule is appreciated. Mediastinum: Heart size is normal, without pericardial effusion. No mediastinal or hilar adenopathy. Thoracic aorta is normal in caliber and enhancement. Esophagus is normal in caliber, without hiatal hernia. There is a left-sided Port-A-Cath central line identified with the tip position within the high superior vena cava. Bones and chest wall: No suspicious bony lesions. Ribs and thoracic spine appear intact throughout. A thoracic stimulator apparatus is identified that is positioned at approximately the T9 level. Thyroid gland is not enlarged or adequately evaluated on CT. No axillary or supraclavicular adenopathy. Abdomen: Visualized upper abdominal solid organs appear normal in the early arterial phase of enhancement. IMPRESSION: 1. No evidence of pulmonary emboli. 2. Bronchiectasis with patchy areas of ground-glass attenuation throughout the lungs is nonspecific, but raises suspicion for small airways disease such as hypersensitivity pneumonitis, bronchiolitis obliterans, drug toxicity, or potentially connective tissue disease. Please correlate clinically. Dictated by: Sanford Tran M.D. on 02/05/2020 at 12:18 Approved by: Sanford Tran M.D. on 02/05/2020 at 12:25 MDM Narrative Medical decision making narrative: COVID-19 negative. Does not have a PE nor pneumonia on the chest x-ray with a CTA. Patient not hypoxic. Patient has new T-wave inversions in lead 1, 2, aVL. Negative troponin. Patient declined aspirin stating that she was on Eliquis and the fact that she has had a GI bleed in the past. Patient is not anemic to the point of needing blood products.. Not in heart failure. Initially discussed the case with Cardiology at [facility] who recommended that the patient be transferred to their facility given the typical nature of her chest discomfort in the new EKG changes. After accepting there it was noticed that the patient was [facility]. I have contacted [facility] who stated that they would like to keep the patient in your system. Transport and accepting provider arranged by their system. I did discuss the case with the patient and family. Patient is stable for transport. She expressed understanding and agreement. Discharge Plan Departure Patient Disposition: [facility] Clinical Impression: Shortness of breath Chest pain Qualifiers: Chest pain type: unspecified Qualified Code(s): R07.9 - Chest pain, unspecified Prescriptions: No Action bupropion HCl [Wellbutrin SR] 150 mg tablet sustained-release 12 hr 150 mg PO .COMPLEX MDD 300mg Qty: 90 RF: 2 prazosin [Minipress] 5 mg capsule 20 mg PO BEDTIME Qty: 120 RF: 1 lorazepam 2 mg tablet 2 mg PO QID PRN (Reason: anxiety) 30 Days Qty: 120 RF: 2 vortioxetine 20 mg tablet 20 mg PO DAILY Qty: 90 RF: 0 olanzapine 2.5 mg tablet 5 mg PO BID PRN (Reason: episode) Qty: 60 RF: 2 gabapentin [Neurontin] 600 mg tablet 1,200 mg PO BEDTIME Qty: 180 RF: 2 apixaban 5 mg tablet 5 mg PO BID Qty: 180 RF: 3 suvorexant 20 mg tablet 20 mg PO BEDTIME Qty: 30 RF: 2 promethazine 25 mg tablet 25 - 50 mg PO Q6H PRN (Reason: NAUSEA AND INSOMNIA) Qty: 90 RF: 2 ondansetron HCl [Zofran] 4 mg tablet 4 - 8 mg PO TID PRN (Reason: nausea and vomiting) Qty: 180 RF: 2 fluticasone propionate [Flonase Allergy Relief] 50 mcg/actuation spray ,suspension 2 spray Intranasal BEDTIME Qty: 16 RF: 5 zonisamide 100 mg capsule 200 mg PO DAILY Qty: 60 RF: 5 lamotrigine 150 mg tablet 150 mg PO BID Qty: 180 RF: 0 prazosin 2 mg capsule 2 mg PO BEDTIME Qty: 90 RF: 0 acetaminophen 500 mg Tablet 1,000 mg PO Q6H PRN (Reason: Pain, Mild) RF: 0 ascorbic acid (vitamin C) [Vitamin C] 1,000 mg Tablet 500 mg BID RF: 0 vitamin E 600 unit Capsule 600 unit PO DAILY RF: 0 omeprazole 20 mg Capsule,Delayed Release(Dr/Ec) 20 mg PO BID RF: 0 Caltrate 600 plus D 600 mg (1,500 mg)-800 unit Tablet,Chewable 2 tab PO BID RF: 0 cetirizine [Zyrtec] 10 mg Tablet 10 mg PO DAILY RF: 0 albuterol sulfate 90 mcg/actuation Hfa Aerosol Inhaler 2 puff INHALATION Q6H PRN (Reason: Shortness Of Breath) RF: 0 clonidine HCl 0.1 mg tablet 0.1 mg PO TID PRN (Reason: Anxiety) RF: 0 tizanidine [Zanaflex] 4 mg capsule 4 mg PO BEDTIME RF: 0 (DME) Resmed Aircurve 10 BIPAP Qty: 1 RF: 0 Referrals: Yunier Keys MD [Primary Care Provider] -
--- NOTE | 2020-02-05 11:11 | DI.RAD.S_ITS ---
PROCEDURE: XR CHEST 2V INDICATIONS: Eval for pneumonia TECHNIQUE: 2 views of the chest were acquired. COMPARISON: None. FINDINGS: Surgical changes and devices: Unchanged left chest wall central port and partially visualized simulator leads. EKG leads project over the chest. Lungs and pleura: Lungs are clear other than a tiny focus of streaky atelectasis in the left lung base. No pleural effusions or pneumothorax. Mediastinum: Mediastinal contours are normal. Heart size is normal. Bones and chest wall: No suspicious bony abnormalities. Soft tissues appear unremarkable. IMPRESSION: No acute cardiopulmonary process. Dictated by: Luis Rubalcava M.D. on 02/05/2020 at 11:26 Approved by: Luis Rubalcava M.D. on 02/05/2020 at 11:24
[2020-02-05] MEDS: LIDOCAINE 2% INJ MDV 1 ML SUBCUT (11:17)
[2020-02-05] MEDS: ALBUTEROL HFA 60 PUFF/8 GM INH INH (11:29)
[2020-02-05 11:45] LABS: Add Manual Diff / Slide Review NO; Basophils Absolute Auto 0 /uL (0-100); Basophils Percent Auto 0.6 % (0-2); Eosinophils Absolute Auto 200 /uL (0-450); Eosinophils Percent Auto 7.7 % (2-4); Hematocrit 35.5 % (36-46); Hemoglobin 11.6 g/dL (12.0-16.0); Lymphocytes Absolute Auto 1200 /uL (1100-4500); Lymphocytes Percent Auto 37.3 % (25-40); Mean Corpuscular HGB Conc 32.6 % (30-36); Mean Corpuscular Hemoglobin 29.7 PG (26-34); Mean Corpuscular Volume 90.9 fL (80-100); Monocytes Absolute Auto 300 /uL (0-900); Monocytes Percent Auto 8.8 % (3-14); Neutrophils Absolute Auto 1400 /uL (1500-7000); Neutrophils Percent Auto 45.6 % (50-75); Platelet Count 252 X10^3/uL (150-400); Red Cell Distribution Width 15.8 % (11.6-14.8); White Blood Cell Count 3.1 X10^3/uL (4.5-11.0)
[2020-02-05 11:56] LABS: BUN Creatinine Ratio 20.4 (6-22); Blood Urea Nitrogen 19 mg/dL (7-17); Carbon Dioxide 28 mmol/L (22-32); Chloride 105 mmol/L (98-107); Estimated Glomerular Filt Rate > 60.0 mL/min (>60); Glucose 95 mg/dL (70-100); HEMOLYSIS < 15 (0-50); Potassium 3.9 mmol/L (3.4-5.1); Sodium 137 mmol/L (137-145)
[2020-02-05] MEDS: ACETAMINOPHEN 325 MG TABLET 975 MG PO (12:04)
[2020-02-05 12:06] LABS: NT-proBNP (BNP-Adult 18+) 75 pg/mL (<125)
[2020-02-05] MEDS: ONDANSETRON 4 MG/2 ML INJ IV ×2 (12:06→13:16)
[2020-02-05 12:08] LABS: Troponin I < 0.012 ng/mL (0.01-0.034)
[2020-02-05 12:15] LABS: Procalcitonin < 0.05 ng/mL (<0.5)
--- NOTE | 2020-02-05 12:51 | DI.CT.S_ITS ---
PROCEDURE: CT ANGIO CHEST PE PROTOCOL INDICATIONS: Chest pain, shortness of breath, tachycardia TECHNIQUE: After the administration of intravenous contrast, 2 mm thick sections acquired from the pulmonary apices to the posterior costophrenic angles. 3-dimensional maximum intensity projection (MIP) coronal and sagittal reformats were then acquired through the thorax. For radiation dose reduction, the following was used: automated exposure control, adjustment of mA and/or kV according to patient size. COMPARISON: [facility], CT, CT ANGIO CHEST PE PROTOCOL, 05/23/2019, 16:04. [facility], CT, PE STUDY (CTA CHEST), 06/21/2015, 13:43. FINDINGS: Image quality: Diagnostic. Pulmonary arteries: Pulmonary arteries are normal in size, and demonstrate no intraluminal filling defects to suggest central pulmonary embolism. Lungs and pleura: Diffuse bronchiectasis is identified throughout the lungs, which is new since the prior study. No significant bronchial wall thickening is evident. Patchy areas of ground-glass attenuation appear to be present within the lungs. There is minimal scarring versus atelectasis within the bilateral posterior lung bases. There is no pneumothorax or pleural effusion. No lung mass or definite pulmonary nodule is appreciated. Mediastinum: Heart size is normal, without pericardial effusion. No mediastinal or hilar adenopathy. Thoracic aorta is normal in caliber and enhancement. Esophagus is normal in caliber, without hiatal hernia. There is a left-sided Port-A-Cath central line identified with the tip position within the high superior vena cava. Bones and chest wall: No suspicious bony lesions. Ribs and thoracic spine appear intact throughout. A thoracic stimulator apparatus is identified that is positioned at approximately the T9 level. Thyroid gland is not enlarged or adequately evaluated on CT. No axillary or supraclavicular adenopathy. Abdomen: Visualized upper abdominal solid organs appear normal in the early arterial phase of enhancement. IMPRESSION: 1. No evidence of pulmonary emboli. 2. Bronchiectasis with patchy areas of ground-glass attenuation throughout the lungs is nonspecific, but raises suspicion for small airways disease such as hypersensitivity pneumonitis, bronchiolitis obliterans, drug toxicity, or potentially connective tissue disease. Please correlate clinically. Dictated by: Sanford Tran M.D. on 02/05/2020 at 12:18 Approved by: Sanford Tran M.D. on 02/05/2020 at 12:25
[2020-02-05] MEDS: SODIUM CHLORIDE 0.9% 1,000 ML 1000 ML IV (13:16)
[2020-02-05] MEDS: MORPHINE 4 MG/ML INJ IV ×2 (13:16→15:40)
[2020-02-05] MEDS: ASPIRIN 81 MG CHEW TAB 324 MG PO (13:16)
[2020-02-05 14:05] LABS: COVID19 -Nasal RAPID Negative (Negative)
[2020-02-05] MEDS: PROMETHAZINE 25 MG TABLET PO (15:39)
== END 2020-02-05 18:05 | disposition short-term general hospital (02) ==
PROVIDERS: Emergency Provider Emergency Medicine; Family Provider Student in an Organized Health Care Education/Training Program; PCP Student in an Organized Health Care Education/Training Program
DX: R06.02 Shortness of breath (principal); R07.9 Chest pain, unspecified; R51 Headache; R05 Cough; J02.9 Acute pharyngitis, unspecified; Z79.01 Long term (current) use of anticoagulants; R00.0 Tachycardia, unspecified
CPT/HCPCS: 36415; 71046; 71275; 80048; 83880; 84145; 84484; 85025; 87635; 93005; 93010; 96361; 96374; 96375; 96376; 99284; 99285; J2270; J2405

== ENCOUNTER → 2020-02-24 16:56 | Outpatient (CLI) | payer OTHER, SELFPAY ==
[2020-01-23 12:13] VITALS: BMI 44.6
[2020-01-24 12:30] VITALS: RESP 17; O2SAT 94
--- NOTE | 2020-02-24 16:59 | DI.MG.S_ITS ---
BILATERAL DIGITAL SCREENING MAMMOGRAM 3D/2D WITH CAD: 02/24/2020 CLINICAL: Routine screening. Family history of breast cancer. Comparison is made to exams dated: 11/13/2018 mammogram, 10/10/2016 mammogram - [facility], and 05/27/2014 mammogram - [facility]. The tissue of both breasts is heterogeneously dense. This may lower the sensitivity of mammography. Current study was also evaluated with a Computer Aided Detection (CAD) system. There is irregular equal density architectural distortion with an indistinct margin in the left breast at 1 o'clock middle depth. No other significant masses, calcifications, or other findings are seen in either breast. IMPRESSION: INCOMPLETE: NEEDS ADDITIONAL IMAGING EVALUATION The irregular equal density architectural distortion in the left breast is indeterminate. Mediolateral and spot compression views as well as additional views with possible ultrasound are recommended. This exam was interpreted at Station ID: [id number]. NOTE: For mammograms, a report in lay terms will be sent to the patient. Approximately 15% of breast malignancies will not be visualized mammographically. In the management of a palpable breast mass, a negative mammogram must not discourage biopsy of a clinically suspicious lesion. Electronically Signed By: Donte vidal/blue:02/25/2020 08:10:30 letter sent: Additional Imaging Needed ACR BI-RADS Category 0: Incomplete 3340F
== END ==
PROVIDERS: Family Provider Student in an Organized Health Care Education/Training Program; PCP Student in an Organized Health Care Education/Training Program; Referring Provider Student in an Organized Health Care Education/Training Program; Visit Provider Student in an Organized Health Care Education/Training Program
DX: Z12.31 Encounter for screening mammogram for malignant neoplasm of breast (principal); Z80.3 Family history of malignant neoplasm of breast
CPT/HCPCS: 77063; 77067

== ENCOUNTER → 2020-03-17 12:42 | Outpatient (CLI) | payer OTHER, SELFPAY ==
[2020-01-23 12:13] VITALS: BMI 44.6
[2020-01-24 12:30] VITALS: RESP 17; O2SAT 94
--- NOTE | 2020-03-17 12:58 | DI.MG.S_ITS ---
Patient Name: THOMAS MURILLO date: 1970 Sex: F Attending Physician: Ludmila Indications: Date: 03/17/2020 12:50 At the request of: NEMO TURNER Procedure: MM special view LT UNILATERAL LEFT DIGITAL DIAGNOSTIC MAMMOGRAM 3D/2D WITH ADDITIONAL VIEWS: 03/17/2020 CLINICAL: Additional evaluation requested from prior study. Comparison is made to exams dated: 02/24/2020 mammogram, 11/13/2018 mammogram, and 10/10/2016 mammogram - [facility]. The tissue of left breast is heterogeneously dense. This may lower the sensitivity of mammography. The previously described irregular equal density with possible architectural distortion is less prominent and decreased in size, demonstrating near complete dispersion on today's additional imaging. No other significant masses or calcifications are seen in the breast. IMPRESSION: INCOMPLETE: NEEDS ADDITIONAL IMAGING EVALUATION The irregular equal density with possible architectural distortion in the left breast remains indeterminate. An ultrasound is recommended for further evaluation and is scheduled to immediately follow this study. This exam was interpreted at Station ID: [id number]. NOTE: For mammograms, a report in lay terms will be sent to the patient. Approximately 15% of breast malignancies will not be visualized mammographically. In the management of a palpable breast mass, a negative mammogram must not discourage biopsy of a clinically suspicious lesion. Electronically Signed By: Nicolas Dumont M.D. aty/:03/17/2020 15:48:14 ACR BI-RADS Category 0: Incomplete 3340F Continued Report - Page 2 of 2 Patient Name: THOMAS MURILLO date: 1970 Sex: F Attending Physician: Ludmila Indications: Date: 03/17/2020 12:50 At the request of: NEMO TURNER Procedure: MM special view LT
--- NOTE | 2020-03-17 13:20 | DI.US.S_ITS ---
Patient Name: THOMAS MURILLO date: 1970 Sex: F Attending Physician: Ludmila Indications: Date: 03/17/2020 13:35 At the request of: NEMO TURNER Procedure: US breast LT limited ULTRASOUND OF LEFT BREAST: 03/17/2020 CLINICAL: Patient returns today to evaluate a density in the left breast. Patient returns today to evaluate a focal asymmetry in the left breast. Comparison is made to exams dated: 03/17/2020 mammogram, 02/24/2020 mammogram, 11/13/2018 mammogram, 10/10/2016 mammogram - [facility], 05/27/2014 mammogram, and 04/29/2013 mammogram - [facility]. Color flow and real-time ultrasound of the left breast were performed. Sandra scale images of the real-time examination were reviewed. No significant abnormalities were seen sonographically in the left breast. IMPRESSION: PROBABLY BENIGN There is no abnormality seen in the left breast to correspond with the previously described irregular asymmetry with possible architectural distortion that demonstrated near complete dispersion on today's earlier mammographic evaluation. This is a probably benign finding. A follow-up left mammogram with possible left ultrasound in 6 months is recommended to demonstrate stability. Findings and recommendatios were conveyed to the patient during today's visit. This exam was interpreted at Station ID: [id number]. Electronically Signed By: Nicolas Dumont M.D. aty/:03/17/2020 15:52:14 letter sent: Followup Recommended Ultrasound BI-RADS: 3 Probably benign
== END ==
PROVIDERS: Family Provider Student in an Organized Health Care Education/Training Program; PCP Student in an Organized Health Care Education/Training Program; Referring Provider Student in an Organized Health Care Education/Training Program; Visit Provider Student in an Organized Health Care Education/Training Program
DX: R92.8 Other abnormal and inconclusive findings on diagnostic imaging of breast (principal); N64.89 Other specified disorders of breast
CPT/HCPCS: 76642; 77065; G0279

== ENCOUNTER 2020-04-19 11:15 | Outpatient (RCR) | payer OTHER, SELFPAY ==
[2020-01-23 12:13] VITALS: BMI 44.6
[2020-01-24 12:30] VITALS: RESP 17; O2SAT 94
--- NOTE | 2020-03-15 16:00 | PT.OIE ---
Current Diagnoses Lumbago with sciatica, right side (03/15/20) Past Medical History (Last Reviewed 02/05/20 @ 11:41 by Kingsley George DO) Abnormal CXR (chest x-ray) (Resolved) Ankle fracture, left (Resolved 1986) Anxiety (Chronic) Arthritis of knee (Chronic) Asthma (Chronic) Bipolar 1 disorder, depressed (Chronic) Chicken pox (Resolved) Chronic anemia (Chronic) Chronic back pain (Chronic) Chronic headaches (Chronic) Chronic neck pain (Chronic) Depression (Chronic) Diabetes mellitus (Resolved) Diastolic dysfunction (Chronic) Fatty liver (Chronic) GERD (gastroesophageal reflux disease) (Chronic) GI bleeding (Resolved) High risk medication use (Chronic) Hyperlipidemia (Chronic) Hypertension (Chronic) 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) Irregular periods/menstrual cycles (Chronic) Ischemic colitis (Resolved 2013) Lumbar spine pain (Chronic) Migraines (Chronic) Neck arthritis (Chronic) Obstructive sleep apnea syndrome (Chronic 2008) Panic attacks (Chronic) Plantar warts (Resolved) PTSD (post-traumatic stress disorder) (Chronic) Pulmonary embolism (Resolved 2006) Pulmonary hypertension (Chronic) S/P ECT (electroconvulsive therapy) (Resolved 2013) Shoulder arthritis (Chronic) Spinal cord stimulator status (Chronic) Transient hypotension (Resolved) Past Surgical History (Last Reviewed 02/05/20 @ 11:41 by Kingsley George DO) Anesthesia (Resolved) History of bowel resection (Resolved 1995) History of endometrial ablation (Resolved 2008) History of esophagogastroduodenoscopy (EGD) (Resolved 04/19/17) History of gastric bypass (Resolved 2009) History of open reduction and internal fixation (ORIF) procedure (Resolved 1986) History of spinal surgery (Resolved 2010) Status post cardiac catheterization (Resolved 2007) Status post cholecystectomy (Resolved 2007) Status post peripherally inserted central catheter (PICC) central line placement (Resolved 04/04/17) Visit Care Team Role Provider Type Yunier Keys MD Attending Provider Physician Family Provider Primary Care Provider Referring Provider Specialty: Internal Medicine Address: [address] [place] [address], [address], [address] Email: [email or web address] Physical Therapy Initial Evaluation PT-OP-A Visit Information Start: 03/15/20 12:55 Freq: Status: Active Protocol: Document 03/15/20 12:55 (Rec: 03/15/20 14:35 [id number]) Out-Patient Physical Therapy Visit Information Visit Information Visit Type Initial Evaluation Visit Start Time 13:00 Visit Stop Time 13:43 Total Visit Minutes 43 Visit Number 08/06 Number of CHIEF WRITER Visits 0 Evaluation Information Evaluation Date 03/15/20 PT-OP-B Current Condition Start: 03/15/20 12:55 Freq: Status: Active Protocol: Document 03/15/20 12:55 (Rec: 03/15/20 14:35 [id number]) Current Condition History of Current Condition Onset Date Many years ago Current Complaints LBP, Neck pain, radiating pain to legs, numbness in hands History of Current Condition Pt is a 49 yo female here for her chronic back pain and neck pain with radiating pain to legs and numbness to B hands. 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 Pt had chiropractic tx for many years ago and x-ray showed deterioration at S1 region, disc herniation at cervical region and slight scoliosis. Pt has had a spinal nerve stimulator implanted since 2010. Pt started to have sciatica achy/ sharp pain mostly on R LE than LLE. Pt stated standing and prolonged walking make her pain worse with tightness sensation. Pt cannot stand more than 15 mins but sitting in her recliner tends to make her feel better since sleeping in supine hurts a lot. Pt has been seeing chiropractor and it is helpful to her. She also stated she had a lengthy opiod treatment for many years with Parcocet, fetanyl patch and tramadol but they all didnt work. Pt took ibuprofen 800mg every 6-8 hours in January with other medication which caused her acute GI bleed in January who was hospitalized for days. Pt has lost weight since GI bleed = 239.6 lbs. Pt overall has complicated PMH and past surgical hx, see attachment in chart. Prior Treatments and Tests See chart with provided PMH and past surgical hx Treatment Goals Patient/Caregiver Goals 1. To be able to increase activity tolerance such as standing >15 mins, walking > 15 mins 2. To reduce her back pain as much as she can. Personal Factors Other Personal Factors That May Effect Bipolar disorder -- pt Therapy/Recovery recently has a maniac epidsode who hasnt slept for days. Major Depression PTSD PT-OP-C Subjective Start: 03/15/20 12:55 Freq: Status: Active Protocol: Document 03/15/20 12:55 HH (Rec: 03/15/20 14:35 HH [id number]) Patient Questionnaires Lower Extremity Functional Scale LEFS Score 23 LEFS Impairment 60 to 79% Impaired (Score 17- 31) Oswestry Low Back Index Oswestry Score 62 Oswestry Impairment 60 to 79% Impaired (Score 60- 79) OP-PT Pain Assessment Location back Pain Location Details mid to low back (low back worst) Intensity 6 Description Aching,Pinching,Pressure, Radiating Frequency Constant Radiating Location Posterior to her LEs Pain Aggravating Factors Position,Activity,Exercise, Standing,Walking,Bending, Lifting Pain Alleviating Factors Sitting PT-OP-F Manual Assessment Start: 03/15/20 12:55 Freq: Status: Active Protocol: Document 03/15/20 12:55 HH (Rec: 03/16/20 08:49 HH [email or web address]) Manual Assessments Soft Tissue Assessment Soft Tissue Mobility Assessment TTP to R SIJ area and worse than L. TTP to center of sacral region PT-OP-H Neuro Start: 03/15/20 12:55 Freq: Status: Active Protocol: Document 03/15/20 12:55 HH (Rec: 03/16/20 08:49 HH [email or web address]) Deep Tendon Reflex & Clonus Assessment Deep Tendon Reflex Bilateral Achilles Deep Tendon Reflex 2+ Normal Bilateral Patellar Deep Tendon Reflex 3+ Normal But Brisk PT-OP-J Posture/Palpation/Skin Start: 03/15/20 12:55 Freq: Status: Active Protocol: Document 03/15/20 12:55 HH (Rec: 03/16/20 08:49 HH [email or web address]) Posture Evaluation Position Standing Evaluation View Anterior Pelvis Posture Anteriorly Tilted Knee Posture (L) Genu Valgus,(R) Genu Valgus PT-OP-K Range of Motion Start: 03/15/20 12:55 Freq: Status: Active Protocol: Document 03/15/20 12:55 HH (Rec: 03/16/20 08:49 HH [email or web address]) Lumbar Spine Range of Motion Lumbar Spine Active Degrees Comments toe touch test =9 from floor (pulling sensation at lumbar) lateral flexion to R= 23 from floor (pressure and pinching pain at R SIJ region0 lateral flexion to L = 20 from floor (less pressure and pinching pain at L SIJ region) extension = approx 8 degrees from neutral ( pressure pain at center of L4-5) PT-OP-L Special Tests Start: 03/15/20 12:55 Freq: Status: Active Protocol: Document 03/15/20 12:55 (Rec: 03/16/20 08:49 [email or web address]) Special Tests Lumbar Spine Special Tests Vertical Spine Loading Test Results +ve Comments pain at center of lower lumbar and sacral region Straight Leg Raise Test Results +ve on R Comments R= 65 degrees with pain at back, L= 80 degrees Slump Test Results +ve on R Comments pain with DF, knee extension and Cervical flexion Hip Special Tests FADDIR Test Results +ve R Comments reproduced pain at R SIJ region SHRUTI Test Results -ve B Comments tightness at buttock region PT-OP-M Strength Start: 03/15/20 12:55 Freq: Status: Active Protocol: Document 03/15/20 12:55 (Rec: 03/16/20 08:49 [email or web address]) Hip Strength Hip Manual Muscle Testing Right Flexion (L2) 4- Good- Extension (S1) 4- Good- Abduction 3+ Fair+ Adduction 4- Good- Left Flexion (L2) 4- Good- Extension (S1) 4- Good- Abduction 3+ Fair+ Adduction 4 Good Knee Strength Knee Manual Muscle Testing Right Flexion (S2) 4 Good Extension (L3) 4 Good Left Flexion (S2) 4 Good Extension (L3) 4 Good Ankle/Foot Strength Ankle and Foot Manual Muscle Testing Right Dorsiflexion (L4) 4 Good Plantarflexion (S1) 4 Good Left Dorsiflexion (L4) 4 Good Plantarflexion (S1) 4 Good PT-OP-T Assessment and Plan Start: 03/15/20 12:55 Freq: Status: Active Protocol: Document 03/15/20 12:55 (Rec: 03/16/20 08:49 [email or web address]) Physical Therapy Assessment Rehab Potential Rehabilitation Potential Good Evaluation Complexity Number of Personal Factors/Comorbidities 3 or More Number of Body Systems Impaired 4 or More Clinical Presentation at Evaluation Stable Impairments Impairments Activity Tolerance,Balance, Functional Activities, Functional Mobility,Gait,Pain, Posture,ROM,Sensation,Soft Tissue Mobility,Strength, Transfers Goals neuro symptoms Impairment radiating pain down to B LEs Intermediate Goal (LTG) Pt will improve her neural sensitivity and not have radiating pain/ back pain with SLR at 80 degrees and slump test LTG Duration 8 weeks ROM Impairment very limited trunk ROM Marker Machine Goal (LTG) Pt will reach toe touch test = 7 from floor lateral flexion to R= 20 from floor lateral flexion to L = 18 from floor extension = approx 15 degrees from neutral LTG Duration 12 weeks LEFS 2 Impairment pt scores 23 Short Term Goal (STG) pt will score 30 or great to improve her quality of life STG Duration 6 weeks Marker Machine Goal (LTG) pt will score 35 or more to improve her mobility such as walking, bending over and glove former with minimal discomfort. LTG Duration 12 weeks Oswestry Impairment pt scores 62 Short Term Goal (STG) pt will score 70 or greater to improve her quality of life STG Duration 6 weeks Intermediate Goal (LTG) pt will score 80 or greater in order to improve her activity tolerance such as standing/ walking > 20 mins in a daily basis LTG Duration 12 weeks Assessment Summary Assessment This is a high complexity evaluation for this 49 yo obese female here for chronic low back pain and neck pain. Pain was reproduced with SLR, Slump test and FADDIR which indicate possible lumbar/ sacral radiculopathy and piriformis syndrome. She has very limited trunk ROM who is very pain sensitive. Pt has a very lengthy complicated PMH , past surgical hx and past psychiatric histroy which can be limiting factors to her progress but she will still benefit from skilled therapy to improve her overall trunk ROM, trunk strength and stability and overall strength in order for her to have better activity tolerance. Physical Therapy Plan Frequency and Duration Frequency of Treatment 2x/Week Duration of Treatment 12 weeks Plan of Care Start Date 03/15/20 Plan of Care End Date 07/14/20 Therapeutic Interventions Therapeutic Interventions Balance Training,Gait Training ,Home Exercise Program,Joint Mobilizations,Manual Therapy, Neuromuscular Re-education, Patient/Caregiver Education, Self-Care/Home Management,Soft Tissue Mobilization,Taping, Therapeutic Activities, Therapeutic Exercises Next Visit Focus/Plan Next Note Type Treatment Note Next Visit Plan stepper manual therapy at SIJ, piriformis figure 4 stretch seated trunk flexion reach pelvic tilt briding if tolerable LTR
--- NOTE | 2020-03-15 16:00 | PT.OPPOC ---
Physical, Occupational & Speech Therapy At [facility] Current Diagnoses Lumbago with sciatica, right side (03/15/20) Visit Care Team Role Provider Type Yunier Keys MD Attending Provider Physician Family Provider Primary Care Provider Referring Provider Specialty: Internal Medicine Address: [address] [place] [address], [facility] Email: [email or web address] Plan Of Care PT-OP-T Assessment and Plan Start: 03/15/20 12:55 Freq: Status: Active Protocol: Document 03/15/20 12:55 (Rec: 03/16/20 08:49 [email or web address]) Physical Therapy Assessment Rehab Potential Rehabilitation Potential Good Evaluation Complexity Number of Personal Factors/Comorbidities 3 or More Number of Body Systems Impaired 4 or More Clinical Presentation at Evaluation Stable Impairments Impairments Activity Tolerance,Balance, Functional Activities, Functional Mobility,Gait,Pain, Posture,ROM,Sensation,Soft Tissue Mobility,Strength, Transfers Goals neuro symptoms Impairment radiating pain down to B LEs Layout Technician Goal (LTG) Pt will improve her neural sensitivity and not have radiating pain/ back pain with SLR at 80 degrees and slump test LTG Duration 8 weeks ROM Impairment very limited trunk ROM Senior Care Goal (LTG) Pt will reach toe touch test = 7 from floor lateral flexion to R= 20 from floor lateral flexion to L = 18 from floor extension = approx 15 degrees from neutral LTG Duration 12 weeks LEFS 2 Impairment pt scores 23 Short Term Goal (STG) pt will score 30 or great to improve her quality of life STG Duration 6 weeks Layout Technician Goal (LTG) pt will score 35 or more to improve her mobility such as walking, bending over and veterinary surgery technologist with minimal discomfort. LTG Duration 12 weeks Oswestry Impairment pt scores 62 Short Term Goal (STG) pt will score 70 or greater to improve her quality of life STG Duration 6 weeks Senior Care Goal (LTG) pt will score 80 or greater in order to improve her activity tolerance such as standing/ walking > 20 mins in a daily basis LTG Duration 12 weeks Assessment Summary Assessment This is a high complexity evalution for this 49 yo obese female here for chronic low back pain and neck pain. Pain was reproduced with SLR, Slump test and FADDIR which indicate possible lumbar/ sacral radiculopathy and piriformis syndrome. She has very limited trunk ROM who is very pain sensitive. Pt has a very lengthy comlpicated PMH , past surgical hx and past psychiatric histroy which can be limitating factors to her progress but she will still benefit from skilled therapy to improve her overall trunk ROM, trunk strength and stability and overall strength in order for her to have better activity tolerance. Physical Therapy Plan Frequency and Duration Frequency of Treatment 2x/Week Duration of Treatment 12 weeks Plan of Care Start Date 03/15/20 Plan of Care End Date 07/14/20 Therapeutic Interventions Therapeutic Interventions Balance Training,Gait Training ,Home Exercise Program,Joint Mobilizations,Manual Therapy, Neuromuscular Re-education, Patient/Caregiver Education, Self-Care/Home Management,Soft Tissue Mobilization,Taping, Therapeutic Activities, Therapeutic Exercises Next Visit Focus/Plan Next Note Type Treatment Note Next Visit Plan stepper manual therapy at SIJ, piriformis figure 4 stretch seated trunk flexion reach pelvic tilt briding if tolerable LTR Plan of Care Dates Plan of Care Start Date 03/15/20 Plan of Care End Date 07/14/20 Electronically Signed by: Sangeeta Diaz, PT 03/16/20 0831 Please Sign and Return: I have reviewed this Plan of Care and certify that the skilled therapy services above are required to meet the patient?s needs. Physician Signature Date Printed Name and Credentials Clinical Instructor Signature Printed Name and Credentials
--- NOTE | 2020-03-18 14:31 | PT.OTN ---
Current Diagnoses Lumbago with sciatica, right side (03/18/20) Physical Therapy Treatment Note PT-OP-A Visit Information Start: 03/15/20 12:55 Freq: Status: Active Protocol: Document 03/18/20 13:47 HH (Rec: 03/18/20 14:31 HH [id number]) Out-Patient Physical Therapy Visit Information Visit Information Visit Type Treatment Note Visit Start Time 13:46 Visit Stop Time 14:29 Total Visit Minutes 43 Visit Number 2/ Number of STRIPER MACHINE Visits 0 PT-OP-B Current Condition Start: 03/15/20 12:55 Freq: Status: Active Protocol: Document 03/15/20 12:55 HH (Rec: 03/15/20 14:35 HH [id number]) Current Condition History of Current Condition Onset Date Many years ago Current Complaints LBP, Neck pain, radiating pain to legs, numbness in hands History of Current Condition Pt is a 49 yo female here for her chronic back pain and neck pain with radiating pain to legs and numbness to B hands. 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 Pt had chiropractic tx for many years ago and x-ray showed deterioration at S1 region, disc herniation at cervical region and slight scoliosis. Pt has had a spinal nerve stimulator implanted since 2010. Pt started to have sciatica achy/ sharp pain mostly on R LE than LLE. Pt stated standing and prolonged walking make her pain worse with tightness sensation. Pt cannot stand more than 15 mins but sitting in her recliner tends to make her feel better since sleeping in supine hurts a lot. Pt has been seeing chiropractor and it is helpful to her. She also stated she had a lengthy opiod treatment for many years with Parcocet, fetanyl patch and tramadol but they all didnt work. Pt took ibuprofen 800mg every 6-8 hours in January with other medication which caused her acute GI bleed in January who was hospitalized for days. Pt has lost weight since GI bleed = 239.6 lbs. Pt overall has complicated PMH and past surgical hx, see attachment in chart. Prior Treatments and Tests See chart with provided PMH and past surgical hx Treatment Goals Patient/Caregiver Goals 1. To be able to increase activity tolerance such as standing >15 mins, walking > 15 mins 2. To reduce her back pain as much as she can. Personal Factors Other Personal Factors That May Effect Bipolar disorder -- pt Therapy/Recovery recently has a maniac epidsode who hasnt slept for days. Major Depression PTSD PT-OP-C Subjective Start: 03/15/20 12:55 Freq: Status: Active Protocol: Document 03/18/20 13:47 HH (Rec: 03/18/20 14:31 HH [id number]) OP-PT Subjective Patient Comments Patient Comments I accidentally tripped yesterday at the park and i fell on R hip and knee. Its quite painful today. PT-OP-F Manual Assessment Start: 03/15/20 12:55 Freq: Status: Active Protocol: Document 03/15/20 12:55 HH (Rec: 03/16/20 08:49 HH [email or web address]) Manual Assessments Soft Tissue Assessment Soft Tissue Mobility Assessment TTP to R SIJ area and worse than L. TTP to center of sacral region PT-OP-H Neuro Start: 03/15/20 12:55 Freq: Status: Active Protocol: Document 03/15/20 12:55 HH (Rec: 03/16/20 08:49 HH [email or web address]) Deep Tendon Reflex & Clonus Assessment Deep Tendon Reflex Bilateral Achilles Deep Tendon Reflex 2+ Normal Bilateral Patellar Deep Tendon Reflex 3+ Normal But Brisk PT-OP-J Posture/Palpation/Skin Start: 03/15/20 12:55 Freq: Status: Active Protocol: Document 03/15/20 12:55 HH (Rec: 03/16/20 08:49 HH [email or web address]) Posture Evaluation Position Standing Evaluation View Anterior Pelvis Posture Anteriorly Tilted Knee Posture (L) Genu Valgus,(R) Genu Valgus PT-OP-K Range of Motion Start: 03/15/20 12:55 Freq: Status: Active Protocol: Document 03/15/20 12:55 HH (Rec: 03/16/20 08:49 HH [email or web address]) Lumbar Spine Range of Motion Lumbar Spine Active Degrees Comments toe touch test =9 from floor (pulling sensation at lumbar) lateral flexion to R= 23 from floor (pressure and pinching pain at R SIJ region0 lateral flexion to L = 20 from floor (less pressure and pinching pain at L SIJ region) extension = approx 8 degrees from neutral ( pressure pain at center of L4-5) PT-OP-L Special Tests Start: 03/15/20 12:55 Freq: Status: Active Protocol: Document 03/15/20 12:55 HH (Rec: 03/16/20 08:49 [email or web address]) Special Tests Lumbar Spine Special Tests Vertical Spine Loading Test Results +ve Comments pain at center of lower lumbar and sacral region Straight Leg Raise Test Results +ve on R Comments R= 65 degrees with pain at back, L= 80 degrees Slump Test Results +ve on R Comments pain with DF, knee extension and Cervical flexion Hip Special Tests FADDIR Test Results +ve R Comments reproduced pain at R SIJ region SHRUTI Test Results -ve B Comments tightness at buttock region PT-OP-M Strength Start: 03/15/20 12:55 Freq: Status: Active Protocol: Document 03/15/20 12:55 (Rec: 03/16/20 08:49 [email or web address]) Hip Strength Hip Manual Muscle Testing Right Flexion (L2) 4- Good- Extension (S1) 4- Good- Abduction 3+ Fair+ Adduction 4- Good- Left Flexion (L2) 4- Good- Extension (S1) 4- Good- Abduction 3+ Fair+ Adduction 4 Good Knee Strength Knee Manual Muscle Testing Right Flexion (S2) 4 Good Extension (L3) 4 Good Left Flexion (S2) 4 Good Extension (L3) 4 Good Ankle/Foot Strength Ankle and Foot Manual Muscle Testing Right Dorsiflexion (L4) 4 Good Plantarflexion (S1) 4 Good Left Dorsiflexion (L4) 4 Good Plantarflexion (S1) 4 Good PT-OP-Q Treatments Start: 03/15/20 12:55 Freq: Status: Active Protocol: Document 03/18/20 13:47 HH (Rec: 03/18/20 14:31 [id number]) Therapeutic Exercises Supine Exercises supine marching Reps/Minutes 10 x 2 RODERICK Supine Exercise Name APT and PPT Reps/Minutes 2 mins piriformis stretch Side right Reps/Minutes 15 sec x5 Comments for HEP hamstrings stretch Supine Exercise Name with blue band Side right Reps/Minutes 15 sec x 5 Comments for HEP, with ankle DF and PF Manual Therapy Treatment Soft Tissue Mobilization glute and piriformis Body Location rolling pin Mobilization Type Rolling,Sustained Pressure, Trigger Point Release Intensity/Depth Moderate Body Position Sidelying Comments significant tenderness noted but relieved afterwards Nerve Glides sciatic nerve glide Nerve sciatic nerve floss with ankle DF PF Body Position Supine Reps/Duration 2 mins Comments up to SLR 80 degrees. PT-OP-T Assessment and Plan Start: 03/15/20 12:55 Freq: Status: Active Protocol: Document 03/18/20 13:47 HH (Rec: 03/18/20 14:31 HH [id number]) Physical Therapy Assessment Goals ROM Impairment very limited trunk ROM Care Home Goal (LTG) Pt will reach toe touch test = 7 from floor lateral flexion to R= 20 from floor lateral flexion to L = 18 from floor extension = approx 15 degrees from neutral LTG Duration 12 weeks LEFS 2 Impairment pt scores 23 Short Term Goal (STG) pt will score 30 or great to improve her quality of life STG Duration 6 weeks Care Home Goal (LTG) pt will score 35 or more to improve her mobility such as walking, 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 LTG Duration 12 weeks Oswestry Impairment pt scores 62 Short Term Goal (STG) pt will score 70 or greater to improve her quality of life STG Duration 6 weeks Behavioral Science Chair Goal (LTG) pt will score 80 or greater in order to improve her activity tolerance such as standing/ walking > 20 mins in a daily basis LTG Duration 12 weeks Assessment Summary Assessment Pt initially has radiating back pain with SLR up to approx 70 degrees but no pain after nerve glide and manual therapy at glutes and piriformis. Added piriformis stretch, SLR, nerve glide and RODERICK. Pt kelby session well. Rec pt to do 2x/week for next week then once /week x6-8 weeks d/ t her high copay. Physical Therapy Plan Frequency and Duration Frequency of Treatment 2x/Week Duration of Treatment 12 weeks Plan of Care Start Date 03/15/20 Plan of Care End Date 07/14/20 Next Visit Focus/Plan Next Note Type Treatment Note Next Visit Plan stepper manual therapy at SIJ, piriformis figure 4 stretch seated trunk flexion reach pelvic tilt briding if tolerable LTR
--- NOTE | 2020-03-25 11:17 | PT.OTN ---
Current Diagnoses Lumbago with sciatica, right side (03/25/20) Physical Therapy Treatment Note PT-OP-A Visit Information Start: 03/15/20 12:55 Freq: Status: Active Protocol: Document 03/25/20 09:49 HH (Rec: 03/25/20 11:16 HH [id number]) Out-Patient Physical Therapy Visit Information Visit Information Visit Type Treatment Note Visit Start Time 09:46 Visit Stop Time 10:30 Total Visit Minutes 44 Visit Number 3/ Number of MARINE SERVICES TECHNICIAN Visits 0 PT-OP-B Current Condition Start: 03/15/20 12:55 Freq: Status: Active Protocol: Document 03/15/20 12:55 HH (Rec: 03/15/20 14:35 HH [id number]) Current Condition History of Current Condition Onset Date Many years ago Current Complaints LBP, Neck pain, radiating pain to legs, numbness in hands History of Current Condition Pt is a 49 yo female here for her chronic back pain and neck pain with radiating pain to legs and numbness to B hands. 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 Pt had chiropractic tx for many years ago and x-ray showed deterioration at S1 region, disc herniation at cervical region and slight scoliosis. Pt has had a spinal nerve stimulator implanted since 2010. Pt started to have sciatica achy/ sharp pain mostly on R LE than LLE. Pt stated standing and prolonged walking make her pain worse with tightness sensation. Pt cannot stand more than 15 mins but sitting in her recliner tends to make her feel better since sleeping in supine hurts a lot. Pt has been seeing chiropractor and it is helpful to her. She also stated she had a lengthy opiod treatment for many years with Parcocet, fetanyl patch and tramadol but they all didnt work. Pt took ibuprofen 800mg every 6-8 hours in January with other medication which caused her acute GI bleed in January who was hospitalized for days. Pt has lost weight since GI bleed = 239.6 lbs. Pt overall has complicated PMH and past surgical hx, see attachment in chart. Prior Treatments and Tests See chart with provided PMH and past surgical hx Treatment Goals Patient/Caregiver Goals 1. To be able to increase activity tolerance such as standing >15 mins, walking > 15 mins 2. To reduce her back pain as much as she can. Personal Factors Other Personal Factors That May Effect Bipolar disorder -- pt Therapy/Recovery recently has a maniac epidsode who hasnt slept for days. Major Depression PTSD PT-OP-C Subjective Start: 03/15/20 12:55 Freq: Status: Active Protocol: Document 03/25/20 09:49 HH (Rec: 03/25/20 11:16 HH [id number]) OP-PT Subjective Patient Comments Patient Comments im doing better and couldnt get comfortable yesterday because of my back and i had trouble doing the piriformis stretch which caused me some pain. But i feel my stretches are helping me. Standing for a long time tends to bother the most. Patient Reported Progress Improving PT-OP-F Manual Assessment Start: 03/15/20 12:55 Freq: Status: Active Protocol: Document 03/15/20 12:55 HH (Rec: 03/16/20 08:49 HH [email or web address]) Manual Assessments Soft Tissue Assessment Soft Tissue Mobility Assessment TTP to R SIJ area and worse than L. TTP to center of sacral region PT-OP-H Neuro Start: 03/15/20 12:55 Freq: Status: Active Protocol: Document 03/15/20 12:55 HH (Rec: 03/16/20 08:49 HH [email or web address]) Deep Tendon Reflex & Clonus Assessment Deep Tendon Reflex Bilateral Achilles Deep Tendon Reflex 2+ Normal Bilateral Patellar Deep Tendon Reflex 3+ Normal But Brisk PT-OP-J Posture/Palpation/Skin Start: 03/15/20 12:55 Freq: Status: Active Protocol: Document 03/15/20 12:55 HH (Rec: 03/16/20 08:49 HH [email or web address]) Posture Evaluation Position Standing Evaluation View Anterior Pelvis Posture Anteriorly Tilted Knee Posture (L) Genu Valgus,(R) Genu Valgus PT-OP-K Range of Motion Start: 03/15/20 12:55 Freq: Status: Active Protocol: Document 03/15/20 12:55 HH (Rec: 03/16/20 08:49 HH [email or web address]) Lumbar Spine Range of Motion Lumbar Spine Active Degrees Comments toe touch test =9 from floor (pulling sensation at lumbar) lateral flexion to R= 23 from floor (pressure and pinching pain at R SIJ region0 lateral flexion to L = 20 from floor (less pressure and pinching pain at L SIJ region) extension = approx 8 degrees from neutral ( pressure pain at center of L4-5) PT-OP-L Special Tests Start: 03/15/20 12:55 Freq: Status: Active Protocol: Document 03/15/20 12:55 HH (Rec: 03/16/20 08:49 [email or web address]) Special Tests Lumbar Spine Special Tests Vertical Spine Loading Test Results +ve Comments pain at center of lower lumbar and sacral region Straight Leg Raise Test Results +ve on R Comments R= 65 degrees with pain at back, L= 80 degrees Slump Test Results +ve on R Comments pain with DF, knee extension and Cervical flexion Hip Special Tests FADDIR Test Results +ve R Comments reproduced pain at R SIJ region SHRUTI Test Results -ve B Comments tightness at buttock region PT-OP-M Strength Start: 03/15/20 12:55 Freq: Status: Active Protocol: Document 03/15/20 12:55 (Rec: 03/16/20 08:49 [email or web address]) Hip Strength Hip Manual Muscle Testing Right Flexion (L2) 4- Good- Extension (S1) 4- Good- Abduction 3+ Fair+ Adduction 4- Good- Left Flexion (L2) 4- Good- Extension (S1) 4- Good- Abduction 3+ Fair+ Adduction 4 Good Knee Strength Knee Manual Muscle Testing Right Flexion (S2) 4 Good Extension (L3) 4 Good Left Flexion (S2) 4 Good Extension (L3) 4 Good Ankle/Foot Strength Ankle and Foot Manual Muscle Testing Right Dorsiflexion (L4) 4 Good Plantarflexion (S1) 4 Good Left Dorsiflexion (L4) 4 Good Plantarflexion (S1) 4 Good PT-OP-Q Treatments Start: 03/15/20 12:55 Freq: Status: Active Protocol: Document 03/25/20 09:49 (Rec: 03/25/20 11:16 [id number]) Cardio Equipment Recumbent Stepper (Sci-Fit) Duration (Minutes) 5 Resistance 2 Seat Position 9 Gym Equipment Shuttle Recovery Unilateral squat Resistance #50 Shuttle Recovery Platform Stable Reps/Time no discomfort noted, 8x 2 Therapeutic Exercises Supine Exercises supine marching Reps/Minutes 10 x 2 RODERICK Supine Exercise Name APT and PPT Reps/Minutes 2 mins piriformis stretch Side right Reps/Minutes 15 sec x5 Comments review HEP, no pain noted but pain with transition from table to stretch po hamstrings stretch Supine Exercise Name with blue band Side right Reps/Minutes 15 sec x 5 Comments no pain noted. Manual Therapy Treatment Soft Tissue Mobilization glute and piriformis Body Location rolling pin Mobilization Type Rolling,Sustained Pressure, Trigger Point Release Intensity/Depth Moderate Body Position Sidelying Comments significant tenderness noted but relieved afterwards Manual Traction R hip distraction Body Position Supine Reps/Duration 10 sec hold x 5 Comments report relief of pain PT-OP-T Assessment and Plan Start: 03/15/20 12:55 Freq: Status: Active Protocol: Document 03/25/20 09:49 (Rec: 03/25/20 11:16 [id number]) Physical Therapy Assessment Goals neuro symptoms Impairment radiating pain down to B LEs Storeroom Attendant Goal (LTG) Pt will improve her neural sensitivity and not have radiating pain/ back pain with SLR at 80 degrees and slump test LTG Duration 8 weeks ROM Impairment very limited trunk ROM Senior Care Goal (LTG) Pt will reach toe touch test = 7 from floor lateral flexion to R= 20 from floor lateral flexion to L = 18 from floor extension = approx 15 degrees from neutral LTG Duration 12 weeks LEFS 2 Impairment pt scores 23 Short Term Goal (STG) pt will score 30 or great to improve her quality of life STG Duration 6 weeks Senior Care Goal (LTG) pt will score 35 or more to improve her mobility such as walking, bending over 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 LTG Duration 12 weeks Oswestry Impairment pt scores 62 Short Term Goal (STG) pt will score 70 or greater to improve her quality of life STG Duration 6 weeks Storeroom Attendant Goal (LTG) pt will score 80 or greater in order to improve her activity tolerance such as standing/ walking > 20 mins in a daily basis LTG Duration 12 weeks Progress Towards Goals Progress Towards Goals Progressing Toward Goals Assessment Summary Assessment Pt shows improved nerve sensitivity with SLR today. no pain noted at end range but pain during transition with piriformis stretch movement. Noticed pt has a significant poorer hip strength during clamshell Physical Therapy Plan Next Visit Focus/Plan Next Note Type Treatment Note Next Visit Plan stepper manual therapy at SIJ, piriformis figure 4 stretch seated trunk flexion reach pelvic tilt briding if tolerable LTR
--- NOTE | 2020-04-08 14:50 | PT.OTN ---
Current Diagnoses Lumbago with sciatica, right side (04/08/20) Physical Therapy Treatment Note PT-OP-A Visit Information Start: 03/15/20 12:55 Freq: Status: Active Protocol: Document 04/08/20 13:45 SAK (Rec: 04/08/20 14:32 SAK [id number]) Out-Patient Physical Therapy Visit Information Visit Information Visit Type Treatment Note Visit Start Time 13:45 Visit Stop Time 14:30 Total Visit Minutes 45 Visit Number 4/15 Number of EQUITIES ANALYST Visits 0 PT-OP-B Current Condition Start: 03/15/20 12:55 Freq: Status: Active Protocol: Document 03/15/20 12:55 HH (Rec: 03/15/20 14:35 HH [id number]) Current Condition History of Current Condition Onset Date Many years ago Current Complaints LBP, Neck pain, radiating pain to legs, numbness in hands History of Current Condition Pt is a 49 yo female here for her chronic back pain and neck pain with radiating pain to legs and numbness to B hands. 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 Pt had chiropractic tx for many years ago and x-ray showed deterioration at S1 region, disc herniation at cervical region and slight scoliosis. Pt has had a spinal nerve stimulator implanted since 2010. Pt started to have sciatica achy/ sharp pain mostly on R LE than LLE. Pt stated standing and prolonged walking make her pain worse with tightness sensation. Pt cannot stand more than 15 mins but sitting in her recliner tends to make her feel better since sleeping in supine hurts a lot. Pt has been seeing chiropractor and it is helpful to her. She also stated she had a lengthy opiod treatment for many years with Parcocet, fetanyl patch and tramadol but they all didnt work. Pt took ibuprofen 800mg every 6-8 hours in January with other medication which caused her acute GI bleed in January who was hospitalized for days. Pt has lost weight since GI bleed = 239.6 lbs. Pt overall has complicated PMH and past surgical hx, see attachment in chart. Prior Treatments and Tests See chart with provided PMH and past surgical hx Treatment Goals Patient/Caregiver Goals 1. To be able to increase activity tolerance such as standing >15 mins, walking > 15 mins 2. To reduce her back pain as much as she can. Personal Factors Other Personal Factors That May Effect Bipolar disorder -- pt Therapy/Recovery recently has a maniac epidsode who hasnt slept for days. Major Depression PTSD PT-OP-C Subjective Start: 03/15/20 12:55 Freq: Status: Active Protocol: Document 04/08/20 13:45 SAK (Rec: 04/08/20 14:32 SAK [id number]) OP-PT Subjective Patient Comments Patient Comments Hasn't been able to do much stretching to right side due to increased irritabilityover the past week from sanding and refinishing her deck. Some better today but still hasn't resumed stretching on right side. PT-OP-F Manual Assessment Start: 03/15/20 12:55 Freq: Status: Active Protocol: Document 03/15/20 12:55 HH (Rec: 03/16/20 08:49 HH [email or web address]) Manual Assessments Soft Tissue Assessment Soft Tissue Mobility Assessment TTP to R SIJ area and worse than L. TTP to center of sacral region PT-OP-H Neuro Start: 03/15/20 12:55 Freq: Status: Active Protocol: Document 03/15/20 12:55 HH (Rec: 03/16/20 08:49 HH [email or web address]) Deep Tendon Reflex & Clonus Assessment Deep Tendon Reflex Bilateral Achilles Deep Tendon Reflex 2+ Normal Bilateral Patellar Deep Tendon Reflex 3+ Normal But Brisk PT-OP-J Posture/Palpation/Skin Start: 03/15/20 12:55 Freq: Status: Active Protocol: Document 03/15/20 12:55 HH (Rec: 03/16/20 08:49 HH [email or web address]) Posture Evaluation Position Standing Evaluation View Anterior Pelvis Posture Anteriorly Tilted Knee Posture (L) Genu Valgus,(R) Genu Valgus PT-OP-K Range of Motion Start: 03/15/20 12:55 Freq: Status: Active Protocol: Document 03/15/20 12:55 HH (Rec: 03/16/20 08:49 HH [email or web address]) Lumbar Spine Range of Motion Lumbar Spine Active Degrees Comments toe touch test =9 from floor (pulling sensation at lumbar) lateral flexion to R= 23 from floor (pressure and pinching pain at R SIJ region0 lateral flexion to L = 20 from floor (less pressure and pinching pain at L SIJ region) extension = approx 8 degrees from neutral ( pressure pain at center of L4-5) PT-OP-L Special Tests Start: 03/15/20 12:55 Freq: Status: Active Protocol: Document 03/15/20 12:55 HH (Rec: 03/16/20 08:49 HH [email or web address]) Special Tests Lumbar Spine Special Tests Vertical Spine Loading Test Results +ve Comments pain at center of lower lumbar and sacral region Straight Leg Raise Test Results +ve on R Comments R= 65 degrees with pain at back, L= 80 degrees Slump Test Results +ve on R Comments pain with DF, knee extension and Cervical flexion Hip Special Tests FADDIR Test Results +ve R Comments reproduced pain at R SIJ region SHRUTI Test Results -ve B Comments tightness at buttock region PT-OP-M Strength Start: 03/15/20 12:55 Freq: Status: Active Protocol: Document 03/15/20 12:55 (Rec: 03/16/20 08:49 [email or web address]) Hip Strength Hip Manual Muscle Testing Right Flexion (L2) 4- Good- Extension (S1) 4- Good- Abduction 3+ Fair+ Adduction 4- Good- Left Flexion (L2) 4- Good- Extension (S1) 4- Good- Abduction 3+ Fair+ Adduction 4 Good Knee Strength Knee Manual Muscle Testing Right Flexion (S2) 4 Good Extension (L3) 4 Good Left Flexion (S2) 4 Good Extension (L3) 4 Good Ankle/Foot Strength Ankle and Foot Manual Muscle Testing Right Dorsiflexion (L4) 4 Good Plantarflexion (S1) 4 Good Left Dorsiflexion (L4) 4 Good Plantarflexion (S1) 4 Good PT-OP-Q Treatments Start: 03/15/20 12:55 Freq: Status: Active Protocol: Document 04/08/20 13:45 [facility] (Rec: 04/08/20 14:32 SAK [id number]) Cardio Equipment Recumbent Stepper (Sci-Fit) Duration (Minutes) 10 Resistance 2 Seat Position 9 Other last 3 minutes LE's only Gym Equipment Shuttle Recovery Bilateral Squats Resistance 87# Shuttle Recovery Platform Stable Unilateral squat Resistance 62# Shuttle Recovery Platform Stable Reps/Time no discomfort noted, 8x 2 Therapeutic Exercises Supine Exercises RODERICK Supine Exercise Name APT and PPT Reps/Minutes 2 mins piriformis stretch Side right Reps/Minutes 15 sec x2 Comments painful, encouraged to decrease intensity of stretch, ease back into doing hamstrings stretch Supine Exercise Name manual Side right Reps/Minutes 15 sec x 5 Comments no pain noted, increased ROM with repetition Sitting Exercises sit to stand Reps/Minutes 8x Standing Exercises wall posture Reps/Minutes 5x Comments verbal and tactile cues Manual Therapy Treatment Soft Tissue Mobilization glute and piriformis Body Location rolling pin Mobilization Type Rolling,Sustained Pressure, Trigger Point Release Intensity/Depth Moderate Body Position Sidelying Comments significant tenderness noted but relieved afterwards Manual Traction R hip distraction Body Position Supine Reps/Duration 10 sec hold x 5 Comments report relief of pain PT-OP-T Assessment and Plan Start: 03/15/20 12:55 Freq: Status: Active Protocol: Document 04/08/20 13:45 [facility] (Rec: 04/08/20 14:32 [facility] [id number]) Physical Therapy Assessment Goals neuro symptoms Impairment radiating pain down to B LEs Plant And Machinery Valuer Goal (LTG) Pt will improve her neural sensitivity and not have radiating pain/ back pain with SLR at 80 degrees and slump test LTG Duration 8 weeks ROM Impairment very limited trunk ROM Intermediate Goal (LTG) Pt will reach toe touch test = 7 from floor lateral flexion to R= 20 from floor lateral flexion to L = 18 from floor extension = approx 15 degrees from neutral LTG Duration 12 weeks LEFS 2 Impairment pt scores 23 Short Term Goal (STG) pt will score 30 or great to improve her quality of life STG Duration 6 weeks Intermediate Goal (LTG) pt will score 35 or more to improve her mobility such as walking, bending over and contract accountant with minimal discomfort. LTG Duration 12 weeks Oswestry Impairment pt scores 62 Short Term Goal (STG) pt will score 70 or greater to improve her quality of life STG Duration 6 weeks Plant And Machinery Valuer Goal (LTG) pt will score 80 or greater in order to improve her activity tolerance such as standing/ walking > 20 mins in a daily basis LTG Duration 12 weeks Assessment Summary Assessment Increased nerve sensitivity today due to overdoing it with sanding her deck recently. Emphasis on postural alignment and core stabilization with all activities. Able to increase resistance on shuttle leg press Physical Therapy Plan Frequency and Duration Frequency of Treatment 2x/Week Duration of Treatment 12 weeks Plan of Care Start Date 03/15/20 Plan of Care End Date 07/14/20 Next Visit Focus/Plan Next Note Type Treatment Note Next Visit Plan Continue PT per POC
--- NOTE | 2020-04-19 12:12 | PT.OTN ---
Current Diagnoses Lumbago with sciatica, right side (04/19/20) Physical Therapy Treatment Note PT-OP-A Visit Information Start: 03/15/20 12:55 Freq: Status: Active Protocol: Document 04/19/20 11:20 HH (Rec: 04/19/20 12:12 HH [id number]) Out-Patient Physical Therapy Visit Information Visit Information Visit Type Treatment Note Visit Start Time 11:17 Visit Stop Time 12:00 Total Visit Minutes 43 Visit Number 12/04 Number of BARREL TESTER Visits 0 PT-OP-B Current Condition Start: 03/15/20 12:55 Freq: Status: Active Protocol: Document 03/15/20 12:55 HH (Rec: 03/15/20 14:35 HH [id number]) Current Condition History of Current Condition Onset Date Many years ago Current Complaints LBP, Neck pain, radiating pain to legs, numbness in hands History of Current Condition Pt is a 49 yo female here for her chronic back pain and neck pain with radiating pain to legs and numbness to B hands. 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 Pt had chiropractic tx for many years ago and x-ray showed deterioration at S1 region, disc herniation at cervical region and slight scoliosis. Pt has had a spinal nerve stimulator implanted since 2010. Pt started to have sciatica achy/ sharp pain mostly on R LE than LLE. Pt stated standing and prolonged walking make her pain worse with tightness sensation. Pt cannot stand more than 15 mins but sitting in her recliner tends to make her feel better since sleeping in supine hurts a lot. Pt has been seeing chiropractor and it is helpful to her. She also stated she had a lengthy opiod treatment for many years with Parcocet, fetanyl patch and tramadol but they all didnt work. Pt took ibuprofen 800mg every 6-8 hours in January with other medication which caused her acute GI bleed in January who was hospitalized for days. Pt has lost weight since GI bleed = 239.6 lbs. Pt overall has complicated PMH and past surgical hx, see attachment in chart. Prior Treatments and Tests See chart with provided PMH and past surgical hx Treatment Goals Patient/Caregiver Goals 1. To be able to increase activity tolerance such as standing >15 mins, walking > 15 mins 2. To reduce her back pain as much as she can. Personal Factors Other Personal Factors That May Effect Bipolar disorder -- pt Therapy/Recovery recently has a maniac epidsode who hasnt slept for days. Major Depression PTSD PT-OP-C Subjective Start: 03/15/20 12:55 Freq: Status: Active Protocol: Document 04/19/20 11:20 HH (Rec: 04/19/20 12:12 HH [id number]) OP-PT Subjective Patient Comments Patient Comments My back has been doing very well. I walked 1.8miles yesterday which i have never done that before. Patient Reported Progress Improving PT-OP-F Manual Assessment Start: 03/15/20 12:55 Freq: Status: Active Protocol: Document 03/15/20 12:55 HH (Rec: 03/16/20 08:49 HH [email or web address]) Manual Assessments Soft Tissue Assessment Soft Tissue Mobility Assessment TTP to R SIJ area and worse than L. TTP to center of sacral region PT-OP-H Neuro Start: 03/15/20 12:55 Freq: Status: Active Protocol: Document 03/15/20 12:55 HH (Rec: 03/16/20 08:49 HH [email or web address]) Deep Tendon Reflex & Clonus Assessment Deep Tendon Reflex Bilateral Achilles Deep Tendon Reflex 2+ Normal Bilateral Patellar Deep Tendon Reflex 3+ Normal But Brisk PT-OP-J Posture/Palpation/Skin Start: 03/15/20 12:55 Freq: Status: Active Protocol: Document 03/15/20 12:55 HH (Rec: 03/16/20 08:49 HH [email or web address]) Posture Evaluation Position Standing Evaluation View Anterior Pelvis Posture Anteriorly Tilted Knee Posture (L) Genu Valgus,(R) Genu Valgus PT-OP-K Range of Motion Start: 03/15/20 12:55 Freq: Status: Active Protocol: Document 03/15/20 12:55 HH (Rec: 03/16/20 08:49 HH [email or web address]) Lumbar Spine Range of Motion Lumbar Spine Active Degrees Comments toe touch test =9 from floor (pulling sensation at lumbar) lateral flexion to R= 23 from floor (pressure and pinching pain at R SIJ region0 lateral flexion to L = 20 from floor (less pressure and pinching pain at L SIJ region) extension = approx 8 degrees from neutral ( pressure pain at center of L4-5) PT-OP-L Special Tests Start: 03/15/20 12:55 Freq: Status: Active Protocol: Document 03/15/20 12:55 (Rec: 03/16/20 08:49 [email or web address]) Special Tests Lumbar Spine Special Tests Vertical Spine Loading Test Results +ve Comments pain at center of lower lumbar and sacral region Straight Leg Raise Test Results +ve on R Comments R= 65 degrees with pain at back, L= 80 degrees Slump Test Results +ve on R Comments pain with DF, knee extension and Cervical flexion Hip Special Tests FADDIR Test Results +ve R Comments reproduced pain at R SIJ region SHRUTI Test Results -ve B Comments tightness at buttock region PT-OP-M Strength Start: 03/15/20 12:55 Freq: Status: Active Protocol: Document 03/15/20 12:55 HH (Rec: 03/16/20 08:49 [email or web address]) Hip Strength Hip Manual Muscle Testing Right Flexion (L2) 4- Good- Extension (S1) 4- Good- Abduction 3+ Fair+ Adduction 4- Good- Left Flexion (L2) 4- Good- Extension (S1) 4- Good- Abduction 3+ Fair+ Adduction 4 Good Knee Strength Knee Manual Muscle Testing Right Flexion (S2) 4 Good Extension (L3) 4 Good Left Flexion (S2) 4 Good Extension (L3) 4 Good Ankle/Foot Strength Ankle and Foot Manual Muscle Testing Right Dorsiflexion (L4) 4 Good Plantarflexion (S1) 4 Good Left Dorsiflexion (L4) 4 Good Plantarflexion (S1) 4 Good PT-OP-Q Treatments Start: 03/15/20 12:55 Freq: Status: Active Protocol: Document 04/19/20 11:20 HH (Rec: 04/19/20 12:12 [id number]) Gym Equipment Shuttle Recovery Bilateral Squats Resistance #100 Shuttle Recovery Platform Stable Reps/Time 12 x2 Unilateral squat Resistance 75# Shuttle Recovery Platform Stable Reps/Time no discomfort noted, 10x2 Shuttle Balance red Details stagger stance Reps/Duration 4 mins Comments noticed weakness on R Therapeutic Exercises Supine Exercises hamstrings stretch Supine Exercise Name manual Side right Reps/Minutes 15 sec x 5 Comments no pain noted, increased ROM with repetition bridging Side bilateral Equipment Used yellow band Reps/Minutes 10 x2 Sidelying Exercises clamshell Side right Reps/Minutes 10 x2 Comments improved r hip strength noted. Manual Therapy Treatment Soft Tissue Mobilization glute and piriformis Mobilization Type Sustained Pressure,Trigger Point Release Intensity/Depth Deep Body Position Sidelying Comments mild tenderness noted only Manual Traction R hip distraction Body Position Supine Reps/Duration 10 sec hold x 5 Comments report relief of pain PT-OP-T Assessment and Plan Start: 03/15/20 12:55 Freq: Status: Active Protocol: Document 04/19/20 11:20 (Rec: 04/19/20 12:12 [id number]) Physical Therapy Assessment Goals neuro symptoms Impairment radiating pain down to B LEs Timber Management Professor Goal (LTG) Pt will improve her neural sensitivity and not have radiating pain/ back pain with SLR at 80 degrees and slump test LTG Duration 8 weeks ROM Impairment very limited trunk ROM Timber Management Professor Goal (LTG) Pt will reach toe touch test = 7 from floor lateral flexion to R= 20 from floor lateral flexion to L = 18 from floor extension = approx 15 degrees from neutral LTG Duration 12 weeks LEFS 2 Impairment pt scores 23 Short Term Goal (STG) pt will score 30 or great to improve her quality of life STG Duration 6 weeks Prison Goal (LTG) pt will score 35 or more to improve her mobility such as walking, bending over and 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 LTG Duration 12 weeks Oswestry Impairment pt scores 62 Short Term Goal (STG) pt will score 70 or greater to improve her quality of life STG Duration 6 weeks Prison Goal (LTG) pt will score 80 or greater in order to improve her activity tolerance such as standing/ walking > 20 mins in a daily basis LTG Duration 12 weeks Assessment Summary Assessment Pt overall shows good progress since last visit with less pain and improved activity tolerance. Pt completed 1.8 miles walk yesterday with minimal discomfort and she demonstrated good bed mobility without pain. R hip strength improved as well. Added step up as her leg strengthening ex . Physical Therapy Plan Next Visit Focus/Plan Next Note Type Treatment Note Next Visit Plan Continue PT per POC hip strengthening SL strengthening and stability ex nerve glide, hip distraction
--- NOTE | 2020-05-03 12:42 | PT-OP ANOTE ---
Pt called in and cancelled appt from today d/t ongoing Pneumonia since last week. She currently still has a fever.
--- NOTE | 2020-06-24 12:00 | PT.OPDS ---
Current Diagnoses Lumbago with sciatica, right side (04/19/20) Visit Care Team Role Provider Type Yunier Keys MD Attending Provider Physician Family Provider Primary Care Provider Referring Provider Specialty: Internal Medicine Address: [address] [place] [address], [address], [address] Email: [email or web address] Visit Number Visit Number 12/04 PT-OP-T Assessment and Plan Start: 03/15/20 12:55 Freq: Status: Active Protocol: Document 06/24/20 12:00 (Rec: 06/24/20 12:00 [id number]) Physical Therapy Plan Discharge Physical Therapy Discharge Reasons Patient Request Discharge Comments Pt called in and cancelled appt from today d/t ongoing Pneumonia. Pt requested to d/c from therapy
== END 2020-07-09 14:26 ==
LOC: PHYS 11:15
PROVIDERS: Family Provider Student in an Organized Health Care Education/Training Program; PCP Student in an Organized Health Care Education/Training Program; Referring Provider Student in an Organized Health Care Education/Training Program; Visit Provider Student in an Organized Health Care Education/Training Program
DX: M54.41 Lumbago with sciatica, right side (principal)
CPT/HCPCS: 97110; 97140; 97163

== ENCOUNTER → 2020-04-26 16:39 | Outpatient (CLI) | payer OTHER, SELFPAY ==
[2020-03-25 15:57] VITALS: RESP 17; O2SAT 94; BMI 44.6
[2020-04-27 07:39] LABS: COVID19 Sendout Not Detected (Not Detect)
== END ==
PROVIDERS: Family Provider Student in an Organized Health Care Education/Training Program; PCP Student in an Organized Health Care Education/Training Program; Visit Provider Physician Assistant
DX: R05 Cough (principal); R11.0 Nausea; R50.9 Fever, unspecified; R51.9 Headache, unspecified
CPT/HCPCS: 87635

== ENCOUNTER 2020-05-11 11:04 | Emergency (ER) | payer OTHER, SELFPAY ==
[2020-03-25 15:57] VITALS: RESP 17; O2SAT 94; BMI 44.6
[2020-05-11] VITALS (21 sets, daily range): BP systolic 87–115; BP diastolic 50–71; PULSE 55–106; RESP 13–32; TEMP 36.2; O2SAT 88–100; BMI 39.6
--- NOTE | 2020-05-11 11:35 | ED_ITS ---
HPI - SOB/Dyspnea <MATTY Ward - Last Filed: 05/11/20 23:17> General Chief Complaint: Shortness of Breath/Dyspnea Stated Complaint: cough,shortness of breath,fever Time Seen by Provider: 05/11/20 11:10 Source: patient Mode of arrival: Ambulatory Limitations: no limitations History of Present Illness HPI Narrative: This is a 49-year-old female,Nonsmoker, who has history of multip le PEs and currently taking Eliquis 5 mg b.i.d. and history of multiple pneumonia presents to ED with significant other with chief complain of short of breath, constant nonproductive cough, fever, chills, lethargic, orthopnea. Patient reports she was hypotensive this morning with blood pressure of 82/57 and O2 sat of 80s. Patient reports temperature of around 101 T-max at home. She was seen at respiratory clinic and was treated for pneumonia clinically and completed Levaquin 750 mg prednisone 40 mg for 3 days, and has been taking Tessalon Pearls and albuterol inhaler with spacer 2 puffs every 4 hours. Patient felt slow improvement after 1 week completing antibiotic medication and steroids. Patient feels feeling ill again over this weekend. She has difficult time sleeping due to frequent coughing and resting at night in recliner. Patient has decreased p.o. intake including fluids also due to frequent coughing. Patient denies chest pain usually when she had pulmonary embolism in the past. Patient denies weight gain or leg swellings. Patient also feels nauseated and taken Zofran 8 mg ODT before coming into ED. patient reports severe sore throat, body aches. Patient has history of severe GI bleed on anticoagulants. She receives iron transfusion every 2 weeks due to severe anemia with history of gastric bypass. Related Data Home Medications Medication Instructions Recorded Confirmed acetaminophen 1,000 mg PO Q6H PRN 03/06/18 04/14/20 Resmed Aircurve 10 BIPAP #1 ea 11/25/18 04/14/20 albuterol sulfate 2 puff INHALATION Q6H PRN 04/18/19 04/14/20 cetirizine [Zyrtec] 10 mg PO DAILY 04/18/19 04/14/20 ascorbic acid (vitamin C) [Vitamin 500 mg BID 06/25/20 09/23/20 C] calcium carbonate-vitamin D3 2 tab PO BID 01/15/20 04/14/20 [Caltrate 600 plus D] omeprazole 20 mg PO BID 01/15/20 04/14/20 vitamin E 600 unit PO DAILY 01/15/20 04/14/20 tizanidine [Zanaflex] 4 mg PO BEDTIME 01/23/20 04/14/20 guaifenesin 600 mg tablet, 600 mg PO BID 03/11/20 04/14/20 extended release 12 hr Cbd 100 mg BID 04/01/20 04/14/20 Previous Rx's Medication Instructions Recorded olanzapine 2.5 mg tablet 5 mg PO BID PRN #60 tab 08/22/19 gabapentin 600 mg tablet 1,200 mg PO BEDTIME #180 tab 09/09/19 apixaban 5 mg tablet 5 mg PO BID #180 tab 09/23/19 promethazine 25 mg tablet 25 - 50 mg PO Q6H PRN #90 tab 10/27/19 fluticasone propionate 50 2 spray INTRANASAL BEDTIME #16 gram 11/19/19 mcg/actuation nasal spray,suspension zonisamide 100 mg capsule 200 mg PO DAILY #60 cap 12/17/19 ondansetron HCl 4 mg tablet 4 - 8 mg PO TID PRN #180 tab 02/10/20 zolpidem 10 mg tablet 10 mg PO BEDTIME PRN #90 tab 03/09/20 lamotrigine 150 mg tablet 150 mg PO BID #180 tab 03/24/20 lithium carbonate 300 mg capsule 900 mg PO BEDTIME #270 cap 04/22/20 suvorexant 20 mg tablet 20 mg PO BEDTIME #90 tab 04/22/20 vortioxetine 20 mg tablet 20 mg PO DAILY #90 tab 04/22/20 benzonatate 100 mg capsule 100 mg PO BID PRN #30 cap 04/26/20 bupropion HCl 150 mg tablet,12 hr 150 mg PO .COMPLEX #90 each MDD 04/30/20 sustained-release 300mg clonidine HCl 0.1 mg tablet See Rx Instructions PO TID PRN #90 04/30/20 tab lorazepam 2 mg tablet 2 mg PO QID PRN 30 Days #120 tab 05/11/20 prednisone 40 mg PO DAILY 3 Days #6 tab 05/11/20 promethazine-codeine 5 ml PO Q8H PRN #160 ml 05/11/20 Allergies Allergy/AdvReac Type Severity Reaction Status Date / Time No Known Drug Allergies Allergy Verified 04/14/20 08:51 Review of Systems <MATTY Ward - Last Filed: 05/11/20 23:17> Review of Systems Narrative: General: See HPI HEENT: Denies sinus pain, ear pain, (+) sore throat, difficulty swallowing, dizziness. Respiratory: See HPI Cardiovascular: Denies chest pain, palpitations, (+) orthopnea, edema. Gastrointestinal: Denies (+) nausea, vomiting, abdominal pain, diarrhea, constipation, melena. : Denies dysuria, frequency, incontinence, hematuria, urinary retention. Musculoskeletal: See HPI Skin: Denies rash, skin lesions, or other. Neurologic: Denies weakness, headache, numbness, change in speech, confusion, seizures, incoordination. Psychiatric: No concerning psychosocial issues. 12-point review of systems is negative except for those stated above. Patient History <MATTY Ward - Last Filed: 05/11/20 23:17> Medical History Abnormal CXR (chest x-ray) (Resolved) Ankle fracture, left (Resolved 1986) Anxiety (Chronic) Arthritis of knee (Chronic) Asthma (Chronic) Bipolar 1 disorder, depressed (Chronic) Chicken pox (Resolved) Chronic anemia (Chronic) Chronic back pain (Chronic) Chronic headaches (Chronic) Chronic neck pain (Chronic) Depression (Chronic) Diabetes mellitus (Resolved) Diastolic dysfunction (Chronic) Fatty liver (Chronic) GERD (gastroesophageal reflux disease) (Chronic) GI bleeding (Resolved) High risk medication use (Chronic) Hyperlipidemia (Chronic) Hypertension (Chronic) 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) Irregular periods/menstrual cycles (Chronic) Ischemic colitis (Resolved 2013) Lumbar spine pain (Chronic) Migraines (Chronic) Neck arthritis (Chronic) Obstructive sleep apnea syndrome (Chronic 2007) Panic attacks (Chronic) Plantar warts (Resolved) Pneumonia (Acute) PTSD (post-traumatic stress disorder) (Chronic) Pulmonary embolism (Resolved 2006) Pulmonary hypertension (Chronic) S/P ECT (electroconvulsive therapy) (Resolved 2013) Shoulder arthritis (Chronic) Spinal cord stimulator status (Chronic) Transient hypotension (Resolved) Surgical History Anesthesia (Resolved) History of bowel resection (Resolved 1995) History of endometrial ablation (Resolved 2008) History of esophagogastroduodenoscopy (EGD) (Resolved 04/19/17) History of gastric bypass (Resolved 2009) History of open reduction and internal fixation (ORIF) procedure (Resolved 1986) History of spinal surgery (Resolved 2010) Status post cardiac catheterization (Resolved 2007) Status post cholecystectomy (Resolved 2007) Status post peripherally inserted central catheter (PICC) central line placement (Resolved 04/04/17) Family History Father Age: 75 Hypertension Sick sinus syndrome Heart disease Mother Age: 72 Hyperlipidemia Mental health problem Arthritis Hayfever Seasonal allergies Hypertension Sister No problems noted. Social History marital status: details: 2013 Adriana Blanco; couple > 20 yrs. 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 Patient has difficult times speaking a sentence due to frequent dry nonproductive cough. Head: Normal cephalic, atraumatic. No scalp or temporal tenderness, palpable mass or rash. EYES: Pupils are equal, round, and reactive to light and accommodation. Extraocular muscles are intact bilaterally. There is no subconjunctival hemorrhage, exudate and sclera non-icteric. ENT: Hearing grossly intact. Nose without bleeding, purulent discharge or deviation. Mucous membrane severely dry, no mucosal lesion. Throat without erythema, tonsillar hypertrophy or exudate. Uvula in midline, airway patent. Neck: Trachea in midline. No JVD, non-tender without lymphadenopathy. No masses or thyroid megaly. Supple, non-tender and no meningeal signs. CARDIAC: Normal regular rate and rhythm without murmurs, gallops, or rubs. No chest wall tenderness. No peripheral edema, cyanosis or pallor. Capillary refill is less than 2 seconds. RESPIRATORY: Lungs are wheezing bilaterally. Frequent dry nonproductive cough with wheezing. No rales, or rhonchi. No stridor. O2 sat at 98-99% in room air. No increased work of breathing. ABD: Abdomen soft, nontender and non-distended. No guarding or rebound tenderness to palpate. Bowel sounds are normal in all 4 quadrants. There is no palpable masses or organomegaly. EXT: Full painless ROM of all extremities with no loss of sensation, strength, effusion or edema. SKIN: Warm, dry, normal color for patient. No erythema, lesions or rash over visible areas. BACK: Nontender without deformity or crepitance. No flank tenderness. NEUROLOGICAL: Alert and oriented to place, time and person. Sensation and motor function intact bilaterally. No facial droops, dysphasia. PSYCHIATRIC: Good judgement and reason, without hallucinations, abnormal affect or abnormal behaviors during the examination. Patient is not suicidal. Initial Vital Signs Initial Vital Signs: Vital Signs Temperature 97.2 F L 05/11/20 11:16 Pulse Rate 81 05/11/20 11:16 Respiratory Rate 13 05/11/20 11:16 Blood Pressure 115/67 05/11/20 11:16 Pulse Oximetry 100 05/11/20 11:16 <Kingsley George DO - Last Filed: 05/12/20 07:08> Initial Vital Signs Initial Vital Signs: Vital Signs Temperature 97.2 F L 05/11/20 11:16 Pulse Rate 81 05/11/20 11:16 Respiratory Rate 13 05/11/20 11:16 Blood Pressure 115/67 05/11/20 11:16 Pulse Oximetry 100 05/11/20 11:16 Course <MATTY Ward - Last Filed: 05/11/20 23:17> Orders Ordered: Discontinued Medications Albuterol (Ventolin) 2.5 mg INH NOW ONE Stop: 05/11/20 12:52 Last Admin: 05/11/20 13:02 Dose: 2.5 mg Documented by: FANNY Albuterol (Ventolin) 2.5 mg INH NOW ONE Stop: 05/11/20 14:51 Last Admin: 05/11/20 15:00 Dose: 2.5 mg Documented by: ZEINAB Guaifenesin/Codeine Phosphate (Guaifenesin/Codeine Liquid) 10 ml PO NOW ONE Stop: 05/11/20 11:35 Last Admin: 05/11/20 12:11 Dose: 10 ml Documented by: FANNY Heparin Sodium (Porcine) (Heparin Flush (Port)) 500 unit IV PRN PRN PRN Reason: Flush Sodium Chloride (Normal Saline 0.9%) 1,000 mls @ 1,000 mls/hr IV BOLUS ONE Stop: 05/11/20 12:31 Last Infusion: 05/11/20 14:23 Dose: 0 mls/hr Documented by: Admin: 05/11/20 12:12 Dose: 1,000 mls/hr Documented by: FANNY Sodium Chloride (Normal Saline 0.9%) 1,000 mls @ 150 mls/hr IV CONT KORY Last Infusion: 05/11/20 16:56 Dose: 0 mls/hr Documented by: Admin: 05/11/20 15:00 Dose: 150 mls/hr Documented by: ZEINAB Methylprednisolone (Solu-Medrol 125 Mg Vial) 125 mg IV NOW ONE Stop: 05/11/20 12:52 Last Admin: 05/11/20 13:02 Dose: 125 mg Documented by: FANNY Reevaluation(s) Reevaluation #1: Ambulation trial was done. Patient became short of breath and tachypnea after walking a short distance and has to stop. O2 sat was in 95% with HR in mid 80's. Improved cough a still has some wheezing bilaterally. Will repeat cardiac enzyme and pro BNP test. Will order repeat neb treatment while waiting for the test result. Time: 14:50 Vital Signs Vital signs: Vital Signs - 8 hr 05/11/20 15:00 05/11/20 15:30 05/11/20 15:44 Pulse Rate 106 H 65 66 Respiratory Rate 24 32 H 19 Blood Pressure 104/57 L Pulse Oximetry 97 88 L 96 05/11/20 16:00 05/11/20 16:30 05/11/20 16:31 Pulse Rate 67 65 70 Respiratory Rate 21 20 26 H Blood Pressure 109/60 112/62 Pulse Oximetry 93 92 92 <Kingsley George DO - Last Filed: 05/12/20 07:08> Orders Ordered: Discontinued Medications Albuterol (Ventolin) 2.5 mg INH NOW ONE Stop: 05/11/20 12:52 Last Admin: 05/11/20 13:02 Dose: 2.5 mg Documented by: FANNY Albuterol (Ventolin) 2.5 mg INH NOW ONE Stop: 05/11/20 14:51 Last Admin: 05/11/20 15:00 Dose: 2.5 mg Documented by: ZEINAB Guaifenesin/Codeine Phosphate (Guaifenesin/Codeine Liquid) 10 ml PO NOW ONE Stop: 05/11/20 11:35 Last Admin: 05/11/20 12:11 Dose: 10 ml Documented by: FANNY Heparin Sodium (Porcine) (Heparin Flush (Port)) 500 unit IV PRN PRN PRN Reason: Flush Sodium Chloride (Normal Saline 0.9%) 1,000 mls @ 1,000 mls/hr IV BOLUS ONE Stop: 05/11/20 12:31 Last Infusion: 05/11/20 14:23 Dose: 0 mls/hr Documented by: Admin: 05/11/20 12:12 Dose: 1,000 mls/hr Documented by: FANNY Sodium Chloride (Normal Saline 0.9%) 1,000 mls @ 150 mls/hr IV CONT KORY Last Infusion: 05/11/20 16:56 Dose: 0 mls/hr Documented by: Admin: 05/11/20 15:00 Dose: 150 mls/hr Documented by: ZEINAB Methylprednisolone (Solu-Medrol 125 Mg Vial) 125 mg IV NOW ONE Stop: 05/11/20 12:52 Last Admin: 05/11/20 13:02 Dose: 125 mg Documented by: FANNY Vital Signs Vital signs: Vital Signs - 8 hr 05/11/20 15:00 05/11/20 15:30 05/11/20 15:44 Pulse Rate 106 H 65 66 Respiratory Rate 24 32 H 19 Blood Pressure 104/57 L Pulse Oximetry 97 88 L 96 05/11/20 16:00 05/11/20 16:30 05/11/20 16:31 Pulse Rate 67 65 70 Respiratory Rate 21 20 26 H Blood Pressure 109/60 112/62 Pulse Oximetry 93 92 92 MDM - SOB/Dyspnea <CHANA WardP - Last Filed: 05/11/20 23:17> Lab Data Result diagrams: 05/11/20 12:05 05/11/20 12:05 Labs: Lab Results 05/11/20 05/11/20 05/11/20 Range/Units 11:42 11:42 12:05 WBC 3.4 L (4.5-11.0) X10^3/uL RBC 3.89 L (4.0-5.2) X10^6/uL Hgb 12.2 (12.0-16.0) g/dL Hct 36.5 (36-46) % MCV 93.7 (80-100) fL MCH 31.2 (26-34) PG MCHC 33.3 (30-36) % RDW 15.3 H (11.6-14.8) % Plt Count 185 (150-400) X10^3/uL Neut % (Auto) 54.8 (50-75) % Lymph % (Auto) 30.6 (25-40) % Granite % (Auto) 8.0 (3-14) % Eos % (Auto) 6.1 H (2-4) % Baso % (Auto) 0.5 (0-2) % Neut # (Auto) 1900 (7352-4328) /uL Lymph # (Auto) 1000 L (9445-5983) /uL Granite # (Auto) 300 (0-900) /uL Eos # (Auto) 200 (0-450) /uL Baso # (Auto) 0 (0-100) /uL D-Dimer (<230) ng/mL Sodium (137-145) mmol/L Potassium (3.4-5.1) mmol/L Chloride (98-107) mmol/L Carbon Dioxide (22-32) mmol/L BUN (7-17) mg/dL Creatinine (0.52-1.04) mg/dL Estimated GFR (>60) mL/min BUN/Creatinine Ratio (6-22) Glucose (70-100) mg/dL Lactate (0.7-2.1) mmol/L Calcium (8.4-10.2) mg/dL Magnesium (1.6-2.3) mg/dL Total Bilirubin (0.2-1.3) mg/dL AST (14-36) IU/L ALT (<35) IU/L Alkaline Phosphatase (38-126) U/L Total Creatine Kinase (30-135) U/L CK-MB (CK-2) CK-MB (CK-2) Rel Index Troponin I (0.01-0.034) ng/mL NT-Pro-B Natriuret Pep (<125) pg/mL Total Protein (6.3-8.2) g/dL Albumin (3.5-5.0) g/dL Globulin (1.7-4.1) g/dL Albumin/Globulin Ratio (1.0-2.8) Procalcitonin (<0.5) ng/mL Urine RBC (0-5/HPF) Urine WBC (0-5/HPF) Ur Squamous Epith Cells (0-5/HPF) Urine Bacteria (None) Ur Culture Indicated? Chlamy pneumoniae PCR Not detected (Not Detect) Adenovirus (PCR) Not detected (Not Detect) B.parapertussis DNA PCR Not detected (Not Detect) Coronavirus OC43 (PCR) Not detected (Not Detect) Coronavirus HKU1 (PCR) Not detected (Not Detect) Coronavirus 229E (PCR) Not detected (Not Detect) COVID-19 PCR Negative (Negative) Coronavirus NL63 (PCR) Not detected (Not Detect) Human Metapneumovir PCR Not detected (Not Detect) Influenza Type A (PCR) Not detected (Not Detect) Influenza Type B (PCR) Not detected (Not Detect) M. pneumoniae (PCR) Not detected (Not Detect) Parainfluenza 1 (PCR) Not detected (Not Detect) Parainfluenza 2 (PCR) Not detected (Not Detect) Parainfluenza 3 (PCR) Not detected (Not Detect) Parainfluenza 4 (PCR) Not detected (Not Detect) RSV (PCR) Not detected (Not Detect) Entero/Rhino (PCR) Not detected (Not Detect) 05/11/20 05/11/20 05/11/20 Range/Units 12:05 12:05 12:05 WBC (4.5-11.0) X10^3/uL RBC (4.0-5.2) X10^6/uL Hgb (12.0-16.0) g/dL Hct (36-46) % MCV (80-100) fL MCH (26-34) PG MCHC (30-36) % RDW (11.6-14.8) % Plt Count (150-400) X10^3/uL Neut % (Auto) (50-75) % Lymph % (Auto) (25-40) % Granite % (Auto) (3-14) % Eos % (Auto) (2-4) % Baso % (Auto) (0-2) % Neut # (Auto) (2549-4908) /uL Lymph # (Auto) (8426-8831) /uL Granite # (Auto) (0-900) /uL Eos # (Auto) (0-450) /uL Baso # (Auto) (0-100) /uL D-Dimer < 200 (<230) ng/mL Sodium (137-145) mmol/L Potassium (3.4-5.1) mmol/L Chloride (98-107) mmol/L Carbon Dioxide (22-32) mmol/L BUN (7-17) mg/dL Creatinine (0.52-1.04) mg/dL Estimated GFR (>60) mL/min BUN/Creatinine Ratio (6-22) Glucose (70-100) mg/dL Lactate (0.7-2.1) mmol/L Calcium (8.4-10.2) mg/dL Magnesium 1.9 (1.6-2.3) mg/dL Total Bilirubin (0.2-1.3) mg/dL AST (14-36) IU/L ALT (<35) IU/L Alkaline Phosphatase (38-126) U/L Total Creatine Kinase 35 (30-135) U/L CK-MB (CK-2) TNP CK-MB (CK-2) Rel Index TNP Troponin I < 0.012 (0.01-0.034) ng/mL NT-Pro-B Natriuret Pep (<125) pg/mL Total Protein (6.3-8.2) g/dL Albumin (3.5-5.0) g/dL Globulin (1.7-4.1) g/dL Albumin/Globulin Ratio (1.0-2.8) Procalcitonin < 0.05 (<0.5) ng/mL Urine RBC (0-5/HPF) Urine WBC (0-5/HPF) Ur Squamous Epith Cells (0-5/HPF) Urine Bacteria (None) Ur Culture Indicated? Chlamy pneumoniae PCR (Not Detect) Adenovirus (PCR) (Not Detect) B.parapertussis DNA PCR (Not Detect) Coronavirus OC43 (PCR) (Not Detect) Coronavirus HKU1 (PCR) (Not Detect) Coronavirus 229E (PCR) (Not Detect) COVID-19 PCR (Negative) Coronavirus NL63 (PCR) (Not Detect) Human Metapneumovir PCR (Not Detect) Influenza Type A (PCR) (Not Detect) Influenza Type B (PCR) (Not Detect) M. pneumoniae (PCR) (Not Detect) Parainfluenza 1 (PCR) (Not Detect) Parainfluenza 2 (PCR) (Not Detect) Parainfluenza 3 (PCR) (Not Detect) Parainfluenza 4 (PCR) (Not Detect) RSV (PCR) (Not Detect) Entero/Rhino (PCR) (Not Detect) 05/11/20 05/11/20 05/11/20 Range/Units 12:05 12:05 14:53 WBC (4.5-11.0) X10^3/uL RBC (4.0-5.2) X10^6/uL Hgb (12.0-16.0) g/dL Hct (36-46) % MCV (80-100) fL MCH (26-34) PG MCHC (30-36) % RDW (11.6-14.8) % Plt Count (150-400) X10^3/uL Neut % (Auto) (50-75) % Lymph % (Auto) (25-40) % Granite % (Auto) (3-14) % Eos % (Auto) (2-4) % Baso % (Auto) (0-2) % Neut # (Auto) (2820-9260) /uL Lymph # (Auto) (6249-0072) /uL Granite # (Auto) (0-900) /uL Eos # (Auto) (0-450) /uL Baso # (Auto) (0-100) /uL D-Dimer (<230) ng/mL Sodium 137 (137-145) mmol/L Potassium 4.2 (3.4-5.1) mmol/L Chloride 108 H (98-107) mmol/L Carbon Dioxide 27 (22-32) mmol/L BUN 15 (7-17) mg/dL Creatinine 0.73 (0.52-1.04) mg/dL Estimated GFR > 60.0 (>60) mL/min BUN/Creatinine Ratio 20.5 (6-22) Glucose 102 H (70-100) mg/dL Lactate 0.6 L (0.7-2.1) mmol/L Calcium 9.1 (8.4-10.2) mg/dL Magnesium (1.6-2.3) mg/dL Total Bilirubin 0.2 (0.2-1.3) mg/dL AST 31 (14-36) IU/L ALT 30 (<35) IU/L Alkaline Phosphatase 54 (38-126) U/L Total Creatine Kinase (30-135) U/L CK-MB (CK-2) CK-MB (CK-2) Rel Index Troponin I (0.01-0.034) ng/mL NT-Pro-B Natriuret Pep (<125) pg/mL Total Protein 6.6 (6.3-8.2) g/dL Albumin 3.9 (3.5-5.0) g/dL Globulin 2.7 (1.7-4.1) g/dL Albumin/Globulin Ratio 1.4 (1.0-2.8) Procalcitonin (<0.5) ng/mL Urine RBC None seen (0-5/HPF) Urine WBC 1-5/hpf (0-5/HPF) Ur Squamous Epith Cells 5-10 /hpf H (0-5/HPF) Urine Bacteria None seen (None) Ur Culture Indicated? Cult not indicated Chlamy pneumoniae PCR (Not Detect) Adenovirus (PCR) (Not Detect) B.parapertussis DNA PCR (Not Detect) Coronavirus OC43 (PCR) (Not Detect) Coronavirus HKU1 (PCR) (Not Detect) Coronavirus 229E (PCR) (Not Detect) COVID-19 PCR (Negative) Coronavirus NL63 (PCR) (Not Detect) Human Metapneumovir PCR (Not Detect) Influenza Type A (PCR) (Not Detect) Influenza Type B (PCR) (Not Detect) M. pneumoniae (PCR) (Not Detect) Parainfluenza 1 (PCR) (Not Detect) Parainfluenza 2 (PCR) (Not Detect) Parainfluenza 3 (PCR) (Not Detect) Parainfluenza 4 (PCR) (Not Detect) RSV (PCR) (Not Detect) Entero/Rhino (PCR) (Not Detect) 05/11/20 Range/Units 15:08 WBC (4.5-11.0) X10^3/uL RBC (4.0-5.2) X10^6/uL Hgb (12.0-16.0) g/dL Hct (36-46) % MCV (80-100) fL MCH (26-34) PG MCHC (30-36) % RDW (11.6-14.8) % Plt Count (150-400) X10^3/uL Neut % (Auto) (50-75) % Lymph % (Auto) (25-40) % Granite % (Auto) (3-14) % Eos % (Auto) (2-4) % Baso % (Auto) (0-2) % Neut # (Auto) (3631-3791) /uL Lymph # (Auto) (3475-7173) /uL Granite # (Auto) (0-900) /uL Eos # (Auto) (0-450) /uL Baso # (Auto) (0-100) /uL D-Dimer (<230) ng/mL Sodium (137-145) mmol/L Potassium (3.4-5.1) mmol/L Chloride (98-107) mmol/L Carbon Dioxide (22-32) mmol/L BUN (7-17) mg/dL Creatinine (0.52-1.04) mg/dL Estimated GFR (>60) mL/min BUN/Creatinine Ratio (6-22) Glucose (70-100) mg/dL Lactate (0.7-2.1) mmol/L Calcium (8.4-10.2) mg/dL Magnesium (1.6-2.3) mg/dL Total Bilirubin (0.2-1.3) mg/dL AST (14-36) IU/L ALT (<35) IU/L Alkaline Phosphatase (38-126) U/L Total Creatine Kinase (30-135) U/L CK-MB (CK-2) CK-MB (CK-2) Rel Index Troponin I < 0.012 (0.01-0.034) ng/mL NT-Pro-B Natriuret Pep 94 (<125) pg/mL Total Protein (6.3-8.2) g/dL Albumin (3.5-5.0) g/dL Globulin (1.7-4.1) g/dL Albumin/Globulin Ratio (1.0-2.8) Procalcitonin (<0.5) ng/mL Urine RBC (0-5/HPF) Urine WBC (0-5/HPF) Ur Squamous Epith Cells (0-5/HPF) Urine Bacteria (None) Ur Culture Indicated? Chlamy pneumoniae PCR (Not Detect) Adenovirus (PCR) (Not Detect) B.parapertussis DNA PCR (Not Detect) Coronavirus OC43 (PCR) (Not Detect) Coronavirus HKU1 (PCR) (Not Detect) Coronavirus 229E (PCR) (Not Detect) COVID-19 PCR (Negative) Coronavirus NL63 (PCR) (Not Detect) Human Metapneumovir PCR (Not Detect) Influenza Type A (PCR) (Not Detect) Influenza Type B (PCR) (Not Detect) M. pneumoniae (PCR) (Not Detect) Parainfluenza 1 (PCR) (Not Detect) Parainfluenza 2 (PCR) (Not Detect) Parainfluenza 3 (PCR) (Not Detect) Parainfluenza 4 (PCR) (Not Detect) RSV (PCR) (Not Detect) Entero/Rhino (PCR) (Not Detect) Urine Dip Bedside Urine Glucose Negative Bedside Urine Bilirubin - Negative Bedside Urine Ketone - Negative Urine Specific [place] 1.010 Bedside Urine Occult Blood - Negative Bedside Urine pH 6.0 Bedside Urine Protein - Negative Bedside Urine Urobilinogen - Negative Bedside Urine Nitrite - Negative Bedside Urine Leukocytes +/- 15 Esterase Imaging Data Chest x-ray: Radiologist's Impression: [address] [address] XRay Report Signed Patient: Maryuri Bauer [facility]#: [id number] : 1970Acct:[id number] Age/Sex: 49 / FDate of Service: 05/11/20 Loc: ED Accession Number: [id number] Procedure: XR chest 1V Ordering Provider: Amadou Leyva PROCEDURE: XR CHEST 1V INDICATIONS: cough, lethargy, fever/chills, nausea TECHNIQUE: One view of the chest was acquired. COMPARISON: [facility], CR, XR CHEST 2V, 02/05/2020, 10:56. FINDINGS: Surgical changes and devices: Left chest wall Port-A-Cath tip is in SVC. P ossible cord stimulator lead projecting in mid thoracic spine level is unchanged. Lungs and pleura: Lungs are clear. No pleural effusions or pneumothorax. Mediastinum: Mediastinal contours appear normal. Heart size is normal. Bones and chest wall: No suspicious bony lesions. Overlying soft tissues appear unremarkable. IMPRESSION: No acute cardiopulmonary pathology. Dictated by: Solitario Wong M.D. on 05/11/2020 at 12:15 Approved by: Solitario Wong M.D. on 05/11/2020 at 12:20 ECG Data Attestation: I personally reviewed and interpreted this ECG as follows: Prior ECG tracings: available for review Interpretation: Sinus rhythm rate at 74. Left dominant axis. NC interval 149, QRS duration 106, QT/QTC 398/425. Q wave in I, aVL. No acute ST changes. MDM Narrative Medical decision making narrative: This is a 49-year-old female who presents to with short of breath, frequent nonproductive dry cough, feeling fatigue with hypotension and o2 sat in 80's at home. Patient has history of multiple pulmonary embolism and pneumonia who currently takes Eliquis 5 mg b.i.d.. Patient just finished Levaquin 750 mg daily for 7 day course about a week ago. The patient sees Dr. Wolf, legal entity controller not recently. Physical exam appreciated frequent nonproductive dry cough during exam, very dry oral mucous membrane, and appears to be fatigue and tired. The patient reports difficult time sleeping due to frequent coughing and orthopnea. O2 sat during conversation and awake range from mid 90s to 99% in room air. Patient has history of MICHELE and o2 sat dips down to mid 80's during sleep. She is afebrile and tachypnea during/after the cough. No tachycardia. Patient denies syncopal episodes or chest pain. Covid test was negative. Chest xray does not show pneumonia or other acute findings. No leukocytosis with WBC of 3.4 and negative lactate and procalcitonin. Respiratory panel was negative. Stable H/H of 12.2/36.5. Elevated eosinophil of 6.1. First cardiac enzymes were negative. D dimer was negative and CT test for pulmonary embolism test was deferred. Otherwise, unremarkable chemistry test. Second cardiac enzyme was drawn which was also negative. ProBNP without elevation after the IV hydration. Patient medicated with codeine with guaifenesin which helped with coughing. Infused 1 L of normal saline. Ambulation trial was done before the 2nd cardiac enzyme was drawn, patient became slightly tachypneic with short of breath, feeling tired but was able to keep O2 said in 95-96% in RA. She received 2nd dose of nebulizer treatment. During ED stay, the patient's BP had decreased to low 90's/50's and this improved to 112/62 before dc to home. Patient received neb treatments, Solu-Medrol 125 mg IV which improved her symptoms. The patient was able to rest and sleep comfortably in ED. Discussed lab, x-ray test, vital signs with patient and significant other with no indications of pulmonary embolism, pneumonia, sepsis, Covid infection. They would like to go home with outpatient medications of short course of steroids and cough depressant. Ad vised not to mix cough suppressant medication with other anti anxiety, sleeping pill, and other pain medication to prevent overt sedation. Strict return precautions were discussed with patient and significant other and advised to follow up with primary care physician and legal entity controller. They both verbalized understanding in agreement with the treatment plan. <Kingsley George, DO - Last Filed: 05/12/20 07:08> Lab Data Labs: Lab Results 05/11/20 05/11/20 05/11/20 Range/Units 11:42 11:42 12:05 WBC 3.4 L (4.5-11.0) X10^3/uL RBC 3.89 L (4.0-5.2) X10^6/uL Hgb 12.2 (12.0-16.0) g/dL Hct 36.5 (36-46) % MCV 93.7 (80-100) fL MCH 31.2 (26-34) PG MCHC 33.3 (30-36) % RDW 15.3 H (11.6-14.8) % Plt Count 185 (150-400) X10^3/uL Neut % (Auto) 54.8 (50-75) % Lymph % (Auto) 30.6 (25-40) % Granite % (Auto) 8.0 (3-14) % Eos % (Auto) 6.1 H (2-4) % Baso % (Auto) 0.5 (0-2) % Neut # (Auto) 1900 (9396-0704) /uL Lymph # (Auto) 1000 L (6202-8337) /uL Granite # (Auto) 300 (0-900) /uL Eos # (Auto) 200 (0-450) /uL Baso # (Auto) 0 (0-100) /uL D-Dimer (<230) ng/mL Sodium (137-145) mmol/L Potassium (3.4-5.1) mmol/L Chloride (98-107) mmol/L Carbon Dioxide (22-32) mmol/L BUN (7-17) mg/dL Creatinine (0.52-1.04) mg/dL Estimated GFR (>60) mL/min BUN/Creatinine Ratio (6-22) Glucose (70-100) mg/dL Lactate (0.7-2.1) mmol/L Calcium (8.4-10.2) mg/dL Magnesium (1.6-2.3) mg/dL Total Bilirubin (0.2-1.3) mg/dL AST (14-36) IU/L ALT (<35) IU/L Alkaline Phosphatase (38-126) U/L Total Creatine Kinase (30-135) U/L CK-MB (CK-2) CK-MB (CK-2) Rel Index Troponin I (0.01-0.034) ng/mL NT-Pro-B Natriuret Pep (<125) pg/mL Total Protein (6.3-8.2) g/dL Albumin (3.5-5.0) g/dL Globulin (1.7-4.1) g/dL Albumin/Globulin Ratio (1.0-2.8) Procalcitonin (<0.5) ng/mL Urine RBC (0-5/HPF) Urine WBC (0-5/HPF) Ur Squamous Epith Cells (0-5/HPF) Urine Bacteria (None) Ur Culture Indicated? Chlamy pneumoniae PCR Not detected (Not Detect) Adenovirus (PCR) Not detected (Not Detect) B.parapertussis DNA PCR Not detected (Not Detect) Coronavirus OC43 (PCR) Not detected (Not Detect) Coronavirus HKU1 (PCR) Not detected (Not Detect) Coronavirus 229E (PCR) Not detected (Not Detect) COVID-19 PCR Negative (Negative) Coronavirus NL63 (PCR) Not detected (Not Detect) Human Metapneumovir PCR Not detected (Not Detect) Influenza Type A (PCR) Not detected (Not Detect) Influenza Type B (PCR) Not detected (Not Detect) M. pneumoniae (PCR) Not detected (Not Detect) Parainfluenza 1 (PCR) Not detected (Not Detect) Parainfluenza 2 (PCR) Not detected (Not Detect) Parainfluenza 3 (PCR) Not detected (Not Detect) Parainfluenza 4 (PCR) Not detected (Not Detect) RSV (PCR) Not detected (Not Detect) Entero/Rhino (PCR) Not detected (Not Detect) 05/11/20 05/11/20 05/11/20 Range/Units 12:05 12:05 12:05 WBC (4.5-11.0) X10^3/uL RBC (4.0-5.2) X10^6/uL Hgb (12.0-16.0) g/dL Hct (36-46) % MCV (80-100) fL MCH (26-34) PG MCHC (30-36) % RDW (11.6-14.8) % Plt Count (150-400) X10^3/uL Neut % (Auto) (50-75) % Lymph % (Auto) (25-40) % Granite % (Auto) (3-14) % Eos % (Auto) (2-4) % Baso % (Auto) (0-2) % Neut # (Auto) (9511-5193) /uL Lymph # (Auto) (2474-0301) /uL Granite # (Auto) (0-900) /uL Eos # (Auto) (0-450) /uL Baso # (Auto) (0-100) /uL D-Dimer < 200 (<230) ng/mL Sodium (137-145) mmol/L Potassium (3.4-5.1) mmol/L Chloride (98-107) mmol/L Carbon Dioxide (22-32) mmol/L BUN (7-17) mg/dL Creatinine (0.52-1.04) mg/dL Estimated GFR (>60) mL/min BUN/Creatinine Ratio (6-22) Glucose (70-100) mg/dL Lactate (0.7-2.1) mmol/L Calcium (8.4-10.2) mg/dL Magnesium 1.9 (1.6-2.3) mg/dL Total Bilirubin (0.2-1.3) mg/dL AST (14-36) IU/L ALT (<35) IU/L Alkaline Phosphatase (38-126) U/L Total Creatine Kinase 35 (30-135) U/L CK-MB (CK-2) TNP CK-MB (CK-2) Rel Index TNP Troponin I < 0.012 (0.01-0.034) ng/mL NT-Pro-B Natriuret Pep (<125) pg/mL Total Protein (6.3-8.2) g/dL Albumin (3.5-5.0) g/dL Globulin (1.7-4.1) g/dL Albumin/Globulin Ratio (1.0-2.8) Procalcitonin < 0.05 (<0.5) ng/mL Urine RBC (0-5/HPF) Urine WBC (0-5/HPF) Ur Squamous Epith Cells (0-5/HPF) Urine Bacteria (None) Ur Culture Indicated? Chlamy pneumoniae PCR (Not Detect) Adenovirus (PCR) (Not Detect) B.parapertussis DNA PCR (Not Detect) Coronavirus OC43 (PCR) (Not Detect) Coronavirus HKU1 (PCR) (Not Detect) Coronavirus 229E (PCR) (Not Detect) COVID-19 PCR (Negative) Coronavirus NL63 (PCR) (Not Detect) Human Metapneumovir PCR (Not Detect) Influenza Type A (PCR) (Not Detect) Influenza Type B (PCR) (Not Detect) M. pneumoniae (PCR) (Not Detect) Parainfluenza 1 (PCR) (Not Detect) Parainfluenza 2 (PCR) (Not Detect) Parainfluenza 3 (PCR) (Not Detect) Parainfluenza 4 (PCR) (Not Detect) RSV (PCR) (Not Detect) Entero/Rhino (PCR) (Not Detect) 05/11/20 05/11/20 05/11/20 Range/Units 12:05 12:05 14:53 WBC (4.5-11.0) X10^3/uL RBC (4.0-5.2) X10^6/uL Hgb (12.0-16.0) g/dL Hct (36-46) % MCV (80-100) fL MCH (26-34) PG MCHC (30-36) % RDW (11.6-14.8) % Plt Count (150-400) X10^3/uL Neut % (Auto) (50-75) % Lymph % (Auto) (25-40) % Granite % (Auto) (3-14) % Eos % (Auto) (2-4) % Baso % (Auto) (0-2) % Neut # (Auto) (5274-2739) /uL Lymph # (Auto) (1932-5982) /uL Granite # (Auto) (0-900) /uL Eos # (Auto) (0-450) /uL Baso # (Auto) (0-100) /uL D-Dimer (<230) ng/mL Sodium 137 (137-145) mmol/L Potassium 4.2 (3.4-5.1) mmol/L Chloride 108 H (98-107) mmol/L Carbon Dioxide 27 (22-32) mmol/L BUN 15 (7-17) mg/dL Creatinine 0.73 (0.52-1.04) mg/dL Estimated GFR > 60.0 (>60) mL/min BUN/Creatinine Ratio 20.5 (6-22) Glucose 102 H (70-100) mg/dL Lactate 0.6 L (0.7-2.1) mmol/L Calcium 9.1 (8.4-10.2) mg/dL Magnesium (1.6-2.3) mg/dL Total Bilirubin 0.2 (0.2-1.3) mg/dL AST 31 (14-36) IU/L ALT 30 (<35) IU/L Alkaline Phosphatase 54 (38-126) U/L Total Creatine Kinase (30-135) U/L CK-MB (CK-2) CK-MB (CK-2) Rel Index Troponin I (0.01-0.034) ng/mL NT-Pro-B Natriuret Pep (<125) pg/mL Total Protein 6.6 (6.3-8.2) g/dL Albumin 3.9 (3.5-5.0) g/dL Globulin 2.7 (1.7-4.1) g/dL Albumin/Globulin Ratio 1.4 (1.0-2.8) Procalcitonin (<0.5) ng/mL Urine RBC None seen (0-5/HPF) Urine WBC 1-5/hpf (0-5/HPF) Ur Squamous Epith Cells 5-10 /hpf H (0-5/HPF) Urine Bacteria None seen (None) Ur Culture Indicated? Cult not indicated Chlamy pneumoniae PCR (Not Detect) Adenovirus (PCR) (Not Detect) B.parapertussis DNA PCR (Not Detect) Coronavirus OC43 (PCR) (Not Detect) Coronavirus HKU1 (PCR) (Not Detect) Coronavirus 229E (PCR) (Not Detect) COVID-19 PCR (Negative) Coronavirus NL63 (PCR) (Not Detect) Human Metapneumovir PCR (Not Detect) Influenza Type A (PCR) (Not Detect) Influenza Type B (PCR) (Not Detect) M. pneumoniae (PCR) (Not Detect) Parainfluenza 1 (PCR) (Not Detect) Parainfluenza 2 (PCR) (Not Detect) Parainfluenza 3 (PCR) (Not Detect) Parainfluenza 4 (PCR) (Not Detect) RSV (PCR) (Not Detect) Entero/Rhino (PCR) (Not Detect) 05/11/20 Range/Units 15:08 WBC (4.5-11.0) X10^3/uL RBC (4.0-5.2) X10^6/uL Hgb (12.0-16.0) g/dL Hct (36-46) % MCV (80-100) fL MCH (26-34) PG MCHC (30-36) % RDW (11.6-14.8) % Plt Count (150-400) X10^3/uL Neut % (Auto) (50-75) % Lymph % (Auto) (25-40) % Granite % (Auto) (3-14) % Eos % (Auto) (2-4) % Baso % (Auto) (0-2) % Neut # (Auto) (8128-6268) /uL Lymph # (Auto) (9720-3979) /uL Granite # (Auto) (0-900) /uL Eos # (Auto) (0-450) /uL Baso # (Auto) (0-100) /uL D-Dimer (<230) ng/mL Sodium (137-145) mmol/L Potassium (3.4-5.1) mmol/L Chloride (98-107) mmol/L Carbon Dioxide (22-32) mmol/L BUN (7-17) mg/dL Creatinine (0.52-1.04) mg/dL Estimated GFR (>60) mL/min BUN/Creatinine Ratio (6-22) Glucose (70-100) mg/dL Lactate (0.7-2.1) mmol/L Calcium (8.4-10.2) mg/dL Magnesium (1.6-2.3) mg/dL Total Bilirubin (0.2-1.3) mg/dL AST (14-36) IU/L ALT (<35) IU/L Alkaline Phosphatase (38-126) U/L Total Creatine Kinase (30-135) U/L CK-MB (CK-2) CK-MB (CK-2) Rel Index Troponin I < 0.012 (0.01-0.034) ng/mL NT-Pro-B Natriuret Pep 94 (<125) pg/mL Total Protein (6.3-8.2) g/dL Albumin (3.5-5.0) g/dL Globulin (1.7-4.1) g/dL Albumin/Globulin Ratio (1.0-2.8) Procalcitonin (<0.5) ng/mL Urine RBC (0-5/HPF) Urine WBC (0-5/HPF) Ur Squamous Epith Cells (0-5/HPF) Urine Bacteria (None) Ur Culture Indicated? Chlamy pneumoniae PCR (Not Detect) Adenovirus (PCR) (Not Detect) B.parapertussis DNA PCR (Not Detect) Coronavirus OC43 (PCR) (Not Detect) Coronavirus HKU1 (PCR) (Not Detect) Coronavirus 229E (PCR) (Not Detect) COVID-19 PCR (Negative) Coronavirus NL63 (PCR) (Not Detect) Human Metapneumovir PCR (Not Detect) Influenza Type A (PCR) (Not Detect) Influenza Type B (PCR) (Not Detect) M. pneumoniae (PCR) (Not Detect) Parainfluenza 1 (PCR) (Not Detect) Parainfluenza 2 (PCR) (Not Detect) Parainfluenza 3 (PCR) (Not Detect) Parainfluenza 4 (PCR) (Not Detect) RSV (PCR) (Not Detect) Entero/Rhino (PCR) (Not Detect) Urine Dip Bedside Urine Glucose Negative Bedside Urine Bilirubin - Negative Bedside Urine Ketone - Negative Urine Specific [place] 1.010 Bedside Urine Occult Blood - Negative Bedside Urine pH 6.0 Bedside Urine Protein - Negative Bedside Urine Urobilinogen - Negative Bedside Urine Nitrite - Negative Bedside Urine Leukocytes +/- 15 Esterase Discharge Plan Departure Patient Disposition: Home Clinical Impression: Shortness of breath, Cough Discharge Date/Time: 05/11/20 16:58 Instructions: DI for Cough -- Adult, DI for Shortness of Breath Activity Restrictions/Additional Instructions: You have been diagnosed with [short of breath, cough likely from bronchitis.]. What to do: *Take your medications as directed. Please take steroids 40 mg daily for next 3 days. Promethazine with codeine for severe cough. This medication can cause drowsiness so please take precautions and not driving, drinking alcohol or operating heavy equipments. You can continue to use albuterol inhaler for short of breath and frequent coughing. Codeine/promethazine will increases sedation when your taking it with Ambien, Zanaflex, gabapentin, Ativan, Clonidine, Olanzapine so please do not take with these medications and take additional precautions. Otherwise, you can continue to take Tessalon for guaifenesin for cough. Warm honey water helps with cough as well. This medication have been transmitted to [facility] in [facility]. *Follow up with your primary care provider in 2-3 days, call for an appointment. Please follow-up with your legal entity controller. Let them know you were seen in the ED and that we asked you to be seen in follow up. *Return to ED if you have any new, worsening, or concerning symptoms, such as [chest pain, worsening short of breath, fever/chills, near fainting episodes, u nable to tolerate fluids, or any acute concerns]. Prescriptions: New promethazine-codeine 6.25-10 mg/5 mL syrup 5 ml PO Q8H PRN (Reason: Severe cough) Qty: 160 RF: 0 prednisone 20 mg tablet 40 mg PO DAILY 3 Days Qty: 6 RF: 0 No Action benzonatate [Tessalon Perles] 100 mg capsule 100 mg PO BID PRN (Reason: cough) Qty: 30 RF: 0 zolpidem 10 mg tablet 10 mg PO BEDTIME PRN (Reason: insomnia) Qty: 90 RF: 1 guaifenesin [Mucinex] 600 mg tablet extended release 12hr 600 mg PO BID RF: 0 lithium carbonate 300 mg capsule 900 mg PO BEDTIME Qty: 270 RF: 0 olanzapine 2.5 mg tablet 5 mg PO BID PRN (Reason: episode) Qty: 60 RF: 2 gabapentin [Neurontin] 600 mg tablet 1,200 mg PO BEDTIME Qty: 180 RF: 2 apixaban 5 mg tablet 5 mg PO BID Qty: 180 RF: 3 promethazine 25 mg tablet 25 - 50 mg PO Q6H PRN (Reason: NAUSEA AND INSOMNIA) Qty: 90 RF: 2 fluticasone propionate [Flonase Allergy Relief] 50 mcg/actuation spray,suspension 2 spray Intranasal BEDTIME Qty: 16 RF: 5 zonisamide 100 mg capsule 200 mg PO DAILY Qty: 60 RF: 5 ondansetron HCl [Zofran] 4 mg tablet 4 - 8 mg PO TID PRN (Reason: nausea and vomiting) Qty: 180 RF: 2 lamotrigine 150 mg tablet 150 mg PO BID Qty: 180 RF: 0 vortioxetine 20 mg tablet 20 mg PO DAILY Qty: 90 RF: 0 suvorexant 20 mg tablet 20 mg PO BEDTIME Qty: 90 RF: 0 bupropion HCl [Wellbutrin SR] 150 mg tablet sustained-release 12 hr 150 mg PO .COMPLEX MDD 300mg Qty: 90 RF: 2 clonidine HCl 0.1 mg tablet See Rx Instructions PO TID PRN (Reason: Anxiety) Qty: 90 RF: 0 lorazepam 2 mg tablet 2 mg PO QID PRN (Reason: anxiety) 30 Days Qty: 120 RF: 2 acetaminophen 500 mg Tablet 1,000 mg PO Q6H PRN (Reason: Pain, Mild) RF: 0 ascorbic acid (vitamin C) [Vitamin C] 1,000 mg Tablet 500 mg BID RF: 0 vitamin E 600 unit Capsule 600 unit PO DAILY RF: 0 omeprazole 20 mg Capsule,Delayed Release(Dr/Ec) 20 mg PO BID RF: 0 Caltrate 600 plus D 600 mg (1,500 mg)-800 unit Tablet,Chewable 2 tab PO BID RF: 0 Cbd 100 MG 100 mg BID RF: 0 cetirizine [Zyrtec] 10 mg Tablet 10 mg PO DAILY RF: 0 albuterol sulfate 90 mcg/actuation Hfa Aerosol Inhaler 2 puff INHALATION Q6H PRN (Reason: Shortness Of Breath) RF: 0 tizanidine [Zanaflex] 4 mg capsule 4 mg PO BEDTIME RF: 0 (DME) Resmed Aircurve 10 BIPAP Qty: 1 RF: 0 Referrals: Yunier Keys MD [Primary Care Provider] - <Kingsley George DO - Last Filed: 05/12/20 07:08> [facility] Dr George Co-Sign Statement: I was available for consultation during this patient's emergency department visit. This chart is signed by myself for administrative purposes only. I did not have direct contact with this patient during this visit. They were seen independently by the APC.
[2020-05-11] MEDS: CODEINE/GUAIFENESIN LIQUID 5ML UDC 10 ML PO (12:11)
[2020-05-11] MEDS: SODIUM CHLORIDE 0.9% 1,000 ML 1000 ML IV (12:12)
[2020-05-11 12:21] LABS: Add Manual Diff / Slide Review NO; Basophils Absolute Auto 0 /uL (0-100); Basophils Percent Auto 0.5 % (0-2); Eosinophils Absolute Auto 200 /uL (0-450); Eosinophils Percent Auto 6.1 % (2-4); Hematocrit 36.5 % (36-46); Hemoglobin 12.2 g/dL (12.0-16.0); Lymphocytes Absolute Auto 1000 /uL (1100-4500); Lymphocytes Percent Auto 30.6 % (25-40); Mean Corpuscular HGB Conc 33.3 % (30-36); Mean Corpuscular Hemoglobin 31.2 PG (26-34); Mean Corpuscular Volume 93.7 fL (80-100); Monocytes Absolute Auto 300 /uL (0-900); Neutrophils Absolute Auto 1900 /uL (1500-7000); Neutrophils Percent Auto 54.8 % (50-75); Platelet Count 185 X10^3/uL (150-400); Red Blood Cell Count 3.89 X10^6/uL (4.0-5.2); Red Cell Distribution Width 15.3 % (11.6-14.8); White Blood Cell Count 3.4 X10^3/uL (4.5-11.0)
[2020-05-11 12:32] LABS: D Dimer < 200 ng/mL (<230)
[2020-05-11 12:33] LABS: Lactate (Lactic Acid) 0.6 mmol/L (0.7-2.1)
[2020-05-11 12:34] LABS: Alanine Aminotransferase 30 IU/L (<35); Albumin 3.9 g/dL (3.5-5.0); Albumin Globulin Ratio 1.4 (1.0-2.8); Alkaline Phosphatase 54 U/L (38-126); Aspartate Aminotransferase 31 IU/L (14-36); BUN Creatinine Ratio 20.5 (6-22); Bilirubin Total 0.2 mg/dL (0.2-1.3); Blood Urea Nitrogen 15 mg/dL (7-17); Calcium 9.1 mg/dL (8.4-10.2); Carbon Dioxide 27 mmol/L (22-32); Chloride 108 mmol/L (98-107); Creatine Kinase 35 U/L (30-135); Estimated Glomerular Filt Rate > 60.0 mL/min (>60); Globulin 2.7 g/dL (1.7-4.1); Glucose 102 mg/dL (70-100); HEMOLYSIS < 15 (0-50); Magnesium 1.9 mg/dL (1.6-2.3); Potassium 4.2 mmol/L (3.4-5.1); Sodium 137 mmol/L (137-145); Total Protein 6.6 g/dL (6.3-8.2)
[2020-05-11 12:43] LABS: COVID19 -Nasal RAPID Negative (Negative)
[2020-05-11 12:46] LABS: Troponin I < 0.012 ng/mL (0.01-0.034)
[2020-05-11 12:47] LABS: Procalcitonin < 0.05 ng/mL (<0.5)
[2020-05-11] MEDS: ALBUTEROL 2.5 MG/3 ML NEB (ADULT) INH ×2 (13:02→15:00)
[2020-05-11] MEDS: methylPREDNISolone 125 MG/2 ML VIAL IV (13:02)
[2020-05-11 14:32] LABS: Adenovirus Not Detected (Not Detect); Coronavirus 229E Not Detected (Not Detect); Coronavirus HKU1 Not Detected (Not Detect); Coronavirus NL 63 Not Detected (Not Detect); Coronavirus OC43 Not Detected (Not Detect)
[2020-05-11 14:33] LABS: Bordetella pertussis Not Detected (Not Detect); Chlamydophila pneumoniae Not Detected (Not Detect); Human Metapneumovirus Not Detected (Not Detect); Human Rhinovirus/Enterovirus Not Detected (Not Detect); Influenza A Not Detected (Not Detect); Influenza B Not Detected (Not Detect); Mycoplasma pneumoniae Not Detected (Not Detect); Parainfluenza Virus 1 Not Detected (Not Detect); Parainfluenza Virus 2 Not Detected (Not Detect); Parainfluenza Virus 3 Not Detected (Not Detect); Parainfluenza Virus 4 Not Detected (Not Detect); Respiratory Syncytial Virus Not Detected (Not Detect)
--- NOTE | 2020-05-11 14:41 | PC.NURSE ---
Patient initially felt strong enough to ambulate but then felt weak and asked to sit down. Pulse oximeter was 95% during ambulation.
[2020-05-11] MEDS: SODIUM CHLORIDE 0.9% 1,000 ML 150 ML IV (15:00)
[2020-05-11 15:13] LABS: Bacteria Urine None Seen; RBC Urine None Seen (0-5/HPF)
[2020-05-11 15:19] LABS: Culture Indicated Urine Cult Not Indicated; Squamous Epithelial Cell Urine 5-10 /HPF (0-5/HPF); WBC Urine 1-5/HPF (0-5/HPF)
[2020-05-11 15:40] LABS: NT-proBNP (BNP-Adult 18+) 94 pg/mL (<125); Troponin I < 0.012 ng/mL (0.01-0.034)
== END 2020-05-11 16:58 | disposition home or self-care (01) ==
PROVIDERS: Emergency Provider Nurse Practitioner Family; Family Provider Student in an Organized Health Care Education/Training Program; PCP Student in an Organized Health Care Education/Training Program
DX: R06.01 Orthopnea (principal); R05 Cough; R06.02 Shortness of breath; R50.9 Fever, unspecified; Z79.01 Long term (current) use of anticoagulants; I95.9 Hypotension, unspecified
CPT/HCPCS: 36415; 71045; 80053; 81003; 81015; 82550; 83605; 83735; 83880; 84145; 84484; 85025; 85379; 87040; 87633; 87635; 93005; 93010; 94640; 96361; 96374; 99285; J1642; J2930; J7613

== ENCOUNTER → 2020-05-17 12:55 | Outpatient (CLI) | payer OTHER, SELFPAY ==
[2020-03-25 15:57] VITALS: RESP 17; O2SAT 94; BMI 44.6
--- NOTE | 2020-05-17 12:57 | DI.RAD.S_ITS ---
PROCEDURE: XR CHEST 2V INDICATIONS: Progressive cough with fever TECHNIQUE: 2 views of the chest were acquired. COMPARISON: [facility], CR, XR CHEST 1V, 05/11/2020, 12:36. [facility], CR, XR CHEST 2V, 02/05/2020, 10:56. FINDINGS: Surgical changes and devices: Left-sided port with the catheter tip in the upper 3rd of the SVC. Thoracic spine thecal stimulator leads. Surgical clips in the left upper quadrant. Cholecystectomy clips. Lungs and pleura: Minimal ill-defined hazy opacity at the left lung base. No pleural effusions or pneumothorax. Mediastinum: Mediastinal contours are normal. Heart size is normal. Bones and chest wall: No suspicious bony abnormalities. Soft tissues appear unremarkable. IMPRESSION: Minimal airspace opacity at the left lung base. Suspect atelectasis rather than pneumonia. Dictated by: Elliott Quintero M.D. on 05/17/2020 at 14:26 Approved by: Elliott Quintero M.D. on 05/17/2020 at 14:29
== END ==
PROVIDERS: Family Provider Student in an Organized Health Care Education/Training Program; PCP Family Medicine; Referring Provider Family Medicine; Visit Provider Family Medicine
DX: J20.9 Acute bronchitis, unspecified (principal); R05 Cough; R50.9 Fever, unspecified
CPT/HCPCS: 71046

== ENCOUNTER → 2020-08-27 14:06 | Outpatient (CLI) | payer OTHER, SELFPAY ==
[2020-03-25 15:57] VITALS: RESP 17; O2SAT 94; BMI 44.6
--- NOTE | 2020-08-27 14:11 | DI.RAD.S_ITS ---
PROCEDURE: XR LUMBAR SPINE 2-3V INDICATIONS: low back pain TECHNIQUE: 3 views of the lumbar spine were acquired. COMPARISON: [facility], CT, CT ABDOMEN PELVIS W CON, 01/23/2020, 11:59. [facility], CT, L-SPINE WITHOUT CONTRAST, 01/17/2017, 10:09. FINDINGS: Bones: 5 [id number] vertebrae are present. There is normal bony alignment. No vertebral body compression fractures. No suspicious bony lesions. Spinal stimulator electrode lead and plate extend cephalad from the posterior lumbar region into the low thoracic spine area. Soft tissues: Overlying bowel gas pattern is normal. No suspicious soft tissue calcifications. IMPRESSION: Relatively mild degenerative changes along the lumbosacral spine without subluxation. The facet osteoarthritis is mild at L3-L4 in mild to moderate at L4-5 and L5-S1. No definite acute disease. Dictated by: Duong Bartlett M.D. on 08/27/2020 at 15:28 Approved by: Duong Bartlett M.D. on 08/27/2020 at 15:30
== END ==
PROVIDERS: Family Provider Student in an Organized Health Care Education/Training Program; PCP Family Medicine; Referring Provider Family Medicine; Visit Provider Family Medicine
DX: M54.5 Low back pain (principal); M47.816 Spondylosis without myelopathy or radiculopathy, lumbar region; M47.817 Spondylosis without myelopathy or radiculopathy, lumbosacral region
CPT/HCPCS: 72100

== ENCOUNTER → 2020-09-07 10:04 | Outpatient (CLI) | payer OTHER, SELFPAY ==
[2020-09-06 11:39] VITALS: RESP 17; O2SAT 94; BMI 44.6
== END ==
PROVIDERS: Family Provider Student in an Organized Health Care Education/Training Program; PCP Family Medicine; Referring Provider Family Medicine; Visit Provider Family Medicine
DX: M54.41 Lumbago with sciatica, right side (principal); G89.29 Other chronic pain; Z53.8 Procedure and treatment not carried out for other reasons

== ENCOUNTER 2020-09-27 08:12 | Outpatient (CLI) | payer OTHER, SELFPAY ==
[2020-09-06 11:39] VITALS: RESP 17; O2SAT 94; BMI 44.6
[2020-09-27] VITALS (9 sets, daily range): BP systolic 99–115; BP diastolic 61–78; PULSE 63–94; RESP 14–17; TEMP 36.2–36.8; O2SAT 94–99; BMI 39.4
--- NOTE | 2020-09-27 08:17 | DI.CT.S_ITS ---
PROCEDURE: CT LUMBAR SPINE W CON INDICATIONS: Progressive localized lower lumbar back pain with radiculopa TECHNIQUE: After the intrathecal administration of 15 mL intrathecal contrast, 3 mm thick sections acquired from T12 to the sacrum. Sagittal and coronal reformats were then constructed. For radiation dose reduction, the following was used: automated exposure control. COMPARISON: None. FINDINGS: Image quality: Adequate intrathecal contrast opacification. Bones: Normal lumbar vertebral body height and alignment. No suspicious lytic or blastic osseous lesion. Soft tissues: No significant soft tissue abnormality. Partial gastrectomy sutures and left upper quadrant bowel anastomotic sutures noted, along with adjacent mesenteric surgical clips and cholecystectomy clips. Spinal stimulator leads enter the spinal canal at the T12-L1 level. T12-L1: No spinal canal or neural foraminal stenosis. L1-L2: No spinal canal or neural foraminal stenosis. L2-L3: No spinal canal or neural foraminal stenosis. L3-L4: No spinal canal or neural foraminal stenosis. L4-L5: No spinal canal stenosis. Mild bilateral neural foraminal narrowing due to circumferential disc bulge. L5-S1: No spinal canal stenosis. There is moderate left and mild right neural foraminal stenosis due to circumferential disc bulge. IMPRESSION: Degenerative change at L4-L5 and L5-S1. Dictated by: Luis Rubalcava M.D. on 09/27/2020 at 13:55 Approved by: Luis Rubalcava M.D. on 09/27/2020 at 13:58
--- NOTE | 2020-09-27 08:17 | DI.RAD.S_ITS ---
PROCEDURE: FL MYELOGRAM SPINE LUMBOSACRAL INDICATIONS: Progressive localized lower lumbar back pain with radiculopa COMPARISON: None. TECHNIQUE: The indications, alternatives, benefits, risks and complications of the procedure were explained to the patient. Written informed consent was obtained and placed in the chart. The patient was placed in a prone position on the fluoroscopy table, and a level was chosen for percutaneous access under fluoroscopic guidance. The skin was prepped and draped in a sterile fashion. After local anaesthetic, a spinal needle was then used to enter the intrathecal space, with return of clear cerebrospinal fluid. 15 mL of Isovue M-200 were administered intrathecally under fluoroscopic visualization. The needle was then withdrawn, and a bandage applied to the puncture site. Fluoroscopic spot films were then acquired in various positions. FINDINGS: Standing frontal, lateral, and oblique views demonstrate no significant central canal stenoses. Access level: L2-3. Medications: 1% lidocaine for local anaesthesia. Complications: None. Patient was transferred to CT for subsequent CT myelogram. IMPRESSION: Successful fluoroscopically guided administration of iodinated contrast into the lumbar spine central canal for CT myelogram. Dictated by: Solitario Wong M.D. on 09/27/2020 at 10:07 Approved by: Solitario Wong M.D. on 09/27/2020 at 10:13
--- NOTE | 2020-09-27 09:16 | SUR.PREOP ---
pt left for DI via stretcher with eric Montenegro at 0905.
[2020-09-27] MEDS: fentaNYL 100 MCG/2 ML INJ IV (09:46)
--- NOTE | 2020-09-27 13:03 | SUR.PHASEII ---
Port de-accessed per policy without any difficultly. pt tolerated procedure without any difficulty. Drsg placed over port. pt dc'd to home in stable condition, vss at 1255.
== END 2020-09-27 12:55 | disposition home or self-care (01) ==
PROVIDERS: Family Provider Student in an Organized Health Care Education/Training Program; PCP Family Medicine; Referring Provider Internal Medicine Cardiovascular Disease; Visit Provider Internal Medicine Cardiovascular Disease
DX: M54.5 Low back pain (principal); M54.16 Radiculopathy, lumbar region; D50.8 Other iron deficiency anemias; Z86.711 Personal history of pulmonary embolism; Z79.01 Long term (current) use of anticoagulants
CPT/HCPCS: 36591; 72132; 72265; 82565; 84520; 85610; J1642; J3010

== ENCOUNTER → 2020-10-08 11:39 | Outpatient (CLI) | payer OTHER, SELFPAY ==
[2020-09-06 11:39] VITALS: RESP 17; O2SAT 94; BMI 44.6
--- NOTE | 2020-10-08 11:40 | DI.RAD.S_ITS ---
PROCEDURE: XR CERVICAL SPINE 4V OR 5V INDICATIONS: Progressive neck pain with radiculopathy TECHNIQUE: 5 views of the cervical spine acquired. COMPARISON: None. FINDINGS: Bones: No fractures or dislocations to the T1 level. Oblique images demonstrate no bony foraminal stenoses. Soft tissues: No prevertebral soft tissue swelling. Left chest wall Port-A-Cath noted. IMPRESSION: No osseous lesion. If symptoms and/or clinical suspicion for pathology persists, further assessment with advanced imaging (e.g. CT, MRI) should be considered. Dictated by: Francia Hester MD, PhD on 10/08/2020 at 16:50 Approved by: Francia Hester MD, PhD on 10/08/2020 at 16:51
== END ==
PROVIDERS: Family Provider Student in an Organized Health Care Education/Training Program; PCP Family Medicine; Referring Provider Family Medicine; Visit Provider Family Medicine
DX: M54.2 Cervicalgia (principal); M54.12 Radiculopathy, cervical region
CPT/HCPCS: 72050

== ENCOUNTER → 2020-11-02 09:22 | Outpatient (CLI) | payer OTHER, SELFPAY ==
[2020-09-06 11:39] VITALS: RESP 17; O2SAT 94; BMI 44.6
--- NOTE | 2020-11-02 09:24 | DI.MG.S_ITS ---
UNILATERAL LEFT DIGITAL DIAGNOSTIC MAMMOGRAM 3D/2D SHORT-TERM FOLLOW-UP: 11/02/2020 CLINICAL: Short term follow up for the left breast. Comparison is made to exams dated: 03/17/2020 mammogram, 02/24/2020 mammogram, 11/13/2018 mammogram, 03/17/2020 ultrasound, and 10/10/2016 mammogram - [facility]. The tissue of left breast is heterogeneously dense. This may lower the sensitivity of mammography. The benign irregular architectural distortion in the left breast at 1 o'clock middle depth is no longer seen. No other significant masses or calcifications are seen in the breast. IMPRESSION: BENIGN There is no mammographic evidence of malignancy. Return to annual mammogram screening schedule is recommended. This exam was interpreted at Station ID: [id number]. NOTE: For mammograms, a report in lay terms will be sent to the patient. Approximately 15% of breast malignancies will not be visualized mammographically. In the management of a palpable breast mass, a negative mammogram must not discourage biopsy of a clinically suspicious lesion. Electronically Signed By: Santiago garcia/blue:11/02/2020 09:48:53 letter sent: Normal Exam ACR BI-RADS Category 2: Benign Finding(s) [id number]
== END ==
PROVIDERS: Family Provider Student in an Organized Health Care Education/Training Program; PCP Family Medicine; Referring Provider Family Medicine; Visit Provider Family Medicine
DX: R92.8 Other abnormal and inconclusive findings on diagnostic imaging of breast (principal)
CPT/HCPCS: 77065; G0279

== ENCOUNTER → 2021-02-04 16:56 | Outpatient (CLI) | payer OTHER, SELFPAY ==
[2021-01-12 11:05] VITALS: RESP 17; O2SAT 94; BMI 44.6
--- NOTE | 2021-02-04 16:59 | DI.RAD.S_ITS ---
PROCEDURE: XR CHEST 2V INDICATIONS: cough TECHNIQUE: 2 views of the chest were acquired. COMPARISON: [facility], CT, CT ANGIO CHEST PE PROTOCOL, 02/05/2020, 12:47. [facility], CR, XR CHEST 2V, 02/05/2020, 10:56. [facility], CR, XR CHEST 1V, 05/11/2020, 12:36. [facility], CR, XR CHEST 2V, 05/17/2020, 12:53. FINDINGS: Surgical changes and devices: There is postoperative changes are seen, with a stable left-sided chest port, cholecystectomy clips, a thoracic spine stimulator, and left upper quadrant postoperative change, presumably related to gastric bypass surgery. Lungs and pleura: An incomplete inspiratory result is noted, causing a crowded appearance to the lung markings. No focal infiltrates are seen. No pneumothorax or significant pleural effusions are seen. Mediastinum: Mediastinal contours are normal. Heart size is normal. Bones and chest wall: No suspicious bony abnormalities. Soft tissues appear unremarkable. IMPRESSION: Low lung volumes, without focal infiltrates. Numerous stable postoperative changes are seen. Dictated by: Eric Chacko M.D. on 02/04/2021 at 16:13 Approved by: Eric Chacko M.D. on 02/04/2021 at 16:14
== END ==
PROVIDERS: Family Provider Student in an Organized Health Care Education/Training Program; PCP Family Medicine; Referring Provider Physician Assistant; Visit Provider Physician Assistant
DX: R05 Cough (principal); R09.81 Nasal congestion; Z20.822 Contact with and (suspected) exposure to COVID-19; Z95.828 Presence of other vascular implants and grafts; Z96.82 Presence of neurostimulator
CPT/HCPCS: 71046; 87635

== ENCOUNTER → 2021-02-04 17:00 | Outpatient (CLI) | payer OTHER, SELFPAY ==
[2021-01-12 11:05] VITALS: RESP 17; O2SAT 94; BMI 44.6
[2021-02-04 17:27] LABS: COVID19 -Nasal RAPID Negative (Negative)
== END ==
PROVIDERS: Family Provider Student in an Organized Health Care Education/Training Program; PCP Family Medicine; Visit Provider Physician Assistant
DX: Z20.822 Contact with and (suspected) exposure to COVID-19 (principal)
CPT/HCPCS: 87635

== ENCOUNTER → 2021-05-16 18:14 | Outpatient (CLI) | payer OTHER, SELFPAY ==
[2021-03-24 11:01] VITALS: RESP 17; O2SAT 94; BMI 44.6
[2021-05-16 19:49] LABS: COVID19 -Nasal RAPID Negative (Negative)
== END ==
PROVIDERS: Family Provider Student in an Organized Health Care Education/Training Program; PCP Family Medicine; Referring Provider Nurse Practitioner Family; Visit Provider Nurse Practitioner Family
DX: Z20.822 Contact with and (suspected) exposure to COVID-19 (principal); R05.9 Cough, unspecified; R19.7 Diarrhea, unspecified; R50.9 Fever, unspecified; R53.83 Other fatigue
CPT/HCPCS: 87635

== ENCOUNTER → 2021-07-07 10:12 | Outpatient (CLI) | payer OTHER, SELFPAY ==
[2021-03-24 11:01] VITALS: RESP 17; O2SAT 94; BMI 44.6
--- NOTE | 2021-07-07 10:14 | DI.RAD.S_ITS ---
PROCEDURE: XR SHOULDER LT MIN 2V INDICATIONS: L shoulder pain TECHNIQUE: 3 views of the shoulder were acquired. COMPARISON: None. FINDINGS: Bones: No fractures or dislocations. No suspicious bony lesions. Visualized ribs appear intact. Soft tissues: No suspicious soft tissue calcifications. There is a left chest wall port with the tip in the brachiocephalic vein. IMPRESSION: Normal left shoulder Dictated by: Giovanni Quezada M.D. on 07/07/2021 at 12:33 Approved by: Giovanni Quezada M.D. on 07/07/2021 at 12:35
== END ==
PROVIDERS: Family Provider Student in an Organized Health Care Education/Training Program; PCP Family Medicine; Referring Provider Family Medicine; Visit Provider Family Medicine
DX: S46.012D Strain of muscle(s) and tendon(s) of the rotator cuff of left shoulder, subsequent encounter (principal); F41.1 Generalized anxiety disorder; F43.12 Post-traumatic stress disorder, chronic; F31.73 Bipolar disorder, in partial remission, most recent episode manic; M25.512 Pain in left shoulder; X58.XXXD Exposure to other specified factors, subsequent encounter
CPT/HCPCS: 73030; 90837

== ENCOUNTER 2021-08-25 09:27 | Outpatient (RCR) | payer OTHER, SELFPAY ==
[2021-07-14 10:01] VITALS: RESP 17; O2SAT 94; BMI 44.6
--- NOTE | 2021-08-25 17:15 | PT.OIE ---
Current Diagnoses Strain of muscle(s) and tendon(s) of the rotator cuff of left shoulder, initial encounter (08/25/21) Past Medical History (Last Reviewed 07/06/21 @ 14:05 by Blake Waller DO) Abnormal CXR (chest x-ray) Acute bronchitis Ankle fracture, left (1986) Anxiety Arthritis of knee Asthma Bipolar 1 disorder, depressed Chicken pox Chronic anemia Chronic back pain Chronic headaches Chronic kidney disease Chronic neck pain Depression Diabetes mellitus Diastolic dysfunction Fatty liver GERD (gastroesophageal reflux disease) GI bleeding High risk medication use History of endometrial ablation (2008) History of esophagogastroduodenoscopy (EGD) (04/19/17) History of ischemic colitis History of open reduction and internal fixation (ORIF) procedure (1986) History of pulmonary embolism History of spinal surgery (2010) Hyperlipidemia Hypertension Insomnia due to other mental disorder Irregular periods/menstrual cycles Ischemic colitis (2013) Lumbar spine pain Migraines Neck arthritis Neck pain Obstructive sleep apnea syndrome (2007) Panic attacks Plantar warts Pneumonia PTSD (post-traumatic stress disorder) Pulmonary embolism (2006) Pulmonary hypertension S/P ECT (electroconvulsive therapy) (2013) Shoulder arthritis Spinal cord stimulator status Spinal cord stimulator status Status post peripherally inserted central catheter (PICC) central line placement (04/04/17) Strain of tendon of left rotator cuff Transient hypotension Well adult exam Past Surgical History (Last Updated 03/19/21 @ 20:51 by MATTY Crespo) Anesthesia History of bowel resection (1995) History of endometrial ablation (2008) History of esophagogastroduodenoscopy (EGD) (04/19/17) History of gastric bypass History of gastric bypass (2009) History of open reduction and internal fixation (ORIF) procedure (1986) History of spinal surgery (2010) Status post cardiac catheterization (2007) Status post cholecystectomy (2007) Status post peripherally inserted central catheter (PICC) central line placement (04/04/17) Visit Care Team Role Provider Type Blake Waller DO Attending Provider Physician Family Provider Primary Care Provider Referring Provider Specialty: Family Practice Address: [address] [place] [address], [id number] Email: [email or web address] [facility] Initial Evaluation PT-OP-A Visit Information Start: 08/19/21 18:15 Freq: Status: Active Protocol: Document 08/25/21 09:43 LRN (Rec: 08/25/21 10:43 LRN [id number]) Out-Patient Physical Therapy Visit Information Visit Information Visit Type Initial Evaluation Visit Start Time 09:43 Visit Stop Time 10:41 Total Visit Minutes 58 Visit Number 1 Evaluation Information Evaluation Date 08/25/21 Precautions Precautions Spinal stimulator, HX of pulmonary embolism, on anticoagulants. Kidney disease, Bipolar Disorder, PTSD, Depression Arthritis PT-OP-B Current Condition Start: 08/19/21 18:15 Freq: Status: Active Protocol: Document 08/25/21 09:43 LRN (Rec: 08/25/21 10:43 LRN [id number]) Current Condition History of Current Condition Onset Date 08/2020 Current Complaints L shoulder pain: behind and in the upper lateral shoulder. History of Current Condition Pt reports she fell with L arm straight out and shoulder took all the shock. Had cortisone injection in the L shoulder just before going to [facility] to visit family. She has been going back periodically to [facility] and just got back 08/13/21. She had pain relief for a month (while visiting family). She was able to sleep in bed , but this last week the L shoulder has been aching more and she has been able to tolerate sleeping in bed one night. Now she is sleeping in a recliner. Can't sleep on her back or either side due to L shoulder pain. Steroid injection day before leaving and was well for ~ a month, then the L shoulder started to hurt again and is very painful. She reports tingling in R fingertips, and new tingling in L hand. Prior Treatments and Tests X-rays: No fractures. Not able to do MRI because of a spinal low back stimulator. 07/29/21: Cortisone injection that was beneficial for the month. Developmental History Developmental History Had large pulmonary embolism ( x3) that went to both lungs ~ 11 yrs ago. On lifetime anticoagulant. Has a spinal stimulator (in the low back) for arthritic pain in the low back. Has DDD in low back and neck. 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 Has CPAP that makes it difficult to sleep in recliner . Treatment Goals Patient/Caregiver Goals Pt goals is to be able to sleep in a bed and not in recliner. Pt goal is to improve strength the L arm to be able to improve function and be on HEP (peanut picker groceries (carries 2 with R arm), taking a gallon of milk our of fridge). Pt goal is wash her back or put her coat on with greater ease, minimal pain and be on HEP to improve over time. Prior Functional Status Baseline Function- ADL's Independent Baseline Function- Mobility Independent Baseline Function- Recreation/Hobbies Able to lift luggage on plane. Baseline Function- Other Able to sleep 6-7 hr a night. Able to carry 1-2 bags of groceries without trouble Able to dress without pain. Current Functional Impairments (Reported) Functional Limitations- ADL's Not able to sleep supine or on side due to L shoulder pain, must sleep in recliner although difficult due to CPAP machine. Sleeping is intermittent in nature. 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 Functional Limitations- Other L shoulder pain with functional use (dressing, carrying objects, etc.) Personal Factors Other Personal Factors That May Effect Per pt: Therapy/Recovery Type I Diabetes, Spinal Stimulator Bipolar Disorder, Depression, Cognitive changes after suffering several pulmonary embolisms. PT-OP-C Subjective Start: 08/19/21 18:15 Freq: Status: Active Protocol: Document 08/25/21 09:43 LRN (Rec: 08/25/21 10:43 LRN [id number]) Patient Questionnaires Quick Dash- Upper Extremity Quick Dash UE Score 50 Quick Dash UE Impairment 40 to 59% Impaired (Score 40- 59) OP-PT Pain Assessment Pain Assessment Grid Paper Pain Assessment Grid Completed Yes Location L shoulder Pain Location Details Top of shoulder/arm and posterior shoulder ( supraspinatus region). Intensity 7 Scale Used Numeric (0 - 10) Description Aching Frequency Constant Pain Aggravating Factors Activity,Exercise,Lifting Other Pain Aggravating Factors Sleeping on back and sides Pain Alleviating Factors None PT-OP-H Neuro Start: 08/19/21 18:15 Freq: Status: Active Protocol: Document 08/25/21 09:43 LRN (Rec: 08/25/21 10:43 LRN [id number]) Sensation Evaluation Gross Sensation Gross Sensation WNL Comments Summary Comments Tingling in bilateral fingertips. See's chiropractor for neck and has noticed the treatment helps decrease the tingling. Deep Tendon Reflex & Clonus Assessment Deep Tendon Reflex Bilateral Brachioradialis Deep Tendon Reflex 3+ Normal But Brisk Bilateral Tricep Deep Tendon Reflex 3+ Normal But Brisk Bilateral Bicep Deep Tendon Reflex 3+ Normal But Brisk PT-OP-J Posture/Palpation/Skin Start: 08/19/21 18:15 Freq: Status: Active Protocol: Document 08/25/21 09:43 LRN (Rec: 08/25/21 10:43 LRN [id number]) Posture Evaluation Comments Posture Comments L shoulder low, head is tilted R, dowagers hump, increase lordosis Palpation Assessment Location L shoulder Palpation Location L shoulder joint Palpation Findings Tenderness Palpation Details Tender lateral Infraspinatus, posterior deltoid , and long head of biceps tendon at the superglenoid tubercle and at the intertubercular groove. Atrophy of supraspinatus is present. PT-OP-K Range of Motion Start: 08/19/21 18:15 Freq: Status: Active Protocol: Document 08/25/21 09:43 LRN (Rec: 08/25/21 10:43 LRN [id number]) Cervical Spine Range of Motion Cervical Spine Active Degrees Testing Position Sitting Comments WNL Shoulder Goniometric Range of Motion Shoulder Right Passive Shoulder ROM WFL Yes Testing Position Supine Flexion 180 Abduction 180 External Rotation at 90 degrees 110 Abduction Internal Rotation 90 Left Passive Shoulder ROM WFL No Testing Position Supine Flexion 40 Abduction 65 External Rotation at 90 degrees 70 Abduction Comments Deferred IR testing due to pain Right Active Shoulder ROM WFL Yes Testing Position Sitting Flexion 160 Extension 60 Abduction 180 External Rotation at 0 degrees Abduction 90 Internal Rotation Behind Back (text) T7 Left Active Shoulder ROM WFL No Testing Position Sitting Flexion 70 Extension 30 Abduction 55 External Rotation at 0 degrees Abduction 70 Internal Rotation Behind Back (text) T11 Shoulder ROM Limitations Shoulder ROM Limitations Pain Elbow/Forearm Range of Motion Elbow/Forearm Right Active Elbow/Forearm ROM WFL Yes ROM Testing Position Sitting Elbow Flexion (degrees) 130 Elbow Extension (degrees) 0 Comments WNL Left Active Elbow/Forearm ROM WFL Yes ROM Testing Position Sitting Elbow Flexion (degrees) 130 Elbow Extension (degrees) 0 Comments WNL PT-OP-L Special Tests Start: 08/19/21 18:15 Freq: Status: Active Protocol: Document 08/25/21 09:43 LRN (Rec: 08/26/21 17:32 LRN [id number]) Special Tests Cervical Spine Special Tests Traction Test Results Negative Spurling's Test Test Results Negative PT-OP-M Strength Start: 08/19/21 18:15 Freq: Status: Active Protocol: Document 08/25/21 09:43 LRN (Rec: 08/25/21 10:43 [facility] [id number]) Cervical Spine Strength Cervical Spine Manual Muscle Testing Testing Position Sitting Flexion (C1-2) 4- Good- Extension 5 Normal Lateral Flexion Left (C3) 5 Normal Lateral Flexion Right (C3) 5 Normal Shoulder Strength Shoulder Manual Muscle Testing Right Comments Generally 5/5 Left Flexion 4 Good Extension 5 Normal Abduction (C5) 4 Good Adduction 3 Fair External Rotation 3 Fair Internal Rotation 4 Good Elbow/Forearm Strength Elbow and Forearm Manual Muscle Testing Right Flexion (C6) 5 Normal Extension (C7) 5 Normal Pronation 5 Normal Supination 5 Normal Left Flexion (C6) 3 Fair Extension (C7) 3 Fair Pronation 5 Normal Supination 5 Normal Comments Pain with testing of flex/ext PT-OP-Q Treatments Start: 08/19/21 18:15 Freq: Status: Active Protocol: Document 08/25/21 09:43 LRN (Rec: 08/25/21 10:43 [facility] [id number]) Self-Care/Home Management Treatment Education Other Education Discussed results of evaluation, goals, and plan of care (POC). Pt agreeable to goals and POC. Activities Self-Care/Home Management Activities I/S pt to increase use of ice to the L shoulder for edema/ pain management. PT-OP-T Assessment and Plan Start: 08/19/21 18:15 Freq: Status: Active Protocol: Document 08/25/21 09:43 LRN (Rec: 08/25/21 10:43 [facility] [id number]) Physical Therapy Assessment Rehab Potential Rehabilitation Potential Good Evaluation Complexity Number of Personal Factors/Comorbidities 3 or More Number of Body Systems Impaired 4 or More Clinical Presentation at Evaluation Evolving Impairments Impairments Activity Tolerance,Functional Activities,Functional Mobility ,Pain,ROM,Soft Tissue Mobility ,Strength Goals Three Impairment Decreased L shoulder strength Impairment MMT: L shdr: flex 4/5, AB 4/5 , AD 3/5, ER 3/5, IR 4/5. R shdr strength is generally 5/5 . UE QuickDASH score of 50 (40- 59% impaired, score 40-59). Short Term Goal (STG) Pt will be able to peanut picker and carry 1-2 bags of groceries of 1-2# wgt with the L arm. STG Duration 10/14/21 Bankruptcy Paralegal Goal (LTG) Pt goal is to improve strength the L arm to be able to taking a gallon of milk our of fridge. LTG Duration 11/23/21 Two Impairment Decreased L shoulder ROM with decreased function due to L shoulder pain. Impairment Reaching behind back: T11 R, T7 L. L shoulder AROM (sit): flex 70 , Ext 30, AB 55 (R shldr: flex 160, Ext 60, AB 180) L shoulder PROM (sup): flex: 40, AB 65, ER 70, IR-deferred (R shldr: flex 180, AB 180, ER 110, IR 90). Short Term Goal (STG) Pt will be able to improve L shoulder mobility in order to comfortably sleep in a bed, not in recliner. STG Duration 09/16/21 Bankruptcy Paralegal Goal (LTG) Pt will be able to wash her back or put her coat on with greater ease, minmal pain. LTG Duration 11/23/21 One Impairment Lacks appropriate self care HEP. Short Term Goal (STG) Pt will be educated in L shoulder PROM ex's. STG Duration 09/09/21 Penitentiary Goal (LTG) Pt will be independent in a HEP of progressive L shoulder strengthening program to improve mobility and strength over time. LTG Duration 11/23/21 Assessment Summary Assessment Pt presents with much soft tissue dysfunction and pain of the L shoulder, limiting ability to assess for possible RC tear. She is very tender in the L suprapinatus and at this time she doesn't appear to have cervical involvement ( Spurlings Test and Cervical Traction Test were negative), although she indicates neck pain rated 4/10. Further Cervical assessment will be needed. Her pain is limiting her with functional activities and she scored 40- 59% impaired per UE Quickdash score. Physical therapy will initially need to be focused on decreasing inflammation and pain, then progress towards improving L shoulder ROM and strength as tolerated. It is expected that due to the pt's comorbidities and limitations in use of modalities (due to her spinal stimulator) her progress may be slow and require a longer rehabilitation time, but she is limited in her coverage of therapy visits; therefore we will progress her as tolerated with a goal of placing her on a progressive HEP for her to be able to advance on a self care program as she is able. The pt will benefit from skilled physical therapy to achieve the above stated goals . Physical Therapy Plan Frequency and Duration Frequency of Treatment 2x/Week Plan of Care Start Date 08/25/21 Plan of Care End Date 11/23/21 Therapeutic Interventions Therapeutic Interventions Aquatic Therapy,Home Exercise Program,Joint Mobilizations, Manual Therapy,Neuromuscular Re-education,Patient/Caregiver Education,Self-Care/Home Management,Soft Tissue Mobilization,Taping, Therapeutic Activities, Therapeutic Exercises Modalities Cold Pack/Ice Massage,Hot Packs Next Visit Focus/Plan Next Note Type Treatment Note Next Visit Plan STM/MH/ice to decrease inflammation and muscle guarding (modalities limited due to ms stimulator). PROM/AAROM/AROM of L shoulder, progressing to strengthening when mobility has improved and pain is tolerable. K-tape trial patch before use of K-tape for ms relaxation and facilitation. HEP of progressive L shoulder ROM and (when appropriate) strengthening exercises.
--- NOTE | 2021-08-29 10:22 | PT-OP ANOTE ---
Pt canceled due to high fever.
--- NOTE | 2021-09-05 08:15 | PT-OP ANOTE ---
Pt canceled, has pneumonia.
--- NOTE | 2021-09-08 15:02 | PT-OP ANOTE ---
PROGRAMMER called pt to check in on health and confirm Sunday's appt. Pt stated feeling little better health luna but need to cancel next weeks appts, 09/12 and 09/15 due to just received news 1 hr ago passing of her parent and [place], will call back if need to adjust appts further.
--- NOTE | 2021-09-12 09:39 | PT-OP ANOTE ---
SENIOR ENLISTED ADVISOR called pt after noticed assistant front end manager notes regarding pt called to cancel all remaining appts. Father sick and going home to help him on [place] [facility]. Pt asked that be placed on hold and not DC, will call when returns to set up appts to continue PT. Pt may need to see PT Mahi upon return for follow up reassessment.
--- NOTE | 2021-12-12 16:47 | PT.OPDS ---
Current Diagnoses Strain of muscle(s) and tendon(s) of the rotator cuff of left shoulder, initial encounter (08/25/21) Visit Care Team Role Provider Type Blake Waller DO Attending Provider Physician Family Provider Primary Care Provider Referring Provider Specialty: Family Practice Address: [address] [place] [address], [facility] Email: [email or web address] Visit Number Visit Number 1 Discharge Summary PT-OP-B Current Condition Start: 08/19/21 18:15 Freq: Status: Active Protocol: Document 08/25/21 09:43 LRN (Rec: 08/25/21 10:43 LRN [id number]) Current Condition History of Current Condition Onset Date 08/2020 Current Complaints L shoulder pain: behind and in the upper lateral shoulder. History of Current Condition Pt reports she fell with L arm straight out and shoulder took all the shock. Had cortisone injection in the L shoulder just before going to [facility] to visit family. She has been going back periodically to [facility] and just got back 08/13/21. She had pain relief for a month (while visiting family). She was able to sleep in bed , but this last week the L shoulder has been aching more and she has been able to tolerate sleeping in bed one night. Now she is sleeping in a recliner. Can't sleep on her back or either side due to L shoulder pain. Steroid injection day before leaving and was well for ~ a month, then the L shoulder started to hurt again and is very painful. She reports tingling in R fingertips, and new tingling in L hand. Prior Treatments and Tests X-rays: No fractures. Not able to do MRI because of a spinal low back stimulator. 07/29/21: Cortisone injection that was beneficial for the month. Developmental History Developmental History Had large pulmonary embolism ( x3) that went to both lungs ~ 11 yrs ago. On lifetime anticoagulant. Has a spinal stimulator (in the low back) for arthritic pain in the low back. Has DDD in low back and neck. 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 Has CPAP that makes it difficult to sleep in recliner . Treatment Goals Patient/Caregiver Goals Pt goals is to be able to sleep in a bed and not in recliner. 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 Pt goal is wash her back or put her coat on with greater ease, minimal pain and be on HEP to improve over time. Prior Functional Status Baseline Function- ADL's Independent Baseline Function- Mobility Independent Baseline Function- Recreation/Hobbies Able to lift luggage on plane. Baseline Function- Other Able to sleep 6-7 hr a night. Able to carry 1-2 bags of groceries without trouble Able to dress without pain. Current Functional Impairments (Reported) Functional Limitations- ADL's Not able to sleep supine or on side due to L shoulder pain, must sleep in recliner although difficult due to CPAP machine. Sleeping is intermittent in nature. 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 Functional Limitations- Other L shoulder pain with functional use (dressing, carrying objects, etc.) Personal Factors Other Personal Factors That May Effect Per pt: Therapy/Recovery Type I Diabetes, Spinal Stimulator Bipolar Disorder, Depression, Cognitive changes after suffering several pulmonary embolisms. PT-OP-C Subjective Start: 08/19/21 18:15 Freq: Status: Active Protocol: Document 08/25/21 09:43 LRN (Rec: 08/25/21 10:43 LRN [id number]) Patient Questionnaires Quick Dash- Upper Extremity Quick Dash UE Score 50 Quick Dash UE Impairment 40 to 59% Impaired (Score 40- 59) OP-PT Pain Assessment Pain Assessment Grid Paper Pain Assessment Grid Completed Yes Location L shoulder Pain Location Details Top of shoulder/arm and posterior shoulder ( supraspinatus region). Intensity 7 Scale Used Numeric (0 - 10) Description Aching Frequency Constant Pain Aggravating Factors Activity,Exercise,Lifting Other Pain Aggravating Factors Sleeping on back and sides Pain Alleviating Factors None PT-OP-H Neuro Start: 08/19/21 18:15 Freq: Status: Active Protocol: Document 08/25/21 09:43 LRN (Rec: 08/25/21 10:43 LRN [id number]) Sensation Evaluation Gross Sensation Gross Sensation WNL Comments Summary Comments Tingling in bilateral fingertips. See's chiropractor for neck and has noticed the treatment helps decrease the tingling. Deep Tendon Reflex & Clonus Assessment Deep Tendon Reflex Bilateral Brachioradialis Deep Tendon Reflex 3+ Normal But Brisk Bilateral Tricep Deep Tendon Reflex 3+ Normal But Brisk Bilateral Bicep Deep Tendon Reflex 3+ Normal But Brisk PT-OP-J Posture/Palpation/Skin Start: 08/19/21 18:15 Freq: Status: Active Protocol: Document 08/25/21 09:43 LRN (Rec: 08/25/21 10:43 LRN [id number]) Posture Evaluation Comments Posture Comments L shoulder low, head is tilted R, dowagers hump, increase lordosis Palpation Assessment Location L shoulder Palpation Location L shoulder joint Palpation Findings Tenderness Palpation Details Tender lateral Infraspinatus, posterior deltoid , and long head of biceps tendon at the superglenoid tubercle and at the intertubercular groove. Atrophy of supraspinatus is present. PT-OP-K Range of Motion Start: 08/19/21 18:15 Freq: Status: Active Protocol: Document 08/25/21 09:43 LRN (Rec: 08/25/21 10:43 LRN [id number]) Cervical Spine Range of Motion Cervical Spine Active Degrees Testing Position Sitting Comments WNL Shoulder Goniometric Range of Motion Shoulder Right Passive Shoulder ROM WFL Yes Testing Position Supine Flexion 180 Abduction 180 External Rotation at 90 degrees 110 Abduction Internal Rotation 90 Left Passive Shoulder ROM WFL No Testing Position Supine Flexion 40 Abduction 65 External Rotation at 90 degrees 70 Abduction Comments Deferred IR testing due to pain Right Active Shoulder ROM WFL Yes Testing Position Sitting Flexion 160 Extension 60 Abduction 180 External Rotation at 0 degrees Abduction 90 Internal Rotation Behind Back (text) T7 Left Active Shoulder ROM WFL No Testing Position Sitting Flexion 70 Extension 30 Abduction 55 External Rotation at 0 degrees Abduction 70 Internal Rotation Behind Back (text) T11 Shoulder ROM Limitations Shoulder ROM Limitations Pain Elbow/Forearm Range of Motion Elbow/Forearm Right Active Elbow/Forearm ROM WFL Yes ROM Testing Position Sitting Elbow Flexion (degrees) 130 Elbow Extension (degrees) 0 Comments WNL Left Active Elbow/Forearm ROM WFL Yes ROM Testing Position Sitting Elbow Flexion (degrees) 130 Elbow Extension (degrees) 0 Comments WNL PT-OP-L Special Tests Start: 08/19/21 18:15 Freq: Status: Active Protocol: Document 08/25/21 09:43 LRN (Rec: 08/26/21 17:32 LRN [id number]) Special Tests Cervical Spine Special Tests Traction Test Results Negative Spurling's Test Test Results Negative PT-OP-M Strength Start: 08/19/21 18:15 Freq: Status: Active Protocol: Document 08/25/21 09:43 LRN (Rec: 08/25/21 10:43 LRN [id number]) Cervical Spine Strength Cervical Spine Manual Muscle Testing Testing Position Sitting Flexion (C1-2) 4- Good- Extension 5 Normal Lateral Flexion Left (C3) 5 Normal Lateral Flexion Right (C3) 5 Normal Shoulder Strength Shoulder Manual Muscle Testing Right Comments Generally 5/5 Left Flexion 4 Good Extension 5 Normal Abduction (C5) 4 Good Adduction 3 Fair External Rotation 3 Fair Internal Rotation 4 Good Elbow/Forearm Strength Elbow and Forearm Manual Muscle Testing Right Flexion (C6) 5 Normal Extension (C7) 5 Normal Pronation 5 Normal Supination 5 Normal Left Flexion (C6) 3 Fair Extension (C7) 3 Fair Pronation 5 Normal Supination 5 Normal Comments Pain with testing of flex/ext PT-OP-T Assessment and Plan Start: 08/19/21 18:15 Freq: Status: Active Protocol: Document 12/12/21 16:44 LRN (Rec: 12/12/21 16:47 LRN [id number]) Physical Therapy Assessment Goals Three Impairment Decreased L shoulder strength Impairment MMT: L shdr: flex 4/5, AB 4/5 , AD 3/5, ER 3/5, IR 4/5. R shdr strength is generally 5/5 . UE QuickDASH score of 50 (40- 59% impaired, score 40-59). 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 STG Duration 10/14/21 GOAL NOT MET, pt did not attend therapy. Assisted Goal (LTG) Pt goal is to improve strength the L arm to be able to taking a gallon of milk our of fridge. LTG Duration 11/23/21 GOAL NOT MET, pt did not attend therapy. Two Impairment Decreased L shoulder ROM with decreased function due to L shoulder pain. Impairment Reaching behind back: T11 R, T7 L. L shoulder AROM (sit): flex 70 , Ext 30, AB 55 (R shldr: flex 160, Ext 60, AB 180) L shoulder PROM (sup): flex: 40, AB 65, ER 70, IR-deferred (R shldr: flex 180, AB 180, ER 110, IR 90). Short Term Goal (STG) Pt will be able to improve L shoulder mobility in order to comfortably sleep in a bed, not in recliner. STG Duration 09/16/21 GOAL NOT MET, pt did not attend therapy. Cleat Blanker Goal (LTG) Pt will be able to wash her back or put her coat on with greater ease, minmal pain. LTG Duration 11/23/21 GOAL NOT MET, pt did not attend therapy. One Impairment Lacks appropriate self care HEP. Short Term Goal (STG) Pt will be educated in L shoulder PROM ex's. STG Duration 09/09/21 GOAL NOT MET, pt did not attend therapy. Cleat Blanker Goal (LTG) Pt will be independent in a HEP of progressive L shoulder strengthening program to improve mobility and strength over time. LTG Duration 11/23/21 GOAL NOT MET, pt did not attend therapy. Assessment Summary Assessment Pt was last seen for her initial evaluation and did not attend her therapy visits. The pt was unavailable for final assessment and is being discharged due to non- compliance/attendance. Physical Therapy Plan Discharge Physical Therapy Discharge Reasons No Longer Attending PT Discharge Comments Thank you for your referral.
== END 2021-12-13 10:52 ==
LOC: PHYS 09:27
PROVIDERS: Family Provider Family Medicine; PCP Family Medicine; Referring Provider Family Medicine; Visit Provider Family Medicine
DX: S46.012A Strain of muscle(s) and tendon(s) of the rotator cuff of left shoulder, initial encounter (principal)
CPT/HCPCS: 97162; 97535

== ENCOUNTER → 2021-10-07 12:15 | Outpatient (CLI) | payer OTHER, SELFPAY ==
[2021-07-14 10:01] VITALS: RESP 17; O2SAT 94; BMI 44.6
[2021-10-07 12:51] LABS: COVID19 -Nasal RAPID Negative (Negative)
[2021-10-07 13:04] LABS: Influenza A - CEPHEID Flu A NEGATIVE (NEGATIVE); Influenza B - CEPHEID Flu B NEGATIVE (NEGATIVE)
== END ==
PROVIDERS: Family Provider Family Medicine; PCP Family Medicine; Visit Provider Family Medicine
DX: Z20.822 Contact with and (suspected) exposure to COVID-19 (principal); R11.2 Nausea with vomiting, unspecified
CPT/HCPCS: 87502; 87635

== ENCOUNTER → 2022-04-20 08:23 | Outpatient (CLI) | payer OTHER, SELFPAY ==
[2021-11-28 16:09] VITALS: RESP 17; O2SAT 94; BMI 44.6
--- NOTE | 2022-04-20 08:26 | DI.MG.S_ITS ---
BILATERAL DIGITAL SCREENING MAMMOGRAM 3D/2D WITH CAD: 04/20/2022 CLINICAL: Routine screening. Family history of breast cancer. Comparison is made to exams dated: 02/24/2020 mammogram, 11/13/2018 mammogram, and 10/10/2016 mammogram - [facility]. Both breasts are heterogeneously dense, which may obscure small masses (category c / 51-75% glandular tissue). Current study was also evaluated with a Computer Aided Detection (CAD) system. No significant masses, calcifications, or other findings are seen in either breast. There has been no significant interval change. IMPRESSION: NEGATIVE There is no mammographic evidence of malignancy. A 1 year screening mammogram is recommended. Based on Tyrer-Cuzick model (a risk assessment model), the patient's lifetime risk is 24.1% and her 10 year risk is 7.0%. If a patient has an elevated risk, a more comprehensive evaluation should be considered and/or a referral to a genetic counselor. The [place] [employer], [place] [employer], and NCCN Guidelines advise the consideration of Breast MRI as an adjunct to screening mammography in patients whose Lifetime risk to develop breast cancer is 20% or higher. This exam was interpreted at Station ID: [id number]. NOTE: For mammograms, a report in lay terms will be sent to the patient. Approximately 15% of breast malignancies will not be visualized mammographically. In the management of a palpable breast mass, a negative mammogram must not discourage biopsy of a clinically suspicious lesion. Electronically Signed By: Adams francisco/blue:04/20/2022 08:44:30 letter sent: Normal Exam ACR BI-RADS Category 1: Negative [id number]
== END ==
PROVIDERS: Family Provider Family Medicine; PCP Family Medicine; Referring Provider Family Medicine; Visit Provider Family Medicine
DX: Z12.31 Encounter for screening mammogram for malignant neoplasm of breast (principal); Z80.3 Family history of malignant neoplasm of breast
CPT/HCPCS: 77063; 77067

== ENCOUNTER → 2022-05-04 11:35 | Outpatient (CLI) | payer OTHER, SELFPAY ==
[2021-11-28 16:09] VITALS: RESP 17; O2SAT 94; BMI 44.6
[2022-05-04 12:08] LABS: Add Manual Diff / Slide Review NO; Basophils Absolute Auto 0 /uL (0-100); Basophils Percent Auto 0.4 % (0-2); Eosinophils Absolute Auto 200 /uL (0-450); Eosinophils Percent Auto 5.4 % (2-4); Hematocrit 42.6 % (36-46); Hemoglobin 14.5 g/dL (12.0-16.0); Lymphocytes Absolute Auto 900 /uL (1100-4500); Lymphocytes Percent Auto 24.9 % (25-40); Mean Corpuscular HGB Conc 34.1 % (30-36); Mean Corpuscular Hemoglobin 31.8 PG (26-34); Mean Corpuscular Volume 93.3 fL (80-100); Monocytes Absolute Auto 200 /uL (0-900); Monocytes Percent Auto 6.6 % (3-14); Neutrophils Absolute Auto 2400 /uL (1500-7000); Neutrophils Percent Auto 62.7 % (50-75); Platelet Count 232 X10^3/uL (150-400); Red Blood Cell Count 4.56 X10^6/uL (4.0-5.2); Red Cell Distribution Width 12.7 % (11.6-14.8); White Blood Cell Count 3.8 X10^3/uL (4.5-11.0)
[2022-05-04 12:12] LABS: INR 1.1 (0.9-1.3); Prothrombin Time 12.9 SECONDS (10.1-12.7)
[2022-05-04 12:15] LABS: PTT Partial Thromboplastin Tim 38 SECONDS (26-36)
[2022-05-04 12:16] LABS: BUN Creatinine Ratio 20.2 (6-22); Blood Urea Nitrogen 20 mg/dL (7-17); Calcium 9.4 mg/dL (8.4-10.2); Carbon Dioxide 26 mmol/L (22-32); Chloride 101 mmol/L (98-107); Estimated Glomerular Filt Rate > 60 mL/min (>60); Glucose 69 mg/dL (70-100); HEMOLYSIS < 15 (0-50); Potassium 4.4 mmol/L (3.4-5.1); Sodium 140 mmol/L (137-145)
== END ==
PROVIDERS: Family Provider Family Medicine; PCP Family Medicine; Referring Provider Physical Medicine & Rehabilitation; Visit Provider Physical Medicine & Rehabilitation
DX: Z01.818 Encounter for other preprocedural examination (principal); M54.50 Low back pain, unspecified
CPT/HCPCS: 36415; 80048; 85025; 85610; 85730; 93005

== ENCOUNTER → 2022-06-23 11:33 | Outpatient (CLI) | payer OTHER, SELFPAY ==
[2021-11-28 16:09] VITALS: RESP 17; O2SAT 94; BMI 44.6
[2022-06-23 12:38] LABS: COVID19 -Nasal RAPID Negative (Negative)
== END ==
PROVIDERS: Family Provider Family Medicine; PCP Family Medicine; Referring Provider Physical Medicine & Rehabilitation; Visit Provider Physical Medicine & Rehabilitation
DX: Z20.822 Contact with and (suspected) exposure to COVID-19 (principal)
CPT/HCPCS: 87635; C9803

== ENCOUNTER 2022-06-26 06:24 | Day surgery (SDC) | payer OTHER, SELFPAY ==
[2021-11-28 16:09] VITALS: RESP 17; O2SAT 94; BMI 44.6
[2022-06-21 14:37] VITALS: BMI 38.9
[2022-06-26] VITALS (8 sets, daily range): BP systolic 122–144; BP diastolic 76–92; PULSE 72–104; RESP 16–28; TEMP 36.2–36.8; O2SAT 97–100; BMI 38.9
--- NOTE | 2022-06-26 | DI.RAD.S_ITS ---
PROCEDURE: XR T AND L SPINE 2 TO 3 VIEWS INDICATIONS: SURGERY TECHNIQUE: 4 operative views acquired of the thoracolumbar spine. COMPARISON: None. FINDINGS: 4 C-arm images demonstrate placement of a dorsal column stimulator device. The leads are noted in the thoracic region. IMPRESSION: Operative fluoroscopic imaging utilized during dorsal column stimulator placement. Dictated by: Fer Ahumada M.D. on 06/26/2022 at 17:55 Approved by: Fer Ahumada M.D. on 06/26/2022 at 17:56
[2022-06-26] MEDS: LACTATED RINGERS 1,000 ML 42 ML IV ×2 (07:40→10:40)
--- NOTE | 2022-06-26 08:02 | PM.PREOP ---
Pre-operative Note COVID-19 COVID-19 status: Negative Interval Note History & Physical reviewed/Exam performed by Physician: Yes Changes to H&P: No
--- NOTE | 2022-06-26 08:20 | SUR.OPER ---
Prone on flat armando table on laminectomy gel rolls, head in foam head support, padded chest and pelvic supports, gel pad at knees, lower legs supported by pillows; nipples, genitalia and toes free of pressure, arms secured on foam padded arm boards at <90 degrees abduction. Tape over blanket at thigh secured to table.
[2022-06-26] MEDS: CEFAZOLIN 2 GM/100 ML PREMIX 100 ML IV (08:45)
[2022-06-26] MEDS: BUPIVACAINE 0.25% (PF) 30 ML, EPINEPHrine 0.3 MG INJ (09:00)
[2022-06-26] MEDS: ALBUTEROL 2.5 MG/3 ML NEB (ADULT) INH (11:07)
[2022-06-26] MEDS: HYDROMORPHONE 2 MG INJ IV (11:14)
[2022-06-26] MEDS: ONDANSETRON 4 MG/2 ML INJ IV ×2 (11:16→11:57)
[2022-06-26] MEDS: HYDROCODONE/ACET 5/325 TABLET 1 TAB PO (11:25)
--- NOTE | 2022-06-26 11:26 | SUR.PHASEI ---
received to PACU after general anesthesia. Airway patent, self maintained. Report from MARISOL David and Dr Ruby. Pt with continual coughing. Neb given with good result.
--- NOTE | 2022-06-26 12:12 | PM.OP.1 ---
Operative Date/Time/Diagnoses Date of procedure: 06/26/22 Time of procedure: 08:00 Pre-op diagnosis: lumbar radiculopathy chronic pain syndrome lumbar spondylosis Post-op diagnosis: same Procedure & Clinicians Procedure: spinal cord stimulator replacement of pulse generator and percutaneous leads Same procedure as scheduled: Yes Indications: intractable back and leg pain, increased charging burden of prior pulse generator and migration of prior spinal leads Surgeon: Jorge Sullivan Click Yes if Unassisted: No Anesthesia Type: General Operative Notes Findings: none Closure Type: primary Specimen(s): none sent Prosthetic devices, grafts, tissues, transplants, or devices: 8 contact Jewell spinal cord stimulator leads x2 Alvarado lock anchors x2 Prodigy implantable pulse generator Estimated Blood Loss (mL): 10 Blood products transfused: none Tourniquet time (min): 0 Procedure in detail: Consent form signed and patient marked. 2 gm ancef given preoperatively. Patient skin cleansed with chloroprep, draped in usual fashion and ioban placed. patient placed prone on Rodolfo table. Prior lead anchors localized at L2 with fluoroscopy. Skin anesthetized with 0.25% bupivacaine and epinephrine. 15 blade used for skin insection. Careful dissection made with Bovie down to the supraspinous ligament and the location of the anchor which was then removed along with the prior lead. A curved coude needle was used to access the right T12-L1 paramedian epidural space using a loss of resistance syringe. An 8 contact percutaneous lead was advanced with live fluoroscopy until it was right paramedian spanning mid T7 to top of T9. Next a 2nd coude needle was used to access the left paramedian T12-L1 epidural space with a loss of resistance syringe. a 2nd 8 contact percutaneous lead was advanced using live fluroroscopy until it was up to mid T7 to top of T9. A lateral xray was taken to visualize dorsal placement of the leads. Next, the needle and inner stylet removed, 2 alvarado lock anchors were placed over the leads and anchored to the fascia using 2-0 silk. Next attention was turned towards the left flank at the site of the prior pulse generator. After local anesthetic and skin incision, dissection was made to the prior pulse generator and leads where there was a fair amount of scar tissue. The pulse generator was removed and disposed of. Fluoroscopy identified the prior migrated contact and lead in the remaining soft tissue. After careful dissection through the subcutaneous fat, the remaining lead could not be found due to bleeding. The leads were then tunneled to the left flank and connected to a new Rewardix pulse generator, demonstrating connectivity and low impedances. Both incisions irrigated copiously and again checked for retained foreign objects. Closure of the fascial layer was done with 2-0 vicryl, followed by 3-0 monocryl at the dermal layer, and 4-0 monocryl running subcuticular layer at the skin. Mastisol, steristrips and tegaderm were placed over both incision. Post-operative Condition: stable Disposition: same day surgery Plan for aftercare: she is scheduled to followup in clinic on 06/26/22 for suture removal and device programming. She has instructions to take keflex for 7 days and post operative pain medications. She is instructed to avoid excessive bending, lifting, twisting and weight limit under 15 lbs.
== END 2022-06-26 12:20 | disposition home or self-care (01) ==
PROVIDERS: Family Provider Family Medicine; PCP Family Medicine; Referring Provider Podiatrist; Visit Provider Physical Medicine & Rehabilitation
PROC: (CPT 63685; principal; 2022-06-26 08:00)
DX: M54.50 Low back pain, unspecified (principal); M54.16 Radiculopathy, lumbar region; M47.816 Spondylosis without myelopathy or radiculopathy, lumbar region; G89.4 Chronic pain syndrome; Z96.89 Presence of other specified functional implants
CPT/HCPCS: 63663; 63685; 72082; 76000; C1776; J0171; J0690; J1100; J1170; J2250; J2405; J2704; J3010; J7613

== ENCOUNTER → 2022-07-11 10:43 | Outpatient (CLI) | payer OTHER, SELFPAY ==
[2021-11-28 16:09] VITALS: RESP 17; O2SAT 94; BMI 44.6
[2022-07-11 11:55] LABS: Influenza A - CEPHEID Flu A NEGATIVE (NEGATIVE); Influenza B - CEPHEID Flu B NEGATIVE (NEGATIVE); Respiratory Syncytial Virus POSITIVE (Negative)
[2022-07-11 11:56] LABS: COVID-19 CEPHEID 4-PLEX PCR Negative (Negative)
== END ==
PROVIDERS: Family Provider Family Medicine; PCP Family Medicine; Visit Provider Physician Assistant Medical
DX: R05.1 Acute cough (principal); Z20.822 Contact with and (suspected) exposure to COVID-19
CPT/HCPCS: 0241U

== ENCOUNTER → 2022-07-26 14:03 | Outpatient (CLI) | payer OTHER, SELFPAY ==
[2021-11-28 16:09] VITALS: RESP 17; O2SAT 94; BMI 44.6
--- NOTE | 2022-07-26 | DI.RAD.S_ITS ---
PROCEDURE: XR CHEST 2V INDICATIONS: Acute cough TECHNIQUE: 2 views of the chest were acquired. COMPARISON: [facility], CR, XR CHEST 2V, 02/04/2021, 16:56. FINDINGS: Surgical changes and devices: Left chest wall Port-A-Cath tip is in the region of SVC. Cord stimulator leads are seen projecting in mid thoracic spine. Lungs and pleura: Lungs are clear. No pleural effusions or pneumothorax. Mediastinum: Mediastinal contours are normal. Heart size is normal. Bones and chest wall: No suspicious bony abnormalities. Soft tissues appear unremarkable. IMPRESSION: No acute cardiopulmonary pathology. Dictated by: Solitario Wong M.D. on 07/26/2022 at 15:13 Approved by: Solitario Wong M.D. on 07/26/2022 at 15:17
== END ==
PROVIDERS: Family Provider Family Medicine; PCP Family Medicine; Referring Provider Specialist; Visit Provider Specialist
DX: R05.1 Acute cough (principal)
CPT/HCPCS: 71046

== ENCOUNTER 2022-07-31 21:49 | Emergency (ER) | payer OTHER, SELFPAY ==
[2021-11-28 16:09] VITALS: RESP 17; O2SAT 94; BMI 44.6
[2022-07-31 22:21] VITALS: BP 129/91; PULSE 102; RESP 20; TEMP 36.6; O2SAT 96
--- NOTE | 2022-07-31 22:30 | DI.RAD.S_ITS ---
PROCEDURE: XR CHEST 2V INDICATIONS: cough,fever TECHNIQUE: 2 views of the chest were acquired. COMPARISON: [facility], CR, XR CHEST 2V, 07/26/2022, 14:14. FINDINGS: Surgical changes and devices: Left subclavian Port-A-Cath appears unchanged in position. Partially visualized epidural neurostimulator leads also appear similar in position. Lungs and pleura: Lungs are clear. No pleural effusions or pneumothorax. Mediastinum: Mediastinal contours are normal. Heart size is normal. Bones and chest wall: No suspicious bony abnormalities. Soft tissues appear unremarkable. IMPRESSION: 1. No acute cardiopulmonary disease. Dictated by: Donte Doan M.D. on 07/31/2022 at 23:26 Approved by: Donte Doan M.D. on 07/31/2022 at 23:31
[2022-08-01 00:13] LABS: Influenza A - CEPHEID Flu A NEGATIVE (NEGATIVE); Influenza B - CEPHEID Flu B NEGATIVE (NEGATIVE); Respiratory Syncytial Virus Negative (Negative)
[2022-08-01 00:20] LABS: COVID-19 CEPHEID 4-PLEX PCR Negative (Negative)
[2022-08-01 02:41] VITALS: BP 143/85; PULSE 106; RESP 22; O2SAT 97
--- NOTE | 2022-08-01 03:46 | ED_ITS ---
HPI - URI/Sore Throat General Chief Complaint: Upper Respiratory Symptoms Stated Complaint: sob, recent RSV, cough Time Seen by Provider: 07/31/22 22:45 Source: patient Mode of arrival: Ambulatory History of Present Illness HPI Narrative: 51-year-old female with history of pulmonary emboli on anticoagulation, asthma, bronchiectasis presents with a chief complaint of nasal congestion, harsh cough, shortness of breath and loss of her voice over the past few days. She had been seen and evaluated just prior to [place] with very similar symptoms and respiratory swab demonstrated RSV. Given the severity of her symptoms and medical history she was treated for bronchitis with a Z-Philipp, given a Medrol Dosepak, Tessalon Perles and started feeling a bit better for few days. Just after holiday her family returned home and a few of them had unfortunately been exposed to viral illness back home and after few days her symptoms started worsening again. She has had fever as high as 101.7, ongoing harsh cough and wheeze. She denies nausea or vomiting but has had a poor appetite and has felt dizzy, lightheaded and near syncopal on a few occasions. She denies hemoptysis or any sputum production. She denies any chest pain, abdominal pain, constipation or diarrhea. Related Data Home Medications Medication Instructions Recorded Confirmed acetaminophen 500 mg tablet 1,000 mg PO Q6H PRN Pain, Mild 03/06/18 07/11/22 Resmed Aircurve 10 BIPAP #1 ea 11/25/18 07/11/22 cetirizine 10 mg tablet (Zyrtec) 10 mg PO DAILY 04/18/19 07/11/22 omeprazole 20 mg capsule,delayed 20 mg PO BID 01/15/20 07/11/22 release vitamin E 600 unit capsule 400 unit PO BID 05/24/20 07/11/22 ubrogepant 50 mg tablet (Ubrelvy) 50 mg PO ONCE PRN migraine headache 08/10/20 07/11/22 onabotulinumtoxinA 100 unit 200 unit IM ONCE 09/03/20 07/11/22 solution for injection (Botox) calcium carbonate 600 mg-vitamin 1 tab PO BID 01/10/21 07/11/22 D3 20 mcg (800 unit) chewable tablet (Caltrate 600 plus D) iron sucrose IV 01/10/21 07/11/22 rimegepant 75 mg disintegrating 75 mg PO ONCE PRN Migraine Headache 01/10/21 07/11/22 tablet zonisamide 100 mg capsule 275 mg PO BEDTIME 09/08/21 07/11/22 Previous Rx's Medication Instructions Recorded albuterol sulfate 90 mcg/actuation 2 puff inhalation Q6H PRN 05/17/20 aerosol inhaler Shortness Of Breath #18 grams inhalational spacing device #1 ea 05/17/20 (Flexichamber spacer) bupropion HCl 150 mg tablet,12 hr 150 mg PO .COMPLEX #360 ea 10/26/21 sustained-release (Wellbutrin SR) vortioxetine 20 mg tablet 20 mg PO DAILY #90 tabs 10/26/21 lithium carbonate 300 mg capsule 900 mg PO .QHS PRN Anxiety/Manic 10/28/21 episodes #90 caps quetiapine 100 mg tablet 100 mg PO BEDTIME #90 tabs 02/02/22 lamotrigine 200 mg tablet 200 mg PO BID #180 tabs 03/14/22 tizanidine 4 mg capsule (Zanaflex) 4 mg PO BEDTIME PRN muscle 03/24/22 spasticity #60 caps ondansetron HCl 4 mg tablet 4 - 8 mg PO TID PRN nausea and 04/04/22 vomiting #180 tabs clonidine HCl 0.1 mg tablet See Rx Instructions PO BID PRN 06/19/22 Anxiety #180 tabs zolpidem 10 mg tablet 10 mg PO BEDTIME PRN insomnia #90 06/19/22 tabs celecoxib 200 mg capsule See Rx Instructions .Route 06/21/22 .COMPLEX #180 caps lorazepam 2 mg tablet (Ativan) See Rx Instructions PO DAILY PRN 06/23/22 anxiety #120 tabs promethazine 25 mg tablet 25 mg PO TID PRN nausea and 06/26/22 vomiting #90 tabs azithromycin 250 mg tablet See Rx Instructions PO .COMPLEX #6 07/11/22 (Zithromax) tabs codeine 10 mg-guaifenesin 100 mg/5 5 ml PO Q6H PRN cough #237 mL 07/11/22 mL oral liquid methylprednisolone 4 mg tablets in See Rx Instructions PO PER PKG DIR 07/11/22 a dose pack (Medrol (Philipp)) #21 ea fluticasone propionate 50 2 spray intranasal BEDTIME #16 07/19/22 mcg/actuation nasal grams spray,suspension (Flonase Allergy Relief) apixaban 5 mg tablet 5 mg PO BID #180 tabs 07/20/22 benzonatate 200 mg capsule 200 mg PO BID-TID PRN cough #60 07/21/22 caps acetaminophen 300 mg-codeine 30 mg 1 tab PO BID PRN pain #20 tabs 08/01/22 tablet benzonatate 200 mg capsule 200 mg PO BID PRN cough #20 caps 08/01/22 doxycycline hyclate 100 mg tablet 100 mg PO BID #20 tabs 08/01/22 prednisone 10 mg tablet See Rx Instructions .Route 08/01/22 .COMPLEX #30 tabs Allergies Allergy/AdvReac Type Severity Reaction Status Date / Time No Known Drug Allergies Allergy Verified 07/11/22 11:39 Review of Systems Review of Systems Narrative: GENERAL: See HPI HEENT: See HPI RESPIRATORY: See HPI CARDIOVASCULAR: Denies chest pain, palpitations, orthopnea, edema, GASTROINTESTINAL: Denies nausea, vomiting, abdominal pain, diarrhea, constipation, melena. : Denies dysuria, frequency, incontinence, hematuria, urinary retention. MUSCULOSKELETAL: denies weakness, joint pain, or bony pain SKIN: Denies rash, skin lesions, or other NEUROLOGIC: Denies weakness, headache, numbness, change in speech, confusion, seizures, incoordination. PSYCHIATRIC: No concerning psychosocial issues. 12 point review of systems is negative except for those stated above Patient History Medical History Abnormal CXR (chest x-ray) Acute bronchitis Ankle fracture, left (1986) Anxiety Arthritis of knee Asthma Bipolar 1 disorder, depressed Bronchitis Chicken pox Chronic anemia Chronic back pain Chronic headaches Chronic kidney disease Chronic neck pain Depression Diabetes mellitus Diastolic dysfunction Fatty liver GERD (gastroesophageal reflux disease) GI bleeding High risk medication use History of ischemic colitis History of pulmonary embolism Hyperlipidemia Hypertension Insomnia due to other mental disorder Irregular periods/menstrual cycles Ischemic colitis (2013) Lumbar spine pain Migraines Neck arthritis Neck pain Obstructive sleep apnea syndrome (2007) Panic attacks Plantar fasciitis Plantar wart of left foot Plantar warts Pneumonia PTSD (post-traumatic stress disorder) Pulmonary embolism (2006) Pulmonary hypertension S/P ECT (electroconvulsive therapy) (2013) Shoulder arthritis Spinal cord stimulator status Spinal cord stimulator status Strain of tendon of left rotator cuff Tendinitis of left rotator cuff Transient hypotension Well adult exam Surgical History Anesthesia History of bowel resection (1995) History of endometrial ablation (2008) History of esophagogastroduodenoscopy (EGD) (04/19/17) History of gastric bypass History of gastric bypass (2009) History of open reduction and internal fixation (ORIF) procedure (1986) History of spinal surgery (2010) Status post cardiac catheterization (2007) Status post cholecystectomy (2007) Status post peripherally inserted central catheter (PICC) central line placement (04/04/17) Family History Father Age: 78 Hypertension Sick sinus syndrome Heart disease Mother Age: 75 Hyperlipidemia Mental health problem Arthritis Hayfever Seasonal allergies Hypertension Sister No problems noted. Social History marital status: details: 2013 Adriana Blanco; couple > 20 yrs. 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 Well-developed patient, in mild distress. Dry hacking cough, loss of voice HEAD: Atraumatic. Normocephalic. EYES: Pupils equal round and reactive. Extraocular motions intact. No scleral icterus. No injection or drainage. ENT: Nose without bleeding, purulent drainage. Throat without erythema, tonsillar hypertrophy or exudate. Airway patent. NECK: Trachea midline. Non tender CARDIOVASCULAR: Regular rate and rhythm without murmurs, gallops, or rubs. RESPIRATORY: Faint and expiratory wheeze, very mild crackles in bilateral bases GASTROINTESTINAL: Abdomen soft, non-tender, nondistended. EXTREMITIES: No edema or joint tenderness. BACK: Nontender without deformity or crepitance. No flank tenderness. NEURO: AOx3. SKIN: No rash or erythema of visible areas Initial Vital Signs Initial Vital Signs: Vital Signs Temperature 98 F 07/31/22 22:21 Pulse Rate 102 H 07/31/22 22:21 Respiratory Rate 20 07/31/22 22:21 Blood Pressure 129/91 H 07/31/22 22:21 Pulse Oximetry 96 07/31/22 22:21 Oxygen Delivery Method 07/31/22 22:21 Course Orders Ordered: Discontinued Medications Acetaminophen/Codeine Phosphate (Acetaminophen/Codeine Soln 5 Ml Solution) 5 ml PO NOW ONE Stop: 08/01/22 03:39 Last Admin: 08/01/22 04:19 Dose: 5 ml Documented By: HARESH Doxycycline Hyclate (Doxycycline Hyclate 100 Mg Tablet) 100 mg PO NOW ONE Stop: 08/01/22 03:39 Last Admin: 08/01/22 04:18 Dose: 100 mg Documented By: HARESH Heparin Sodium (Porcine) (Heparin 500 Unit/5 Ml Port Flush) 500 unit IV PRN PRN PRN Reason: Flush Last Admin: 08/01/22 07:26 Dose: 500 unit Documented By: JACK Sodium Chloride (Normal Saline 0.9%) 1,000 mls @ 1,000 mls/hr IV BOLUS ONE Stop: 08/01/22 04:37 Last Infusion: 08/01/22 07:02 Dose: 0 mls/hr Documented By: Admin: 08/01/22 04:18 Dose: 1,000 mls/hr Documented By: HARESH Methylprednisolone (Methylprednisolone 125 Mg/2 Ml Vial) 125 mg IV NOW ONE Stop: 08/01/22 03:39 Last Admin: 08/01/22 04:18 Dose: 125 mg Documented By: HARESH Reevaluation(s) Reevaluation #1: patient feeling significantly better after above-stated therapies Vital Signs Vital signs: Vital Signs - 8 hr 08/01/22 02:41 08/01/22 06:29 Temperature 97.6 F Pulse Rate 106 H 69 Respiratory Rate 22 18 Blood Pressure 143/85 H 142/73 H Pulse Oximetry 97 92 Oxygen Delivery Method Room Air Room Air MDM - URI/Sore Throat Lab Data Result diagrams: 08/01/22 04:00 08/01/22 04:00 Labs: Lab Results 07/31/22 08/01/22 08/01/22 Range/Units 22:20 04:00 04:00 WBC 6.6 (4.5-11.0) X10^3/uL RBC 3.99 L (4.0-5.2) X10^6/uL Hgb 12.4 (12.0-16.0) g/dL Hct 37.8 (36-46) % MCV 94.7 (80-100) fL MCH 31.0 (26-34) PG MCHC 32.7 (30-36) % RDW 13.6 (11.6-14.8) % Plt Count 193 (150-400) X10^3/uL Neut % (Auto) 68.1 (50-75) % Lymph % (Auto) 18.6 L (25-40) % George % (Auto) 8.6 (3-14) % Eos % (Auto) 3.9 (2-4) % Baso % (Auto) 0.8 (0-2) % Neut # (Auto) 4500 (9268-4517) /uL Lymph # (Auto) 1200 (9498-4836) /uL George # (Auto) 600 (0-900) /uL Eos # (Auto) 300 (0-450) /uL Baso # (Auto) 100 (0-100) /uL Sodium 138 (137-145) mmol/L Potassium 4.1 (3.4-5.1) mmol/L Chloride 102 (98-107) mmol/L Carbon Dioxide 28 (22-32) mmol/L BUN 19 H (7-17) mg/dL Creatinine 0.73 (0.52-1.04) mg/dL Estimated GFR > 60 (>60) mL/min BUN/Creatinine Ratio 26.0 H (6-22) Glucose 109 H (70-100) mg/dL Calcium 9.0 (8.4-10.2) mg/dL Total Bilirubin 0.2 (0.2-1.3) mg/dL AST 28 (14-36) IU/L ALT 31 (<35) IU/L Alkaline Phosphatase 94 (38-126) U/L Total Protein 7.6 (6.3-8.2) g/dL Albumin 4.1 (3.5-5.0) g/dL Globulin 3.5 (1.7-4.1) g/dL Albumin/Globulin Ratio 1.2 (1.0-2.8) SARS-CoV-2 (PCR) Negative (Negative) Influenza A (RT-PCR) Flu a negative (NEGATIVE) Influenza B (RT-PCR) Flu b negative (NEGATIVE) RSV (PCR) Negative (Negative) Point of Care Testing Rapid Strep A Negative MDM Narrative Medical decision making narrative: CC: 51-year-old female with history of bilateral PEs and bronchiectasis with recent RSV diagnosis presents with loss of voice harsh sounding cough and occasional fever Complicating co-morbidities: bronchiectasis, pulmonary emboli Data collected from: patient and family Medical records reviewed: including prior emergency department visits Differential considered, but not limited to: flu, RSV, COVID, pneumonia, atypical pneumonia vs. other Exam documented above, pertinent findings include: loss of voice, harsh sounding cough absent of rales or rhonchi Lab Test results independently reviewed as above. Pertinent findings: no significant leukocytosis or electrolyte abnormality, no acute kidney injury. Respiratory swabs negative Imaging studies independently reviewed: chest x-ray without obvious infiltrate Treatments: IV fluids, codeine syrup, steroids, antibiotics Re-evaluations: patient feeling significant improvement Discussion: 51-year-old female with history of PEs and bronchiectasis as well as recent RSV diagnosis presents with various upper respiratory complaints including nasal congestion, loss of voice, harsh wheezy cough. Chest x-ray without infiltrate, patient not requiring supplemental oxygen shows no sign of sepsis. She has significant improvement with above-stated therapies. Patient given coverage for atypical pneumonia given duration of symptoms and multiple comorbidities. Disposition: see below, along with detailed discharge instructions that have been reviewed with patient as well as indications for ED re-evaluation and additional outpatient follow up Discharge Plan Departure Patient Disposition: Home Clinical Impression: Atypical pneumonia Instructions: DI for Atypical Pneumonia Activity Restrictions/Additional Instructions: *You have been diagnosed with [atypical pneumonia] *What to do: *Please continue to take your regular medications as directed. [x ] New medication prescriptions sent to your pharmacy: [facility][ ] [ ] New medication written as a paper prescription [ ] No new medications given *Please follow up with your primary care provider in 2-3 days, call for an appointment. Let them know you were seen in the Emergency Department and that we ask that you be seen in follow up. We will electronically transmit a record of today's note if your PCP is in our system *If you do not have a primary care provider please contact the [facility] Resource line at [phone]. They will ask some questions about your medical history and help get you set up with a doctor in the community. *Return to Emergency Department if you should have any new, worsening or concerning symptoms, such as [fever greater than 101 F, shaking chills, worsening pain, persistent vomiting or other bothersome symptoms] Prescriptions: New benzonatate 200 mg capsule 200 mg PO BID PRN (Reason: cough) Qty: 20 0RF prednisone 10 mg tablet See Rx Instructions .ROUTE .COMPLEX Qty: 30 0RF Rx Instructions: Day 1,2,3: 40mg PO Daily Day 4,5,6: 30mg PO Daily Day 7,8,9: 20mg PO Daily Day 10,11,12: 10mg PO Daily #30 doxycycline hyclate 100 mg tablet 100 mg PO BID Qty: 20 0RF acetaminophen-codeine 300-30 mg tablet 1 tab PO BID PRN (Reason: pain) Qty: 20 0RF No Action azithromycin [Zithromax] 250 mg tablet See Rx Instructions PO .COMPLEX Qty: 6 0RF Rx Instructions: For 250 mg dose pack: take 500 mg today (day 1), then 250 mg for 4 days (days 2-5) PO methylprednisolone [Medrol (Philipp)] 4 mg tablets,dose pack See Rx Instructions PO PER PKG DIR Qty: 21 0RF Rx Instructions: PO PER PKG DIR codeine-guaifenesin 10-100 mg/5 mL liquid 5 ml PO Q6H PRN (Reason: cough) Qty: 237 0RF Botox 100 unit recon soln 200 unit IM ONCE Label Comments: pt reports takes every three months zolpidem 10 mg tablet 10 mg PO BEDTIME PRN (Reason: insomnia) Qty: 90 1RF clonidine HCl 0.1 mg tablet See Rx Instructions PO BID PRN (Reason: Anxiety) Qty: 180 3RF Rx Instructions: Take 1 tab by mouth in the morning and 4 tabs at bedtime. May take an additional 1 tab by mouth twice a day PRN severe anxiety. bupropion HCl [Wellbutrin SR] 150 mg tablet sustained-release 12 hr 150 mg PO .COMPLEX Qty: 360 3RF Rx Instructions: Take 300 mg in the morning and 300 mg noon-2:00 p.m. vortioxetine 20 mg tablet 20 mg PO DAILY Qty: 90 3RF lamotrigine 200 mg tablet 200 mg PO BID Qty: 180 3RF Ubrelvy 50 mg tablet 50 mg PO ONCE PRN (Reason: migraine headache) Rx Instructions: as a single dose; may repeat once in >=2 hours after first dose if needed lithium carbonate 300 mg capsule 900 mg PO .QHS MDD 2700mg PRN (Reason: Anxiety/Manic episodes) Qty: 90 2RF Rx Instructions: Always take with food. quetiapine 100 mg tablet 100 mg PO BEDTIME Qty: 90 3RF Rx Instructions: Take 100 mg (1 tab) PO QHS; may take an additional 100-200 mg as needed for manic symptoms. ondansetron HCl 4 mg tablet 4 - 8 mg PO TID PRN (Reason: nausea and vomiting) Qty: 180 2RF celecoxib 200 mg capsule See Rx Instructions .ROUTE .COMPLEX Qty: 180 0RF Dose Instruction: TAKE 1 CAPSULE BY MOUTH TWICE DAILY NEEDED FOR PAIN Rx Instructions: TAKE 1 CAPSULE BY MOUTH TWICE DAILY NEEDED FOR PAIN lorazepam [Ativan] 2 mg tablet See Rx Instructions PO DAILY PRN (Reason: anxiety) Qty: 120 0RF Rx Instructions: 2mg @ 8am, 2mg @ 2pm and 4mg po hs promethazine 25 mg tablet 25 mg PO TID PRN (Reason: nausea and vomiting) Qty: 90 1RF fluticasone propionate [Flonase Allergy Relief] 50 mcg/actuation spray,suspension 2 spray Intranasal BEDTIME Qty: 16 5RF apixaban 5 mg tablet 5 mg PO BID Qty: 180 0RF Rx Instructions: Take one tablet by mouth twice a day. benzonatate 200 mg capsule 200 mg PO BID-TID PRN (Reason: cough) Qty: 60 1RF albuterol sulfate 90 mcg/actuation HFA aerosol inhaler 2 puff INHALATION Q6H PRN (Reason: Shortness Of Breath) Qty: 18 2RF (DME) Flexichamber Spacer See Rx Instructions .ROUTE .MEDSUPPLY Qty: 1 0RF Rx Instructions: As directed Caltrate 600 plus D 600 mg (1,500 mg)-800 unit tablet,chewable 1 tab PO BID rimegepant 75 mg tablet,disintegrating 75 mg PO ONCE PRN (Reason: Migraine Headache) Rx Instructions: as a single dose; not to exceed 1 dose per 24 hrs OR 8 doses per 30 days iron sucrose IV tizanidine [Zanaflex] 4 mg capsule 4 mg PO BEDTIME PRN (Reason: muscle spasticity) Qty: 60 1RF acetaminophen 500 mg Tablet 1,000 mg PO Q6H PRN (Reason: Pain, Mild) omeprazole 20 mg Capsule,Delayed Release(Dr/Ec) 20 mg PO BID vitamin E 600 unit capsule 400 unit PO BID zonisamide 100 mg Capsule 275 mg PO BEDTIME cetirizine [Zyrtec] 10 mg Tablet 10 mg PO DAILY (DME) Resmed Aircurve 10 BIPAP Qty: 1 Dose Instruction: As directed Label Comments: Pressure: IPAP 14 EPAP 6 DME: [facility] Rx Instructions: As directed Referrals: Blake Waller DO [Primary Care Provider] - Stand Alone Forms: Patient Portal/API
[2022-08-01 04:18] LABS: Add Manual Diff / Slide Review NO; Basophils Absolute Auto 100 /uL (0-100); Basophils Percent Auto 0.8 % (0-2); Eosinophils Absolute Auto 300 /uL (0-450); Eosinophils Percent Auto 3.9 % (2-4); Hematocrit 37.8 % (36-46); Hemoglobin 12.4 g/dL (12.0-16.0); Lymphocytes Absolute Auto 1200 /uL (1100-4500); Lymphocytes Percent Auto 18.6 % (25-40); Mean Corpuscular HGB Conc 32.7 % (30-36); Mean Corpuscular Volume 94.7 fL (80-100); Monocytes Absolute Auto 600 /uL (0-900); Monocytes Percent Auto 8.6 % (3-14); Neutrophils Absolute Auto 4500 /uL (1500-7000); Neutrophils Percent Auto 68.1 % (50-75); Platelet Count 193 X10^3/uL (150-400); Red Blood Cell Count 3.99 X10^6/uL (4.0-5.2); Red Cell Distribution Width 13.6 % (11.6-14.8); White Blood Cell Count 6.6 X10^3/uL (4.5-11.0)
[2022-08-01] MEDS: methylPREDNISolone 125 MG/2 ML VIAL IV (04:18)
[2022-08-01] MEDS: SODIUM CHLORIDE 0.9% 1,000 ML 1000 ML IV (04:18)
[2022-08-01] MEDS: DOXYCYCLINE HYCLATE 100 MG TABLET PO (04:18)
[2022-08-01] MEDS: ACETAMINOPHEN/CODEINE SOLN 5 ML SOLUTION PO (04:19)
[2022-08-01 04:31] LABS: Alanine Aminotransferase 31 IU/L (<35); Albumin 4.1 g/dL (3.5-5.0); Albumin Globulin Ratio 1.2 (1.0-2.8); Alkaline Phosphatase 94 U/L (38-126); Aspartate Aminotransferase 28 IU/L (14-36); Bilirubin Total 0.2 mg/dL (0.2-1.3); Blood Urea Nitrogen 19 mg/dL (7-17); Carbon Dioxide 28 mmol/L (22-32); Chloride 102 mmol/L (98-107); Estimated Glomerular Filt Rate > 60 mL/min (>60); Globulin 3.5 g/dL (1.7-4.1); Glucose 109 mg/dL (70-100); HEMOLYSIS < 15 (0-50); Potassium 4.1 mmol/L (3.4-5.1); Sodium 138 mmol/L (137-145); Total Protein 7.6 g/dL (6.3-8.2)
[2022-08-01 06:29] VITALS: BP 142/73; PULSE 69; RESP 18; TEMP 36.4; O2SAT 92
== END 2022-08-01 07:33 | disposition home or self-care (01) ==
PROVIDERS: Emergency Provider Emergency Medicine; Family Provider Family Medicine; PCP Family Medicine
DX: J18.9 Pneumonia, unspecified organism (principal); Z79.899 Other long term (current) drug therapy; Z20.822 Contact with and (suspected) exposure to COVID-19
CPT/HCPCS: 0241U; 71046; 80053; 85025; 87880; 96361; 96374; 99284; J1642; J2930

== ENCOUNTER → 2022-09-13 09:10 | Outpatient (CLI) | payer OTHER, SELFPAY ==
[2021-11-28 16:09] VITALS: RESP 17; O2SAT 94; BMI 44.6
--- NOTE | 2022-09-13 09:12 | DI.RAD.S_ITS ---
PROCEDURE: XR CHEST 2V INDICATIONS: Fever of unknown origin TECHNIQUE: 2 views of the chest were acquired. COMPARISON: [facility], , XR CHEST 2V, 07/26/2022, 14:14. [facility], CR, XR CHEST 2V, 07/31/2022, 22:37. FINDINGS: Surgical changes and devices: There is a Port-A-Cath on the left with the tip projecting to the brachiocephalic confluence. A nerve stimulator is seen with the electrodes projecting to the lower thoracic spine. Lungs and pleura: Lungs are clear. No pleural effusions or pneumothorax. Mediastinum: Mediastinal contours are normal. Heart size is normal. Bones and chest wall: No suspicious bony abnormalities. Soft tissues appear unremarkable. IMPRESSION: No acute cardiopulmonary disease. Dictated by: Tigist Payne M.D. on 09/13/2022 at 12:04 Approved by: Tigist Payne M.D. on 09/13/2022 at 12:05
--- NOTE | 2022-09-13 12:47 | DI.CT.S_ITS ---
PROCEDURE: CT ABDOMEN PELVIS W CON INDICATIONS: Ruling out Abscess TECHNIQUE: After the administration of oral and intravenous contrast, axial sections were acquired from the lung bases to the pubic symphysis. Coronal and sagittal reformats were performed. For radiation dose reduction, the following was used: automated exposure control, adjustment of mA and/or kV according to patient size. COMPARISON:[facility], CT, CT ABDOMEN PELVIS W CON, 01/23/2020, 11:59. FINDINGS: Image quality: Excellent. Lung bases: Lung bases are clear. Heart size is normal. Solid organs: Liver: The liver has no mass or intrahepatic biliary ductal dilatation. The portal vein and hepatic veins are patent. Biliary: Status post cholecystectomy. Pancreas: The pancreas has no mass or ductal dilatation. There is no surrounding inflammation. Spleen: Normal size. There are no masses. Adrenals: No hypertrophy or nodules. Kidneys: No obstructive calculus or hydronephrosis. No solid mass. No cystic mass. Peritoneum and bowel: The distal esophagus and stomach are normal. The small bowel has a normal caliber and appearance. The terminal ileum is normal. The large bowel has a normal caliber and appearance. No free fluid or air. Nodes and vessels: No retroperitoneal or mesenteric adenopathy by size criteria. Aorta and inferior vena cava are normal in size. Miscellaneous: No abdominal wall mass or hernia. PELVIS: Genitourinary: The bladder has no wall thickening or mass. No bladder calcifications. Bones: No suspicious bony lesions. No vertebral body compression fractures. IMPRESSION: No acute abnormality of the abdomen or pelvis. Dictated by: Giovanni Quezada M.D. on 09/13/2022 at 15:11 Approved by: Giovanni Quezada M.D. on 09/13/2022 at 15:16
== END ==
PROVIDERS: Family Provider Family Medicine; PCP Family Medicine; Referring Provider Family Medicine; Visit Provider Family Medicine
DX: J18.9 Pneumonia, unspecified organism (principal); R50.9 Fever, unspecified; F31.9 Bipolar disorder, unspecified; F41.1 Generalized anxiety disorder; F43.12 Post-traumatic stress disorder, chronic
CPT/HCPCS: 71046; 74177; Q3014; Q9967

== ENCOUNTER → 2022-10-19 12:02 | Outpatient (CLI) | payer OTHER, SELFPAY ==
[2021-11-28 16:09] VITALS: RESP 17; O2SAT 94; BMI 44.6
--- NOTE | 2022-10-27 12:11 | PM.PFT.1 ---
Pulmonary Function Test Referral & Results Date Patient Seen: 10/19/22 Results: The spirometry demonstrates an FVC of 3.41 L which is 102% of predicted. The FEV1 was measured at 2.80 L which is 106% of predicted. The FEV1/FVC ratio was 82 which is 104% of predicted. Following the administration of bronchodilator there was no appreciable change to above normal numbers. Lung volumes show an SVC of 3.75 L which is 121% of predicted. The diffusing capacity was measured at 20.57 which is 124% of predicted. The maximum voluntary ventilation was normal Interpretation: This study demonstrates normal pulmonary function
== END ==
PROVIDERS: Family Provider Family Medicine; PCP Family Medicine; Referring Provider Specialist; Visit Provider Specialist
DX: J47.9 Bronchiectasis, uncomplicated (principal); J45.909 Unspecified asthma, uncomplicated
CPT/HCPCS: 94060; 94726; 94729

== ENCOUNTER → 2023-06-28 08:08 | Outpatient (CLI) | payer OTHER, SELFPAY ==
[2023-03-20 10:37] VITALS: RESP 17; O2SAT 94; BMI 44.6
--- NOTE | 2023-06-28 | DI.MG.S_ITS ---
BILATERAL DIGITAL SCREENING MAMMOGRAM 3D/2D WITH CAD: 06/28/2023 CLINICAL: Routine screening. Family history of breast cancer. Comparison is made to exams dated: 04/20/2022 mammogram, 11/02/2020 mammogram, 03/17/2020 mammogram, 02/24/2020 mammogram, and 11/13/2018 mammogram - [facility]. There are scattered areas of fibroglandular density in both breasts (category b / 25%-50% glandular tissue). Current study was also evaluated with a Computer Aided Detection (CAD) system. No significant masses, calcifications, or other findings are seen in either breast. IMPRESSION: NEGATIVE There is no mammographic evidence of malignancy. A 1 year screening mammogram is recommended. Based on the Tyrer Cuzick model (a risk assessment model) the patient's lifetime risk is 16.4% and her 10 year risk is 4.8%. According to the ACR, ACS, and NCCN guidelines, an annual breast MRI exam along with mammogram is recommended if the patient's lifetime risk is 20% or greater. This exam was interpreted at Station ID: [id number]. NOTE: For mammograms, a report in lay terms will be sent to the patient. Approximately 15% of breast malignancies will not be visualized mammographically. In the management of a palpable breast mass, a negative mammogram must not discourage biopsy of a clinically suspicious lesion. Electronically Signed By: Sandy Mojica M.D., PH.D sherry/blue:06/28/2023 15:04:40 letter sent: Normal Exam ACR BI-RADS Category 1: Negative [id number]
== END ==
PROVIDERS: Family Provider Family Medicine; PCP Family Medicine; Referring Provider Family Medicine; Visit Provider Family Medicine
DX: Z12.31 Encounter for screening mammogram for malignant neoplasm of breast (principal); Z80.3 Family history of malignant neoplasm of breast
CPT/HCPCS: 77063; 77067

== ENCOUNTER 2023-10-10 20:46 | Emergency (ER) | payer OTHER, SELFPAY ==
[2023-03-20 10:37] VITALS: RESP 17; O2SAT 94; BMI 44.6
[2023-10-10] VITALS (7 sets, daily range): BP systolic 120–154; BP diastolic 56–96; PULSE 67–81; RESP 18–24; TEMP 36.9; O2SAT 94–99; BMI 36.3
--- NOTE | 2023-10-10 21:16 | ED.GENADULT ---
HPI - General Adult General Chief complaint: Abdominal Pain Stated complaint: abd pain, vomiting Time Seen by Provider: 10/10/23 21:04 Source: patient Mode of arrival: Ambulatory History of Present Illness HPI narrative: Patient is a 52-year-old female. Has a history of small-bowel obstructions requiring surgery and history of ischemic colitis. She stated about 1500 hours this afternoon she started to left-sided abdominal discomfort that she states very similar to her prior history of bowel obstructions. She has had some nausea today. Has been using her home nausea medications. No urinary symptoms. She did have a bowel movement this morning without any blood. She had a physical yesterday and did state that she would some diffuse abdominal tenderness but is certainly worse than it is today. Subjective fevers. Related Data Home Medications Medication Instructions Recorded Confirmed acetaminophen 500 mg tablet 1,000 mg PO Q6H PRN Pain, Mild 03/06/18 08/15/23 Resmed Aircurve 10 BIPAP #1 ea 11/25/18 08/15/23 cetirizine 10 mg tablet (Zyrtec) 10 mg PO DAILY 04/18/19 08/15/23 omeprazole 20 mg capsule,delayed 20 mg PO BID 01/15/20 08/15/23 release ubrogepant 50 mg tablet (Ubrelvy) 50 mg PO ONCE PRN migraine headache 08/10/20 08/15/23 calcium carbonate 600 mg-vitamin 1 tab PO BID 01/10/21 08/15/23 D3 20 mcg (800 unit) chewable tablet (Caltrate 600 plus D) iron sucrose IV 01/10/21 08/15/23 fluticasone 100 mcg-salmeterol 50 inhalation Asthma 10/09/23 10/09/23 mcg/dose blistr powdr for inhalation (Wixela Inhub) montelukast 10 mg tablet 10 mg PO DAILY Asthma 10/09/23 10/09/23 topiramate 100 mg tablet (Topamax) 100 mg PO BID Severe migraine 10/09/23 10/09/23 headaches. vitamin E mixed 400 unit tablet unit PO BID 10/09/23 10/09/23 Previous Rx's Medication Instructions Recorded albuterol sulfate 90 mcg/actuation 2 puff inhalation Q6H PRN 05/17/20 aerosol inhaler Shortness Of Breath #18 grams inhalational spacing device #1 ea 05/17/20 (Flexichamber spacer) lithium carbonate 300 mg capsule 1,200 mg (4 x 300 mg) PO .QHS PRN 04/09/23 Anxiety/Manic episodes #120 caps celecoxib 200 mg capsule See Rx Instructions .Route 05/21/23 .COMPLEX #180 caps bupropion HCl 150 mg tablet,12 hr 150 mg PO .COMPLEX #360 ea 05/24/23 sustained-release (Wellbutrin SR) lamotrigine 200 mg tablet 200 mg PO BID #180 tabs 05/24/23 quetiapine 100 mg tablet See Rx Instructions PO .COMPLEX 05/24/23 PRN agitation #120 tabs quetiapine 25 mg tablet 25 mg PO TID PRN agitation and 05/24/23 mood instability #90 tabs vortioxetine 20 mg tablet 40 mg (2 x 20 mg) PO DAILY #180 05/24/23 tabs apixaban 5 mg tablet 5 mg PO BID #180 tabs 07/03/23 benzonatate 200 mg capsule 200 mg PO BID-TID PRN cough #60 07/24/23 caps zolpidem 10 mg tablet 10 mg PO BEDTIME PRN insomnia #90 07/25/23 tabs fluticasone propionate 50 See Rx Instructions .Route 08/22/23 mcg/actuation nasal .COMPLEX #48 grams spray,suspension levothyroxine 50 mcg tablet 50 mcg PO DAILY #60 tabs 09/05/23 lorazepam 2 mg tablet (Ativan) See Rx Instructions PO DAILY PRN 09/17/23 anxiety #120 tabs ondansetron HCl 4 mg tablet See Rx Instructions .Route 09/17/23 .COMPLEX #180 tabs tizanidine 4 mg tablet See Rx Instructions .Route 09/17/23 .COMPLEX #60 tabs clonidine HCl 0.1 mg tablet See Rx Instructions PO BID PRN 09/25/23 Anxiety #180 tabs promethazine 25 mg tablet 25 mg PO TID PRN nausea and 09/25/23 vomiting #90 tabs Allergies Allergy/AdvReac Type Severity Reaction Status Date / Time No Known Drug Allergies Allergy Verified 10/10/23 21:01 Review of Systems Review of Systems ROS Unobtainable: All systems reviewed & are unremarkable except as noted in HPI and below Patient History Medical History (Updated 10/10/23 @ 23:49 by Kingsley George DO) Medicare annual wellness visit, subsequent Pulmonary embolism (2006) Subjective fever Bacterial conjunctivitis of left eye Plantar wart of left foot Plantar fasciitis Tendinitis of left rotator cuff Bronchitis Chronic kidney disease Strain of tendon of left rotator cuff Well adult exam Spinal cord stimulator status Neck pain Acute bronchitis Pneumonia Fatty liver Hyperlipidemia Transient hypotension Shoulder arthritis Neck arthritis Arthritis of knee Abnormal CXR (chest x-ray) S/P ECT (electroconvulsive therapy) (2013) Chronic neck pain Lumbar spine pain GI bleeding Ischemic colitis (2013) Diastolic dysfunction Pulmonary hypertension Hypertension Diabetes mellitus GERD (gastroesophageal reflux disease) Irregular periods/menstrual cycles Chicken pox Plantar warts Chronic back pain Chronic headaches Migraines Anxiety Depression Asthma Ankle fracture, left (1986) Insomnia due to other mental disorder Spinal cord stimulator status High risk medication use Bipolar 1 disorder, depressed Obstructive sleep apnea syndrome (2007) Chronic anemia History of ischemic colitis History of pulmonary embolism Panic attacks PTSD (post-traumatic stress disorder) Surgical History History of spinal surgery (2010) Anesthesia History of open reduction and internal fixation (ORIF) procedure (1986) History of endometrial ablation (2008) History of esophagogastroduodenoscopy (EGD) (04/19/17) Status post peripherally inserted central catheter (PICC) central line placement (04/04/17) Status post cardiac catheterization (2007) History of gastric bypass (2009) Status post cholecystectomy (2007) History of bowel resection (1995) History of gastric bypass Family History Father Age: 79 Hypertension Sick sinus syndrome Heart disease Mother Age: 76 Hyperlipidemia Mental health problem Arthritis Hayfever Seasonal allergies Hypertension Sister No problems noted. Social History marital status: details: 2013 Adriana Blanco; couple > 20 yrs. 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 [employer]: [employer] Smoking Status: Never smoker alcohol intake: never substance use type: does not use Smoking Status: Never smoker alcohol intake frequency: 0-2 drinks per day Substance Use Type: does not use Exam Initial Vital Signs Initial Vital Signs: Vital Signs Temperature 98.5 F 10/10/23 20:56 Pulse Rate 81 10/10/23 20:56 Respiratory Rate 24 10/10/23 20:56 Blood Pressure 154/96 H 10/10/23 20:56 Pulse Oximetry 97 10/10/23 20:56 Oxygen Delivery Method Room Air 10/10/23 20:56 Const General: cooperative, comfortable and No ill appearing HENMT Head: normal to inspection and normocephalic Resp Effort & Inspection: normal respiratory effort Cardio Rate: regular rate GI Inspection: normal to inspection and non-distended Palpation: soft, No firm, No guarding and tender (Left lower quadrant) Skin General: no rashes or lesions noted Neuro General: patient alert, patient awake and moves all extremities Extrem General: capillary refill normal Course Orders Ordered: ED Orders 10/10/23 21:02 EKG-12 Lead Stat 10/10/23 21:16 CT angio abdomen pelvis Stat 10/10/23 21:40 Complete Blood Count AUTO DIFF Stat Comprehensive Metabolic Panel Stat Lactate (Lactic Acid) Stat Lipase Stat Discontinued Medications Metoclopramide HCl (Metoclopramide 10 Mg/2 Ml Inj) 10 mg IV NOW ONE Stop: 10/10/23 22:16 Last Admin: 10/10/23 22:23 Dose: 10 mg Documented By: CELIO Morphine Sulfate (Morphine 4 Mg/Ml Inj) 4 mg IV NOW ONE Stop: 10/10/23 21:17 Last Admin: 10/10/23 21:34 Dose: 4 mg Documented By: CELIO Ondansetron HCl (Ondansetron 4 Mg Odt) 4 mg PO NOW PRN PRN Reason: Nausea And Vomiting Ondansetron HCl (Ondansetron 4 Mg/2 Ml Inj) 4 mg IV NOW PRN PRN Reason: Nausea And Vomiting Last Admin: 10/10/23 21:33 Dose: 4 mg Documented By: CELIO Vital Signs Vital signs: Vital Signs - 8 hr 10/10/23 20:56 10/10/23 21:01 10/10/23 22:12 Temperature 98.5 F Pulse Rate 81 77 67 Respiratory Rate 24 18 Blood Pressure 154/96 H Pulse Oximetry 97 98 99 Oxygen Delivery Method Room Air 10/10/23 22:30 10/10/23 23:00 10/10/23 23:02 Temperature Pulse Rate 79 68 Respiratory Rate 18 Blood Pressure 120/56 L Pulse Oximetry 96 94 Oxygen Delivery Method 10/10/23 23:02 10/10/23 23:30 Temperature Pulse Rate 72 77 Respiratory Rate Blood Pressure Pulse Oximetry 96 94 Oxygen Delivery Method Medical Decision Making Lab Data Lab results reviewed: Yes I reviewed the patient's lab results. 10/10/23 21:40 10/10/23 21:40 Labs: Lab Results 10/10/23 Range/Units 21:40 WBC 5.9 (4.5-11.0) X10^3/uL RBC 4.46 (4.0-5.2) X10^6/uL Hgb 13.8 (12.0-16.0) g/dL Hct 41.2 (36-46) % MCV 92.5 (80-100) fL MCH 30.9 (26-34) PG MCHC 33.4 (30-36) % RDW 13.4 (11.6-14.8) % Plt Count 225 (150-400) X10^3/uL Neut % (Auto) 57.5 (50-75) % Lymph % (Auto) 32.9 (25-40) % [place] % (Auto) 8.8 (3-14) % Eos % (Auto) 0.4 L (2-4) % Baso % (Auto) 0.4 (0-2) % Neut # (Auto) 3400 (3732-0557) /uL Lymph # (Auto) 1900 (2592-1072) /uL [place] # (Auto) 500 (0-900) /uL Eos # (Auto) 0 (0-450) /uL Baso # (Auto) 0 (0-100) /uL Sodium 140 (137-145) mmol/L Potassium 3.9 (3.4-5.1) mmol/L Chloride 114 H (98-107) mmol/L Carbon Dioxide 20 L (22-32) mmol/L BUN 14 (7-17) mg/dL Creatinine 0.90 (0.52-1.04) mg/dL Estimated GFR > 60 (>60) mL/min BUN/Creatinine Ratio 15.6 (6-22) Glucose 75 (70-100) mg/dL Lactate 0.6 L (0.7-2.1) mmol/L Calcium 9.5 (8.4-10.2) mg/dL Total Bilirubin 0.3 (0.2-1.3) mg/dL AST 24 (14-36) IU/L ALT 20 (<35) IU/L Alkaline Phosphatase 73 (38-126) U/L Total Protein 7.7 (6.3-8.2) g/dL Albumin 4.3 (3.5-5.0) g/dL Globulin 3.4 (1.7-4.1) g/dL Albumin/Globulin Ratio 1.3 (1.0-2.8) Lipase 69 (23-300) U/L Imaging Data CT scan - abdomen/pelvis: Radiologist's Impression: PROCEDURE: CT ANGIO ABDOMEN PELVIS INDICATIONS: hx of bowel obstruction and ischemic colitis with abdominal TECHNIQUE: After the administration of intravenous contrast, 2.5 mm sections acquired from the diaphragm to the iliac crests. 10 mm maximum intensity projection (MIP) coronal and sagittal reformats were then performed. For radiation dose reduction, the following was used: automated exposure control. COMPARISON: [facility], CT, CT ABDOMEN PELVIS W CON, 09/13/2022, 13:50. FINDINGS: Image quality: Diagnostic. Abdominal aorta: Normal caliber. No evidence of dissection. No atherosclerotic calcification. Mesenteric arteries: Widely patent. Renal arteries: Single renal arteries without stenosis or irregularity. Lower chest: Clear lung bases. Normal size heart. ABDOMEN: Liver: No abnormalities given the arterial phase of contrast. Gallbladder: Surgically absent. Biliary ducts: No biliary dilation. Pancreas: Normal. Spleen: Size is within normal limits. Adrenal Glands: No adrenal nodules. Kidneys and Ureters: Symmetric enhancement. No nephrolithiasis or hydronephrosis. No hydroureter. Left upper pole renal cyst. Stomach and Bowel: There are surgical changes of gastric bypass and staple lines of bowel anastomoses in the mid abdomen. There is a large quantity of solid colonic stool. No colon wall thickening or pericolonic inflammation. The appendix is not seen, potentially absent. No evidence of small bowel obstruction. Peritoneum: No abnormal intraperitoneal fluid. No free air. Ventral Wall: No hernia. Abdominal Nodes: No retroperitoneal or mesenteric adenopathy by size criteria. Vessels: Aorta, as above. Normal IVC. PELVIS: Pelvic Organs: Normal CT appearance of uterus and ovaries. Bladder: Normal wall thickness. No stones. Pelvic Nodes: No enlarged lymph nodes. Miscellaneous: Left gluteal epidural nerve stimulator power pack. Leads present in the dorsal soft tissues and spinal canal. Bones: No aggressive osseous abnormality. IMPRESSION: No acute process. Large quantity of stool present consistent with obstipation. Surgical changes to the stomach and bowel loops without evidence of complication. Normal abdominal arterial vasculature. MDM Narrative Medical decision making narrative: Patient does have a relatively benign exam. Labs are unremarkable. CT scan does not show any acute pathology. It does show quite a bit of stool in her colon. I did discuss this with her. She does state that she takes stool softeners and fiber but did have a bowel movement this morning. I recommended that she increase her bowel regimen to start taking laxatives. She may have to do this multiple times. The only potential etiology of the abdominal pain that we have discovered would be the potential constipation. There was no indication for antibiotics. No indication for admission to the hospital. No indication for surgical consultation. Patient was given return precautions. She expressed understanding and agreement. Discharge Plan Departure Patient Disposition: Home Clinical Impression: Abdominal pain Instructions: DI for Abdominal Pain-Adult Activity Restrictions/Additional Instructions: Recommend that you continue to take all of your medications as directed. I do recommend that you increase your bowel regimen to include a laxative such as MiraLax. Contact your primary doctor for a follow-up. Return to the emergency department for new symptoms. Prescriptions: No Action quetiapine 25 mg tablet 25 mg PO TID PRN (Reason: agitation and mood instability) Qty: 90 3RF quetiapine 100 mg tablet See Rx Instructions PO .COMPLEX PRN (Reason: agitation) Qty: 120 5RF Rx Instructions: 100mg QD PRN & 300mg Qbedtime orally vortioxetine 20 mg tablet 40 mg PO DAILY Qty: 180 3RF bupropion HCl [Wellbutrin SR] 150 mg tablet sustained-release 12 hr 150 mg PO .COMPLEX Qty: 360 3RF Rx Instructions: Take 300 mg in the morning and 300 mg noon-2:00 p.m. lamotrigine 200 mg tablet 200 mg PO BID Qty: 180 3RF levothyroxine 50 mcg tablet 50 mcg PO DAILY Qty: 60 2RF Ubrelvy 50 mg tablet 50 mg PO ONCE PRN (Reason: migraine headache) Rx Instructions: as a single dose; may repeat once in >=2 hours after first dose if needed lithium carbonate 300 mg capsule 1,200 mg PO .QHS PRN (Reason: Anxiety/Manic episodes) Qty: 120 1RF Rx Instructions: Always take with food. apixaban 5 mg tablet 5 mg PO BID Qty: 180 3RF Rx Instructions: Take one tablet by mouth twice a day. benzonatate 200 mg capsule 200 mg PO BID-TID PRN (Reason: cough) Qty: 60 1RF zolpidem 10 mg tablet 10 mg PO BEDTIME PRN (Reason: insomnia) Qty: 90 0RF fluticasone propionate 50 mcg/actuation spray,suspension See Rx Instructions .ROUTE .COMPLEX Qty: 48 1RF Dose Instruction: SHAKE LIQUID AND USE 2 SPRAYS IN EACH NOSTRIL AT BEDTIME Rx Instructions: SHAKE LIQUID AND USE 2 SPRAYS IN EACH NOSTRIL AT BEDTIME ondansetron HCl 4 mg tablet See Rx Instructions .ROUTE .COMPLEX Qty: 180 1RF Dose Instruction: TAKE 1 OR 2 TABLETS BY MOUTH THREE TIMES DAILY NEEDED FOR NAUSEA AND VOMITING Rx Instructions: TAKE 1 OR 2 TABLETS BY MOUTH THREE TIMES DAILY NEEDED FOR NAUSEA AND VOMITING tizanidine 4 mg tablet See Rx Instructions .ROUTE .COMPLEX Qty: 60 1RF Dose Instruction: TAKE 1 TABLET BY MOUTH AT BEDTIME NEEDED FOR MUSCLE SPASMS Rx Instructions: TAKE 1 TABLET BY MOUTH AT BEDTIME NEEDED FOR MUSCLE SPASMS NEEDS APPT WITH PCP lorazepam [Ativan] 2 mg tablet See Rx Instructions PO DAILY PRN (Reason: anxiety) Qty: 120 0RF Rx Instructions: 2mg @ 8am, 2mg @ 2pm and 4mg po hs promethazine 25 mg tablet 25 mg PO TID PRN (Reason: nausea and vomiting) Qty: 90 0RF clonidine HCl 0.1 mg tablet See Rx Instructions PO BID PRN (Reason: Anxiety) Qty: 180 2RF Rx Instructions: Take 1 tab by mouth in the morning and 4 tabs at bedtime. May take an additional 1 tab by mouth twice a day PRN severe anxiety. vitamin E mixed 400 unit tablet PO BID fluticasone propion-salmeterol [Wixela Inhub] 100-50 mcg/dose blister with device inhalation montelukast 10 mg tablet 10 mg PO DAILY topiramate [Topamax] 100 mg tablet 100 mg PO BID albuterol sulfate 90 mcg/actuation HFA aerosol inhaler 2 puff INHALATION Q6H PRN (Reason: Shortness Of Breath) Qty: 18 2RF (DME) Flexichamber Spacer See Rx Instructions .ROUTE .MEDSUPPLY Qty: 1 0RF Rx Instructions: As directed Caltrate 600 plus D 600 mg (1,500 mg)-800 unit tablet,chewable 1 tab PO BID iron sucrose IV celecoxib 200 mg capsule See Rx Instructions .ROUTE .COMPLEX Qty: 180 1RF Dose Instruction: TAKE 1 CAPSULE BY MOUTH TWICE DAILY NEEDED FOR PAIN Rx Instructions: TAKE 1 CAPSULE BY MOUTH TWICE DAILY NEEDED FOR PAIN acetaminophen 500 mg Tablet 1,000 mg PO Q6H PRN (Reason: Pain, Mild) omeprazole 20 mg Capsule,Delayed Release(Dr/Ec) 20 mg PO BID cetirizine [Zyrtec] 10 mg Tablet 10 mg PO DAILY (DME) Resmed Aircurve 10 BIPAP Qty: 1 Dose Instruction: As directed Patient Comments: Pressure: IPAP 14 EPAP 6 DME: [facility] Rx Instructions: As directed Referrals: Blake Waller DO [Primary Care Provider] - Stand Alone Forms: Patient Portal/API
[2023-10-10] MEDS: ONDANSETRON 4 MG/2 ML INJ IV (21:33)
[2023-10-10] MEDS: MORPHINE 4 MG/ML INJ IV (21:34)
[2023-10-10 21:49] LABS: Add Manual Diff / Slide Review NO; Basophils Absolute Auto 0 /uL (0-100); Basophils Percent Auto 0.4 % (0-2); Eosinophils Absolute Auto 0 /uL (0-450); Eosinophils Percent Auto 0.4 % (2-4); Hematocrit 41.2 % (36-46); Hemoglobin 13.8 g/dL (12.0-16.0); Lymphocytes Absolute Auto 1900 /uL (1100-4500); Lymphocytes Percent Auto 32.9 % (25-40); Mean Corpuscular HGB Conc 33.4 % (30-36); Mean Corpuscular Hemoglobin 30.9 PG (26-34); Mean Corpuscular Volume 92.5 fL (80-100); Monocytes Absolute Auto 500 /uL (0-900); Monocytes Percent Auto 8.8 % (3-14); Neutrophils Absolute Auto 3400 /uL (1500-7000); Neutrophils Percent Auto 57.5 % (50-75); Platelet Count 225 X10^3/uL (150-400); Red Blood Cell Count 4.46 X10^6/uL (4.0-5.2); Red Cell Distribution Width 13.4 % (11.6-14.8); White Blood Cell Count 5.9 X10^3/uL (4.5-11.0)
[2023-10-10 22:00] LABS: Alanine Aminotransferase 20 IU/L (<35); Albumin 4.3 g/dL (3.5-5.0); Albumin Globulin Ratio 1.3 (1.0-2.8); Alkaline Phosphatase 73 U/L (38-126); Aspartate Aminotransferase 24 IU/L (14-36); BUN Creatinine Ratio 15.6 (6-22); Bilirubin Total 0.3 mg/dL (0.2-1.3); Blood Urea Nitrogen 14 mg/dL (7-17); Calcium 9.5 mg/dL (8.4-10.2); Carbon Dioxide 20 mmol/L (22-32); Chloride 114 mmol/L (98-107); Estimated Glomerular Filt Rate > 60 mL/min (>60); Globulin 3.4 g/dL (1.7-4.1); Glucose 75 mg/dL (70-100); HEMOLYSIS < 15 (0-50); Lactate (Lactic Acid) 0.6 mmol/L (0.7-2.1); Lipase 69 U/L (23-300); Potassium 3.9 mmol/L (3.4-5.1); Sodium 140 mmol/L (137-145); Total Protein 7.7 g/dL (6.3-8.2)
[2023-10-10] MEDS: METOCLOPRAMIDE 10 MG/2 ML INJ IV (22:23)
== END 2023-10-11 | disposition home or self-care (01) ==
PROVIDERS: Emergency Provider Emergency Medicine; Family Provider Family Medicine; PCP Family Medicine
DX: R10.9 Unspecified abdominal pain (principal); Z79.899 Other long term (current) drug therapy
CPT/HCPCS: 36415; 74174; 80053; 83605; 83690; 85025; 96374; 96375; 99284; J2270; J2405; J2765; Q9967